=== PATIENT | female | born 1975 | race African-American/Black ===

== ENCOUNTER 2016-03-09 08:00 | Outpatient (CLI) | payer MEDICAID | END 2016-03-09 08:01 | disposition home or self-care (01) | DX: I48.91 Unspecified atrial fibrillation (principal); Z79.899 Other long term (current) drug therapy ==

== ENCOUNTER 2016-03-13 11:13 | Observation (INO) | payer MEDICAID ==
[2016-03-13] MEDS ORDERED: IPRATROPIUM/ALBUTEROL 3 ML NEB INH STA (12:15)
[2016-03-13] MEDS ORDERED: ASPIRIN CHEW 81 MG TABLET ONE ×2 (12:15→12:19)
[2016-03-13] MEDS ORDERED: ASPIRIN CHEW 81 MG TABLET PO STA (12:15)
[2016-03-13] MEDS ORDERED: predniSONE 20 MG TABLET ONE ×2 (12:15→12:20)
[2016-03-13] MEDS ORDERED: predniSONE 20 MG TABLET PO STA (12:16)
[2016-03-13] MEDS ORDERED: ONDANSETRON 4 MG/2 ML VIAL IVP PRN (14:38)
[2016-03-13] MEDS ORDERED: SODIUM CHLORIDE FLUSH 0.9% 10 ML SYRINGE IVP PRN (14:38)
[2016-03-13] MEDS ORDERED: MORPHINE 2 MG/ML SYRINGE IVP PRN (14:38)
[2016-03-13] MEDS ORDERED: oxyCODONE 5 MG TABLET PO PRN (14:38)
[2016-03-13] MEDS ORDERED: PANTOPRAZOLE 40 MG TABLET PO SCH (15:00)
[2016-03-13] MEDS ORDERED: IPRATROPIUM/ALBUTEROL 3 ML NEB INH PRN (15:35)
[2016-03-13] MEDS ORDERED: ALBUTEROL NEB 2.5 MG/3 ML INH PRN (15:35)
[2016-03-13] MEDS ORDERED: ALPRAZolam 0.25 MG TABLET PO PRN (15:43)
[2016-03-13] MEDS ORDERED: oxyCOD/ACETAMIN 5 MG/325 MG TABLET PO PRN (15:46)
[2016-03-13] MEDS: METOPROLOL TARTRATE 25 MG TABLET PO SCH ×3 (15:58→20:54)
[2016-03-13] MEDS: PROPAFENONE 150 MG TABLET PO SCH (16:00)
[2016-03-13] MEDS: PANTOPRAZOLE 40 MG TABLET PO SCH (20:55)
[2016-03-13] MEDS ORDERED: PRAZOSIN 1 MG CAPSULE PO SCH (21:00)
[2016-03-13] MEDS: methylPREDNISolone SUCCINATE 40 MG/ML VIAL IVP SCH (21:46)
[2016-03-13] MEDS: SODIUM CHLORIDE FLUSH 0.9% 10 ML SYRINGE IVP SCH (21:47)
[2016-03-13] MEDS ORDERED: LORazepam 2 MG/ML SYRINGE IVP PRN (23:25)
[2016-03-14] MEDS: PROPAFENONE 150 MG TABLET PO SCH ×2 (00:34→08:31)
[2016-03-14] MEDS: SODIUM CHLORIDE FLUSH 0.9% 10 ML SYRINGE IVP SCH (05:24)
[2016-03-14] MEDS: methylPREDNISolone SUCCINATE 40 MG/ML VIAL IVP SCH (05:24)
[2016-03-14] MEDS: METOPROLOL TARTRATE 25 MG TABLET PO SCH (08:31)
[2016-03-14] MEDS: PANTOPRAZOLE 40 MG TABLET PO SCH (08:31)
[2016-03-14] MEDS ORDERED: CHOLECALCIFEROL 5,000 UNIT CAPSULE PO SCH (09:00)
[2016-03-14] MEDS ORDERED: ASPIRIN CHEW 81 MG TABLET PO SCH (09:00)
[2016-03-14] MEDS ORDERED: POLYETHYLENE GLYCOL 3350 17 GM PACKET PO SCH (09:00)
[2016-03-14] MEDS ORDERED: CITALOPRAM 10 MG TABLET PO SCH (09:00)
[2016-03-14] MEDS ORDERED: WARFARIN 1 MG TABLET PO SCH (14:00)
[2016-03-14] MEDS ORDERED: WARFARIN 5 MG TABLET PO SCH (14:00)
== END 2016-03-14 12:53 | disposition home or self-care (01) ==
DX: J45.901 Unspecified asthma with (acute) exacerbation (principal); R07.9 Chest pain, unspecified; I49.5 Sick sinus syndrome; I10 Essential (primary) hypertension; F32.9 Major depressive disorder, single episode, unspecified; F41.0 Panic disorder [episodic paroxysmal anxiety]; F43.10 Post-traumatic stress disorder, unspecified; F40.240 Claustrophobia; E66.01 Morbid (severe) obesity due to excess calories; I48.91 Unspecified atrial fibrillation; G47.30 Sleep apnea, unspecified; K21.9 Gastro-esophageal reflux disease without esophagitis; Z68.43 Body mass index [BMI] 50.0-59.9, adult; Z95.0 Presence of cardiac pacemaker; Z87.01 Personal history of pneumonia (recurrent); Z86.73 Personal history of transient ischemic attack (TIA), and cerebral infarction without residual deficits; Z79.01 Long term (current) use of anticoagulants; Z87.891 Personal history of nicotine dependence
CPT/HCPCS: 36415; 71020; 80053; 80061; 81001; 83690; 83880; 84484; 85025; 85610; 85730; 87275; 87276; 93005; 93010; 93306; 94640; 96374; 96375; 96376; 99284; 99285; A9270; G0378; J2060; J7512; J7620

== ENCOUNTER 2016-03-17 | Outpatient (CLI) | payer MEDICAID | END 2016-03-17 10:14 | disposition home or self-care (01) ==

== ENCOUNTER 2016-03-26 17:42 | Emergency (ER) | payer MEDICAID ==
[2016-03-26] MEDS ORDERED: oxyCODONE/ACET 5/325 Prepack 4 PO STA (19:36)
[2016-03-26] MEDS ORDERED: oxyCODONE/ACET 5/325 Prepack 4 PO ONE (19:40)
== END 2016-03-26 19:48 | disposition home or self-care (01) ==
DX: S13.9XXA Sprain of joints and ligaments of unspecified parts of neck, initial encounter (principal); S06.0X0A Concussion without loss of consciousness, initial encounter; W09.2XXA Fall on or from jungle gym, initial encounter; Y93.89 Activity, other specified; Y92.830 Public park as the place of occurrence of the external cause; S90.02XA Contusion of left ankle, initial encounter; I10 Essential (primary) hypertension; I48.91 Unspecified atrial fibrillation; Z79.01 Long term (current) use of anticoagulants

== ENCOUNTER 2016-03-31 | Outpatient (CLI) | payer MEDICAID | END 2016-03-31 11:12 | disposition home or self-care (01) ==

== ENCOUNTER 2016-03-31 10:00 | Outpatient (CLI) | payer MEDICAID | END 2016-03-31 10:01 | disposition home or self-care (01) | DX: I48.91 Unspecified atrial fibrillation (principal); Z79.899 Other long term (current) drug therapy ==

== ENCOUNTER 2016-04-14 10:39 | Outpatient (CLI) | payer MEDICAID | END 2016-04-14 10:40 | disposition home or self-care (01) | DX: Z71.3 Dietary counseling and surveillance (principal); E66.01 Morbid (severe) obesity due to excess calories; Z68.39 Body mass index [BMI] 39.0-39.9, adult ==

== ENCOUNTER 2016-04-15 23:13 | Emergency (ER) | payer MEDICAID ==
[2016-04-15] MEDS ORDERED: LIDOCAINE 2% 10 ML MDV ONE (23:56)
[2016-04-16] MEDS ORDERED: CEPHALEXIN 250 MG CAPSULE PO STA (00:08)
[2016-04-16] MEDS ORDERED: SULFAMETH/TRIMETH DS 800/160 MG TABLET PO STA (00:08)
[2016-04-16] MEDS ORDERED: CEPHALEXIN 250 MG Prepack 8 PO STA (00:08)
[2016-04-16] MEDS ORDERED: SULFAMETH/TRIMETH DS 800/160 MG TABLET PO ONE (00:13)
[2016-04-16] MEDS ORDERED: CEPHALEXIN 250 MG CAPSULE PO ONE (00:13)
[2016-04-16] MEDS ORDERED: CEPHALEXIN 250 MG Prepack 8 PO ONE (00:14)
== END 2016-04-16 00:18 | disposition home or self-care (01) ==
DX: L02.411 Cutaneous abscess of right axilla (principal); I10 Essential (primary) hypertension; I48.91 Unspecified atrial fibrillation; Z79.01 Long term (current) use of anticoagulants; Z95.0 Presence of cardiac pacemaker; E66.01 Morbid (severe) obesity due to excess calories; Z68.43 Body mass index [BMI] 50.0-59.9, adult
CPT/HCPCS: 10160; 81001; 81025; 99282; 99283; A9270

== ENCOUNTER 2016-04-26 15:29 | Outpatient (CLI) | payer MEDICAID | END 2016-04-26 15:30 | disposition home or self-care (01) | DX: I48.91 Unspecified atrial fibrillation (principal); Z79.899 Other long term (current) drug therapy ==

== ENCOUNTER 2016-04-28 | Outpatient (CLI) | payer MEDICAID | END 2016-04-28 09:57 | disposition home or self-care (01) ==

== ENCOUNTER 2016-04-28 09:11 | Outpatient (CLI) | payer MEDICAID | END 2016-04-28 09:12 | disposition home or self-care (01) | DX: I48.91 Unspecified atrial fibrillation (principal); Z79.899 Other long term (current) drug therapy ==

== ENCOUNTER 2016-05-06 22:40 | Emergency (ER) | payer MEDICAID ==
[2016-05-07] MEDS ORDERED: oxyCOD/ACETAMIN 5 MG/325 MG TABLET PO STA (00:42)
[2016-05-07] MEDS ORDERED: oxyCOD/ACETAMIN 5 MG/325 MG TABLET PO ONE (00:43)
== END 2016-05-07 02:03 | disposition home or self-care (01) ==
DX: R07.89 Other chest pain (principal); E66.9 Obesity, unspecified; I10 Essential (primary) hypertension; I48.91 Unspecified atrial fibrillation; Z86.73 Personal history of transient ischemic attack (TIA), and cerebral infarction without residual deficits; Z95.0 Presence of cardiac pacemaker; J45.909 Unspecified asthma, uncomplicated; K21.9 Gastro-esophageal reflux disease without esophagitis; M19.90 Unspecified osteoarthritis, unspecified site
CPT/HCPCS: 36415; 71020; 80053; 83690; 83880; 84443; 84484; 85025; 93005; 93010; 99284; A9270

== ENCOUNTER 2016-05-23 12:31 | Outpatient (CLI) | payer MEDICAID | END 2016-05-23 12:32 | disposition home or self-care (01) | DX: I48.91 Unspecified atrial fibrillation (principal); Z79.899 Other long term (current) drug therapy ==

== ENCOUNTER 2016-06-16 08:00 | Outpatient (CLI) | payer MEDICAID | END 2016-06-16 23:59 | disposition home or self-care (01) | DX: I48.91 Unspecified atrial fibrillation (principal); Z79.899 Other long term (current) drug therapy ==

== ENCOUNTER 2016-07-04 23:43 | Emergency (ER) | payer MEDICAID ==
[2016-07-05] MEDS ORDERED: oxyCOD/ACETAMIN 5 MG/325 MG TABLET PO STA (00:52)
[2016-07-05] MEDS ORDERED: oxyCOD/ACETAMIN 5 MG/325 MG TABLET PO ONE (01:17)
== END 2016-07-05 02:52 | disposition home or self-care (01) ==
DX: S80.01XA Contusion of right knee, initial encounter (principal); W06.XXXA Fall from bed, initial encounter; Y92.013 Bedroom of single-family (private) house as the place of occurrence of the external cause; M17.11 Unilateral primary osteoarthritis, right knee; I48.91 Unspecified atrial fibrillation; Z79.01 Long term (current) use of anticoagulants; I10 Essential (primary) hypertension; J45.909 Unspecified asthma, uncomplicated; G47.30 Sleep apnea, unspecified; Z86.73 Personal history of transient ischemic attack (TIA), and cerebral infarction without residual deficits; K21.9 Gastro-esophageal reflux disease without esophagitis; M19.90 Unspecified osteoarthritis, unspecified site
CPT/HCPCS: 36415; 73564; 80053; 83690; 85025; 85610; 99283; A9270

== ENCOUNTER 2016-07-11 11:44 | Outpatient (CLI) | payer MEDICAID | END 2016-07-11 11:45 | disposition home or self-care (01) | DX: I48.91 Unspecified atrial fibrillation (principal); Z79.899 Other long term (current) drug therapy ==

== ENCOUNTER 2016-07-15 11:38 | Emergency (ER) | payer MEDICAID ==
[2016-07-15 11:52] VITALS: BP 156/99
--- NOTE | 2016-07-15 11:57 | ED Physician Documentation ---
PD HPI SKIN - Stated complaint Stated Complaint: ABSESS - Chief complaint Chief Complaint: Wound - History obtained from History obtained from: Patient - History of Present Illness Timing - onset: How many days ago (2-3) Timing - duration: Days Timing - details: Gradual onset Location: Back (right lateral lower thoracic area under a skin fold.) Quality / character: Painful (harjeet), Swelling. No: Draining Similar symptoms before: Diagnosis (staph abscesses) Review of Systems Constitutional: denies: Fever, Chills Cardiac: denies: Chest pain / pressure Respiratory: denies: Dyspnea GI: denies: Nausea, Vomiting, Diarrhea PD PAST MEDICAL HISTORY - Past Medical History Cardiovascular: Atrial fibrillation, Hypertension, Other Respiratory: Asthma, Shortness of breath, Sleep apnea, Pneumonia Neuro: Fainting, TIA Endocrine/Autoimmune: None GI: GERD SUPERVISOR FILES: None : Incontinence HEENT: None Psych: Depression, Anxiety, Panic attacks, Post traumatic stress disorder, Claustrophobia Musculoskeletal: Osteoarthritis Derm: None - Past Surgical History Past Surgical History: Yes General: Other Ortho: Knee replacement, Carpal Tunnel surgery /SUPERVISOR FILES: Dilation and currettage, Tubal ligation Cardiovascular: Pacemaker - Present Medications Home Medications: Ambulatory Orders Medication Instructions Recorded Confirmed Alprazolam 2 mg PO DAILY PRN 01/14/14 07/15/16 Hydrochlorothiazide 25 mg PO DAILY 02/28/14 07/15/16 Montelukast Sodium [Singulair] 10 mg PO QPM 03/17/15 07/15/16 Prazosin [Minipress] 8 mg PO QPM 03/17/15 07/15/16 Propafenone [Rythmol] 150 mg PO Q8H 03/17/15 07/15/16 Albuterol Sulf [Ventolin Hfa 2 puffs INH Q4H PRN 03/13/16 07/15/16 Inhaler] Cholecalciferol (Vitamin D3) 5,000 units PO DAILY 03/13/16 07/15/16 [Vitamin D3] Citalopram Hydrobromide 40 mg PO DAILY 03/13/16 07/15/16 [Citalopram HBr] Magnesium Oxide 400 mg PO QPM 03/13/16 07/15/16 Omeprazole [PriLOSEC] 20 mg PO BID 03/13/16 07/15/16 Warfarin Sodium [Coumadin] 14 mg PO DAILY 03/13/16 05/06/16 Metoprolol Tartrate 75 mg PO BID 05/06/16 07/15/16 Oxycodone HCl/Acetaminophen 1 each PO Q6HR PRN #12 tablet 07/05/16 07/15/16 [Oxycodone-Acetaminophen 5-325] Mupirocin 1 applic TP DAILY #15 oint...g. 07/15/16 Oxycodone HCl/Acetaminophen 1 each PO Q6H PRN #12 tablet 07/15/16 [Percocet 5-325 mg Tablet] Sulfamethox/Trimeth 800/160 1 each PO BID #14 tablet 07/15/16 [Bactrim Ds 800/160] - Allergies Allergies/Adverse Reactions: Allergies Allergy/AdvReac Type Severity Reaction Status Date / Time levofloxacin [From Levaquin] Allergy Severe Hives Verified 07/15/16 11:52 meperidine HCl * Allergy Severe Hives Verified 07/15/16 11:52 [From Demerol] hydrocodone [Hydrocodone] Allergy Intermediate Itching Verified 07/15/16 11:52 codeine Allergy Rash Verified 07/15/16 11:52 hydrocodone bitartrate * Allergy Itching Verified 07/15/16 11:52 [From Vicodin] methylprednisolone sodium AdvReac Anxiety Verified 07/15/16 11:52 succ... * [From Solu-Medrol] bees Allergy Anaphylaxis Uncoded 07/15/16 11:52 - Social History Does the pt smoke?: No Smoking Status: Never smoker Does the pt drink ETOH?: No Does the pt have substance abuse?: No - Immunizations Immunizations are current?: Yes - POLST Patient has POLST: No POLST Status: Full Code PD ED PE NORMAL - Vitals Vital signs reviewed: Yes - General General: Alert and oriented X 3, No acute distress, Well developed/nourished ( quite obese) - Cardiac Cardiac: RRR, No murmur - Respiratory Respiratory: Clear bilaterally - Abdomen Abdomen: Soft, Non tender - Derm Derm: Other (right posterolateral chest wall about lower thoracic with focal area of tenderness, induration and redness. Bedside U/S shows local subcut abscess.) - Neuro Neuro: No motor deficit, No sensory deficit Results - Vitals Vitals: Vital Signs - 24 hr 07/15/16 11:50 Temperature 36.6 C Heart Rate 72 Respiratory 16 Rate Blood Pressure 156/99 H O2 Saturation 100 Oxygen O2 Source Room air - Labs Labs: Laboratory Tests 07/15/16 12:36 Whole Blood INR 1.5 H Procedures - Abscess I&D (location) right thoracic back Preparation: Confirmed with ultrasound, Lidocaine 1%, With epi Incision: Incised with scalpel, Purulent drainage, Irrigated, Culture obtained. No: Packed Other: Pt tolerated well, Dressing applied, Antibiotic prescribed Departure - Departure Disposition: Home, Self Care Clinical Impression: Abscess Condition: Stable Record reviewed to determine appropriate education?: Yes Instructions: ED Abscess IandD Follow-Up: Dougie Yeung MD [Primary Care Provider] - Prescriptions: Sulfamethox/Trimeth 800/160 [Bactrim Ds 800/160] 1 each PO BID #14 tablet Mupirocin 1 applic TP DAILY #15 oint...g. Oxycodone HCl/Acetaminophen [Percocet 5-325 mg Tablet] 1 each PO Q6H PRN #12 tablet PRN Reason: Pain Comments: Usual medications. Recheck your Coumadin level on Monday for concern of the antibiotic course messing up the coumadin level. Discharge Date/Time: 07/15/16 12:38
[2016-07-15] MEDS ORDERED: SULFAMETH/TRIMETH DS 800/160 MG TABLET PO STA (12:22)
[2016-07-15] MEDS ORDERED: SULFAMETH/TRIMETH DS 800/160 MG TABLET PO ONE (12:25)
== END 2016-07-15 12:38 | disposition home or self-care (01) ==
LOC: ED 11:38
DX: L02.212 Cutaneous abscess of back [any part, except buttock and flank] (principal); I48.91 Unspecified atrial fibrillation; Z79.01 Long term (current) use of anticoagulants; I10 Essential (primary) hypertension
CPT/HCPCS: 10060; 85610; 99283; A9270

== ENCOUNTER 2016-07-18 09:02 | Outpatient (CLI) | payer MEDICAID ==
[2016-07-18 12:58] LABS: BASOPHILS % (AUTO) 0.3 %; EOSINOPHILS # (AUTO) 0.2 10^3/uL (0.0-0.7); EOSINOPHILS % (AUTO) 2.6 %; HCT - HEMATOCRIT 33.4 % (37.0-47.0); HGB - HEMOGLOBIN 10.8 g/dL (12.0-16.0); LYMPHOCYTES # (AUTO) 1.3 10^3/uL (1.5-3.5); LYMPHOCYTES % (AUTO) 20.8 %; MEAN CORPUSCULAR HEMOGLOBIN 21.7 pg (27.0-31.0); MEAN CORPUSCULAR HGB CONC 32.3 g/dL (32.0-36.0); MEAN CORPUSCULAR VOLUME 67.2 fL (81.0-99.0); MEAN PLATELET VOLUME 8.3 fL (7.9-10.8); MONOCYTES # (AUTO) 0.3 10^3/uL (0.0-1.0); MONOCYTES % (AUTO) 5.4 %; NEUTROPHILS # (AUTO) 4.3 10^3/uL (1.5-6.6); NEUTROPHILS % (AUTO) 70.9 %; RED BLOOD COUNT 4.97 10^6/uL (4.20-5.40); RED CELL DISTRIBUTION WIDTH 20.6 % (12.0-15.0); UNCORRECTED WHITE BLOOD COUNT 6.1 x10^3/uL; WHITE BLOOD COUNT 6.1 x10^3/uL (4.8-10.8)
[2016-07-18 13:01] LABS: HEMOGLOBIN A1C 0.47 g/dL
[2016-07-18 13:06] LABS: ALBUMIN/GLOBULIN RATIO 1.3 (1.0-2.2); BILIRUBIN,TOTAL 0.2 mg/dL (0.2-1.0); BUN - BLOOD UREA NITROGEN 15 mg/dL (6-20); CALCIUM 9.1 mg/dL (8.5-10.3); CARBON DIOXIDE - CO2 24 mmol/L (21-32); CHLORIDE 110 mmol/L (101-111); CHOL/HDL RATIO 5.1 (<4.4); CHOLESTEROL 193 mg/dL; CREATININE 0.6 mg/dL (0.4-1.0); GFR - MDRD 133 (>89); GLUCOSE 110 mg/dL (70-100); HDL CHOLESTEROL 38 mg/dL; LDL/HDL RATIO 3.6 (<4.4); POTASSIUM 4.2 mmol/L (3.5-5.0); SODIUM 141 mmol/L (135-145); TOTAL PROTEIN 6.8 g/dL (6.7-8.2); TRIGLYCERIDES 95 mg/dL; VLDL CHOLESTEROL 19 mg/dL
== END 2016-07-18 09:03 | disposition home or self-care (01) ==
LOC: LAB.N 09:02
PROVIDERS: ATTEND Family Medicine
DX: I48.91 Unspecified atrial fibrillation (principal); Z79.899 Other long term (current) drug therapy; Z79.84 Long term (current) use of oral hypoglycemic drugs
CPT/HCPCS: 36415; 80053; 80061; 82306; 83036; 84443; 85025; 85610

== ENCOUNTER 2016-07-26 13:00 | Outpatient (CLI) | payer MEDICAID | END 2016-07-26 13:01 | disposition home or self-care (01) | LOC: LAB.N 13:00 | PROVIDERS: ATTEND Family Medicine | DX: I48.91 Unspecified atrial fibrillation (principal); Z79.899 Other long term (current) drug therapy | CPT/HCPCS: 85610 ==

== ENCOUNTER 2016-08-08 09:10 | Emergency (ER) | payer MEDICAID ==
[2016-08-08] MEDS ORDERED: ALBUTEROL NEB 2.5 MG/3 ML INH STA (09:27)
[2016-08-08] MEDS ORDERED: ALBUTEROL NEB 2.5 MG/3 ML INH ONE (10:00)
[2016-08-08] MEDS ORDERED: DEXAMETHASONE 10 MG/ML VIAL PO STA (11:12)
--- NOTE | 2016-08-08 11:14 | ED Physician Documentation ---
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 Review of Systems Constitutional: denies: Fever Cardiac: reports: Chest pain / pressure Respiratory: reports: Cough GI: reports: Vomiting : denies: Now EGA Musculoskeletal: denies: Extremity pain, Extremity swelling PD PAST MEDICAL HISTORY - Past Medical History Cardiovascular: Atrial fibrillation, Hypertension, Other Respiratory: Asthma, Shortness of breath, Sleep apnea, Pneumonia Neuro: Fainting, TIA Endocrine/Autoimmune: None GI: GERD TENTS ASSEMBLER: None : Incontinence HEENT: None Psych: Depression, Anxiety, Panic attacks, Post traumatic stress disorder, Claustrophobia Musculoskeletal: Osteoarthritis Derm: None - Past Surgical History Past Surgical History: Yes General: Other Ortho: Knee replacement, Carpal Tunnel surgery /TENTS ASSEMBLER: Dilation and currettage, Tubal ligation Cardiovascular: Pacemaker - Present Medications Home Medications: Ambulatory Orders Medication Instructions Recorded Confirmed Alprazolam 2 mg PO DAILY PRN 01/14/14 07/15/16 Hydrochlorothiazide 25 mg PO DAILY 02/28/14 07/15/16 Montelukast Sodium [Singulair] 10 mg PO QPM 03/17/15 07/15/16 Prazosin [Minipress] 8 mg PO QPM 03/17/15 07/15/16 Propafenone [Rythmol] 150 mg PO Q8H 03/17/15 07/15/16 Albuterol Sulf [Ventolin Hfa 2 puffs INH Q4H PRN 03/13/16 07/15/16 Inhaler] Cholecalciferol (Vitamin D3) 5,000 units PO DAILY 03/13/16 07/15/16 [Vitamin D3] Citalopram Hydrobromide 40 mg PO DAILY 03/13/16 07/15/16 [Citalopram HBr] Magnesium Oxide 400 mg PO QPM 03/13/16 07/15/16 Omeprazole [PriLOSEC] 20 mg PO BID 03/13/16 07/15/16 Warfarin Sodium [Coumadin] 14 mg PO DAILY 03/13/16 05/06/16 Metoprolol Tartrate 75 mg PO BID 05/06/16 07/15/16 Oxycodone HCl/Acetaminophen 1 each PO Q6HR PRN #12 tablet 07/05/16 07/15/16 [Oxycodone-Acetaminophen 5-325] Mupirocin 1 applic TP DAILY #15 oint...g. 07/15/16 Oxycodone HCl/Acetaminophen 1 each PO Q6H PRN #12 tablet 07/15/16 [Percocet 5-325 mg Tablet] Sulfamethox/Trimeth 800/160 1 each PO BID #14 tablet 07/15/16 [Bactrim Ds 800/160] Benzonatate [Tessalon] 100 mg PO TID PRN #20 capsule 08/08/16 guaiFENesin/DEXTROMETHORPHAN 10 ml PO Q6H PRN #120 ml 08/08/16 [Robitussin Dm] predniSONE [Deltasone] 60 mg PO DAILY 5 Days 08/08/16 - Allergies Allergies/Adverse Reactions: Allergies Allergy/AdvReac Type Severity Reaction Status Date / Time levofloxacin [From Levaquin] Allergy Severe Hives Verified 07/15/16 11:52 meperidine HCl * Allergy Severe Hives Verified 07/15/16 11:52 [From Demerol] hydrocodone [Hydrocodone] Allergy Intermediate Itching Verified 07/15/16 11:52 codeine Allergy Rash Verified 07/15/16 11:52 hydrocodone bitartrate * Allergy Itching Verified 07/15/16 11:52 [From Vicodin] methylprednisolone sodium AdvReac Anxiety Verified 07/15/16 11:52 succ... * [From Solu-Medrol] bees Allergy Anaphylaxis Uncoded 07/15/16 11:52 - Social History Does the pt smoke?: No Smoking Status: Never smoker Does the pt drink ETOH?: No Does the pt have substance abuse?: No - Immunizations Immunizations are current?: Yes - POLST Patient has POLST: No POLST Status: Full Code PD ED PE NORMAL - Vitals Vital signs reviewed: Yes - General General: Alert and oriented X 3 - HEENT HEENT: PERRL - Neck Neck: Supple, no meningeal sign - Cardiac Cardiac: RRR - Respiratory Respiratory: Other (coarse ronchi and mild wheezing rosemary) - Abdomen Abdomen: Non tender - Extremities Extremities: No edema, No calf tenderness / cord - Neuro Neuro: Alert and oriented X 3 Results - Vitals Vitals: Vital Signs - 24 hr 08/08/16 08/08/16 09:24 10:05 Temperature 36.3 C L Heart Rate 74 75 Respiratory 28 H 24 Rate Blood Pressure 153/92 H O2 Saturation 99 Oxygen O2 Source Room air - Labs Labs: Laboratory Tests 08/08/16 10:00 Whole Blood INR 2.2 H - Rads (name of study) cxr Radiology: See rad report PD MEDICAL DECISION MAKING - ED course ED course: no change with nebs, mostly coarse and ronchi doubt PE given therapeutic coumadin likely bronchitis will dc with steroids, pts own inhalers, cough meds Departure - Departure Disposition: 01 Home, Self Care Clinical Impression: Bronchitis, Asthma Condition: Good Instructions: ED Bronchitis Asthmatic Follow-Up: Dougie Yeung MD [Primary Care Provider] - Prescriptions: predniSONE [Deltasone] 60 mg PO DAILY 5 Days guaiFENesin/DEXTROMETHORPHAN [Robitussin Dm] 10 ml PO Q6H PRN #120 ml PRN Reason: Cough Benzonatate [Tessalon] 100 mg PO TID PRN #20 capsule PRN Reason: to ease cough Comments: The xray was fine - no pneumonia Your coumadin level is therapeutic so I doubt you have a blood clot in your lung I have prescribed steroids to help with your asthma exacerbation - also use your albuterol every 4 hours for the next 3 days then may decrease to as needed And I wrote for cough medications to ease your symptoms Please follow up with your PMD about your blood pressure - it was high today Forms: Activity restrictions
[2016-08-08] MEDS ORDERED: DEXAMETHASONE 10 MG/ML VIAL ONE (11:32)
[2016-08-08] MEDS ORDERED: CHERRY SYRUP 10 ML UDC PO ONE (11:33)
--- NOTE | 2016-08-08 11:44 | XRAY Preliminary Report ---
Exam: XR Chest 2 View PA/LAT IMPRESSION: No acute abnormality of the chest. [facility] SITE ID: [id number]
--- NOTE | 2016-08-08 11:47 | XRAY Report ---
EXAM: CHEST RADIOGRAPHY EXAM DATE: 08/08/2016 11:26 AM. CLINICAL HISTORY: Cough. COMPARISON: 05/06/2016. TECHNIQUE: 2 views. FINDINGS: Lungs/Pleura: No focal opacities evident. No pleural effusion. No pneumothorax. Normal volumes. Mediastinum: Normal heart size. Stable transvenous pacer. Other: None. IMPRESSION: No acute abnormality of the chest. [facility] Referring Provider Line: [phone] SITE ID: [id number]
[2016-08-08 12:31] VITALS: BP 139/69
== END 2016-08-08 12:45 | disposition home or self-care (01) ==
LOC: ED 09:10
DX: J45.909 Unspecified asthma, uncomplicated (principal); I10 Essential (primary) hypertension; I48.91 Unspecified atrial fibrillation; Z79.01 Long term (current) use of anticoagulants; Z86.73 Personal history of transient ischemic attack (TIA), and cerebral infarction without residual deficits; K21.9 Gastro-esophageal reflux disease without esophagitis; M19.90 Unspecified osteoarthritis, unspecified site
CPT/HCPCS: 71020; 85610; 94640; 99282; 99283; A9270; J7613

== ENCOUNTER 2016-08-12 14:35 | Outpatient (CLI) | payer MEDICAID | END 2016-08-12 14:36 | disposition home or self-care (01) | LOC: LAB.N 14:35 | PROVIDERS: ATTEND Family Medicine | DX: I48.91 Unspecified atrial fibrillation (principal); Z79.899 Other long term (current) drug therapy | CPT/HCPCS: 85610 ==

== ENCOUNTER 2016-08-22 13:58 | Emergency (ER) | payer MEDICAID ==
[2016-08-22] MEDS ORDERED: BUPIVACAINE 0.5%-EPI 1:200000 PF 30 ML VIAL ONE (14:06)
[2016-08-22] MEDS ORDERED: HYDROmorphone 1 MG/ML SYRINGE IM STA ×3 (14:12→15:59)
[2016-08-22] MEDS ORDERED: TETANUS/DIPHTHERIA/PERTUSSIS 0.5 ML SYRINGE IM ONE ×2 (14:12→14:16)
[2016-08-22] MEDS ORDERED: HYDROmorphone 1 MG/ML SYRINGE ONE ×3 (14:12→16:33)
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
[2016-08-22] MEDS ORDERED: LORazepam 2 MG/ML SYRINGE IM STA (15:11)
[2016-08-22] MEDS ORDERED: LORazepam 2 MG/ML SYRINGE ONE (15:19)
[2016-08-22] MEDS ORDERED: BACITRACIN OINT TOP STA (15:59)
[2016-08-22] MEDS ORDERED: KETOROLAC 60 MG/2 ML VIAL IM STA (15:59)
[2016-08-22] MEDS ORDERED: PROMETHAZINE 25 MG/1 ML VIAL IM STA (16:24)
[2016-08-22] MEDS ORDERED: PROMETHAZINE 25 MG/1 ML VIAL ONE (16:33)
[2016-08-22] MEDS ORDERED: KETOROLAC 60 MG/2 ML VIAL ONE (16:33)
[2016-08-22 17:18] VITALS: BP 150/96
== END 2016-08-22 17:17 | disposition home or self-care (01) ==
LOC: ED 13:58
DX: T23.232A Burn of second degree of multiple left fingers (nail), not including thumb, initial encounter (principal); T31.0 Burns involving less than 10% of body surface; X19.XXXA Contact with other heat and hot substances, initial encounter; Y92.009 Unspecified place in unspecified non-institutional (private) residence as the place of occurrence of the external cause; Z23 Encounter for immunization; I10 Essential (primary) hypertension; I48.91 Unspecified atrial fibrillation; Z79.01 Long term (current) use of anticoagulants
CPT/HCPCS: 16020; 64450; 90471; 90715; 96372; 99283; 99284; J1170; J2060; 21315

== ENCOUNTER 2016-08-24 12:49 | Emergency (ER) | payer MEDICAID ==
[2016-08-24 13:01] VITALS: BP 147/99
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
== END 2016-08-24 13:31 | disposition home or self-care (01) ==
LOC: ED 12:49
DX: T23.202D Burn of second degree of left hand, unspecified site, subsequent encounter (principal); X08.8XXD Exposure to other specified smoke, fire and flames, subsequent encounter; I48.91 Unspecified atrial fibrillation; Z79.01 Long term (current) use of anticoagulants; I10 Essential (primary) hypertension; J45.909 Unspecified asthma, uncomplicated; G47.30 Sleep apnea, unspecified; K21.9 Gastro-esophageal reflux disease without esophagitis; M19.90 Unspecified osteoarthritis, unspecified site; Z86.73 Personal history of transient ischemic attack (TIA), and cerebral infarction without residual deficits
CPT/HCPCS: 99283

== ENCOUNTER 2016-08-26 13:17 | Outpatient (CLI) | payer MEDICAID | END 2016-08-26 23:59 | disposition home or self-care (01) | LOC: LAB.N 13:17 | PROVIDERS: ATTEND Family Medicine | DX: K90.49 Malabsorption due to intolerance, not elsewhere classified (principal); I48.91 Unspecified atrial fibrillation; Z79.899 Other long term (current) drug therapy | CPT/HCPCS: 36415; 82306; 85610 ==

== ENCOUNTER 2016-08-27 13:30 | Emergency (ER) | payer MEDICAID ==
--- NOTE | 2016-08-27 13:58 | ED Physician Documentation ---
PD HPI UPPER EXT INJURY - Stated complaint Stated Complaint: LEFT HAND PX - Chief complaint Chief Complaint: Burn - History of Present Illness Location: Left, Hand, Finger (4th/5th) - Additonal information Additional information: 41 y/o female on coumdin with a history of afib, htn asthma and TIA has burned her hand 6 days ago on hot wax. She has circumferential otero to the 4th and 5th digits and the blisters on the dorsum have ruptured and drained. The volar surface is gandhi/white and insensate except that now she is experiencing a deep burning sensation like a hundred points of fire. Review of Systems Constitutional: denies: Fever, Chills Eyes: denies: Loss of vision, Decreased vision Ears: denies: Ear pain Nose: denies: Congestion Throat: denies: Sore throat Cardiac: denies: Chest pain / pressure Respiratory: denies: Cough GI: denies: Vomiting : denies: Dysuria Skin: reports: Other (otero 2nd and 3rd degree to the left hand over #4/5) Musculoskeletal: reports: Extremity pain. denies: Neck pain, Back pain PD PAST MEDICAL HISTORY - Past Medical History Cardiovascular: Atrial fibrillation, Hypertension, Other Respiratory: Asthma, Shortness of breath, Sleep apnea, Pneumonia Neuro: Fainting, TIA Endocrine/Autoimmune: None GI: GERD CLINICAL DOCUMENTATION MANAGER: None : Incontinence HEENT: None Psych: Depression, Anxiety, Panic attacks, Post traumatic stress disorder, Claustrophobia Musculoskeletal: Osteoarthritis Derm: None - Past Surgical History Past Surgical History: Yes General: Other Ortho: Knee replacement, Carpal Tunnel surgery /CLINICAL DOCUMENTATION MANAGER: Dilation and currettage, Tubal ligation Cardiovascular: Pacemaker - Present Medications Home Medications: Ambulatory Orders Medication Instructions Recorded Confirmed Alprazolam 2 mg PO DAILY PRN 01/14/14 08/27/16 Hydrochlorothiazide 25 mg PO DAILY 02/28/14 08/27/16 Montelukast Sodium [Singulair] 10 mg PO QPM 03/17/15 08/27/16 Prazosin [Minipress] 8 mg PO QPM 03/17/15 08/27/16 Propafenone [Rythmol] 150 mg PO Q8H 03/17/15 08/27/16 Albuterol Sulf [Ventolin Hfa 2 puffs INH Q4H PRN 03/13/16 08/27/16 Inhaler] Cholecalciferol (Vitamin D3) 5,000 units PO DAILY 03/13/16 08/27/16 [Vitamin D3] Citalopram Hydrobromide 40 mg PO DAILY 03/13/16 08/27/16 [Citalopram HBr] Magnesium Oxide 400 mg PO QPM 03/13/16 08/27/16 Omeprazole [PriLOSEC] 20 mg PO BID 03/13/16 08/27/16 Warfarin Sodium [Coumadin] 14 mg PO DAILY 03/13/16 08/27/16 Metoprolol Tartrate 75 mg PO BID 05/06/16 08/27/16 Mupirocin 1 applic TP DAILY #15 oint...g. 07/15/16 08/27/16 Oxycodone HCl/Acetaminophen 1 - 2 tab PO Q4H PRN #30 tablet 08/22/16 08/27/16 [Percocet 5-325 mg Tablet] Cephalexin [Keflex] 500 mg PO QID #40 capsule 08/24/16 08/27/16 Gabapentin 300 mg PO TID #20 capsule 08/24/16 08/27/16 Silver Sulfadiazine [Silvadene] 1 applic TOP DAILY 08/24/16 08/27/16 Oxycodone HCl/Acetaminophen 1 - 2 each PO Q6HR PRN #20 tablet 08/27/16 [Percocet 5-325 mg Tablet] - Allergies Allergies/Adverse Reactions: Allergies Allergy/AdvReac Type Severity Reaction Status Date / Time levofloxacin [From Levaquin] Allergy Severe Hives Verified 08/27/16 13:42 meperidine HCl * Allergy Severe Hives Verified 08/27/16 13:42 [From Demerol] hydrocodone [Hydrocodone] Allergy Intermediate Itching Verified 08/27/16 13:42 codeine Allergy Rash Verified 08/27/16 13:42 hydrocodone bitartrate * Allergy Itching Verified 08/27/16 13:42 [From Vicodin] methylprednisolone sodium AdvReac Anxiety Verified 08/27/16 13:42 succ... * [From Solu-Medrol] bees Allergy Anaphylaxis Uncoded 08/27/16 13:42 - Social History Does the pt smoke?: No Smoking Status: Never smoker Does the pt drink ETOH?: No Does the pt have substance abuse?: No - Immunizations Immunizations are current?: Yes Immunizations: TDAP >10years/unknown - POLST Patient has POLST: No POLST Status: Full Code PD ED PE NORMAL - Vitals Vital signs reviewed: Yes (hypertensive) - General General: Alert and oriented X 3, No acute distress, Well developed/nourished - HEENT HEENT: Atraumatic - Respiratory Respiratory: No respiratory distress - Derm Derm: Normal color, Warm and dry - Extremities Extremities: Other (There is gandhi/white waxy appearing skin over the palmar surface of the 4th and 5th digits of the left hand . There is sparing of the tip and the dorsal surface appears to be a healing 2nd degree burn. ) - Neuro Neuro: No motor deficit, No sensory deficit - Psych Psych: Normal mood, Normal affect Results - Vitals Vitals: Vital Signs - 24 hr 08/27/16 13:35 Temperature 36.7 C Heart Rate 91 Respiratory 17 Rate Blood Pressure 121/85 H O2 Saturation 99 Oxygen O2 Source Room air PD MEDICAL DECISION MAKING - ED course Complexity details: reviewed old records, reviewed results, re-evaluated patient , considered differential, d/w patient, d/w family, d/w hematology oncology consultant ([facility] burn [facility] [place]. recomends draining dorsal blister and aquaphor for the ventral surface and follow up in burn clinic on 09-02-16) ED course: 41 y/o female with a deep burn to the left hand. Departure - Departure Disposition: 01 Home, Self Care Clinical Impression: Burn of hand Qualifiers: Encounter type: subsequent encounter Laterality: left Burn degree: unspecified degree Qualified Code(s): T23.002D - Burn of unspecified degree of left hand, unspecified site, subsequent encounter Instructions: ED Burn D 2nd, ED Burn, Third Degree Follow-Up: Dougie Yeung MD [Primary Care Provider] - [facility] [Provider Group] Prescriptions: Oxycodone HCl/Acetaminophen [Percocet 5-325 mg Tablet] 1 - 2 each PO Q6HR PRN # 20 tablet PRN Reason: Pain Comments: Follow up with the burn center at [facility] as planned on 09-02-2016 as planned. Use aquaphor cream for hydrating the skin.
[2016-08-27 15:02] VITALS: BP 144/90
== END 2016-08-27 15:00 | disposition home or self-care (01) ==
LOC: ED 13:30
DX: M79.642 Pain in left hand (principal); T23.332D Burn of third degree of multiple left fingers (nail), not including thumb, subsequent encounter; T23.262D Burn of second degree of back of left hand, subsequent encounter; X19.XXXD Contact with other heat and hot substances, subsequent encounter; I48.91 Unspecified atrial fibrillation; Z79.01 Long term (current) use of anticoagulants; I10 Essential (primary) hypertension; Z86.73 Personal history of transient ischemic attack (TIA), and cerebral infarction without residual deficits
CPT/HCPCS: 99282; 99284

== ENCOUNTER 2016-09-13 11:29 | Outpatient (CLI) | payer MEDICAID | END 2016-09-13 11:30 | disposition home or self-care (01) | LOC: LAB.N 11:29 | PROVIDERS: ATTEND Family Medicine | DX: I48.91 Unspecified atrial fibrillation (principal) | CPT/HCPCS: 85610 ==

== ENCOUNTER 2016-10-02 15:33 | Emergency (ER) | payer MEDICAID ==
--- NOTE | 2016-10-02 15:38 | ED Physician Documentation ---
PD HPI SKIN - Stated complaint Stated Complaint: ABCESSES - History obtained from History obtained from: Patient - History of Present Illness Timing - onset: Other (Over the last Few days, because of the heat and sweating this woman with multiple abscesses in the past has developed a few abscesses that she would like addressed, one on the right breast, one on the right flank, one on the left labia. No H/O MRSA) Review of Systems Constitutional: denies: Fever, Chills GI: denies: Abdominal Pain, Nausea, Vomiting Skin: denies: Rash PD PAST MEDICAL HISTORY - Past Medical History Cardiovascular: Atrial fibrillation, Hypertension, Other Respiratory: Asthma, Shortness of breath, Sleep apnea, Pneumonia Neuro: Fainting, TIA Endocrine/Autoimmune: None GI: GERD WASHATERIA ATTENDANT: None : Incontinence HEENT: None Psych: Depression, Anxiety, Panic attacks, Post traumatic stress disorder, Claustrophobia Musculoskeletal: Osteoarthritis Derm: None - Past Surgical History Past Surgical History: Yes General: Other Ortho: Knee replacement, Carpal Tunnel surgery /WASHATERIA ATTENDANT: Dilation and currettage, Tubal ligation Cardiovascular: Pacemaker - Present Medications Home Medications: Ambulatory Orders Medication Instructions Recorded Confirmed Alprazolam 2 mg PO DAILY PRN 01/14/14 10/02/16 Hydrochlorothiazide 25 mg PO DAILY 02/28/14 10/02/16 Montelukast Sodium [Singulair] 10 mg PO QPM 03/17/15 10/02/16 Prazosin [Minipress] 8 mg PO QPM 03/17/15 10/02/16 Propafenone [Rythmol] 150 mg PO Q8H 03/17/15 10/02/16 Albuterol Sulf [Ventolin Hfa 2 puffs INH Q4H PRN 03/13/16 10/02/16 Inhaler] Cholecalciferol (Vitamin D3) 5,000 units PO DAILY 03/13/16 10/02/16 [Vitamin D3] Citalopram Hydrobromide 40 mg PO DAILY 03/13/16 10/02/16 [Citalopram HBr] Magnesium Oxide 400 mg PO QPM 03/13/16 10/02/16 Omeprazole [PriLOSEC] 20 mg PO BID 03/13/16 10/02/16 Warfarin Sodium [Coumadin] 14 mg PO DAILY 03/13/16 10/02/16 Metoprolol Tartrate 75 mg PO BID 05/06/16 10/02/16 Gabapentin 300 mg PO TID #20 capsule 08/24/16 10/02/16 ARIPiprazole [Abilify] 5 mg PO DAILY 10/02/16 10/02/16 Cephalexin [Keflex] 500 mg PO QID #40 capsule 10/02/16 Hydroxyzine HCl 25 mg PO DAILY 10/02/16 10/02/16 Oxycodone HCl/Acetaminophen 1 - 2 tab PO Q4H PRN #15 tablet 10/02/16 [Percocet 5-325 mg Tablet] - Allergies Allergies/Adverse Reactions: Allergies Allergy/AdvReac Type Severity Reaction Status Date / Time levofloxacin [From Levaquin] Allergy Severe Hives Verified 10/02/16 15:39 meperidine HCl * Allergy Severe Hives Verified 10/02/16 15:39 [From Demerol] hydrocodone [Hydrocodone] Allergy Intermediate Itching Verified 10/02/16 15:39 codeine Allergy Rash Verified 10/02/16 15:39 hydrocodone bitartrate * Allergy Itching Verified 10/02/16 15:39 [From Vicodin] methylprednisolone sodium AdvReac Anxiety Verified 10/02/16 15:39 succ... * [From Solu-Medrol] bees Allergy Anaphylaxis Uncoded 10/02/16 15:39 - Social History Does the pt smoke?: No Smoking Status: Never smoker Does the pt drink ETOH?: No Does the pt have substance abuse?: No - Immunizations Immunizations are current?: Yes Immunizations: TDAP >10years/unknown - POLST Patient has POLST: No POLST Status: Full Code PD ED PE NORMAL - Vitals Vital signs reviewed: Yes - General General: Alert and oriented X 3, No acute distress - Derm Derm: Other (2cm poisted abscess lat R breast. V small abscesses R flank and L labia, all done with Aysha RN present.) - Neuro Neuro: Alert and oriented X 3, Normal speech - Psych Psych: Normal mood, Normal affect Results - Vitals Vitals: Vital Signs - 24 hr 10/02/16 15:36 Temperature 36.4 C L Heart Rate 71 Respiratory 15 Rate Blood Pressure 127/69 O2 Saturation 98 Oxygen O2 Source Room air Procedures - Abscess I&D (location) 3- R breast, R flank, L labia Preparation: Alcohol, Lidocaine 1% Incision: Incised with scalpel, Purulent drainage. No: Packed (too small) Other: Pt tolerated well, Dressing applied, Antibiotic prescribed Departure - Departure Disposition: 01 Home, Self Care Clinical Impression: Abscess Condition: Good Record reviewed to determine appropriate education?: Yes Instructions: ED Abscess IandD Prescriptions: Cephalexin [Keflex] 500 mg PO QID #40 capsule Oxycodone HCl/Acetaminophen [Percocet 5-325 mg Tablet] 1 - 2 tab PO Q4H PRN #15 tablet PRN Reason: Pain Comments: Call your doctor to arrange a follow-up appointment, make the next available appointment. In the interim, return anytime if worse or if new symptoms develop. Do not drink or drive while taking narcotic pain medication. Note that many narcotic pain relievers also contain Tylenol/acetaminophen. Please ensure that your total dose of acetaminophen from all sources does not exceed 3 g (3000 mg) per day. You may get constipated while on this medication. Take a stool softener such as Colace twice a day while you are on it. Also add an [id number] laxative such as senna or MiraLAX on any day that you do not have a bowel movement. If you received a narcotic pain medication or sedative while in the emergency department, do not drive for the next 24 hours. Discharge Date/Time: 10/02/16 16:02
[2016-10-02 15:39] VITALS: BP 127/69
[2016-10-02] MEDS ORDERED: LIDOCAINE MPF 1%-EPI 1:200000 30 ML VIAL ONE (15:40)
== END 2016-10-02 16:02 | disposition home or self-care (01) ==
LOC: ED 15:33
DX: N61.1 Abscess of the breast and nipple (principal); N76.4 Abscess of vulva; L02.219 Cutaneous abscess of trunk, unspecified; I48.91 Unspecified atrial fibrillation; I10 Essential (primary) hypertension; Z95.0 Presence of cardiac pacemaker; Z79.01 Long term (current) use of anticoagulants
CPT/HCPCS: 10060; 99283

== ENCOUNTER 2016-10-17 11:45 | Outpatient (CLI) | payer MEDICAID | END 2016-10-17 11:46 | disposition home or self-care (01) | LOC: LAB.N 11:45 | PROVIDERS: ATTEND Family Medicine | DX: I48.91 Unspecified atrial fibrillation (principal); Z79.899 Other long term (current) drug therapy | CPT/HCPCS: 85610 ==

== ENCOUNTER 2016-10-21 08:00 | Outpatient (CLI) | payer MEDICAID | END 2016-10-21 08:01 | disposition home or self-care (01) | LOC: LAB.N 08:00 | PROVIDERS: ATTEND Family Medicine | DX: I48.91 Unspecified atrial fibrillation (principal); Z79.899 Other long term (current) drug therapy | CPT/HCPCS: 85610 ==

== ENCOUNTER 2016-10-21 15:37 | Emergency (ER) | payer MEDICAID ==
[2016-10-21 15:57] VITALS: BP 108/65
[2016-10-21] MEDS ORDERED: oxyCOD/ACETAMIN 5 MG/325 MG TABLET PO STA (16:34)
[2016-10-21] MEDS ORDERED: oxyCOD/ACETAMIN 5 MG/325 MG TABLET PO ONE (16:59)
--- NOTE | 2016-10-21 17:22 | CT Preliminary Report ---
Exam: CT Head W/O IMPRESSION: No acute intracranial abnormality. [facility] SITE ID: [id number]
--- NOTE | 2016-10-21 17:25 | CT Report ---
EXAM: CT HEAD EXAM DATE: 10/21/2016 05:00 PM. CLINICAL HISTORY: Headache after falling yesterday; INR 8 today. COMPARISON: 03/26/[address] TECHNIQUE: Multiaxial CT images were obtained from the foramen magnum to the vertex. IV contrast: Non e. Reformats: Coronal. In accordance with CT protocol optimization, one or more of the following dose reduction techniques w ere utilized for this exam: automated exposure control, adjustment of mA and/or KV based on patient s ize, or use of iterative reconstructive technique. FINDINGS: Parenchyma: No intraparenchymal hemorrhage. No evidence of mass, midline shift, or CT findings of inf arction. Mcadams-white differentiation is distinct. Extraaxial Spaces: Normal for age. No subdural or epidural collections identified. Ventricles: Normal in size and position. Sinuses: Mild left paranasal sinus mucosal thickening. Bones: No evidence of fracture or calvarial defect. Other: None. IMPRESSION: No acute intracranial abnormality. [facility] Referring Provider Line: [phone] SITE ID: [id number]
--- NOTE | 2016-10-21 17:34 | ED Physician Documentation ---
History of Present Illness - Stated complaint Stated Complaint: INR GREATER THAN 8 - Chief complaint Chief Complaint: General - History obtained from History obtained from: Patient - Additonal information Additional information: The patient is a 41-year-old female with history of atrial fibrillation, anticoagulated on Coumadin. INR earlier today was 8.3, so she was sent to the emergency department for further evaluation. Her INR 6 days ago had been low at 1.6, so she was given 16 mg of Coumadin 5 days ago, then resumed her normal dosing for the rest of the week. She reports having a lower appetite than usual this past week and has been not eating as much as her normal diet. Yesterday she was pulling roots out of her yard, and fell backwards hitting her head, and currently complains of a headache. She denies nausea or vomiting. Review of Systems Constitutional: denies: Fever, Fatigue Eyes: denies: Decreased vision Ears: denies: Ear pain, Tinnitus/ringing Nose: denies: Congestion Throat: denies: Sore throat Cardiac: denies: Chest pain / pressure Respiratory: denies: Dyspnea, Cough GI: denies: Abdominal Pain, Nausea, Vomiting : denies: Dysuria Skin: denies: Rash Musculoskeletal: denies: Neck pain, Back pain Neurologic: reports: Headache. denies: Focal weakness, Numbness PD PAST MEDICAL HISTORY - Past Medical History Cardiovascular: Atrial fibrillation, Hypertension, Other Respiratory: Asthma, Shortness of breath, Sleep apnea, Pneumonia Neuro: Fainting, TIA Endocrine/Autoimmune: None GI: GERD ASSOCIATE MARKETING MANAGER: None : Incontinence HEENT: None Psych: Depression, Anxiety, Panic attacks, Post traumatic stress disorder, Claustrophobia Musculoskeletal: Osteoarthritis Derm: None - Past Surgical History Past Surgical History: Yes General: Other Ortho: Knee replacement, Carpal Tunnel surgery /ASSOCIATE MARKETING MANAGER: Dilation and currettage, Tubal ligation Cardiovascular: Pacemaker - Present Medications Home Medications: Ambulatory Orders Medication Instructions Recorded Confirmed Alprazolam 2 mg PO DAILY PRN 01/14/14 10/21/16 Hydrochlorothiazide 25 mg PO DAILY 02/28/14 10/21/16 Prazosin [Minipress] 8 mg PO QPM 03/17/15 10/21/16 Propafenone [Rythmol] 150 mg PO Q8H 03/17/15 10/21/16 Albuterol Sulf [Ventolin Hfa 2 puffs INH Q4H PRN 03/13/16 10/21/16 Inhaler] Cholecalciferol (Vitamin D3) 5,000 units PO DAILY 03/13/16 10/21/16 [Vitamin D3] Citalopram Hydrobromide 40 mg PO DAILY 03/13/16 10/21/16 [Citalopram HBr] Magnesium Oxide 400 mg PO QPM 03/13/16 10/21/16 Omeprazole [PriLOSEC] 20 mg PO BID 03/13/16 10/21/16 Warfarin Sodium [Coumadin] 12 mg PO DAILY 03/13/16 10/21/16 Metoprolol Tartrate 75 mg PO BID 05/06/16 10/21/16 Gabapentin 300 mg PO TID #20 capsule 08/24/16 10/21/16 ARIPiprazole [Abilify] 5 mg PO DAILY 10/02/16 10/21/16 Hydroxyzine HCl 25 mg PO DAILY 10/02/16 10/21/16 oxyCODONE/ACET 5/325 [Percocet 5 1 - 2 tab PO Q4-6H PRN #10 tablet 10/21/16 mg/325 mg] - Allergies Allergies/Adverse Reactions: Allergies Allergy/AdvReac Type Severity Reaction Status Date / Time levofloxacin [From Levaquin] Allergy Severe Hives Verified 10/02/16 15:39 meperidine HCl * Allergy Severe Hives Verified 10/02/16 15:39 [From Demerol] hydrocodone [Hydrocodone] Allergy Intermediate Itching Verified 10/02/16 15:39 codeine Allergy Rash Verified 10/02/16 15:39 hydrocodone bitartrate * Allergy Itching Verified 10/02/16 15:39 [From Vicodin] methylprednisolone sodium AdvReac Anxiety Verified 10/02/16 15:39 succ... * [From Solu-Medrol] bees Allergy Anaphylaxis Uncoded 10/02/16 15:39 - Social History Does the pt smoke?: No Smoking Status: Never smoker Does the pt drink ETOH?: No Does the pt have substance abuse?: No - Immunizations Immunizations are current?: Yes Immunizations: TDAP >10years/unknown - POLST Patient has POLST: No POLST Status: Full Code PD ED PE NORMAL - Vitals Vital signs reviewed: Yes (Normal) - General General: Alert and oriented X 3, Other (Morbidly obese.) - HEENT HEENT: Atraumatic, PERRL, EOMI, Ears normal, Pharynx benign - Neck Neck: Supple, no meningeal sign, No bony TTP, No JVD - Cardiac Cardiac: RRR, No murmur - Respiratory Respiratory: No respiratory distress, Clear bilaterally - Abdomen Abdomen: Soft, Non tender - Back Back: No CVA TTP, No spinal TTP - Derm Derm: No rash - Extremities Extremities: No edema, No calf tenderness / cord - Neuro Neuro: Alert and oriented X 3, No motor deficit, No sensory deficit, Normal speech Results - Vitals Vitals: Vital Signs - 24 hr 10/21/16 15:54 Temperature 36.1 C L Heart Rate 87 Respiratory 18 Rate Blood Pressure 108/65 O2 Saturation 100 Oxygen O2 Source Room air - Labs Labs: Laboratory Tests 10/21/16 16:29 Whole Blood INR > 8.0 H* - Rads (name of study) Head CT w/o Radiology: Prelim report reviewed, EMP read contemporaneously, See rad report ( No acute intracranial abnormality.) PD MEDICAL DECISION MAKING - ED course Complexity details: reviewed old records, reviewed results, re-evaluated patient , considered differential, d/w patient ED course: Patient's presentation is significant for Coumadin coagulopathy, with an INR of 8.0. Because of her recent fall and current headache, a CT scan of her brain was performed, and it is normal. Treatment in the emergency department included administration of Percocet 1 tablet orally, which improved her headache. I discussed with her the results of her CT scan, the importance of withholding her Coumadin dosing for at least the next 2 days, follow up with her primary physician, as well as potentially worrisome signs or symptoms that should prompt reevaluation in the emergency department. Departure - Departure Disposition: 01 Home, Self Care Clinical Impression: History of atrial fibrillation Warfarin overdosage Qualifiers: Encounter type: initial encounter Injury intent: accidental or unintentional Qualified Code(s): T45.511A - Poisoning by anticoagulants, accidental ( unintentional), initial encounter Headache Qualifiers: Headache type: unspecified Headache chronicity pattern: unspecified pattern Intractability: not intractable Qualified Code(s): R51 - Headache Condition: Stable Instructions: ED Cephalgia Unspecified, Coumadin Follow-Up: Dougie Yeung MD [Primary Care Provider] - Prescriptions: oxyCODONE/ACET 5/325 [Percocet 5 mg/325 mg] 1 - 2 tab PO Q4-6H PRN #10 tablet PRN Reason: Pain Comments: Do not take your Coumadin today or tomorrow. Contact the Coumadin dosing clinic regarding resuming your Coumadin. Avoid activity that may put you at risk for hitting your head, or other injuries. Return to the emergency department if you develop increasing headache, persistent vomiting, or otherwise worsening symptoms. Discharge Date/Time: 10/21/16 17:55
== END 2016-10-21 17:55 | disposition home or self-care (01) ==
LOC: ED 15:37
DX: T45.511A Poisoning by anticoagulants, accidental (unintentional), initial encounter (principal); R51 Headache; I48.91 Unspecified atrial fibrillation; I10 Essential (primary) hypertension; Z95.0 Presence of cardiac pacemaker; Z96.659 Presence of unspecified artificial knee joint; Z86.73 Personal history of transient ischemic attack (TIA), and cerebral infarction without residual deficits
CPT/HCPCS: 70450; 85610; 99283; 99284; A9270

== ENCOUNTER 2016-10-24 13:16 | Outpatient (CLI) | payer MEDICAID | END 2016-10-24 13:17 | disposition home or self-care (01) | LOC: LAB.N 13:16 | PROVIDERS: ATTEND Family Medicine | DX: I48.91 Unspecified atrial fibrillation (principal); Z79.899 Other long term (current) drug therapy | CPT/HCPCS: 85610 ==

== ENCOUNTER 2016-10-26 09:39 | Outpatient (CLI) | payer MEDICAID ==
[2016-10-26 12:30] LABS: INR 1.7 (0.8-1.2); PT - PROTHROMBIN TIME 19.2 secs (9.9-12.6)
[2016-10-26 12:31] LABS: BASOPHILS % (AUTO) 0.2 %; EOSINOPHILS # (AUTO) 0.1 10^3/uL (0.0-0.7); EOSINOPHILS % (AUTO) 2.1 %; HGB - HEMOGLOBIN 11.2 g/dL (12.0-16.0); LYMPHOCYTES # (AUTO) 1.1 10^3/uL (1.5-3.5); LYMPHOCYTES % (AUTO) 16.5 %; MEAN CORPUSCULAR HEMOGLOBIN 21.5 pg (27.0-31.0); MEAN CORPUSCULAR HGB CONC 32.1 g/dL (32.0-36.0); MEAN PLATELET VOLUME 7.8 fL (7.9-10.8); MONOCYTES # (AUTO) 0.4 10^3/uL (0.0-1.0); MONOCYTES % (AUTO) 5.5 %; NEUTROPHILS % (AUTO) 75.7 %; RED BLOOD COUNT 5.22 10^6/uL (4.20-5.40); RED CELL DISTRIBUTION WIDTH 20.1 % (12.0-15.0); UNCORRECTED WHITE BLOOD COUNT 6.6 x10^3/uL; WHITE BLOOD COUNT 6.6 x10^3/uL (4.8-10.8)
[2016-10-26 14:02] LABS: ALBUMIN/GLOBULIN RATIO 1.1 (1.0-2.2); BILIRUBIN,TOTAL 0.6 mg/dL (0.2-1.0); CALCIUM 9.5 mg/dL (8.5-10.3); CREATININE 0.6 mg/dL (0.4-1.0); TOTAL PROTEIN 7.3 g/dL (6.7-8.2)
== END 2016-10-26 09:40 | disposition home or self-care (01) ==
LOC: LAB.N 09:39
PROVIDERS: ATTEND Family Medicine
DX: R11.2 Nausea with vomiting, unspecified (principal); R79.1 Abnormal coagulation profile
CPT/HCPCS: 36415; 80053; 83690; 85025; 85610

== ENCOUNTER 2016-11-02 11:44 | Outpatient (CLI) | payer MEDICAID | END 2016-11-02 11:45 | disposition home or self-care (01) | LOC: LAB.N 11:44 | PROVIDERS: ATTEND Family Medicine | DX: I48.91 Unspecified atrial fibrillation (principal); Z79.899 Other long term (current) drug therapy | CPT/HCPCS: 85610 ==

== ENCOUNTER 2016-11-14 08:00 | Outpatient (CLI) | payer MEDICAID | END 2016-11-14 08:01 | disposition home or self-care (01) | LOC: LAB.N 08:00 | PROVIDERS: ATTEND Family Medicine | DX: I48.91 Unspecified atrial fibrillation (principal); Z79.899 Other long term (current) drug therapy | CPT/HCPCS: 85610 ==

== ENCOUNTER 2016-11-23 11:22 | Emergency (ER) | payer MEDICAID ==
[2016-11-23 11:46] VITALS: BP 123/74
[2016-11-23 12:58] LABS: BASOPHILS % (AUTO) 0.3 %; EOSINOPHILS # (AUTO) 0.1 10^3/uL (0.0-0.7); EOSINOPHILS % (AUTO) 2.3 %; HCT - HEMATOCRIT 35.1 % (37.0-47.0); HGB - HEMOGLOBIN 10.9 g/dL (12.0-16.0); LYMPHOCYTES # (AUTO) 1.3 10^3/uL (1.5-3.5); LYMPHOCYTES % (AUTO) 21.3 %; MEAN CORPUSCULAR HEMOGLOBIN 21.1 pg (27.0-31.0); MEAN CORPUSCULAR HGB CONC 31.2 g/dL (32.0-36.0); MEAN CORPUSCULAR VOLUME 67.8 fL (81.0-99.0); MEAN PLATELET VOLUME 7.2 fL (7.9-10.8); MONOCYTES # (AUTO) 0.3 10^3/uL (0.0-1.0); MONOCYTES % (AUTO) 5.1 %; NEUTROPHILS # (AUTO) 4.3 10^3/uL (1.5-6.6); NUCLEATED RED BLOOD CELLS AUTO 0.1 /100WBC; RED BLOOD COUNT 5.17 10^6/uL (4.20-5.40); RED CELL DISTRIBUTION WIDTH 19.8 % (12.0-15.0); UNCORRECTED WHITE BLOOD COUNT 6.1 x10^3/uL; WHITE BLOOD COUNT 6.1 x10^3/uL (4.8-10.8)
[2016-11-23 13:15] LABS: INR 2.1 (0.8-1.2); PT - PROTHROMBIN TIME 23.3 secs (9.9-12.6)
[2016-11-23 13:22] LABS: PARTIAL THROMBOPLASTIN TIME 37.2 secs (24.9-33.3)
--- NOTE | 2016-11-23 14:01 | ED Physician Documentation ---
History of Present Illness - Stated complaint Stated Complaint: BRUISES ON LEGS - Chief complaint Chief Complaint: General - History obtained from History obtained from: Patient, Family - History of Present Illness Timing: How many weeks ago (1) Pain level max: 7 Pain level now: 7 - Additonal information Additional information: Patient is on warfarin and states that she is having increased bruising and pain. Told by her doctor to come here for evaluation. Pain is worse with palpation, has not tried anything to make it better. Does not recall any significant injuries. Denies any bleeding from the gums, heavy vaginal bleeding. 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 MECHANIC: None : Incontinence HEENT: None Psych: Depression, Anxiety, Panic attacks, Post traumatic stress disorder, Claustrophobia Musculoskeletal: Osteoarthritis Derm: None - Past Surgical History Past Surgical History: Yes General: Other Ortho: Knee replacement, Carpal Tunnel surgery /WIND TUNNEL MECHANIC: Dilation and currettage, Tubal ligation Cardiovascular: Pacemaker - Present Medications Home Medications: Ambulatory Orders Medication Instructions Recorded Confirmed Alprazolam 2 mg PO DAILY PRN 01/14/14 11/23/16 Hydrochlorothiazide 25 mg PO DAILY 02/28/14 11/23/16 Prazosin [Minipress] 8 mg PO QPM 03/17/15 11/23/16 Propafenone [Rythmol] 150 mg PO Q8H 03/17/15 11/23/16 Albuterol Sulf [Ventolin Hfa 2 puffs INH Q4H PRN 03/13/16 11/23/16 Inhaler] Cholecalciferol (Vitamin D3) 5,000 units PO DAILY 03/13/16 11/23/16 [Vitamin D3] Citalopram Hydrobromide 40 mg PO DAILY 03/13/16 11/23/16 [Citalopram HBr] Magnesium Oxide 400 mg PO QPM 03/13/16 11/23/16 Omeprazole [PriLOSEC] 20 mg PO BID 03/13/16 11/23/16 Warfarin Sodium [Coumadin] 12 mg PO DAILY 03/13/16 11/23/16 Metoprolol Tartrate 75 mg PO BID 05/06/16 11/23/16 Gabapentin 300 mg PO TID #20 capsule 08/24/16 11/23/16 ARIPiprazole [Abilify] 5 mg PO DAILY 10/02/16 11/23/16 Hydroxyzine HCl 25 mg PO DAILY 10/02/16 11/23/16 oxyCODONE/ACET 5/325 [Percocet 5 1 - 2 tab PO Q4-6H PRN #10 tablet 10/21/16 mg/325 mg] oxyCODONE [Roxicodone] 5 mg PO Q4-6H PRN #14 tablet 11/23/16 - Allergies Allergies/Adverse Reactions: Allergies Allergy/AdvReac Type Severity Reaction Status Date / Time levofloxacin [From Levaquin] Allergy Severe Hives Verified 10/02/16 15:39 meperidine HCl * Allergy Severe Hives Verified 10/02/16 15:39 [From Demerol] hydrocodone [Hydrocodone] Allergy Intermediate Itching Verified 10/02/16 15:39 codeine Allergy Rash Verified 10/02/16 15:39 hydrocodone bitartrate * Allergy Itching Verified 10/02/16 15:39 [From Vicodin] methylprednisolone sodium AdvReac Anxiety Verified 10/02/16 15:39 succ... * [From Solu-Medrol] bees Allergy Anaphylaxis Uncoded 10/02/16 15:39 - Social History Does the pt smoke?: No Smoking Status: Never smoker Does the pt drink ETOH?: No Does the pt have substance abuse?: No - Immunizations Immunizations are current?: Yes Immunizations: TDAP >10years/unknown - POLST Patient has POLST: No POLST Status: Full Code PD ED PE NORMAL - Vitals Vital signs reviewed: Yes - General General: Alert and oriented X 3, No acute distress, Well developed/nourished - HEENT HEENT: Moist mucous membranes - Neck Neck: Supple, no meningeal sign - Cardiac Cardiac: RRR - Respiratory Respiratory: No respiratory distress, Clear bilaterally - Abdomen Abdomen: Soft, Non tender - Derm Derm: Warm and dry - Extremities Extremities: Other (Small areas of bruising and soft tissue swelling to the right lateral thigh and left lower leg. Compartments are soft. Neurovascularly intact. No bony tenderness) - Neuro Neuro: Alert and oriented X 3 - Psych Psych: Normal mood, Normal affect Results - Vitals Vitals: Oxygen O2 Source Room air - Labs Labs: Laboratory Tests 11/23/16 11/23/16 12:51 12:51 WBC 6.1 RBC 5.17 Hgb 10.9 L Hct 35.1 L MCV 67.8 L MCH 21.1 L MCHC 31.2 L RDW 19.8 H Plt Count 305 MPV 7.2 L Neut # 4.3 Lymph # 1.3 L [place] # 0.3 Eos # 0.1 Baso # 0.0 Absolute Nucleated RBC 0.01 Nucleated RBCs 0.1 PT 23.3 H INR 2.1 H APTT 37.2 H PD MEDICAL DECISION MAKING - ED course Complexity details: reviewed results, re-evaluated patient, considered differential, d/w patient ED course: Patient is a 41-year-old female who presents to the emergency department with what appeared to be soft tissue contusions. She is on warfarin. Gab bandages were applied to help with compression to stop the bleeding. Will prescribe a small amount of pain medication for home. She is otherwise very well-appearing , nontoxic. Ambulating well. Patient counseled regarding signs and symptoms for which I believe and urgent re-evaluation would be necessary. Patient with good understanding of and agreement to plan and is comfortable going home at this time This document was made in part using voice recognition software. While efforts are made to proofread this document, sound alike and grammatical errors may occur. Departure - Departure Disposition: 01 Home, Self Care Clinical Impression: Contusion Qualifiers: Encounter type: initial encounter Contusion area: lower leg Laterality: unspecified laterality Qualified Code(s): S80.10XA - Contusion of unspecified lower leg, initial encounter Condition: Good Instructions: ED Contusion Soft Tissue Follow-Up: Dougie Yeung MD [Primary Care Provider] - Within 1 week Prescriptions: oxyCODONE [Roxicodone] 5 mg PO Q4-6H PRN #14 tablet PRN Reason: leg pain Comments: Return if you worsen. You can use the Gab wrap for compression and use heat to help the bruising heal. Do not drink alcohol or drive while on narcotic pain medicine. Note that many narcotic pain relievers also contain tylenol/acetaminophen. Please ensure that your total dose of acetaminophen from all sources does not exceed 3 grams (3000mg) per day. You may constipated on this medication, take a stool softener such as "Colace" twice a day while you are on it. Also recommend a lggv-vlm-wefjrdr laxative such as senna or MiraLAX any day that you do not have a bowel movement. If you received narcotic pain medication in the emergency department, do not drive or operate machinery for the next 24 hours. Discharge Date/Time: 11/23/16 14:09
== END 2016-11-23 14:09 | disposition home or self-care (01) ==
LOC: ED 11:22
DX: S80.10XA Contusion of unspecified lower leg, initial encounter (principal); X58.XXXA Exposure to other specified factors, initial encounter; I10 Essential (primary) hypertension; I48.91 Unspecified atrial fibrillation; Z79.01 Long term (current) use of anticoagulants; Z95.0 Presence of cardiac pacemaker; Z96.659 Presence of unspecified artificial knee joint
CPT/HCPCS: 36415; 85025; 85610; 85730; 99283

== ENCOUNTER 2016-11-25 11:33 | Outpatient (CLI) | payer MEDICAID | END 2016-11-25 11:34 | disposition home or self-care (01) | LOC: LAB.N 11:33 | PROVIDERS: ATTEND Family Medicine | DX: I48.91 Unspecified atrial fibrillation (principal); Z79.899 Other long term (current) drug therapy | CPT/HCPCS: 85610 ==

== ENCOUNTER 2016-11-30 11:31 | Outpatient (CLI) | payer MEDICAID | END 2016-11-30 11:32 | disposition home or self-care (01) | LOC: LAB.N 11:31 | PROVIDERS: ATTEND Family Medicine | DX: I48.91 Unspecified atrial fibrillation (principal); Z79.899 Other long term (current) drug therapy | CPT/HCPCS: 85610 ==

== ENCOUNTER 2016-12-04 11:50 | Emergency (ER) | payer MEDICAID ==
[2016-12-04 12:09] VITALS: BP 112/69
[2016-12-04] MEDS ORDERED: BUFFERED LIDOCAINE 10 ML SYRINGE SUBQ STA (12:45)
[2016-12-04] MEDS ORDERED: oxyCOD/ACETAMIN 5 MG/325 MG TABLET PO STA (12:45)
--- NOTE | 2016-12-04 12:48 | ED Physician Documentation ---
PD HPI SKIN - Stated complaint Stated Complaint: ABSCESS - Chief complaint Chief Complaint: Wound - History obtained from History obtained from: Patient - History of Present Illness Timing - onset: Other (41-year-old woman with recurrent abscesses complains of 2 abscesses, one right groin, one right flank that are painful. No fevers. Past cultures have not really grown any specific pathogen, usually mixed skin garrett. 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 : Incontinence HEENT: None Psych: Depression, Anxiety, Panic attacks, Post traumatic stress disorder, Claustrophobia Musculoskeletal: Osteoarthritis Derm: None - Past Surgical History Past Surgical History: Yes General: Other Ortho: Knee replacement, Carpal Tunnel surgery /SALES EXECUTIVE INSURANCE: Dilation and currettage, Tubal ligation Cardiovascular: Pacemaker - Present Medications Home Medications: Ambulatory Orders Medication Instructions Recorded Confirmed Alprazolam 2 mg PO DAILY PRN 01/14/14 12/04/16 Hydrochlorothiazide 25 mg PO DAILY 02/28/14 12/04/16 Prazosin [Minipress] 8 mg PO QPM 03/17/15 12/04/16 Propafenone [Rythmol] 150 mg PO Q8H 03/17/15 12/04/16 Albuterol Sulf [Ventolin Hfa 2 puffs INH Q4H PRN 03/13/16 12/04/16 Inhaler] Cholecalciferol (Vitamin D3) 5,000 units PO DAILY 03/13/16 12/04/16 [Vitamin D3] Citalopram Hydrobromide 40 mg PO DAILY 03/13/16 12/04/16 [Citalopram HBr] Magnesium Oxide 400 mg PO QPM 03/13/16 12/04/16 Omeprazole [PriLOSEC] 20 mg PO BID 03/13/16 12/04/16 Warfarin Sodium [Coumadin] 12 mg PO DAILY 03/13/16 12/04/16 Metoprolol Tartrate 75 mg PO BID 03/03/17 10/01/17 Gabapentin 300 mg PO TID #20 capsule 08/24/16 12/04/16 ARIPiprazole [Abilify] 5 mg PO DAILY 10/02/16 12/04/16 Hydroxyzine HCl 25 mg PO DAILY 10/02/16 12/04/16 Cephalexin [Keflex] 500 mg PO QID #30 capsule 12/04/16 Oxycodone HCl/Acetaminophen 1 - 2 tab PO Q4H PRN #10 tablet 12/04/16 [Percocet 5-325 mg Tablet] - Allergies Allergies/Adverse Reactions: Allergies Allergy/AdvReac Type Severity Reaction Status Date / Time levofloxacin [From Levaquin] Allergy Severe Hives Verified 10/02/16 15:39 meperidine HCl * Allergy Severe Hives Verified 10/02/16 15:39 [From Demerol] hydrocodone [Hydrocodone] Allergy Intermediate Itching Verified 10/02/16 15:39 codeine Allergy Rash Verified 10/02/16 15:39 hydrocodone bitartrate * Allergy Itching Verified 10/02/16 15:39 [From Vicodin] methylprednisolone sodium AdvReac Anxiety Verified 10/02/16 15:39 succ... * [From Solu-Medrol] bees Allergy Anaphylaxis Uncoded 10/02/16 15:39 - Social History Does the pt smoke?: No Smoking Status: Never smoker Does the pt drink ETOH?: No Does the pt have substance abuse?: No - Immunizations Immunizations are current?: Yes Immunizations: TDAP >10years/unknown - POLST Patient has POLST: No POLST Status: Full Code PD ED PE NORMAL - Vitals Vital signs reviewed: Yes - General General: Alert and oriented X 3, No acute distress, Well developed/nourished - Abdomen Abdomen: Soft, Non tender - Derm Derm: Other (3 small pointed abscesses, 2 on the right flank, one in the right groin. No cellulitis of any of them.) - Neuro Neuro: Alert and oriented X 3, Normal speech - Psych Psych: Normal mood, Normal affect Results - Vitals Vitals: Vital Signs - 24 hr 12/04/16 12:06 Temperature 35.9 C L Heart Rate 69 Respiratory 20 Rate Blood Pressure 112/69 O2 Saturation 98 Oxygen O2 Source Room air Procedures - Abscess I&D (location) Multiple Preparation: Alcohol, Lidocaine 1%, Other (3 abscesses, 2 on the right flank, one in the right groin. All were infiltrated with buffered lidocaine and then incised with a scalpel. She tolerated this well.) Departure - Departure Disposition: 01 Home, Self Care Clinical Impression: Abscess of multiple sites Condition: Good Record reviewed to determine appropriate education?: Yes Instructions: ED Abscess IandD Prescriptions: Cephalexin [Keflex] 500 mg PO QID #30 capsule Oxycodone HCl/Acetaminophen [Percocet 5-325 mg Tablet] 1 - 2 tab PO Q4H PRN #10 tablet PRN Reason: Pain Comments: Call your doctor to arrange a follow-up appointment, make the next available appointment. In the interim, return anytime if worse or if new symptoms develop. Often times when you start antibiotics while you are taking anticoagulants such as Coumadin or warfarin, your INR will go up. You need to have your INR checked frequently while on the antibiotics. Have it checked in 3 days, again in 6 days, and at least weekly while you are on antibiotics. Dose adjustments of your anticoagulants may be necessary.
[2016-12-04] MEDS ORDERED: oxyCOD/ACETAMIN 5 MG/325 MG TABLET PO ONE (12:56)
[2016-12-04] MEDS ORDERED: BUFFERED LIDOCAINE 10 ML SYRINGE ONE (12:56)
== END 2016-12-04 13:08 | disposition home or self-care (01) ==
LOC: ED 11:50
DX: L02.214 Cutaneous abscess of groin (principal); L02.211 Cutaneous abscess of abdominal wall; I10 Essential (primary) hypertension; I48.91 Unspecified atrial fibrillation; Z79.01 Long term (current) use of anticoagulants; J45.909 Unspecified asthma, uncomplicated; G47.30 Sleep apnea, unspecified; Z86.73 Personal history of transient ischemic attack (TIA), and cerebral infarction without residual deficits; K21.9 Gastro-esophageal reflux disease without esophagitis; M19.90 Unspecified osteoarthritis, unspecified site; Z95.0 Presence of cardiac pacemaker
CPT/HCPCS: 10060; 99283; A9270

== ENCOUNTER 2016-12-09 11:30 | Outpatient (CLI) | payer MEDICAID | END 2016-12-09 11:31 | disposition home or self-care (01) | LOC: LAB.N 11:30 | PROVIDERS: ATTEND Nurse Practitioner Gerontology | DX: I48.91 Unspecified atrial fibrillation (principal) | CPT/HCPCS: 85610 ==

== ENCOUNTER 2016-12-13 16:09 | Emergency (ER) | payer MEDICAID ==
[2016-12-13 16:32] VITALS: BP 139/84
--- NOTE | 2016-12-13 17:16 | ED Physician Documentation ---
PD HPI SKIN - Stated complaint Stated Complaint: R SIDE ABD PX - Chief complaint Chief Complaint: Wound - History obtained from History obtained from: Patient - History of Present Illness Timing - onset: Other (She has frequent recurrent abscesses, mostly on the trunk and has a new one on the right chest, she was seen here just about a week ago and had 3 incision and drainage is done. 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 : Incontinence HEENT: None Psych: Depression, Anxiety, Panic attacks, Post traumatic stress disorder, Claustrophobia Musculoskeletal: Osteoarthritis Derm: None - Past Surgical History Past Surgical History: Yes General: Other Ortho: Knee replacement, Carpal Tunnel surgery /FILEMAKER DEVELOPER: Dilation and currettage, Tubal ligation Cardiovascular: Pacemaker - Present Medications Home Medications: Ambulatory Orders Medication Instructions Recorded Confirmed Alprazolam 2 mg PO DAILY PRN 01/14/14 12/13/16 Hydrochlorothiazide 25 mg PO DAILY 02/28/14 12/13/16 Prazosin [Minipress] 8 mg PO QPM 03/17/15 12/13/16 Propafenone [Rythmol] 150 mg PO Q8H 03/17/15 12/13/16 Albuterol Sulf [Ventolin Hfa 2 puffs INH Q4H PRN 03/13/16 12/13/16 Inhaler] Cholecalciferol (Vitamin D3) 5,000 units PO DAILY 03/13/16 12/13/16 [Vitamin D3] Citalopram Hydrobromide 40 mg PO DAILY 03/13/16 12/13/16 [Citalopram HBr] Magnesium Oxide 400 mg PO QPM 03/13/16 12/13/16 Omeprazole [PriLOSEC] 20 mg PO BID 03/13/16 12/13/16 Warfarin Sodium [Coumadin] 12 mg PO DAILY 03/13/16 12/13/16 Metoprolol Tartrate 75 mg PO BID 05/06/16 12/13/16 Gabapentin 300 mg PO TID #20 capsule 08/24/16 12/13/16 ARIPiprazole [Abilify] 5 mg PO DAILY 10/02/16 12/13/16 Hydroxyzine HCl 25 mg PO DAILY 10/02/16 12/13/16 Cephalexin [Keflex] 500 mg PO QID #30 capsule 12/04/16 12/13/16 Cephalexin [Keflex] 500 mg PO QID #40 capsule 12/13/16 Oxycodone HCl/Acetaminophen 1 - 2 tab PO Q4H PRN #10 tablet 12/13/16 [Percocet 5-325 mg Tablet] - Allergies Allergies/Adverse Reactions: Allergies Allergy/AdvReac Type Severity Reaction Status Date / Time levofloxacin [From Levaquin] Allergy Severe Hives Verified 12/13/16 16:39 meperidine HCl * Allergy Severe Hives Verified 12/13/16 16:39 [From Demerol] hydrocodone [Hydrocodone] Allergy Intermediate Itching Verified 12/13/16 16:39 codeine Allergy Rash Verified 12/13/16 16:39 hydrocodone bitartrate * Allergy Itching Verified 12/13/16 16:39 [From Vicodin] methylprednisolone sodium AdvReac Anxiety Verified 12/13/16 16:39 succ... * [From Solu-Medrol] bees Allergy Anaphylaxis Uncoded 12/13/16 16:39 - Social History Does the pt smoke?: No Smoking Status: Never smoker Does the pt drink ETOH?: No Does the pt have substance abuse?: No - Immunizations Immunizations are current?: Yes Immunizations: TDAP >10years/unknown - POLST Patient has POLST: No POLST Status: Full Code PD ED PE NORMAL - Vitals Vital signs reviewed: Yes - General General: Alert and oriented X 3, No acute distress - Derm Derm: Other (Pointed abscess to the right lateral breast without overlying cellulitis) - Neuro Neuro: Alert and oriented X 3, Normal speech Results - Vitals Vitals: Vital Signs - 24 hr 12/13/16 16:30 Temperature 36.5 C Heart Rate 79 Respiratory 20 Rate Blood Pressure 139/84 H O2 Saturation 96 Oxygen O2 Source Room air Procedures - Abscess I&D (location) R breast Preparation: Alcohol, Lidocaine 1%, Other (done with [email or web address]) Incision: Incised with scalpel, Purulent drainage, Loculations broken. No: Packed Other: Pt tolerated well, Antibiotic prescribed Departure - Departure Disposition: 01 Home, Self Care Clinical Impression: Abscess Condition: Good Record reviewed to determine appropriate education?: Yes Instructions: ED Abscess IandD Prescriptions: Cephalexin [Keflex] 500 mg PO QID #40 capsule Oxycodone HCl/Acetaminophen [Percocet 5-325 mg Tablet] 1 - 2 tab PO Q4H PRN #10 tablet PRN Reason: Pain Comments: Call your doctor to arrange a follow-up appointment, make the next available appointment. In the interim, return anytime if worse or if new symptoms develop. Often times when you start antibiotics while you are taking anticoagulants such as Coumadin or warfarin, your INR will go up. You need to have your INR checked frequently while on the antibiotics. Have it checked in 3 days, again in 6 days, and at least weekly while you are on antibiotics. Dose adjustments of your anticoagulants may be necessary. Your blood pressure was elevated today on check into the emergency department. This does not mean that you have hypertension, it is a common phenomenon to come to the emergency department and have elevated blood pressure. I recommend that she see your primary care physician within the week to have it rechecked when you are feeling better. Do not drink or drive while taking narcotic pain medication. Note that many narcotic pain relievers also contain Tylenol/acetaminophen. Please ensure that your total dose of acetaminophen from all sources does not exceed 3 g (3000 mg) per day. You may get constipated while on this medication. Take a stool softener such as Colace twice a day while you are on it. Also add an [id number] laxative such as senna or MiraLAX on any day that you do not have a bowel movement. If you received a narcotic pain medication or sedative while in the emergency department, do not drive for the next 24 hours.
[2016-12-13] MEDS ORDERED: BUFFERED LIDOCAINE 10 ML SYRINGE ONE (17:20)
== END 2016-12-13 17:37 | disposition home or self-care (01) ==
LOC: ED 16:09
DX: N61.1 Abscess of the breast and nipple (principal); I10 Essential (primary) hypertension; I48.91 Unspecified atrial fibrillation; Z86.73 Personal history of transient ischemic attack (TIA), and cerebral infarction without residual deficits; Z96.659 Presence of unspecified artificial knee joint; Z95.0 Presence of cardiac pacemaker; Z79.01 Long term (current) use of anticoagulants
CPT/HCPCS: 10060; 99283

== ENCOUNTER 2016-12-14 13:16 | Outpatient (CLI) | payer MEDICAID | END 2016-12-14 13:17 | disposition home or self-care (01) | LOC: LAB.N 13:16 | PROVIDERS: ATTEND Family Medicine | DX: I48.91 Unspecified atrial fibrillation (principal); Z79.899 Other long term (current) drug therapy | CPT/HCPCS: 85610 ==

== ENCOUNTER 2016-12-16 08:00 | Outpatient (CLI) | payer MEDICAID | END 2016-12-16 08:01 | disposition home or self-care (01) | LOC: LAB.R 08:00 | PROVIDERS: ATTEND Physician Assistant Medical | DX: E66.01 Morbid (severe) obesity due to excess calories (principal); Z98.84 Bariatric surgery status | CPT/HCPCS: 83013 ==

== ENCOUNTER 2016-12-16 12:14 | Outpatient (CLI) | payer MEDICAID | END 2016-12-16 12:15 | disposition home or self-care (01) | LOC: LAB.N 12:14 | PROVIDERS: ATTEND Family Medicine | DX: I48.91 Unspecified atrial fibrillation (principal); Z79.899 Other long term (current) drug therapy; E66.01 Morbid (severe) obesity due to excess calories; Z98.84 Bariatric surgery status | CPT/HCPCS: 83013; 85610 ==

== ENCOUNTER 2016-12-22 08:00 | Outpatient (CLI) | payer MEDICAID | END 2016-12-22 08:01 | disposition home or self-care (01) | LOC: LAB.N 08:00 | PROVIDERS: ATTEND Family Medicine | DX: I48.91 Unspecified atrial fibrillation (principal); Z79.899 Other long term (current) drug therapy | CPT/HCPCS: 85610 ==

== ENCOUNTER 2016-12-30 10:57 | Outpatient (CLI) | payer MEDICAID ==
[2016-12-30 18:59] LABS: BASOPHILS % (AUTO) 0.3 %; EOSINOPHILS # (AUTO) 0.1 10^3/uL (0.0-0.7); EOSINOPHILS % (AUTO) 2.5 %; HCT - HEMATOCRIT 34.7 % (37.0-47.0); HGB - HEMOGLOBIN 10.6 g/dL (12.0-16.0); IMMATURE RETIC FRACTION 0.55; LYMPHOCYTES # (AUTO) 1.3 10^3/uL (1.5-3.5); LYMPHOCYTES % (AUTO) 26.4 %; MEAN CORPUSCULAR HEMOGLOBIN 21.3 pg (27.0-31.0); MEAN CORPUSCULAR HGB CONC 30.6 g/dL (32.0-36.0); MEAN CORPUSCULAR VOLUME 69.5 fL (81.0-99.0); MEAN PLATELET VOLUME 8.2 fL (7.9-10.8); MONOCYTES # (AUTO) 0.4 10^3/uL (0.0-1.0); MONOCYTES % (AUTO) 7.7 %; NEUTROPHILS # (AUTO) 3.1 10^3/uL (1.5-6.6); NEUTROPHILS % (AUTO) 63.1 %; NUCLEATED RED BLOOD CELLS AUTO 0.2 /100WBC; RED BLOOD COUNT 4.99 10^6/uL (4.20-5.40); RED CELL DISTRIBUTION WIDTH 20.8 % (12.0-15.0); UNCORRECTED WHITE BLOOD COUNT 4.8 x10^3/uL; WHITE BLOOD COUNT 4.8 x10^3/uL (4.8-10.8)
[2016-12-30 19:29] LABS: IRON 16 ug/dL (28-170); TOTAL IRON BINDING CAPACITY 357 ug/dL (250-450); TRANSFERRIN 255 mg/dL (192-382)
[2016-12-30 21:05] LABS: PLATELET ESTIMATE, MANUAL NORMAL (130-450,000) (NORMAL); PLATELET MORPHOLOGY 1+ LARGE PLATELETS (NORMAL)
== END 2016-12-30 10:58 | disposition home or self-care (01) ==
LOC: LAB.N 10:57
PROVIDERS: ATTEND Family Medicine
DX: D50.9 Iron deficiency anemia, unspecified (principal); I48.91 Unspecified atrial fibrillation; E55.9 Vitamin D deficiency, unspecified; R58 Hemorrhage, not elsewhere classified; Z79.899 Other long term (current) drug therapy
CPT/HCPCS: 36415; 82306; 82728; 83540; 84466; 85025; 85044; 85610

== ENCOUNTER 2017-01-17 11:18 | Outpatient (CLI) | payer MEDICAID | END 2017-01-17 11:19 | disposition home or self-care (01) | LOC: LAB.N 11:18 | PROVIDERS: ATTEND Family Medicine | DX: I48.91 Unspecified atrial fibrillation (principal); Z79.899 Other long term (current) drug therapy | CPT/HCPCS: 85610 ==

== ENCOUNTER 2017-01-19 14:40 | Emergency (ER) | payer MEDICAID ==
[2017-01-19 14:50] VITALS: BP 153/87
[2017-01-19] MEDS ORDERED: LIDOCAINE 1% 2 ML VIAL ONE (15:04)
--- NOTE | 2017-01-19 15:10 | ED Physician Documentation ---
PD HPI SKIN - Stated complaint Stated Complaint: LUMP ON RT EAR, LT SIDE - Chief complaint Chief Complaint: Wound - History obtained from History obtained from: Patient - History of Present Illness Timing - onset: How many days ago (past couple days) Quality / character: Painful, Burning, Draining Similar symptoms before: Diagnosis (sbscess) Review of Systems Constitutional: denies: Fever, Chills Cardiac: denies: Chest pain / pressure Respiratory: denies: Dyspnea, Cough, Wheezing GI: denies: Abdominal Pain, Nausea, Constipation, Diarrhea : denies: Dysuria, Frequency Skin: reports: Rash, Lesions. 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 : Incontinence HEENT: None Psych: Depression, Anxiety, Panic attacks, Post traumatic stress disorder, Claustrophobia Musculoskeletal: Osteoarthritis Derm: None - Past Surgical History Past Surgical History: Yes General: Other Ortho: Knee replacement, Carpal Tunnel surgery /ONCOLOGY REP SPECIALIST: Dilation and currettage, Tubal ligation Cardiovascular: Pacemaker - Present Medications Home Medications: Ambulatory Orders Medication Instructions Recorded Confirmed ALPRAZolam [Alprazolam] 2 mg PO DAILY PRN 01/14/14 12/13/16 hydroCHLOROthiazide 25 mg PO DAILY 02/28/14 12/13/16 [Hydrochlorothiazide] Prazosin [Minipress] 8 mg PO QPM 03/17/15 12/13/16 Propafenone [Rythmol] 150 mg PO Q8H 03/17/15 12/13/16 Albuterol Sulf [Ventolin Hfa 2 puffs INH Q4H PRN 03/13/16 12/13/16 Inhaler] Cholecalciferol (Vitamin D3) 5,000 units PO DAILY 03/13/16 12/13/16 [Vitamin D3] Citalopram Hydrobromide 40 mg PO DAILY 03/13/16 12/13/16 [Citalopram HBr] Magnesium Oxide 400 mg PO QPM 03/13/16 12/13/16 Omeprazole [PriLOSEC] 20 mg PO BID 03/13/16 12/13/16 Warfarin Sodium [Coumadin] 12 mg PO DAILY 03/13/16 12/13/16 Metoprolol Tartrate 75 mg PO BID 05/06/16 12/13/16 Gabapentin 300 mg PO TID #20 capsule 08/24/16 12/13/16 ARIPiprazole [Abilify] 5 mg PO DAILY 10/02/16 12/13/16 hydrOXYzine HCl [Hydroxyzine HCl] 25 mg PO DAILY 10/02/16 12/13/16 Cephalexin [Keflex] 500 mg PO QID #30 capsule 12/04/16 12/13/16 Cephalexin [Keflex] 500 mg PO QID #40 capsule 12/13/16 Oxycodone HCl/Acetaminophen 1 - 2 tab PO Q4H PRN #10 tablet 12/13/16 [Percocet 5-325 mg Tablet] - Allergies Allergies/Adverse Reactions: Allergies Allergy/AdvReac Type Severity Reaction Status Date / Time levofloxacin [From Levaquin] Allergy Severe Hives Verified 01/19/17 14:50 meperidine HCl * Allergy Severe Hives Verified 01/19/17 14:50 [From Demerol] hydrocodone [Hydrocodone] Allergy Intermediate Itching Verified 01/19/17 14:50 codeine Allergy Rash Verified 01/19/17 14:50 hydrocodone bitartrate * Allergy Itching Verified 01/19/17 14:50 [From Vicodin] methylprednisolone sodium AdvReac Anxiety Verified 01/19/17 14:50 succ... * [From Solu-Medrol] bees Allergy Anaphylaxis Uncoded 01/19/17 14:50 - Social History Does the pt smoke?: No Smoking Status: Never smoker Does the pt drink ETOH?: No Does the pt have substance abuse?: No - Immunizations Immunizations are current?: Yes Immunizations: TDAP >10years/unknown - POLST Patient has POLST: No POLST Status: Full Code PD ED PE NORMAL - General General: Alert and oriented X 3 - HEENT HEENT: Atraumatic, Moist mucous membranes - Neck Neck: Supple, no meningeal sign - Cardiac Cardiac: No murmur - Respiratory Respiratory: No respiratory distress - Abdomen Abdomen: Soft, Non tender - Derm Derm: Other (pt with a 1cm raised area that is tender to palpation on her left side under her Bra strap and a 0.5 cm area behind her left ear. ) - Neuro Neuro: Alert and oriented X 3 Eye Opening: Spontaneous Motor: Obeys Commands Verbal: Oriented GCS Score: 15 - Psych Psych: Normal mood Results - Vitals Vitals: Vital Signs - 24 hr 01/19/17 14:47 Temperature 36.4 C L Heart Rate 68 Respiratory 20 Rate Blood Pressure 153/87 H O2 Saturation 99 Oxygen O2 Source Room air Procedures - Abscess I&D (location) left flank Preparation: Lidocaine 1% Incision: Incised with scalpel, Purulent drainage. No: Irrigated, Packed Other: Pt tolerated well left ear Incision: Needle aspiration, Purulent drainage Other: Pt tolerated well PD MEDICAL DECISION MAKING - ED course ED course: pt with a hx of abscess that need drained. she has [place] small abscess on her left flank that was I&D as above with return of a small amount of material. no need for packing. no surrounding erythemia. will hold on ABX for now. pt with a pinpoint area behind her left ear lobe that has a pustule that was drained as above. Pt given return precautions. Departure - Departure Disposition: 01 Home, Self Care Clinical Impression: Abscess Condition: Good Instructions: ED Abscess IandD Follow-Up: Dougie Yeung MD [Primary Care Provider] - Comments: keep the areas clean and dry. you may shower. change the bandage as needed. Return to the ER for any new or worsening symptoms.
== END 2017-01-19 15:16 | disposition home or self-care (01) ==
LOC: ED 14:40
DX: L02.211 Cutaneous abscess of abdominal wall (principal); L08.9 Local infection of the skin and subcutaneous tissue, unspecified; I10 Essential (primary) hypertension; I48.91 Unspecified atrial fibrillation; Z79.01 Long term (current) use of anticoagulants
CPT/HCPCS: 10060; 10160; 99283

== ENCOUNTER 2017-01-25 11:35 | Outpatient (CLI) | payer MEDICAID | END 2017-01-25 11:36 | disposition home or self-care (01) | LOC: LAB.N 11:35 | PROVIDERS: ATTEND Family Medicine | DX: I48.91 Unspecified atrial fibrillation (principal); Z79.899 Other long term (current) drug therapy | CPT/HCPCS: 85610 ==

== ENCOUNTER 2017-01-30 13:40 | Outpatient (CLI) | payer MEDICAID | END 2017-01-30 13:41 | LOC: LAB.N 13:40 | PROVIDERS: ATTEND Family Medicine | DX: I48.91 Unspecified atrial fibrillation (principal); Z79.899 Other long term (current) drug therapy | CPT/HCPCS: 85610 ==

== ENCOUNTER 2017-02-06 08:00 | Outpatient (CLI) | payer MEDICAID | END 2017-02-06 08:01 | disposition home or self-care (01) | LOC: LAB.N 08:00 | PROVIDERS: ATTEND Family Medicine | DX: I48.91 Unspecified atrial fibrillation (principal); Z79.899 Other long term (current) drug therapy | CPT/HCPCS: 85610 ==

== ENCOUNTER 2017-02-09 11:41 | Emergency (ER) | payer MEDICAID ==
--- NOTE | 2017-02-09 13:02 | ED Physician Documentation ---
History of Present Illness - Stated complaint Stated Complaint: AB LEON - Chief complaint Chief Complaint: General - History obtained from History obtained from: Patient - History of Present Illness Timing: Other (She has recurrent abscesses, usually on the trunk and has had a painful one on the right abdominal wall for 2 days without fevers.) Review of Systems Constitutional: denies: Fever, Chills Cardiac: reports: Reviewed and negative Respiratory: reports: Reviewed and negative PD PAST MEDICAL HISTORY - Past Medical History Past Medical History: Yes Cardiovascular: Atrial fibrillation, Hypertension, Other Respiratory: Asthma, Shortness of breath, Sleep apnea, Pneumonia Neuro: Fainting, TIA Endocrine/Autoimmune: None GI: GERD NIGHTMAN: None : Incontinence HEENT: None Psych: Depression, Anxiety, Panic attacks, Post traumatic stress disorder, Claustrophobia Musculoskeletal: Osteoarthritis Derm: None - Past Surgical History Past Surgical History: Yes General: Other Ortho: Knee replacement, Carpal Tunnel surgery /NIGHTMAN: Dilation and currettage, Tubal ligation Cardiovascular: Pacemaker - Present Medications Home Medications: Ambulatory Orders Medication Instructions Recorded Confirmed ALPRAZolam [Alprazolam] 2 mg PO DAILY PRN 01/14/14 02/09/17 hydroCHLOROthiazide 25 mg PO DAILY 02/28/14 02/09/17 [Hydrochlorothiazide] Prazosin [Minipress] 8 mg PO QPM 03/17/15 02/09/17 Propafenone [Rythmol] 150 mg PO Q8H 03/17/15 02/09/17 Albuterol Sulf [Ventolin Hfa 2 puffs INH Q4H PRN 03/13/16 02/09/17 Inhaler] Cholecalciferol (Vitamin D3) 5,000 units PO DAILY 03/13/16 02/09/17 [Vitamin D3] Citalopram Hydrobromide 40 mg PO DAILY 03/13/16 02/09/17 [Citalopram HBr] Magnesium Oxide 400 mg PO QPM 03/13/16 02/09/17 Omeprazole [PriLOSEC] 20 mg PO BID 03/13/16 02/09/17 Warfarin Sodium [Coumadin] 12 mg PO DAILY 03/13/16 02/09/17 Metoprolol Tartrate 75 mg PO BID 05/06/16 12/13/16 Gabapentin 300 mg PO TID #20 capsule 08/24/16 02/09/17 ARIPiprazole [Abilify] 5 mg PO DAILY 10/02/16 02/09/17 hydrOXYzine HCl [Hydroxyzine HCl] 25 mg PO DAILY 10/02/16 02/09/17 Cephalexin [Keflex] 500 mg PO QID #30 capsule 12/04/16 02/09/17 Cephalexin [Keflex] 500 mg PO QID #40 capsule 12/13/16 02/09/17 Oxycodone HCl/Acetaminophen 1 - 2 tab PO Q4H PRN #10 tablet 12/13/16 02/09/17 [Percocet 5-325 mg Tablet] Cephalexin [Keflex] 500 mg PO QID #30 capsule 02/09/17 Oxycodone HCl/Acetaminophen 1 - 2 tab PO Q4H PRN #10 tablet 02/09/17 [Percocet 5-325 mg Tablet] - Allergies Allergies/Adverse Reactions: Allergies Allergy/AdvReac Type Severity Reaction Status Date / Time levofloxacin [From Levaquin] Allergy Severe Hives Verified 01/19/17 14:50 meperidine HCl * Allergy Severe Hives Verified 01/19/17 14:50 [From Demerol] hydrocodone [Hydrocodone] Allergy Intermediate Itching Verified 01/19/17 14:50 codeine Allergy Rash Verified 01/19/17 14:50 hydrocodone bitartrate * Allergy Itching Verified 01/19/17 14:50 [From Vicodin] methylprednisolone sodium AdvReac Anxiety Verified 01/19/17 14:50 succ... * [From Solu-Medrol] bees Allergy Anaphylaxis Uncoded 01/19/17 14:50 - Social History Does the pt smoke?: No Smoking Status: Never smoker Does the pt drink ETOH?: No Does the pt have substance abuse?: No - Immunizations Immunizations are current?: Yes Immunizations: TDAP >10years/unknown - POLST Patient has POLST: No POLST Status: Full Code PD ED PE NORMAL - Vitals Vital signs reviewed: Yes - General General: Alert and oriented X 3, No acute distress - Derm Derm: Other (Pointed 2 cm abscess in the right abdominal wall with about 2 cm more of surrounding cellulitis.) - Neuro Neuro: Alert and oriented X 3 - Psych Psych: Normal mood, Normal affect Results - Vitals Vitals: Vital Signs - 24 hr 02/09/17 02/09/17 11:46 13:08 Temperature 36.3 C L Heart Rate 67 67 Respiratory 16 Rate Blood Pressure 131/72 H 128/84 H O2 Saturation 99 Oxygen O2 Source Room air Procedures - Abscess I&D (location) Abd wall Preparation: Alcohol, Lidocaine 1%, With epi Incision: Incised with scalpel, Purulent drainage, Loculations broken. No: Culture obtained (she usually grows skin garrett) Other: Pt tolerated well, Dressing applied, Antibiotic prescribed PD MEDICAL DECISION MAKING - ED course ED course: She understands the need for frequent INR checks while on antibiotics and is contacting her physician for frequent rechecks. Departure - Departure Disposition: 01 Home, Self Care Clinical Impression: Abscess Condition: Good Record reviewed to determine appropriate education?: Yes Instructions: ED Abscess IandD Prescriptions: Cephalexin [Keflex] 500 mg PO QID #30 capsule Oxycodone HCl/Acetaminophen [Percocet 5-325 mg Tablet] 1 - 2 tab PO Q4H PRN #10 tablet PRN Reason: Pain Comments: Recheck with your physician in 3 days for wound check. Return if worse, or for fevers Do not drink or drive while taking narcotic pain medication. Note that many narcotic pain relievers also contain Tylenol/acetaminophen. Please ensure that your total dose of acetaminophen from all sources does not exceed 3 g (3000 mg) per day. You may get constipated while on this medication. Take a stool softener such as Colace twice a day while you are on it. Also add an [id number] laxative such as senna or MiraLAX on any day that you do not have a bowel movement. If you received a narcotic pain medication or sedative while in the emergency department, do not drive for the next 24 hours. Discharge Date/Time: 02/09/17 13:08
[2017-02-09 13:09] VITALS: BP 128/84
== END 2017-02-09 13:08 | disposition home or self-care (01) ==
LOC: ED 11:41
DX: L02.211 Cutaneous abscess of abdominal wall (principal); I48.91 Unspecified atrial fibrillation; Z79.01 Long term (current) use of anticoagulants; I10 Essential (primary) hypertension; J45.909 Unspecified asthma, uncomplicated; G47.30 Sleep apnea, unspecified; K21.9 Gastro-esophageal reflux disease without esophagitis; M19.90 Unspecified osteoarthritis, unspecified site; Z95.0 Presence of cardiac pacemaker; Z86.73 Personal history of transient ischemic attack (TIA), and cerebral infarction without residual deficits
CPT/HCPCS: 10060; 99283

== ENCOUNTER 2017-02-20 15:47 | Emergency (ER) | payer MEDICAID ==
[2017-02-20 16:16] VITALS: BP 131/77
[2017-02-20] MEDS ORDERED: IPRATROPIUM/ALBUTEROL 3 ML NEB INH STA (16:45)
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
--- NOTE | 2017-02-20 17:29 | XRAY Preliminary Report ---
Exam: XR SHOULDER 3 VIEW RT IMPRESSION: 1. No evidence of fracture or dislocation. Chronic appearing erosive changes involving the acromiocla vicular joint. [facility] SITE ID: [id number]
--- NOTE | 2017-02-20 17:31 | XRAY Preliminary Report ---
Exam: XR CHEST 2 VIEW PA/LAT IMPRESSION: No acute cardiopulmonary abnormality. [facility] SITE ID: [id number]
--- NOTE | 2017-02-20 17:32 | XRAY Report ---
EXAM: RIGHT SHOULDER RADIOGRAPHY EXAM DATE: 02/20/2017 05:06 PM. CLINICAL HISTORY: Shoulder inj. COMPARISON: None. TECHNIQUE: 3 views. FINDINGS: Bones: Normal. No fracture or bone lesion. Joints: Subchondral cystic changes, sclerosis and remodeling of the acromion process at the acromiocl avicular joint. This was also present on a 08/09/2016 chest x-ray. Otherwise no dislocations. Soft tissues: The visualized hemithorax is unremarkable. No soft tissue swelling. IMPRESSION: 1. No evidence of fracture or dislocation. Chronic appearing erosive changes involving the acromiocla vicular joint. [facility] Referring Provider Line: [phone] SITE ID: [id number]
--- NOTE | 2017-02-20 17:33 | XRAY Report ---
EXAM: CHEST RADIOGRAPHY EXAM DATE: 02/20/2017 05:06 PM. CLINICAL HISTORY: Cough. COMPARISON: 08/08/2016 chest x-ray. TECHNIQUE: 2 views. FINDINGS: Lungs/Pleura: No focal opacities evident. No pleural effusion. No pneumothorax. Normal volumes. Mediastinum: Heart and mediastinal contours are unremarkable. Other: There is a dual-chamber pacemaker again noted. IMPRESSION: No acute cardiopulmonary abnormality. [facility] Referring Provider Line: [phone] SITE ID: [id number]
== END 2017-02-20 17:46 | disposition home or self-care (01) ==
LOC: ED 15:47
DX: J20.8 Acute bronchitis due to other specified organisms (principal); M19.011 Primary osteoarthritis, right shoulder; S46.911A Strain of unspecified muscle, fascia and tendon at shoulder and upper arm level, right arm, initial encounter; V86.93XA Unspecified occupant of dune buggy injured in nontraffic accident, initial encounter; I10 Essential (primary) hypertension; E66.01 Morbid (severe) obesity due to excess calories; Z86.73 Personal history of transient ischemic attack (TIA), and cerebral infarction without residual deficits; Z96.659 Presence of unspecified artificial knee joint; Z95.0 Presence of cardiac pacemaker
CPT/HCPCS: 71020; 73030; 94640; 99283; J7620

== ENCOUNTER 2017-02-21 08:00 | Outpatient (CLI) | payer MEDICAID | END 2017-02-21 08:01 | disposition home or self-care (01) | LOC: LAB.N 08:00 | PROVIDERS: ATTEND Family Medicine | DX: I48.91 Unspecified atrial fibrillation (principal); Z79.899 Other long term (current) drug therapy | CPT/HCPCS: 85610 ==

== ENCOUNTER 2017-03-09 15:21 | Outpatient (CLI) | payer MEDICAID | END 2017-03-09 15:22 | disposition home or self-care (01) | LOC: LAB.N 15:21 | PROVIDERS: ATTEND Family Medicine | DX: I48.91 Unspecified atrial fibrillation (principal); Z79.899 Other long term (current) drug therapy | CPT/HCPCS: 85610 ==

== ENCOUNTER 2017-03-09 16:00 | Emergency (ER) | payer MEDICAID ==
[2017-03-09 16:21] VITALS: BP 126/104
--- NOTE | 2017-03-09 17:47 | ED Physician Documentation ---
PD HPI ABD PAIN - Stated complaint Stated Complaint: P/O SURGERY PX - Chief complaint Chief Complaint: Abd Pain - History obtained from History obtained from: Patient - History of Present Illness Timing - onset: Other (She has 2 chief complaints, she is postop day 6 from a gastric sleeve and ran out of her pain medications needs more, pain is not increased. She describes it as diffuse soreness. She not vomiting and she is moving her bowels. 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 : Incontinence HEENT: None Psych: Depression, Anxiety, Panic attacks, Post traumatic stress disorder, Claustrophobia Musculoskeletal: Osteoarthritis Derm: None - Past Surgical History Past Surgical History: Yes General: Other Ortho: Knee replacement, Carpal Tunnel surgery /MARBLE HELPER: Dilation and currettage, Tubal ligation Cardiovascular: Pacemaker - Present Medications Home Medications: Ambulatory Orders Medication Instructions Recorded Confirmed ALPRAZolam [Alprazolam] 2 mg PO DAILY PRN 01/14/14 03/09/17 hydroCHLOROthiazide 25 mg PO DAILY 02/28/14 03/09/17 [Hydrochlorothiazide] Prazosin [Minipress] 8 mg PO QPM 03/17/15 03/09/17 Propafenone [Rythmol] 150 mg PO Q8H 03/17/15 03/09/17 Citalopram Hydrobromide 40 mg PO DAILY 03/13/16 03/09/17 [Citalopram HBr] Omeprazole [PriLOSEC] 20 mg PO BID 03/13/16 03/09/17 Metoprolol Tartrate 75 mg PO BID 05/06/16 03/09/17 Gabapentin 300 mg PO TID #20 capsule 08/24/16 03/09/17 ARIPiprazole [Abilify] 5 mg PO DAILY 10/02/16 03/09/17 hydrOXYzine HCl [Hydroxyzine HCl] 25 mg PO DAILY 07/30/17 01/04/18 Albuterol Sulfate [Proventil Hfa 1 - 2 puffs IH Q4H PRN #1 02/20/17 03/09/17 Inhaler] hfa.aer.ad guaiFENesin/CODEINE [Robitussin AC] 5 - 10 ml PO Q6H PRN #120 ml 02/20/17 Oxycodone HCl/Acetaminophen 1 - 2 tab PO Q4H PRN #20 tablet 03/09/17 [Percocet 5-325 mg Tablet] - Allergies Allergies/Adverse Reactions: Allergies Allergy/AdvReac Type Severity Reaction Status Date / Time levofloxacin [From Levaquin] Allergy Severe Hives Verified 03/09/17 16:21 meperidine HCl * Allergy Severe Hives Verified 03/09/17 16:21 [From Demerol] hydrocodone [Hydrocodone] Allergy Intermediate Itching Verified 03/09/17 16:21 codeine Allergy Rash Verified 03/09/17 16:21 hydrocodone bitartrate * Allergy Itching Verified 03/09/17 16:21 [From Vicodin] methylprednisolone sodium AdvReac Anxiety Verified 03/09/17 16:21 succ... * [From Solu-Medrol] bees Allergy Anaphylaxis Uncoded 01/19/17 14:50 - Social History Does the pt smoke?: No Smoking Status: Never smoker Does the pt drink ETOH?: No Does the pt have substance abuse?: No - Immunizations Immunizations are current?: Yes Immunizations: TDAP >10years/unknown - POLST Patient has POLST: No POLST Status: Full Code PD ED PE NORMAL - Vitals Vital signs reviewed: Yes - General General: Alert and oriented X 3, No acute distress - Neck Neck: Supple, no meningeal sign, No bony TTP - Abdomen Abdomen: Normal bowel sounds, Soft, Non tender, Other (Laparoscopic incisions clean dry and intact) - Derm Derm: Other (Small pointed abscess, really just a pimple behind the right ear) - Neuro Neuro: Alert and oriented X 3, Normal speech Results - Vitals Vitals: Vital Signs - 24 hr 03/09/17 16:18 Temperature 36.2 C L Heart Rate 64 Respiratory 18 Rate Blood Pressure 126/104 H O2 Saturation 98 Oxygen O2 Source Room air Procedures - Abscess I&D (location) Right ear Preparation: Alcohol, Lidocaine 1% Incision: Needle aspiration Other: Pt tolerated well, Dressing applied. No: Antibiotic prescribed (too small;, no cellulitis) Departure - Departure Disposition: 01 Home, Self Care Clinical Impression: Postoperative pain, Abscess Condition: Good Record reviewed to determine appropriate education?: Yes Instructions: ED Chronic Pain Management Prescriptions: Oxycodone HCl/Acetaminophen [Percocet 5-325 mg Tablet] 1 - 2 tab PO Q4H PRN #20 tablet PRN Reason: Pain Comments: Call your doctor to arrange a follow-up appointment, make the next available appointment. In the interim, return anytime if worse or if new symptoms develop. Your blood pressure was elevated today on check into the emergency department. This does not mean that you have hypertension, it is a common phenomenon to come to the emergency department and have elevated blood pressure. I recommend that you see your primary care physician within the week to have it rechecked when you are feeling better. The policy of this emergency department is to not give more than 3 prescriptions for narcotics or other controlled substances in any 1 year. You have already surpassed this benchmark. I encourage you to follow up with your primary care physician or to establish care with a primary care physician for ongoing pain management. You are always welcome to seek emergency care here for this or new issues but there will likely be limitations in the prescription of narcotic pain medication.
== END 2017-03-09 17:57 | disposition home or self-care (01) ==
LOC: ED 16:00
DX: G89.18 Other acute postprocedural pain (principal); H60.01 Abscess of right external ear; I48.91 Unspecified atrial fibrillation; I10 Essential (primary) hypertension; Z79.899 Other long term (current) drug therapy; Z86.73 Personal history of transient ischemic attack (TIA), and cerebral infarction without residual deficits; Z95.0 Presence of cardiac pacemaker; Z96.659 Presence of unspecified artificial knee joint
CPT/HCPCS: 10060; 85610; 99283

== ENCOUNTER 2017-04-04 11:50 | Emergency (ER) | payer MEDICAID ==
[2017-04-04 11:55] VITALS: BP 164/72
[2017-04-04] MEDS ORDERED: PROPARACAINE 0.5% OPHTH DROPS 15 ML RIGHTEYE STA (13:31)
--- NOTE | 2017-04-04 13:32 | ED Physician Documentation ---
PD HPI OPHTHO - Stated complaint Stated Complaint: LT EYE PX - Chief complaint Chief Complaint: Heent - History obtained from History obtained from: Patient - History of Present Illness Timing - onset: How many days ago (3) Timing - duration: Days (3) Timing - details: Abrupt onset, Still present Location: Left Quality / character: Aching Associated symptoms: Tearing, FB sensation. No: Redness, Swelling, Photophobia , Double vision, Headache Similar symptoms before: Has not had sx before Recently seen: Not recently seen Review of Systems Constitutional: denies: Fever, Chills Eyes: denies: Loss of vision, Decreased vision (but having marked tearing affecting the acuity), Photophobia Nose: denies: Rhinorrhea / runny nose, Congestion Throat: denies: Sore throat Respiratory: denies: Cough PD PAST MEDICAL HISTORY - Past Medical History Past Medical History: Yes Cardiovascular: Atrial fibrillation, Hypertension, Other Respiratory: Asthma, Shortness of breath, Sleep apnea, Pneumonia Neuro: Fainting, TIA Endocrine/Autoimmune: None GI: GERD SAIL MAKER: None : Incontinence HEENT: None Psych: Depression, Anxiety, Panic attacks, Post traumatic stress disorder, Claustrophobia Musculoskeletal: Osteoarthritis Derm: None - Past Surgical History Past Surgical History: Yes General: Other Ortho: Knee replacement, Carpal Tunnel surgery /SAIL MAKER: Dilation and currettage, Tubal ligation Cardiovascular: Pacemaker - Present Medications Home Medications: Ambulatory Orders Medication Instructions Recorded Confirmed ALPRAZolam [Alprazolam] 2 mg PO DAILY PRN 01/14/14 04/04/17 hydroCHLOROthiazide 25 mg PO DAILY 02/28/14 04/04/17 [Hydrochlorothiazide] Prazosin [Minipress] 8 mg PO QPM 03/17/15 04/04/17 Propafenone [Rythmol] 150 mg PO Q8H 03/17/15 04/04/17 Citalopram Hydrobromide 40 mg PO DAILY 03/13/16 04/04/17 [Citalopram HBr] Omeprazole [PriLOSEC] 20 mg PO BID 03/13/16 04/04/17 Metoprolol Tartrate 75 mg PO BID 05/06/16 04/04/17 Gabapentin 300 mg PO TID #20 capsule 08/24/16 04/04/17 ARIPiprazole [Abilify] 5 mg PO DAILY 10/02/16 04/04/17 hydrOXYzine HCl [Hydroxyzine HCl] 25 mg PO DAILY 10/02/16 04/04/17 Albuterol Sulfate [Proventil Hfa 1 - 2 puffs IH Q4H PRN #1 02/20/17 04/04/17 Inhaler] [email or web address] Sulfacetamide 10% Ophth Drops 1 drops LEFTEYE Q3H #1 bottle 04/04/17 [Sulfamide 10% Ophth Drops] Tramadol HCl 50 mg PO Q6H PRN #15 tablet 04/04/17 Warfarin Sodium [Coumadin] 6 mg PO DAILY 04/04/17 04/04/17 - Allergies Allergies/Adverse Reactions: Allergies Allergy/AdvReac Type Severity Reaction Status Date / Time levofloxacin [From Levaquin] Allergy Severe Hives Verified 04/04/17 11:56 meperidine HCl * Allergy Severe Hives Verified 04/04/17 11:56 [From Demerol] hydrocodone [Hydrocodone] Allergy Intermediate Itching Verified 04/04/17 11:56 codeine Allergy Rash Verified 04/04/17 11:56 hydrocodone bitartrate * Allergy Itching Verified 04/04/17 11:56 [From Vicodin] methylprednisolone sodium AdvReac Anxiety Verified 04/04/17 11:56 succ... * [From Solu-Medrol] bees Allergy Anaphylaxis Uncoded 04/04/17 11:56 - Social History Does the pt smoke?: No Smoking Status: Never smoker Does the pt drink ETOH?: No Does the pt have substance abuse?: No - Immunizations Immunizations are current?: Yes Immunizations: TDAP >10years/unknown - POLST Patient has POLST: No POLST Status: Full Code PD ED PE NORMAL - Vitals Vital signs reviewed: Yes - General General: Alert and oriented X 3, No acute distress, Well developed/nourished - HEENT HEENT: PERRL (left eye is about 1 mm larger than the right, but good direct and consensual movement and vision. ), EOMI - Neck Neck: Supple, no meningeal sign, No adenopathy PD ED PE EXPANDED - Eyes Eyes: Fluorescein uptake (left lower aspect. There is focal redness medial upper lid underside. ), Anterior chambers clear, Normal fundi. No: Conj/sclera FB, Subconj hemorrhage Results - Vitals Vitals: Oxygen O2 Source Room air PD MEDICAL DECISION MAKING - ED course Complexity details: considered differential (some focal redness and swelling under lid. No FB seen. Some dye uptake. ), d/w patient Departure - Departure Disposition: 01 Home, Self Care Clinical Impression: Corneal abrasion Qualifiers: Encounter type: initial encounter Laterality: left Qualified Code(s): S05.02XA - Injury of conjunctiva and corneal abrasion without foreign body, left eye, initial encounter Conjunctivitis Qualifiers: Conjunctivitis type: acute Acute conjunctivitis type: bacterial Laterality: left Qualified Code(s): H10.32 - Unspecified acute conjunctivitis, left eye Condition: Stable Record reviewed to determine appropriate education?: Yes Instructions: ED Conjunctivitis Nonspecific, ED Eye Injury Corneal Abrasion Follow-Up: Dougie Yeung MD [Primary Care Provider] - Maury Hussein MD [Provider Admit Priv/Credential] - Prescriptions: Sulfacetamide 10% Ophth Drops [Sulfamide 10% Ophth Drops] 1 drops LEFTEYE Q3H # 1 bottle Tramadol HCl 50 mg PO Q6H PRN #15 tablet PRN Reason: Pain Comments: There is a small abrasion under the lid. It looks likely to have some infection to it. Use the antibiotic eyedrops every 2-3 hours while awake for the next few days. Use Tylenol or ibuprofen if needed for pain and add tramadol if needed for worse pain. Recheck if not improving over the next day or 2 and mostly resolved by 2 days. Discharge Date/Time: 04/04/17 14:07
[2017-04-04] MEDS ORDERED: traMADol 50 MG TABLET PO STA (13:56)
== END 2017-04-04 14:07 | disposition home or self-care (01) ==
LOC: ED 11:50
DX: S05.02XA Injury of conjunctiva and corneal abrasion without foreign body, left eye, initial encounter (principal); X58.XXXA Exposure to other specified factors, initial encounter; H10.32 Unspecified acute conjunctivitis, left eye; I10 Essential (primary) hypertension; Z86.73 Personal history of transient ischemic attack (TIA), and cerebral infarction without residual deficits; Z95.0 Presence of cardiac pacemaker; Z96.659 Presence of unspecified artificial knee joint
CPT/HCPCS: 99283; A9270; J3490

== ENCOUNTER 2017-04-11 13:51 | Outpatient (CLI) | payer MEDICAID ==
[2017-04-11 18:54] LABS: BASOPHILS % (AUTO) 0.3 %; EOSINOPHILS # (AUTO) 0.1 10^3/uL (0.0-0.7); EOSINOPHILS % (AUTO) 1.6 %; HGB - HEMOGLOBIN 12.6 g/dL (12.0-16.0); LYMPHOCYTES # (AUTO) 1.8 10^3/uL (1.5-3.5); LYMPHOCYTES % (AUTO) 21.1 %; MEAN CORPUSCULAR HEMOGLOBIN 22.1 pg (27.0-31.0); MEAN CORPUSCULAR HGB CONC 31.1 g/dL (32.0-36.0); MEAN CORPUSCULAR VOLUME 71.2 fL (81.0-99.0); MEAN PLATELET VOLUME 8.5 fL (7.9-10.8); MONOCYTES # (AUTO) 0.4 10^3/uL (0.0-1.0); MONOCYTES % (AUTO) 4.9 %; NEUTROPHILS % (AUTO) 72.1 %; PLT - PLATELET COUNT 299 10^3/uL (130-450); RED CELL DISTRIBUTION WIDTH 20.9 % (12.0-15.0); WHITE BLOOD COUNT 8.4 x10^3/uL (4.8-10.8)
[2017-04-11 19:13] LABS: PLATELET ESTIMATE, MANUAL NORMAL (130-450,000) (NORMAL); PLATELET MORPHOLOGY NORMAL APPEARANCE (NORMAL)
[2017-04-11 19:21] LABS: ALBUMIN 4.3 g/dL (3.2-5.5); ALBUMIN/GLOBULIN RATIO 1.3 (1.0-2.2); BILIRUBIN,TOTAL 0.6 mg/dL (0.2-1.0); CALCIUM 9.7 mg/dL (8.5-10.3); CREATININE 0.7 mg/dL (0.4-1.0); TOTAL PROTEIN 7.5 g/dL (6.7-8.2)
== END 2017-04-11 13:52 | disposition home or self-care (01) ==
LOC: LAB.N 13:51
PROVIDERS: ATTEND Family Medicine
DX: R11.2 Nausea with vomiting, unspecified (principal); I48.91 Unspecified atrial fibrillation; Z79.899 Other long term (current) drug therapy
CPT/HCPCS: 36415; 80053; 82150; 83690; 85025; 85610; 85651

== ENCOUNTER 2017-04-19 12:20 | Emergency (ER) | payer MEDICAID ==
--- NOTE | 2017-04-19 12:37 | ED Physician Documentation ---
PD HPI HEADACHE - Stated complaint Stated Complaint: HEADACHE X 17 DAYS - Chief complaint Chief Complaint: Neuro - History obtained from History obtained from: Patient - History of Present Illness Timing - onset: How many weeks ago (over 2 weeks) Timing - onset during: Rest, Light activity Timing - duration: Weeks (2 1/2) Timing - details: Gradual onset, Still present, Waxing and waning Worst headache ever?: No: Worst headache ever? Location: Front, Left Quality: Throbbing, Aching. No: Thunderclap Associated symptoms: Nausea, Eye pain (with light). No: Fever, Stiff neck, Vomiting Worsened by: Light Contributing factors: Anticoagulated. No: Recent illness, Trauma Similar symptoms before: Diagnosis (similar a few years ago lasted 20 days and thought migraine. No regular headaches like this.) Review of Systems Constitutional: denies: Fever, Chills Nose: denies: Rhinorrhea / runny nose, Congestion Throat: denies: Sore throat Respiratory: denies: Cough GI: reports: Nausea. 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 : Incontinence HEENT: None Psych: Depression, Anxiety, Panic attacks, Post traumatic stress disorder, Claustrophobia Musculoskeletal: Osteoarthritis Derm: None - Past Surgical History Past Surgical History: Yes General: Other Ortho: Knee replacement, Carpal Tunnel surgery /SENIOR AGRICULTURAL ASSISTANT: Dilation and currettage, Tubal ligation Cardiovascular: Pacemaker - Present Medications Home Medications: Ambulatory Orders Medication Instructions Recorded Confirmed ALPRAZolam [Alprazolam] 2 mg PO DAILY PRN 01/14/14 04/19/17 hydroCHLOROthiazide 25 mg PO DAILY 02/28/14 04/19/17 [Hydrochlorothiazide] Prazosin [Minipress] 8 mg PO QPM 03/17/15 04/19/17 Propafenone [Rythmol] 150 mg PO Q8H 03/17/15 04/19/17 Citalopram Hydrobromide 40 mg PO DAILY 03/13/16 04/19/17 [Citalopram HBr] Omeprazole [PriLOSEC] 20 mg PO BID 03/13/16 04/19/17 Metoprolol Tartrate 75 mg PO BID 05/06/16 04/19/17 ARIPiprazole [Abilify] 5 mg PO DAILY 10/02/16 04/19/17 hydrOXYzine HCl [Hydroxyzine HCl] 25 mg PO DAILY 10/02/16 04/19/17 Albuterol Sulfate [Proventil Hfa 1 - 2 puffs IH Q4H PRN #1 02/20/17 04/19/17 Inhaler] [email or web address] Sulfacetamide 10% Ophth Drops 1 drops LEFTEYE Q3H #1 bottle 04/04/17 04/19/17 [Sulfamide 10% Ophth Drops] Warfarin Sodium [Coumadin] 6 mg PO DAILY 04/04/17 04/19/17 Butalb/Acetaminophen/Caffeine 1 each PO TID #20 capsule 04/19/17 [Fioricet 50-300-40 mg Capsule] Dexamethasone [Decadron] 4 mg PO DAILY #5 tablet 04/19/17 Oxycodone HCl/Acetaminophen 1 each PO Q6H PRN #15 tablet 04/19/17 [Percocet 5-325 mg Tablet] - Allergies Allergies/Adverse Reactions: Allergies Allergy/AdvReac Type Severity Reaction Status Date / Time levofloxacin [From Levaquin] Allergy Severe Hives Verified 04/04/17 11:56 meperidine HCl * Allergy Severe Hives Verified 04/04/17 11:56 [From Demerol] hydrocodone [Hydrocodone] Allergy Intermediate Itching Verified 04/04/17 11:56 codeine Allergy Rash Verified 04/04/17 11:56 hydrocodone bitartrate * Allergy Itching Verified 04/04/17 11:56 [From Vicodin] tramadol Allergy Rash Verified 04/19/17 12:29 methylprednisolone sodium AdvReac Anxiety Verified 04/04/17 11:56 succ... * [From Solu-Medrol] bees Allergy Anaphylaxis Uncoded 04/04/17 11:56 - Social History Does the pt smoke?: No Smoking Status: Never smoker Does the pt drink ETOH?: No Does the pt have substance abuse?: No - Immunizations Immunizations are current?: Yes Immunizations: TDAP >10years/unknown - POLST Patient has POLST: No POLST Status: Full Code PD ED PE NORMAL - Vitals Vital signs reviewed: Yes - General General: Alert and oriented X 3, No acute distress, Well developed/nourished - HEENT HEENT: Atraumatic, PERRL, EOMI, Pharynx benign - Neck Neck: Supple, no meningeal sign, No adenopathy - Cardiac Cardiac: RRR, No murmur - Respiratory Respiratory: Clear bilaterally - Derm Derm: Normal color, Warm and dry - Extremities Extremities: No deformity, No tenderness to palpate, No edema, No calf tenderness / cord - Neuro Neuro: Alert and oriented X 3, vba developer 2-12 intact, No motor deficit, No sensory deficit, Normal speech Eye Opening: Spontaneous Motor: Obeys Commands Verbal: Oriented GCS Score: 15 - Psych Psych: Normal mood, Normal affect Results - Vitals Vitals: Vital Signs - 24 hr 04/19/17 04/19/17 12:24 13:50 Temperature 36.2 C L Heart Rate 61 51 L Respiratory 18 18 Rate Blood Pressure 137/104 H 144/95 H O2 Saturation 99 100 Oxygen O2 Source Room air - Labs Labs: Laboratory Tests 04/19/17 04/19/17 04/19/17 13:00 13:00 13:00 WBC 6.2 RBC 5.50 H Hgb 12.6 Hct 39.0 MCV 70.9 L MCH 22.8 L MCHC 32.2 RDW 21.5 H Plt Count 270 MPV 8.4 Neut # 4.0 Lymph # 1.7 [place] # 0.4 Eos # 0.1 Baso # 0.0 Absolute Nucleated RBC 0.01 Nucleated RBC % 0.1 ESR 18 PT INR Sodium 138 Potassium 4.2 Chloride 109 Carbon Dioxide 23 Anion Gap 6.0 BUN 18 Creatinine 0.5 Estimated GFR (MDRD) 163 Glucose 87 Calcium 9.1 Total Bilirubin 0.5 AST 19 ALT 18 Alkaline Phosphatase 42 Total Protein 7.2 Albumin 4.2 Globulin 3.0 Albumin/Globulin Ratio 1.4 Lipase 14 L 04/19/17 13:00 WBC RBC Hgb Hct MCV MCH MCHC RDW Plt Count MPV Neut # Lymph # [place] # Eos # Baso # Absolute Nucleated RBC Nucleated RBC % ESR PT 12.5 INR 1.1 Sodium Potassium Chloride Carbon Dioxide Anion Gap BUN Creatinine Estimated GFR (MDRD) Glucose Calcium Total Bilirubin AST ALT Alkaline Phosphatase Total Protein Albumin Globulin Albumin/Globulin Ratio Lipase - Rads (name of study) head CT Radiology: Prelim report reviewed (sinus mucosal thickening; otherwise negative) PD MEDICAL DECISION MAKING - ED course Complexity details: considered differential (likely migraine or sinus headache. No red flags otherwise. Labs and CT okay. LFTs are okay, given amount of Tylenol use recently. ), d/w patient Departure - Departure Disposition: 01 Home, Self Care Clinical Impression: Left-sided headache Condition: Stable Record reviewed to determine appropriate education?: Yes Instructions: ED Cephalgia Unspecified Follow-Up: Dougie Yeung MD [Primary Care Provider] - Prescriptions: Butalb/Acetaminophen/Caffeine [Fioricet 50-300-40 mg Capsule] 1 each PO TID #20 capsule Dexamethasone [Decadron] 4 mg PO DAILY #5 tablet Oxycodone HCl/Acetaminophen [Percocet 5-325 mg Tablet] 1 each PO Q6H PRN #15 tablet PRN Reason: Pain Comments: Continue usual medications. Add Decadron daily for 5 more days to decrease inflammation of the sinus and will also help with migraine. Fioricet 3 times a day for migraine type symptoms. Add Percocet if needed for pain. He can use some Tylenol but not large amounts as you have been. Recheck if not improved over the next few days. Discharge Date/Time: 04/19/17 14:02
[2017-04-19] MEDS ORDERED: KETOROLAC 30 MG/ML VIAL IM STA (12:51)
[2017-04-19] MEDS ORDERED: oxyCODONE 5 MG TABLET PO STA (12:51)
[2017-04-19] MEDS ORDERED: DEXAMETHASONE 10 MG/ML VIAL PO STA (12:51)
[2017-04-19] MEDS ORDERED: BUTALB/ACETAM/CAFF 50/325/40MG TABLET PO STA (12:51)
[2017-04-19 13:12] LABS: INR 1.1 (0.8-1.2); PT - PROTHROMBIN TIME 12.5 secs (9.9-12.6)
--- NOTE | 2017-04-19 13:15 | CT Report ---
EXAM: CT HEAD EXAM DATE: 04/19/2017 01:06 PM. CLINICAL HISTORY: 10/21/2016 COMPARISON: None. TECHNIQUE: Multiaxial CT images were obtained from the foramen magnum to the vertex. Reformats: Coron al. IV contrast: None. In accordance with CT protocol optimization, one or more of the following dose reduction techniques w ere utilized for this exam: automated exposure control, adjustment of mA and/or KV based on patient s ize, or use of iterative reconstructive technique. FINDINGS: Parenchyma: No intraparenchymal hemorrhage. No evidence of mass, midline shift, or CT findings of inf arction. Mcadams-white differentiation is distinct. Extraaxial Spaces: Normal for age. No subdural or epidural collections identified. Ventricles: Normal in size and position. Sinuses and Orbits: Bilateral maxillary sinus membrane thickening Bones: No evidence of fracture or calvarial defect. Other: None. IMPRESSION: No evidence of acute intracranial process. Bilateral maxillary sinus membrane thickening. [facility] Referring Provider Line: [phone] SITE ID: [id number]
[2017-04-19 13:18] LABS: BASOPHILS % (AUTO) 0.4 %; EOSINOPHILS # (AUTO) 0.1 10^3/uL (0.0-0.7); EOSINOPHILS % (AUTO) 1.6 %; HGB - HEMOGLOBIN 12.6 g/dL (12.0-16.0); LYMPHOCYTES # (AUTO) 1.7 10^3/uL (1.5-3.5); LYMPHOCYTES % (AUTO) 27.9 %; MEAN CORPUSCULAR HEMOGLOBIN 22.8 pg (27.0-31.0); MEAN CORPUSCULAR HGB CONC 32.2 g/dL (32.0-36.0); MEAN CORPUSCULAR VOLUME 70.9 fL (81.0-99.0); MEAN PLATELET VOLUME 8.4 fL (7.9-10.8); MONOCYTES # (AUTO) 0.4 10^3/uL (0.0-1.0); NEUTROPHILS % (AUTO) 64.1 %; PLT - PLATELET COUNT 270 10^3/uL (130-450); RED CELL DISTRIBUTION WIDTH 21.5 % (12.0-15.0); WHITE BLOOD COUNT 6.2 x10^3/uL (4.8-10.8)
[2017-04-19 13:40] LABS: ALBUMIN 4.2 g/dL (3.2-5.5); ALBUMIN/GLOBULIN RATIO 1.4 (1.0-2.2); BILIRUBIN,TOTAL 0.5 mg/dL (0.2-1.0); CALCIUM 9.1 mg/dL (8.5-10.3); CREATININE 0.5 mg/dL (0.4-1.0); TOTAL PROTEIN 7.2 g/dL (6.7-8.2)
[2017-04-19 13:51] VITALS: BP 144/95
== END 2017-04-19 14:02 | disposition home or self-care (01) ==
LOC: ED 12:20
DX: R51 Headache (principal); I10 Essential (primary) hypertension; I48.91 Unspecified atrial fibrillation; Z86.73 Personal history of transient ischemic attack (TIA), and cerebral infarction without residual deficits; Z95.0 Presence of cardiac pacemaker; Z96.659 Presence of unspecified artificial knee joint; Z79.01 Long term (current) use of anticoagulants
CPT/HCPCS: 36415; 70450; 80053; 83690; 85025; 85610; 85651; 96372; 99283; 99284; A9270

== ENCOUNTER 2017-04-25 08:00 | Outpatient (CLI) | payer MEDICAID | END 2017-04-25 08:01 | disposition home or self-care (01) | LOC: LAB.N 08:00 | PROVIDERS: ATTEND Family Medicine | DX: I48.91 Unspecified atrial fibrillation (principal); Z79.899 Other long term (current) drug therapy | CPT/HCPCS: 85610 ==

== ENCOUNTER 2017-04-26 23:02 | Emergency (ER) | payer MEDICAID ==
[2017-04-27] MEDS ORDERED: PROCHLORPERAZINE 10 MG/2 ML VIAL IVP STA (00:32)
[2017-04-27] MEDS ORDERED: KETOROLAC 60 MG/2 ML VIAL IVP STA (00:32)
[2017-04-27] MEDS ORDERED: SODIUM CHLORIDE 0.9% 1,000 ML IV ONE (00:32)
[2017-04-27] MEDS ORDERED: diphenhydrAMINE INJ 50 MG/ML VIAL IVP STA (00:33)
[2017-04-27] MEDS ORDERED: DEXAMETHASONE 10 MG/ML VIAL IVP STA (00:33)
--- NOTE | 2017-04-27 00:34 | ED Physician Documentation ---
PD HPI HEADACHE - Stated complaint Stated Complaint: HEADACHE/VOM & CYST - Chief complaint Chief Complaint: Neuro - History obtained from History obtained from: Patient - History of Present Illness Timing - onset: How many days ago (5) Timing - onset during: Rest Timing - duration: Days (5) Timing - details: Abrupt onset, Still present Worst headache ever?: No: Worst headache ever? Location: Front Quality: Throbbing Associated symptoms: Nausea, Vomiting, Eye pain. No: Fever, Stiff neck Improved by: Rest, Dark room Worsened by: Light, Noise Contributing factors: Anticoagulated Similar symptoms before: Diagnosis (migraine) Recently seen: Emergency Dept - Additional information Additional information: 42-year-old female has developed again a headache about 4-1/2 days ago. She states before the headache started she did see some flashes of light before her eyes and the headache has been persistent since then she has throbbing behind her eyes and nausea she has had some vomiting.She is also complaining of some area on her left bra strap that is tender and she can feel a fluctuant mass there. She feels she has an abscess that needs to be drained. Review of Systems Constitutional: denies: Fever Eyes: reports: Photophobia. 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 : Incontinence HEENT: None Psych: Depression, Anxiety, Panic attacks, Post traumatic stress disorder, Claustrophobia Musculoskeletal: Osteoarthritis Derm: None - Past Surgical History Past Surgical History: Yes General: Other Ortho: Knee replacement, Carpal Tunnel surgery /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 LICENSE INSPECTOR: Dilation and currettage, Tubal ligation Cardiovascular: Pacemaker - Present Medications Home Medications: Ambulatory Orders Medication Instructions Recorded Confirmed ALPRAZolam [Alprazolam] 2 mg PO DAILY PRN 01/14/14 04/19/17 hydroCHLOROthiazide 25 mg PO DAILY 02/28/14 04/19/17 [Hydrochlorothiazide] Prazosin [Minipress] 8 mg PO QPM 03/17/15 04/19/17 Propafenone [Rythmol] 150 mg PO Q8H 03/17/15 04/19/17 Citalopram Hydrobromide 40 mg PO DAILY 03/13/16 04/19/17 [Citalopram HBr] Omeprazole [PriLOSEC] 20 mg PO BID 03/13/16 04/19/17 Metoprolol Tartrate 75 mg PO BID 05/06/16 04/19/17 ARIPiprazole [Abilify] 5 mg PO DAILY 10/02/16 04/19/17 hydrOXYzine HCl [Hydroxyzine HCl] 25 mg PO DAILY 10/02/16 04/19/17 Albuterol Sulfate [Proventil Hfa 1 - 2 puffs IH Q4H PRN #1 02/20/17 04/19/17 Inhaler] hfa.aer.ad Sulfacetamide 10% Ophth Drops 1 drops LEFTEYE Q3H #1 bottle 04/04/17 04/19/17 [Sulfamide 10% Ophth Drops] Warfarin Sodium [Coumadin] 6 mg PO DAILY 04/04/17 04/19/17 Butalb/Acetaminophen/Caffeine 1 each PO TID #20 capsule 04/19/17 [Fioricet 50-300-40 mg Capsule] Dexamethasone [Decadron] 4 mg PO DAILY #5 tablet 04/19/17 Oxycodone HCl/Acetaminophen 1 each PO Q6H PRN #15 tablet 04/19/17 [Percocet 5-325 mg Tablet] Cefuroxime Axetil [Cefuroxime] 500 mg PO BID #20 tablet 04/27/17 - Allergies Allergies/Adverse Reactions: Allergies Allergy/AdvReac Type Severity Reaction Status Date / Time levofloxacin [From Levaquin] Allergy Severe Hives Verified 04/26/17 23:16 meperidine HCl * Allergy Severe Hives Verified 04/26/17 23:16 [From Demerol] hydrocodone [Hydrocodone] Allergy Intermediate Itching Verified 04/26/17 23:16 codeine Allergy Rash Verified 04/26/17 23:16 hydrocodone bitartrate * Allergy Itching Verified 04/26/17 23:16 [From Vicodin] tramadol Allergy Rash Verified 04/26/17 23:16 methylprednisolone sodium AdvReac Anxiety Verified 04/26/17 23:16 succ... * [From Solu-Medrol] bees Allergy Anaphylaxis Uncoded 04/26/17 23:16 - Social History Does the pt smoke?: No Smoking Status: Never smoker Does the pt drink ETOH?: No Does the pt have substance abuse?: No - Immunizations Immunizations are current?: Yes Immunizations: TDAP >10years/unknown - POLST Patient has POLST: No POLST Status: Full Code PD ED PE NORMAL - Vitals Vital signs reviewed: Yes (Normal) - General General: Alert and oriented X 3, Well developed/nourished, Other (The patient is obviously photophobic and is covering her face in the emergency department) - HEENT HEENT: Atraumatic, PERRL, EOMI, Moist mucous membranes, Pharynx benign, Other ( Both TMs are erythematous along the umbo and flattening of the umbo was present) - Neck Neck: Supple, no meningeal sign, No bony TTP - Cardiac Cardiac: RRR, No murmur - Respiratory Respiratory: No respiratory distress, Clear bilaterally - Abdomen Abdomen: Soft, Non tender - Back Back: No CVA TTP, No spinal TTP - Derm Derm: Normal color, Warm and dry, No rash, Other (There is an area in the left bra strap line on the lateral chest wall approximately 1 cm x 0.5 cm it is raised and fluctuant there is no surrounding erythema.) - Extremities Extremities: No deformity, No edema - Neuro Neuro: Alert and oriented X 3, manual lathe operator 2-12 intact, No motor deficit, No sensory deficit, Normal speech Eye Opening: Spontaneous Motor: Obeys Commands Verbal: Oriented GCS Score: 15 - Psych Psych: Normal mood, Normal affect Results - Vitals Vitals: Vital Signs - 24 hr 04/26/17 04/27/17 04/27/17 23:09 01:46 01:57 Temperature 36.0 C L Heart Rate 63 63 68 Respiratory 18 20 16 Rate Blood Pressure 122/70 105/55 L 105/55 L O2 Saturation 100 96 95 04/27/17 04/27/17 02:30 03:01 Temperature Heart Rate 59 L 68 Respiratory 15 14 Rate Blood Pressure 118/69 118/69 O2 Saturation 95 97 Oxygen O2 Source Room air - Labs Labs: Laboratory Tests 04/27/17 01:05 Whole Blood INR 1.3 H Procedures - Abscess I&D (location) Left chest wall Preparation: Chlorhexadine, Lidocaine 1% Incision: Incised with scalpel, Purulent drainage, Irrigated, Culture obtained Other: Pt tolerated well, Dressing applied, Antibiotic prescribed - IVC sono (time) 0030 Bedside IVC sono: IVC measures (cm) (1.16), IVC collapsed c insp (cm) (complete) , Dehydration (est 1.5 liter deficit) PD MEDICAL DECISION MAKING - ED course Complexity details: reviewed results, re-evaluated patient, considered differential, d/w patient, d/w family ED course: 42-year-old female with acute migraine headache has an abscess in her left lateral chest wall as well. She is treated for the migraine with a migraine cocktail consisting of Toradol Compazine Benadryl dexamethasone and 1 L of saline. She does require 1 mg of Dilaudid and has complete relief of her headache. She is quite grateful for the relief of her headache and she does not appear today to have any evidence of reactive airway disease. She does appear to have some evidence of otitis on examination and review of her CT scan from last month shows some maxillary sinus congestion and she has tenderness there as well. I suspect she has some sinus disease that needs to be treated as this is a second headache she has had in the past month.The abscesses drained as well which she tolerates well Departure - Departure Disposition: 01 Home, Self Care Clinical Impression: Abscess Migraine Qualifiers: Migraine type: with aura Status migrainosus presence: with status migrainosus Intractability: not intractable Qualified Code(s): G43.101 - Migraine with aura , not intractable, with status migrainosus Otitis media Qualifiers: Otitis media type: suppurative Chronicity: acute Laterality: bilateral Recurrence: not specified as recurrent Spontaneous tympanic membrane rupture: without spontaneous rupture Qualified Code(s): H66.003 - Acute suppurative otitis media without spontaneous rupture of ear drum, bilateral Condition: Stable Instructions: ED Abscess IandD, ED Otitis Media Acute Adult, ED Headache Migraine Follow-Up: Dougie Yeung MD [Primary Care Provider] - Prescriptions: Cefuroxime Axetil [Cefuroxime] 500 mg PO BID #20 tablet
[2017-04-27] MEDS ORDERED: HYDROmorphone 1 MG/ML SYRINGE IVP STA (01:40)
[2017-04-27] MEDS ORDERED: LIDOCAINE 1% 2 ML VIAL SUBQ STA (01:40)
[2017-04-27 02:31] VITALS: BP 118/69
== END 2017-04-27 03:17 | disposition home or self-care (01) ==
LOC: ED 23:02
DX: L02.213 Cutaneous abscess of chest wall (principal); G43.101 Migraine with aura, not intractable, with status migrainosus; H66.003 Acute suppurative otitis media without spontaneous rupture of ear drum, bilateral; I10 Essential (primary) hypertension; I48.91 Unspecified atrial fibrillation; Z79.01 Long term (current) use of anticoagulants; Z86.73 Personal history of transient ischemic attack (TIA), and cerebral infarction without residual deficits; Z96.659 Presence of unspecified artificial knee joint
CPT/HCPCS: 10060; 85610; 87070; 87205; 96361; 96374; 96375; 99284; J1170

== ENCOUNTER 2017-05-02 08:00 | Outpatient (CLI) | payer MEDICAID | END 2017-05-02 08:01 | disposition home or self-care (01) | LOC: LAB.N 08:00 | PROVIDERS: ATTEND Family Medicine | DX: I48.91 Unspecified atrial fibrillation (principal); Z79.899 Other long term (current) drug therapy | CPT/HCPCS: 85610 ==

== ENCOUNTER 2017-05-05 13:02 | Outpatient (CLI) | payer MEDICAID | END 2017-05-05 13:03 | disposition home or self-care (01) | LOC: LAB.N 13:02 | PROVIDERS: ATTEND Family Medicine | DX: I48.91 Unspecified atrial fibrillation (principal); Z79.899 Other long term (current) drug therapy | CPT/HCPCS: 85610 ==

== ENCOUNTER 2017-05-11 08:00 | Outpatient (CLI) | payer MEDICAID | END 2017-05-11 08:01 | disposition home or self-care (01) | LOC: LAB.N 08:00 | PROVIDERS: ATTEND Family Medicine | DX: I48.91 Unspecified atrial fibrillation (principal); Z79.899 Other long term (current) drug therapy | CPT/HCPCS: 85610 ==

== ENCOUNTER 2017-05-15 11:48 | Outpatient (CLI) | payer MEDICAID | END 2017-05-15 11:49 | disposition home or self-care (01) | LOC: LAB.N 11:48 | PROVIDERS: ATTEND Family Medicine | DX: I48.91 Unspecified atrial fibrillation (principal); Z79.899 Other long term (current) drug therapy | CPT/HCPCS: 85610 ==

== ENCOUNTER 2017-05-18 11:51 | Outpatient (CLI) | payer MEDICAID | END 2017-05-18 11:52 | disposition home or self-care (01) | LOC: LAB.N 11:51 | PROVIDERS: ATTEND Family Medicine | DX: I48.91 Unspecified atrial fibrillation (principal); Z79.899 Other long term (current) drug therapy | CPT/HCPCS: 85610 ==

== ENCOUNTER 2017-05-19 12:25 | Emergency (ER) | payer MEDICAID ==
[2017-05-19] MEDS ORDERED: DEXAMETHASONE 10 MG/ML VIAL PO STA (13:34)
--- NOTE | 2017-05-19 14:32 | XRAY Preliminary Report ---
Exam: XR SHOULDER 3 VIEW RT IMPRESSION: 1. No acute abnormality in the right shoulder. 2. Acromioclavicular joint degenerative osteophytes. [facility] SITE ID: [id number]
--- NOTE | 2017-05-19 14:33 | XRAY Report ---
EXAM: RIGHT SHOULDER RADIOGRAPHY EXAM DATE: 05/19/2017 02:19 PM. CLINICAL HISTORY: Shoulder injury. COMPARISON: 02/20/2017. TECHNIQUE: 3 views. FINDINGS: Bones: Normal. No fracture or bone lesion. Joints: The glenohumeral joint appears normal. There are acromion clavicular joint osteophytes. Soft tissues: The visualized hemithorax is unremarkable. No soft tissue swelling. IMPRESSION: 1. No acute abnormality in the right shoulder. 2. Acromioclavicular joint degenerative osteophytes. [facility] Referring Provider Line: [phone] SITE ID: [id number]
[2017-05-19 14:48] VITALS: BP 106/50
--- NOTE | 2017-05-19 15:02 | ED Physician Documentation ---
PD HPI UPPER EXT INJURY - Stated complaint Stated Complaint: R ARM/SHOULDER PX - Chief complaint Chief Complaint: Ext Problem - History obtained from History obtained from: Patient, Family - History of Present Illness Location: Right, Shoulder Type of injury: Other (over use doing weight lifting) Where injury occurred: Home Timing - onset: Today Timing - duration: Minutes Timing - details: Abrupt onset, Still present Improved by: Rest, Immobilization Worsened by: Moving, Palpating Associated symptoms: No: Weakness, Tingling Contributing factors: No: Anticoagulated Similar symptoms before: Has not had sx before Recently seen: Emergency Dept - Additonal information Additional information: 41-year-old female with history of morbid obesity who is status post gastric sleeve has been losing weight and she is working out with weights. She has been using a 15 pound weights to do arm extensions and today she is switched to 25 pound weights to do these arm extensions. She was doing sets of 10 and on her fifth set of 10 she got the rep #49 and felt a pop in her shoulder on the right side right over the edge of her back. She has trouble moving her arm around removing her shoulder through a range of motion without significant pain. She does not have injury to anywhere else on her body. Review of Systems Constitutional: denies: Fever Eyes: denies: Decreased vision Ears: denies: Ear pain Nose: denies: Congestion Throat: denies: Sore throat Cardiac: denies: Chest pain / pressure Respiratory: denies: Dyspnea, Cough GI: denies: Abdominal Pain, Nausea, Vomiting : denies: Dysuria, Frequency Musculoskeletal: reports: Extremity pain, Joint pain. denies: Neck pain, Back pain, Extremity swelling, Joint swelling PD PAST MEDICAL HISTORY - Past Medical History Cardiovascular: Atrial fibrillation, Hypertension, Other Respiratory: Asthma, Shortness of breath, Sleep apnea, Pneumonia Neuro: Fainting, TIA Endocrine/Autoimmune: None GI: GERD WARRANTY MANAGER: None : Incontinence HEENT: None Psych: Depression, Anxiety, Panic attacks, Post traumatic stress disorder, Claustrophobia Musculoskeletal: Osteoarthritis Derm: None - Past Surgical History Past Surgical History: Yes General: Other Ortho: Knee replacement, Carpal Tunnel surgery /WARRANTY MANAGER: Dilation and currettage, Tubal ligation Cardiovascular: Pacemaker - Present Medications Home Medications: Ambulatory Orders Medication Instructions Recorded Confirmed ALPRAZolam [Alprazolam] 2 mg PO DAILY PRN 01/14/14 04/19/17 hydroCHLOROthiazide 25 mg PO DAILY 02/28/14 04/19/17 [Hydrochlorothiazide] Prazosin [Minipress] 8 mg PO QPM 03/17/15 04/19/17 Propafenone [Rythmol] 150 mg PO Q8H 03/17/15 04/19/17 Citalopram Hydrobromide 40 mg PO DAILY 03/13/16 04/19/17 [Citalopram HBr] Omeprazole [PriLOSEC] 20 mg PO BID 03/13/16 04/19/17 Metoprolol Tartrate 75 mg PO BID 05/06/16 04/19/17 ARIPiprazole [Abilify] 5 mg PO DAILY 10/02/16 04/19/17 hydrOXYzine HCl [Hydroxyzine HCl] 25 mg PO DAILY 10/02/16 04/19/17 Albuterol Sulfate [Proventil Hfa 1 - 2 puffs IH Q4H PRN #1 02/20/17 04/19/17 Inhaler] [email or web address] Sulfacetamide 10% Ophth Drops 1 drops LEFTEYE Q3H #1 bottle 04/04/17 04/19/17 [Sulfamide 10% Ophth Drops] Warfarin Sodium [Coumadin] 6 mg PO DAILY 04/04/17 04/19/17 Butalb/Acetaminophen/Caffeine 1 each PO TID #20 capsule 04/19/17 [Fioricet 50-300-40 mg Capsule] Cefuroxime Axetil [Cefuroxime] 500 mg PO BID #20 tablet 04/27/17 - Allergies Allergies/Adverse Reactions: Allergies Allergy/AdvReac Type Severity Reaction Status Date / Time levofloxacin [From Levaquin] Allergy Severe Hives Verified 05/19/17 12:31 meperidine HCl * Allergy Severe Hives Verified 05/19/17 12:31 [From Demerol] hydrocodone [Hydrocodone] Allergy Intermediate Itching Verified 05/19/17 12:31 codeine Allergy Rash Verified 05/19/17 12:31 hydrocodone bitartrate * Allergy Itching Verified 05/19/17 12:31 [From Vicodin] tramadol Allergy Rash Verified 05/19/17 12:31 methylprednisolone sodium AdvReac Anxiety Verified 05/19/17 12:31 succ... * [From Solu-Medrol] bees Allergy Anaphylaxis Uncoded 05/19/17 12:31 - Social History Does the pt smoke?: No Smoking Status: Never smoker Does the pt drink ETOH?: No Does the pt have substance abuse?: No - Immunizations Immunizations are current?: Yes Immunizations: TDAP >10years/unknown - POLST Patient has POLST: No POLST Status: Full Code PD ED PE NORMAL - Vitals Vital signs reviewed: Yes (Normal) - General General: Alert and oriented X 3, No acute distress, Well developed/nourished - HEENT HEENT: Atraumatic, PERRL, EOMI - Neck Neck: Supple, no meningeal sign, No bony TTP - Cardiac Cardiac: RRR, No murmur - Respiratory Respiratory: No respiratory distress - Derm Derm: Normal color, Warm and dry, No rash - Extremities Extremities: No deformity, No edema, Other (There is tenderness over the supraspinatus and over the lateral deltoid. The patient is able to hold her arm in abduction after passively placing it there. She is not able to abduct the arm without significant pain she does have pain to all range of motion.) - Neuro Neuro: Alert and oriented X 3, No motor deficit, No sensory deficit, Normal speech Eye Opening: Spontaneous Motor: Obeys Commands Verbal: Oriented GCS Score: 15 - Psych Psych: Normal mood, Normal affect Results - Vitals Vitals: Vital Signs - 24 hr 05/19/17 05/19/17 12:27 14:48 Temperature 36.0 C L Heart Rate 64 54 L Respiratory 16 16 Rate Blood Pressure 109/63 106/50 L O2 Saturation 94 100 Oxygen O2 Source Room air - Rads (name of study) right shoulder Radiology: Prelim report reviewed (Impression: 1. No acute abnormality in the right shoulder. Acromioclavicular joint degenerative osteophytes.), EMP read indepedently, See rad report PD MEDICAL DECISION MAKING - ED course Complexity details: reviewed results, re-evaluated patient, considered differential, d/w patient, d/w family ED course: 42-year-old female with an injury to the right shoulder from overuse with weightlifting he is still able to Hold the shoulder abduction and has been the majority of her pain over the supraspinatus. She is placed into a sling x-rays obtained there is no evidence of fracture she is given dexamethasone 10 mg orally and she is diagnosed with a shoulder sprain. She is encouraged to reduce the weights she is using for her workouts and reduce the intensity. Departure - Departure Disposition: 01 Home, Self Care Clinical Impression: Sprain of right shoulder Qualifiers: Encounter type: initial encounter Shoulder sprain type: unspecified sprain Qualified Code(s): S43.401A - Unspecified sprain of right shoulder joint, initial encounter Condition: Stable Instructions: ED Sprain Shoulder Follow-Up: Dougie Yeung MD [Primary Care Provider] - Discharge Date/Time: 05/19/17 15:15
== END 2017-05-19 15:15 | disposition home or self-care (01) ==
LOC: ED 12:25
DX: S43.401A Unspecified sprain of right shoulder joint, initial encounter (principal); X50.0XXA Overexertion from strenuous movement or load, initial encounter; Y93.B3 Activity, free weights; E66.01 Morbid (severe) obesity due to excess calories; Z98.84 Bariatric surgery status; I48.91 Unspecified atrial fibrillation; Z79.01 Long term (current) use of anticoagulants; I10 Essential (primary) hypertension; J45.909 Unspecified asthma, uncomplicated
CPT/HCPCS: 99283

== ENCOUNTER 2017-05-24 13:10 | Outpatient (CLI) | payer MEDICAID | END 2017-05-24 13:11 | disposition home or self-care (01) | LOC: LAB.N 13:10 | PROVIDERS: ATTEND Family Medicine | DX: I48.91 Unspecified atrial fibrillation (principal); Z79.899 Other long term (current) drug therapy | CPT/HCPCS: 85610 ==

== ENCOUNTER 2017-05-26 11:13 | Emergency (ER) | payer MEDICAID ==
[2017-05-26 11:24] VITALS: BP 143/101
[2017-05-26] MEDS ORDERED: LIDOCAINE 1% 2 ML VIAL SUBQ STA (12:44)
--- NOTE | 2017-05-26 12:58 | ED Physician Documentation ---
PD HPI SKIN - Stated complaint Stated Complaint: BUMP ON BACK SHOULDER - Chief complaint Chief Complaint: Wound - History obtained from History obtained from: Patient - History of Present Illness Timing - onset: How many days ago (3) Timing - duration: Days (3) Timing - details: Gradual onset, Still present Location: Back Quality / character: Painful, Discolored, Raised, Swelling Associated symptoms: No: Fever, Myalgias, Joint pain Contributing factors: Other (has lost weight and her bra strap is caught in folds of skin) Similar symptoms before: Diagnosis (staph abscess) Recently seen: Emergency Dept (for a shoulder strain) - Additional information Additional information: 42-year-old female with a history of morbid obesity who is now status post gastric sleeve and has lost significant weight has developed a abscess on her back near where her bra step is. She states that she feels this is because she is having redundant folds of skin folding over the bra strap. She has a lot of tenderness over the area has been hurting her for about 3 days and she has had this happen to her before. She has had abscess lanced and drained previously Review of Systems Constitutional: denies: Fever, Chills, Myalgias Eyes: denies: Decreased vision Ears: denies: Ear pain Nose: denies: Reviewed and negative Throat: denies: Sore throat Cardiac: denies: Chest pain / pressure Respiratory: denies: Dyspnea, Cough GI: denies: Nausea, Vomiting : denies: Dysuria Skin: reports: Other (tender erythematous lump on the left back). denies: Rash Musculoskeletal: reports: Back pain. denies: Neck pain PD PAST MEDICAL HISTORY - Past Medical History Cardiovascular: Atrial fibrillation, Hypertension, Other Respiratory: Asthma, Shortness of breath, Sleep apnea, Pneumonia Neuro: Fainting, TIA Endocrine/Autoimmune: None GI: GERD BRIM STITCHER: None : Incontinence HEENT: None Psych: Depression, Anxiety, Panic attacks, Post traumatic stress disorder, Claustrophobia Musculoskeletal: Osteoarthritis Derm: None - Past Surgical History Past Surgical History: Yes General: Other Ortho: Knee replacement, Carpal Tunnel surgery /BRIM STITCHER: Dilation and currettage, Tubal ligation Cardiovascular: Pacemaker - Present Medications Home Medications: Ambulatory Orders Medication Instructions Recorded Confirmed ALPRAZolam [Alprazolam] 2 mg PO DAILY PRN 01/14/14 05/26/17 hydroCHLOROthiazide 25 mg PO DAILY 02/28/14 05/26/17 [Hydrochlorothiazide] Prazosin [Minipress] 8 mg PO QPM 03/17/15 05/26/17 Propafenone [Rythmol] 150 mg PO Q8H 03/17/15 05/26/17 Citalopram Hydrobromide 40 mg PO DAILY 03/13/16 05/26/17 [Citalopram HBr] Omeprazole [PriLOSEC] 20 mg PO BID 03/13/16 05/26/17 Metoprolol Tartrate 75 mg PO BID 05/06/16 05/26/17 ARIPiprazole [Abilify] 5 mg PO DAILY 10/02/16 05/26/17 hydrOXYzine HCl [Hydroxyzine HCl] 25 mg PO DAILY 10/02/16 05/26/17 Albuterol Sulfate [Proventil Hfa 1 - 2 puffs IH Q4H PRN #1 02/20/17 05/26/17 Inhaler] [email or web address] Sulfacetamide 10% Ophth Drops 1 drops LEFTEYE Q3H #1 bottle 04/04/17 05/26/17 [Sulfamide 10% Ophth Drops] Warfarin Sodium [Coumadin] 6 mg PO DAILY 04/04/17 05/26/17 Butalb/Acetaminophen/Caffeine 1 each PO TID #20 capsule 04/19/17 05/26/17 [Fioricet 50-300-40 mg Capsule] Cefuroxime Axetil [Cefuroxime] 500 mg PO BID #20 tablet 04/27/17 05/26/17 Sulfamethoxazole/Trimethoprim 1 each PO BID #14 tablet 05/26/17 [Sulfamethoxazole-Tmp Ds Tablet] oxyCODONE [Roxicodone] 5 mg PO Q6H PRN #12 tablet 05/26/17 - Allergies Allergies/Adverse Reactions: Allergies Allergy/AdvReac Type Severity Reaction Status Date / Time levofloxacin [From Levaquin] Allergy Severe Hives Verified 05/19/17 12:31 meperidine HCl * Allergy Severe Hives Verified 05/19/17 12:31 [From Demerol] hydrocodone [Hydrocodone] Allergy Intermediate Itching Verified 05/19/17 12:31 codeine Allergy Rash Verified 05/19/17 12:31 hydrocodone bitartrate * Allergy Itching Verified 05/19/17 12:31 [From Vicodin] tramadol Allergy Rash Verified 05/19/17 12:31 methylprednisolone sodium AdvReac Anxiety Verified 05/19/17 12:31 succ... * [From Solu-Medrol] bees Allergy Anaphylaxis Uncoded 05/19/17 12:31 - Social History Does the pt smoke?: No Smoking Status: Never smoker Does the pt drink ETOH?: No Does the pt have substance abuse?: No - Immunizations Immunizations are current?: Yes Immunizations: TDAP >10years/unknown - POLST Patient has POLST: No POLST Status: Full Code PD ED PE NORMAL - Vitals Vital signs reviewed: Yes (hypertensive ) - General General: Alert and oriented X 3, No acute distress, Well developed/nourished - HEENT HEENT: Atraumatic, PERRL, EOMI - Neck Neck: Supple, no meningeal sign - Respiratory Respiratory: No respiratory distress - Back Back: No CVA TTP, No spinal TTP, Other (There is an area about 2cm elongated over the left scaplar area that is erythematous, raised, tender and without obvious fluctuance.,) - Derm Derm: Normal color, Warm and dry, No rash - Extremities Extremities: No deformity, No edema - Neuro Neuro: No motor deficit, No sensory deficit Eye Opening: Spontaneous Motor: Obeys Commands Verbal: Oriented GCS Score: 15 - Psych Psych: Normal mood, Normal affect Results - Vitals Vitals: Vital Signs - 24 hr 05/26/17 11:21 Temperature 35.9 C L Heart Rate 65 Respiratory 18 Rate Blood Pressure 143/101 H O2 Saturation 100 Oxygen O2 Source Room air Procedures - Abscess I&D (location) back Preparation: Confirmed with ultrasound, Lidocaine 1% Incision: Incised with scalpel, Purulent drainage, Loculations broken, Irrigated Other: Pt tolerated well, Dressing applied, Antibiotic prescribed PD MEDICAL DECISION MAKING - ED course Complexity details: reviewed results, re-evaluated patient, considered differential, d/w patient ED course: 42-year-old female with an abscess to her back is lanced and drained she does have some drainage to the area and some improvement in her pain. The pus that comes from this is bloody. Departure - Departure Disposition: 01 Home, Self Care Clinical Impression: Abscess Condition: Stable Instructions: ED Abscess IandD Follow-Up: Dougie Yeung MD [Primary Care Provider] - Prescriptions: oxyCODONE [Roxicodone] 5 mg PO Q6H PRN #12 tablet PRN Reason: Pain Sulfamethoxazole/Trimethoprim [Sulfamethoxazole-Tmp Ds Tablet] 1 each PO BID # 14 tablet Comments: We have put you onto an antibiotic and when you are taking an antibiotic is important to have your INR checked more frequently. Have your INR checked in 3 days. Discharge Date/Time: 05/26/17 13:04
== END 2017-05-26 13:04 | disposition home or self-care (01) ==
LOC: ED 11:13
DX: L02.212 Cutaneous abscess of back [any part, except buttock and flank] (principal); Z98.84 Bariatric surgery status; I48.91 Unspecified atrial fibrillation; Z79.01 Long term (current) use of anticoagulants; I10 Essential (primary) hypertension; Z86.73 Personal history of transient ischemic attack (TIA), and cerebral infarction without residual deficits; M19.90 Unspecified osteoarthritis, unspecified site; Z95.0 Presence of cardiac pacemaker; Z79.899 Other long term (current) drug therapy
CPT/HCPCS: 10060; 85610; 99283

== ENCOUNTER 2017-05-26 14:39 | Outpatient (CLI) | payer MEDICAID | END 2017-05-26 14:40 | disposition home or self-care (01) | LOC: LAB.N 14:39 | PROVIDERS: ATTEND Family Medicine | DX: I48.91 Unspecified atrial fibrillation (principal); Z79.899 Other long term (current) drug therapy | CPT/HCPCS: 85610 ==

== ENCOUNTER 2017-06-13 08:00 | Outpatient (CLI) | payer MEDICAID | END 2017-06-13 08:01 | disposition home or self-care (01) | LOC: LAB.N 08:00 | PROVIDERS: ATTEND Family Medicine | DX: I48.91 Unspecified atrial fibrillation (principal); Z79.899 Other long term (current) drug therapy | CPT/HCPCS: 85610 ==

== ENCOUNTER 2017-06-19 13:54 | Emergency (ER) | payer MEDICAID ==
[2017-06-19] MEDS ORDERED: IPRATROPIUM/ALBUTEROL 3 ML NEB INH STA (14:03)
[2017-06-19] MEDS ORDERED: ALBUTEROL NEB 2.5 MG/3 ML INH STA (14:04)
[2017-06-19 14:16] VITALS: BP 103/68
[2017-06-19] MEDS ORDERED: predniSONE 20 MG TABLET PO STA (15:08)
--- NOTE | 2017-06-19 15:10 | ED Physician Documentation ---
PD HPI URI - Stated complaint Stated Complaint: DIFFICULTY BREATHING - Chief complaint Chief Complaint: Resp - History obtained from History obtained from: Patient - History of Present Illness Pain level max: 6 Pain level now: 6 Associated symptoms: Nasal congestion, Rhinorrhea, Dry cough, Dyspnea, Other ( wheezing). No: Fever, Chills, Hemoptysis Contributing factors: Sick contact, COPD / asthma Improves by: Rest Worsened by: Activity, Breathing - Additional information Additional information: Patient is a 42-year-old female with a long history of severe asthma. She has been sick intermittently for the past week or so. States that today she started feeling more short of breath, has steadily increased throughout the day. Audibly wheezing. States that she also feels a heaviness in her chest that started last night. She has had coughing, subjective fevers. Mostly a dry cough. Also left ear pain. No vomiting. States her left ear pain is a 6 out of 10. Review of Systems Ears: reports: Ear pain (Left ear pain) Throat: denies: Sore throat Respiratory: reports: Dyspnea, Cough, Wheezing GI: denies: Abdominal Pain, Vomiting : denies: Dysuria, Now EGA Skin: denies: Rash Musculoskeletal: denies: Neck pain, Back pain PD PAST MEDICAL HISTORY - Past Medical History Past Medical History: Yes Cardiovascular: Atrial fibrillation, Hypertension, Other Respiratory: Asthma, Shortness of breath, Sleep apnea, Pneumonia Neuro: Fainting, TIA Endocrine/Autoimmune: None GI: GERD PLANT BUYER: None : Incontinence HEENT: None Psych: Depression, Anxiety, Panic attacks, Post traumatic stress disorder, Claustrophobia Musculoskeletal: Osteoarthritis Derm: None - Past Surgical History Past Surgical History: Yes General: Other Ortho: Knee replacement, Carpal Tunnel surgery /PLANT BUYER: Dilation and currettage, Tubal ligation Cardiovascular: Pacemaker - Present Medications Home Medications: Ambulatory Orders Medication Instructions Recorded Confirmed ALPRAZolam [Alprazolam] 2 mg PO DAILY PRN 01/14/14 05/26/17 hydroCHLOROthiazide 25 mg PO DAILY 02/28/14 05/26/17 [Hydrochlorothiazide] Prazosin [Minipress] 8 mg PO QPM 03/17/15 05/26/17 Propafenone [Rythmol] 150 mg PO Q8H 03/17/15 05/26/17 Citalopram Hydrobromide 40 mg PO DAILY 03/13/16 05/26/17 [Citalopram HBr] Omeprazole [PriLOSEC] 20 mg PO BID 03/13/16 05/26/17 Metoprolol Tartrate 75 mg PO BID 05/06/16 05/26/17 ARIPiprazole [Abilify] 5 mg PO DAILY 10/02/16 05/26/17 hydrOXYzine HCl [Hydroxyzine HCl] 25 mg PO DAILY 10/02/16 05/26/17 Albuterol Sulfate [Proventil Hfa 1 - 2 puffs IH Q4H PRN #1 02/20/17 05/26/17 Inhaler] [email or web address] Sulfacetamide 10% Ophth Drops 1 drops LEFTEYE Q3H #1 bottle 04/04/17 05/26/17 [Sulfamide 10% Ophth Drops] Warfarin Sodium [Coumadin] 6 mg PO DAILY 04/04/17 05/26/17 Butalb/Acetaminophen/Caffeine 1 each PO TID #20 capsule 04/19/17 05/26/17 [Fioricet 50-300-40 mg Capsule] Cefuroxime Axetil [Cefuroxime] 500 mg PO BID #20 tablet 04/27/17 05/26/17 Sulfamethoxazole/Trimethoprim 1 each PO BID #14 tablet 05/26/17 [Sulfamethoxazole-Tmp Ds Tablet] oxyCODONE [Roxicodone] 5 mg PO Q6H PRN #12 tablet 05/26/17 Albuterol 2.5 mg INH Q4H PRN #30 neb 06/19/17 Albuterol Sulf [Ventolin Hfa 1 - 2 puffs INH Q4HR PRN #1 inhaler 06/19/17 Inhaler] Amoxicillin 875 mg PO BID #20 tablet 06/19/17 Oxycodone HCl/Acetaminophen 1 - 2 each PO Q6H PRN #14 tablet 06/19/17 [Percocet 5-325 mg Tablet] predniSONE [Prednisone] 40 mg PO DAILY #15 tablet 06/19/17 - Allergies Allergies/Adverse Reactions: Allergies Allergy/AdvReac Type Severity Reaction Status Date / Time levofloxacin [From Levaquin] Allergy Severe Hives Verified 05/19/17 12:31 meperidine HCl * Allergy Severe Hives Verified 05/19/17 12:31 [From Demerol] hydrocodone [Hydrocodone] Allergy Intermediate Itching Verified 05/19/17 12:31 codeine Allergy Rash Verified 05/19/17 12:31 hydrocodone bitartrate * Allergy Itching Verified 05/19/17 12:31 [From Vicodin] tramadol Allergy Rash Verified 05/19/17 12:31 methylprednisolone sodium AdvReac Anxiety Verified 05/19/17 12:31 succ... * [From Solu-Medrol] bees Allergy Anaphylaxis Uncoded 05/19/17 12:31 - Social History Does the pt smoke?: No Smoking Status: Never smoker Does the pt drink ETOH?: No Does the pt have substance abuse?: No - Immunizations Immunizations are current?: Yes Immunizations: TDAP >10years/unknown - POLST Patient has POLST: No POLST Status: Full Code PD ED PE NORMAL - Vitals Vital signs reviewed: Yes - General General: Alert and oriented X 3, Other (Moderate respiratory distress) - HEENT HEENT: PERRL, Moist mucous membranes, Other (Left tympanic membrane is erythematous, dull, bulging with loss of landmarks. Fluid present behind the tympanic membrane. No mastoid tenderness) - Neck Neck: Supple, no meningeal sign, No adenopathy - Cardiac Cardiac: RRR, Strong equal pulses - Respiratory Respiratory: Other - Abdomen Abdomen: Soft, Non tender, Non distended - Back Back: No spinal TTP - Derm Derm: Warm and dry, No rash - Extremities Extremities: No calf tenderness / cord - Neuro Neuro: Alert and oriented X 3 - Psych Psych: Normal mood, Normal affect Results - Vitals Vitals: Oxygen O2 Source Room air - EKG (time done) 1406 Rate: Rate (enter#) (58) Rhythm: NSR Molt: Normal Intervals: Normal TN QRS: Normal Ischemia: Normal ST segments - Labs Labs: Laboratory Tests 06/19/17 06/19/17 06/19/17 15:41 15:41 15:41 WBC 5.2 RBC 5.24 Hgb 12.3 Hct 38.3 MCV 73.2 L MCH 23.4 L MCHC 32.0 RDW 18.6 H Plt Count 300 MPV 7.1 L Neut # 3.1 Lymph # 1.6 [place] # 0.3 Eos # 0.1 Baso # 0.0 Absolute Nucleated RBC 0.00 Nucleated RBC % 0.0 PT 21.6 H INR 2.0 H Sodium 137 Potassium 2.7 L Chloride 101 Carbon Dioxide 25 Anion Gap 11.0 BUN 15 Creatinine 0.6 Estimated GFR (MDRD) 132 Glucose 109 H Calcium 9.3 Total Bilirubin 0.5 AST 19 ALT 18 Alkaline Phosphatase 52 Troponin I Total Protein 7.2 Albumin 4.0 Globulin 3.2 Albumin/Globulin Ratio 1.3 Lipase 19 L 06/19/17 15:41 WBC RBC Hgb Hct MCV MCH MCHC RDW Plt Count MPV Neut # Lymph # [place] # Eos # Baso # Absolute Nucleated RBC Nucleated RBC % PT INR Sodium Potassium Chloride Carbon Dioxide Anion Gap BUN Creatinine Estimated GFR (MDRD) Glucose Calcium Total Bilirubin AST ALT Alkaline Phosphatase Troponin I < 0.04 Total Protein Albumin Globulin Albumin/Globulin Ratio Lipase - Rads (name of study) cxr Radiology: Prelim report reviewed, EMP read contemporaneously, See rad report ( Possible mild new interstitial edema) PD MEDICAL DECISION MAKING - ED course Complexity details: reviewed old records, reviewed results, re-evaluated patient , considered differential, d/w patient ED course: Patient is a 42-year-old female who presents to the emergency department with what appears to be a upper respiratory infection causing an asthma exacerbation. Given nebulizer treatment and steroids in the emergency department. Wheezing nearly resolved and she feels much improved. She would like to go home at this time. No respiratory distress on serial exam. Also appears to have a left acute otitis media and will place on antibiotics for this. She is well-appearing, nontoxic. No hypoxia. Patient counseled regarding signs and symptoms for which I believe and urgent re-evaluation would be necessary. Patient with good understanding of and agreement to plan and is comfortable going home at this time This document was made in part using voice recognition software. While efforts are made to proofread this document, sound alike and grammatical errors may occur. Departure - Departure Disposition: 01 Home, Self Care Clinical Impression: Upper respiratory infection, Asthma Otitis media Qualifiers: Otitis media type: suppurative Chronicity: acute Laterality: left Recurrence: not specified as recurrent Spontaneous tympanic membrane rupture: without spontaneous rupture Qualified Code(s): H66.002 - Acute suppurative otitis media without spontaneous rupture of ear drum, left ear Condition: Good Instructions: ED Reactive Airway Disease, ED Otitis Media Acute Adult Follow-Up: Dougie Yeung MD [Primary Care Provider] - Within 1 week Prescriptions: Albuterol Sulf [Ventolin Hfa Inhaler] 1 - 2 puffs INH Q4HR PRN #1 inhaler PRN Reason: Shortness Of Air/Wheezing Albuterol 2.5 mg INH Q4H PRN #30 neb PRN Reason: Wheezing Amoxicillin 875 mg PO BID #20 tablet Oxycodone HCl/Acetaminophen [Percocet 5-325 mg Tablet] 1 - 2 each PO Q6H PRN # 14 tablet PRN Reason: pain predniSONE [Prednisone] 40 mg PO DAILY #15 tablet Comments: Take all antibiotics until gone. Return if you worsen. This should improve over the next few days. Do not drink alcohol or drive while on narcotic pain medicine. Note that many narcotic pain relievers also contain tylenol/acetaminophen. Please ensure that your total dose of acetaminophen from all sources does not exceed 3 grams (3000mg) per day. You may constipated on this medication, take a stool softener such as "Colace" twice a day while you are on it. Also recommend a [id number] laxative such as senna or MiraLAX any day that you do not have a bowel movement. If you received narcotic pain medication in the emergency department, do not drive or operate machinery for the next 24 hours. Discharge Date/Time: 06/19/17 16:33
--- NOTE | 2017-06-19 15:29 | XRAY Report ---
EXAM: CHEST RADIOGRAPHY EXAM DATE: 06/19/2017 03:15 PM. CLINICAL HISTORY: Chest pain. COMPARISON: Chest 02/20/2017. TECHNIQUE: 1 view. FINDINGS: Lungs/Pleura: Pulmonary venous congestion with mild diffuse hazy opacification of the lungs, mildly i ncreased compared to the prior concerning for mild interstitial pulmonary edema. No pleural effusion or pneumothorax. Mediastinum: Stable cardiomegaly and dual-lead pacemaker. IMPRESSION: New mild interstitial pulmonary edema suspected. [facility] Referring Provider Line: [phone] SITE ID: [id number]
[2017-06-19 15:57] LABS: BASOPHILS % (AUTO) 0.4 %; EOSINOPHILS # (AUTO) 0.1 10^3/uL (0.0-0.7); HGB - HEMOGLOBIN 12.3 g/dL (12.0-16.0); LYMPHOCYTES # (AUTO) 1.6 10^3/uL (1.5-3.5); LYMPHOCYTES % (AUTO) 31.6 %; MEAN CORPUSCULAR HEMOGLOBIN 23.4 pg (27.0-31.0); MEAN CORPUSCULAR VOLUME 73.2 fL (81.0-99.0); MEAN PLATELET VOLUME 7.1 fL (7.9-10.8); MONOCYTES # (AUTO) 0.3 10^3/uL (0.0-1.0); MONOCYTES % (AUTO) 5.8 %; NEUTROPHILS # (AUTO) 3.1 10^3/uL (1.5-6.6); NEUTROPHILS % (AUTO) 60.2 %; PLT - PLATELET COUNT 300 10^3/uL (130-450); RED BLOOD COUNT 5.24 10^6/uL (4.20-5.40); RED CELL DISTRIBUTION WIDTH 18.6 % (12.0-15.0); WHITE BLOOD COUNT 5.2 x10^3/uL (4.8-10.8)
[2017-06-19 16:11] LABS: ALBUMIN/GLOBULIN RATIO 1.3 (1.0-2.2); BILIRUBIN,TOTAL 0.5 mg/dL (0.2-1.0); CALCIUM 9.3 mg/dL (8.5-10.3); CREATININE 0.6 mg/dL (0.4-1.0); TOTAL PROTEIN 7.2 g/dL (6.7-8.2)
[2017-06-19] MEDS ORDERED: POTASSIUM BICARB 25 MEQ TABLET PO STA (16:17)
[2017-06-19] MEDS ORDERED: oxyCOD/ACETAMIN 5 MG/325 MG TABLET PO STA (16:20)
[2017-06-19 16:29] LABS: PT - PROTHROMBIN TIME 21.6 secs (9.9-12.6)
== END 2017-06-19 16:33 | disposition home or self-care (01) ==
LOC: ED 13:54
DX: J06.9 Acute upper respiratory infection, unspecified (principal); J45.909 Unspecified asthma, uncomplicated; H66.002 Acute suppurative otitis media without spontaneous rupture of ear drum, left ear; I48.91 Unspecified atrial fibrillation; I10 Essential (primary) hypertension; Z79.01 Long term (current) use of anticoagulants; Z86.73 Personal history of transient ischemic attack (TIA), and cerebral infarction without residual deficits; Z96.659 Presence of unspecified artificial knee joint
CPT/HCPCS: 36415; 71045; 80053; 83690; 84484; 85025; 85610; 93005; 94640; 99283; 99284; A9270; J7512

== ENCOUNTER 2017-06-21 13:23 | Outpatient (CLI) | payer MEDICAID | END 2017-06-21 13:24 | disposition home or self-care (01) | LOC: LAB.N 13:23 | PROVIDERS: ATTEND Family Medicine | DX: I48.91 Unspecified atrial fibrillation (principal); Z79.899 Other long term (current) drug therapy | CPT/HCPCS: 85610 ==

== ENCOUNTER 2017-06-27 08:00 | Outpatient (CLI) | payer MEDICAID | END 2017-06-27 08:01 | disposition home or self-care (01) | LOC: LAB.N 08:00 | PROVIDERS: ATTEND Family Medicine | DX: I48.91 Unspecified atrial fibrillation (principal); Z79.899 Other long term (current) drug therapy | CPT/HCPCS: 85610 ==

== ENCOUNTER 2017-06-30 13:37 | Outpatient (CLI) | payer MEDICAID | END 2017-06-30 13:38 | disposition home or self-care (01) | LOC: LAB.N 13:37 | PROVIDERS: ATTEND Family Medicine | DX: I48.91 Unspecified atrial fibrillation (principal); Z79.899 Other long term (current) drug therapy | CPT/HCPCS: 85610 ==

== ENCOUNTER 2017-07-04 11:42 | Outpatient (CLI) | payer MEDICAID | END 2017-07-04 11:43 | disposition home or self-care (01) | LOC: LAB.N 11:42 | PROVIDERS: ATTEND Family Medicine | DX: I48.91 Unspecified atrial fibrillation (principal); Z79.899 Other long term (current) drug therapy | CPT/HCPCS: 85610 ==

== ENCOUNTER 2017-07-06 13:20 | Outpatient (CLI) | payer MEDICAID | END 2017-07-06 13:21 | disposition home or self-care (01) | LOC: LAB.N 13:20 | PROVIDERS: ATTEND Family Medicine | DX: I48.91 Unspecified atrial fibrillation (principal); Z79.899 Other long term (current) drug therapy | CPT/HCPCS: 85610 ==

== ENCOUNTER 2017-07-10 10:40 | Outpatient (CLI) | payer MEDICAID | END 2017-07-10 10:41 | disposition home or self-care (01) | LOC: LAB.N 10:40 | PROVIDERS: ATTEND Family Medicine | DX: I48.91 Unspecified atrial fibrillation (principal); Z79.899 Other long term (current) drug therapy | CPT/HCPCS: 85610 ==

== ENCOUNTER 2017-07-11 14:02 | Outpatient (CLI) | payer MEDICAID | END 2017-07-11 14:03 | disposition home or self-care (01) | LOC: LAB.N 14:02 | PROVIDERS: ATTEND Family Medicine | DX: I48.91 Unspecified atrial fibrillation (principal); Z79.899 Other long term (current) drug therapy | CPT/HCPCS: 85610 ==

== ENCOUNTER 2017-07-13 11:06 | Outpatient (CLI) | payer MEDICAID | END 2017-07-13 11:07 | disposition home or self-care (01) | LOC: LAB.N 11:06 | PROVIDERS: ATTEND Family Medicine | DX: I48.91 Unspecified atrial fibrillation (principal); Z79.899 Other long term (current) drug therapy | CPT/HCPCS: 85610 ==

== ENCOUNTER 2017-07-17 14:02 | Emergency (ER) | payer MEDICAID ==
[2017-07-17] MEDS ORDERED: BUFFERED LIDOCAINE 10 ML SYRINGE ONE (14:51)
--- NOTE | 2017-07-17 14:55 | ED Physician Documentation ---
PD HPI SKIN - Stated complaint Stated Complaint: FEMALE - Chief complaint Chief Complaint: Wound - History obtained from History obtained from: Patient - History of Present Illness Timing - onset: How many days ago (2) Timing - duration: Days (2) Timing - details: Gradual onset, Still present Location: Genitals Quality / character: Painful, Discolored, Raised, Swelling. No: Draining Similar symptoms before: Diagnosis (staph abscess) Recently seen: Emergency Dept - Additional information Additional information: 42-year-old male with a history of morbid obesity and reactive airway disease has had gastric sleeve placed has lost more than 100 pounds continues to have some problems with abscesses in her skin. Today she has an abscessed at the top of the vulva and this is quite painful and fluctuant. Review of Systems Constitutional: denies: Fever Nose: denies: Congestion Throat: denies: Sore throat Respiratory: denies: Cough GI: denies: Vomiting Skin: reports: Lesions Musculoskeletal: denies: Neck pain, Back pain, Extremity pain PD PAST MEDICAL HISTORY - Past Medical History Cardiovascular: Atrial fibrillation, Hypertension, Other Respiratory: Asthma, Shortness of breath, Sleep apnea, Pneumonia Endocrine/Autoimmune: None GI: GERD PIG CONVEYOR OPERATOR: None : Incontinence HEENT: None Psych: Depression, Anxiety, Panic attacks, Post traumatic stress disorder, Claustrophobia Musculoskeletal: Osteoarthritis Derm: None - Past Surgical History Past Surgical History: Yes General: Other Ortho: Knee replacement, Carpal Tunnel surgery /PIG CONVEYOR OPERATOR: Dilation and currettage, Tubal ligation Cardiovascular: Pacemaker - Present Medications Home Medications: Ambulatory Orders Medication Instructions Recorded Confirmed ALPRAZolam [Alprazolam] 2 mg PO DAILY PRN 01/14/14 05/26/17 hydroCHLOROthiazide 25 mg PO DAILY 02/28/14 05/26/17 [Hydrochlorothiazide] Prazosin [Minipress] 8 mg PO QPM 03/17/15 05/26/17 Propafenone [Rythmol] 150 mg PO Q8H 03/17/15 05/26/17 Citalopram Hydrobromide 40 mg PO DAILY 03/13/16 05/26/17 [Citalopram HBr] Omeprazole [PriLOSEC] 20 mg PO BID 03/13/16 05/26/17 Metoprolol Tartrate 75 mg PO BID 05/06/16 05/26/17 ARIPiprazole [Abilify] 5 mg PO DAILY 10/02/16 05/26/17 hydrOXYzine HCl [Hydroxyzine HCl] 25 mg PO DAILY 10/02/16 05/26/17 Albuterol Sulfate [Proventil Hfa 1 - 2 puffs IH Q4H PRN #1 02/20/17 05/26/17 Inhaler] hfa.aer.ad Sulfacetamide 10% Ophth Drops 1 drops LEFTEYE Q3H #1 bottle 04/04/17 05/26/17 [Sulfamide 10% Ophth Drops] Warfarin Sodium [Coumadin] 6 mg PO DAILY 04/04/17 05/26/17 Butalb/Acetaminophen/Caffeine 1 each PO TID #20 capsule 04/19/17 05/26/17 [Fioricet 50-300-40 mg Capsule] Cefuroxime Axetil [Cefuroxime] 500 mg PO BID #20 tablet 04/27/17 05/26/17 Sulfamethoxazole/Trimethoprim 1 each PO BID #14 tablet 05/26/17 [Sulfamethoxazole-Tmp Ds Tablet] oxyCODONE [Roxicodone] 5 mg PO Q6H PRN #12 tablet 05/26/17 Albuterol 2.5 mg INH Q4H PRN #30 neb 06/19/17 Albuterol Sulf [Ventolin Hfa 1 - 2 puffs INH Q4HR PRN #1 inhaler 06/19/17 Inhaler] Amoxicillin 875 mg PO BID #20 tablet 06/19/17 Oxycodone HCl/Acetaminophen 1 - 2 each PO Q6H PRN #14 tablet 06/19/17 [Percocet 5-325 mg Tablet] predniSONE [Prednisone] 40 mg PO DAILY #15 tablet 06/19/17 Sulfamethoxazole/Trimethoprim 1 each PO BID #14 tablet 07/17/17 [Sulfamethoxazole-Tmp Ds Tablet] oxyCODONE/ACET 5/325 [Percocet 5 1 each PO Q4-6H PRN #12 tablet 07/17/17 mg/325 mg] - Allergies Allergies/Adverse Reactions: Allergies Allergy/AdvReac Type Severity Reaction Status Date / Time levofloxacin [From Levaquin] Allergy Severe Hives Verified 07/17/17 14:18 meperidine HCl * Allergy Severe Hives Verified 07/17/17 14:18 [From Demerol] hydrocodone [Hydrocodone] Allergy Intermediate Itching Verified 07/17/17 14:18 codeine Allergy Rash Verified 07/17/17 14:18 hydrocodone bitartrate * Allergy Itching Verified 07/17/17 14:18 [From Vicodin] tramadol Allergy Rash Verified 07/17/17 14:18 methylprednisolone sodium AdvReac Anxiety Verified 07/17/17 14:18 succ... * [From Solu-Medrol] bees Allergy Anaphylaxis Uncoded 05/19/17 12:31 - Social History Does the pt smoke?: No Smoking Status: Never smoker Does the pt drink ETOH?: No Does the pt have substance abuse?: No - Immunizations Immunizations are current?: Yes Immunizations: TDAP >10years/unknown - POLST Patient has POLST: No POLST Status: Full Code PD ED PE NORMAL - Vitals Vital signs reviewed: Yes (hypertensive ) - General General: Alert and oriented X 3, No acute distress, Well developed/nourished - HEENT HEENT: Atraumatic, PERRL, EOMI - Respiratory Respiratory: No respiratory distress - Female Female : Avionics Integration Engineer present (CARLOS), Other (There is a 1cm X 2cm area over the top portion of the vulva. The area is fluctuant and tender with surrounding erythema. ) - Derm Derm: Normal color, Warm and dry, No rash - Extremities Extremities: No deformity, No edema - Neuro Neuro: No motor deficit, No sensory deficit Eye Opening: Spontaneous Motor: Obeys Commands Verbal: Oriented GCS Score: 15 - Psych Psych: Normal mood, Normal affect Results - Vitals Vitals: Vital Signs - 24 hr 07/17/17 14:13 Temperature 36.4 C L Heart Rate 50 L Respiratory 17 Rate Blood Pressure 137/80 H Oxygen O2 Source Room air Procedures - Abscess I&D (location) vulva Preparation: Lidocaine 1% Incision: Incised with scalpel, Purulent drainage, Irrigated, Culture obtained Other: Pt tolerated well, Dressing applied, Antibiotic prescribed PD MEDICAL DECISION MAKING - ED course Complexity details: reviewed old records, considered differential, d/w patient ED course: 42-year-old female with a vulvar abscess has incision and drainage with scant amount of pus removed she is placed on Septra and a culture is obtained. Departure - Departure Disposition: 01 Home, Self Care Clinical Impression: Abscess Instructions: ED Abscess IandD Follow-Up: Dougie Yeung MD [Primary Care Provider] - Prescriptions: oxyCODONE/ACET 5/325 [Percocet 5 mg/325 mg] 1 each PO Q4-6H PRN #12 tablet PRN Reason: Pain Sulfamethoxazole/Trimethoprim [Sulfamethoxazole-Tmp Ds Tablet] 1 each PO BID # 14 tablet
[2017-07-17 15:09] VITALS: BP 141/81
== END 2017-07-17 15:06 | disposition home or self-care (01) ==
LOC: ED 14:02
DX: N76.4 Abscess of vulva (principal); Z98.84 Bariatric surgery status; I48.91 Unspecified atrial fibrillation; I10 Essential (primary) hypertension; J45.909 Unspecified asthma, uncomplicated; K21.9 Gastro-esophageal reflux disease without esophagitis; M19.90 Unspecified osteoarthritis, unspecified site; Z95.0 Presence of cardiac pacemaker; Z79.899 Other long term (current) drug therapy
CPT/HCPCS: 56405; 85610; 87070; 87077; 87181; 87205; 99283

== ENCOUNTER 2017-07-17 15:11 | Outpatient (CLI) | payer MEDICAID | END 2017-07-17 15:12 | disposition home or self-care (01) | LOC: LAB 15:11 | PROVIDERS: ATTEND Family Medicine | DX: I48.91 Unspecified atrial fibrillation (principal); Z79.899 Other long term (current) drug therapy | CPT/HCPCS: 85610 ==

== ENCOUNTER 2017-07-21 12:46 | Emergency (ER) | payer MEDICAID ==
[2017-07-21 12:57] VITALS: BP 135/70
[2017-07-21] MEDS ORDERED: BUFFERED LIDOCAINE 10 ML SYRINGE ONE (13:13)
--- NOTE | 2017-07-21 13:26 | ED Physician Documentation ---
PD HPI SKIN - Stated complaint Stated Complaint: SIDE PX - Chief complaint Chief Complaint: Laceration - History obtained from History obtained from: Patient - History of Present Illness Timing - onset: Other (She has frequent abscesses and has a right flank abscess x 2 days. Recent labial abscess grew atypical staph resistant to bactrim, which she was put on.) PD PAST MEDICAL HISTORY - Past Medical History Past Medical History: Yes Cardiovascular: Atrial fibrillation, Hypertension, Other Respiratory: Asthma, Shortness of breath, Sleep apnea, Pneumonia Endocrine/Autoimmune: None GI: GERD KARDEX CLERK: None : Incontinence HEENT: None Psych: Depression, Anxiety, Panic attacks, Post traumatic stress disorder, Claustrophobia Musculoskeletal: Osteoarthritis Derm: None - Past Surgical History Past Surgical History: Yes General: Other Ortho: Knee replacement, Carpal Tunnel surgery /KARDEX CLERK: Dilation and currettage, Tubal ligation Cardiovascular: Pacemaker - Present Medications Home Medications: Ambulatory Orders Medication Instructions Recorded Confirmed ALPRAZolam [Alprazolam] 2 mg PO DAILY PRN 01/14/14 05/26/17 hydroCHLOROthiazide 25 mg PO DAILY 02/28/14 05/26/17 [Hydrochlorothiazide] Prazosin [Minipress] 8 mg PO QPM 03/17/15 05/26/17 Propafenone [Rythmol] 150 mg PO Q8H 03/17/15 05/26/17 Citalopram Hydrobromide 40 mg PO DAILY 03/13/16 05/26/17 [Citalopram HBr] Omeprazole [PriLOSEC] 20 mg PO BID 03/13/16 05/26/17 Metoprolol Tartrate 75 mg PO BID 05/06/16 05/26/17 ARIPiprazole [Abilify] 5 mg PO DAILY 10/02/16 05/26/17 hydrOXYzine HCl [Hydroxyzine HCl] 25 mg PO DAILY 10/02/16 05/26/17 Albuterol Sulfate [Proventil Hfa 1 - 2 puffs IH Q4H PRN #1 02/20/17 05/26/17 Inhaler] hfa.aer.ad Sulfacetamide 10% Ophth Drops 1 drops LEFTEYE Q3H #1 bottle 04/04/17 05/26/17 [Sulfamide 10% Ophth Drops] Warfarin Sodium [Coumadin] 6 mg PO DAILY 04/04/17 05/26/17 Butalb/Acetaminophen/Caffeine 1 each PO TID #20 capsule 04/19/17 05/26/17 [Fioricet 50-300-40 mg Capsule] Cefuroxime Axetil [Cefuroxime] 500 mg PO BID #20 tablet 04/27/17 05/26/17 Sulfamethoxazole/Trimethoprim 1 each PO BID #14 tablet 05/26/17 [Sulfamethoxazole-Tmp Ds Tablet] oxyCODONE [Roxicodone] 5 mg PO Q6H PRN #12 tablet 05/26/17 Albuterol 2.5 mg INH Q4H PRN #30 neb 06/19/17 Albuterol Sulf [Ventolin Hfa 1 - 2 puffs INH Q4HR PRN #1 inhaler 06/19/17 Inhaler] Amoxicillin 875 mg PO BID #20 tablet 06/19/17 Oxycodone HCl/Acetaminophen 1 - 2 each PO Q6H PRN #14 tablet 06/19/17 [Percocet 5-325 mg Tablet] predniSONE [Prednisone] 40 mg PO DAILY #15 tablet 06/19/17 Sulfamethoxazole/Trimethoprim 1 each PO BID #14 tablet 07/17/17 [Sulfamethoxazole-Tmp Ds Tablet] oxyCODONE/ACET 5/325 [Percocet 5 1 each PO Q4-6H PRN #12 tablet 07/17/17 mg/325 mg] Ciprofloxacin HCl [Cipro] 500 mg PO BID #14 tablet 07/21/17 Oxycodone HCl/Acetaminophen 1 - 2 tab PO Q4H PRN #10 tablet 07/21/17 [Percocet 5-325 mg Tablet] - Allergies Allergies/Adverse Reactions: Allergies Allergy/AdvReac Type Severity Reaction Status Date / Time levofloxacin [From Levaquin] Allergy Severe Hives Verified 07/17/17 14:18 meperidine HCl * Allergy Severe Hives Verified 07/17/17 14:18 [From Demerol] hydrocodone [Hydrocodone] Allergy Intermediate Itching Verified 07/17/17 14:18 codeine Allergy Rash Verified 07/17/17 14:18 hydrocodone bitartrate * Allergy Itching Verified 07/17/17 14:18 [From Vicodin] tramadol Allergy Rash Verified 07/17/17 14:18 methylprednisolone sodium AdvReac Anxiety Verified 07/17/17 14:18 succ... * [From Solu-Medrol] bees Allergy Anaphylaxis Uncoded 05/19/17 12:31 - Social History Does the pt smoke?: No Smoking Status: Never smoker Does the pt drink ETOH?: No Does the pt have substance abuse?: No - Immunizations Immunizations are current?: Yes Immunizations: TDAP >10years/unknown - POLST Patient has POLST: No POLST Status: Full Code PD ED PE NORMAL - Vitals Vital signs reviewed: Yes - General General: Alert and oriented X 3, No acute distress, Well developed/nourished - Abdomen Abdomen: Soft, Non tender - Derm Derm: Other (2cm R flank abscess with mild cellulitis., Also a small residual abscess on the mons pubis but, the one that was drained the other day.) - Neuro Neuro: Alert and oriented X 3, Normal speech - Psych Psych: Normal mood, Normal affect Results - Vitals Vitals: Vital Signs - 24 hr 07/21/17 12:53 Temperature 36.3 C L Heart Rate 68 Respiratory 18 Rate Blood Pressure 135/70 H O2 Saturation 99 Oxygen O2 Source Room air - Labs Labs: Laboratory Tests 07/21/17 13:40 Whole Blood INR 3.5 H Procedures - Abscess I&D (location) R abd wall Preparation: Alcohol, Lidocaine 1% Incision: Incised with scalpel Other: Pt tolerated well, Dressing applied, Antibiotic prescribed Mons Preparation: Alcohol, Lidocaine 1% Incision: Incised with scalpel Other: Pt tolerated well, Dressing applied PD MEDICAL DECISION MAKING - ED course ED course: 42-year-old woman with a recurrent abscess in the mons pubis and a new one on the right flank. Recent culture grew atypical staph, it had many resistances including Bactrim. We discussed her Levaquin allergy, she just had some bumps in the IV where it was given to her several years ago, no generalized symptoms so this seems reasonable and safe to give her Cipro. Departure - Departure Disposition: 01 Home, Self Care Clinical Impression: Abscess Condition: Good Record reviewed to determine appropriate education?: Yes Instructions: ED Abscess IandD Prescriptions: Ciprofloxacin HCl [Cipro] 500 mg PO BID #14 tablet Oxycodone HCl/Acetaminophen [Percocet 5-325 mg Tablet] 1 - 2 tab PO Q4H PRN #10 tablet PRN Reason: Pain Comments: Skip your warfarin today take only 4 mg tomorrow and then recheck your INR on Monday.
[2017-07-21] MEDS ORDERED: CIPROFLOXACIN 250 MG TABLET PO STA (13:34)
== END 2017-07-21 13:53 | disposition home or self-care (01) ==
LOC: ED 12:46
DX: L02.211 Cutaneous abscess of abdominal wall (principal); L03.311 Cellulitis of abdominal wall; L02.215 Cutaneous abscess of perineum; I10 Essential (primary) hypertension; I48.91 Unspecified atrial fibrillation; Z79.01 Long term (current) use of anticoagulants
CPT/HCPCS: 10061; 85610; 99283; A9270

== ENCOUNTER 2017-07-24 13:13 | Outpatient (CLI) | payer MEDICAID | END 2017-07-24 13:14 | disposition home or self-care (01) | LOC: LAB.N 13:13 | PROVIDERS: ATTEND Family Medicine | DX: I48.91 Unspecified atrial fibrillation (principal); Z79.899 Other long term (current) drug therapy | CPT/HCPCS: 85610 ==

== ENCOUNTER 2017-08-09 11:47 | Outpatient (CLI) | payer MEDICAID | END 2017-08-09 11:48 | disposition home or self-care (01) | LOC: LAB.N 11:47 | PROVIDERS: ATTEND Family Medicine | DX: I48.91 Unspecified atrial fibrillation (principal); Z79.899 Other long term (current) drug therapy | CPT/HCPCS: 85610 ==

== ENCOUNTER 2017-08-11 13:40 | Outpatient (CLI) | payer MEDICAID | END 2017-08-11 13:41 | disposition home or self-care (01) | LOC: LAB.N 13:40 | PROVIDERS: ATTEND Family Medicine | DX: I48.91 Unspecified atrial fibrillation (principal); Z79.899 Other long term (current) drug therapy | CPT/HCPCS: 85610 ==

== ENCOUNTER 2017-08-14 14:32 | Outpatient (CLI) | payer MEDICAID | END 2017-08-14 14:33 | disposition home or self-care (01) | LOC: LAB.N 14:32 | PROVIDERS: ATTEND Family Medicine | DX: I48.91 Unspecified atrial fibrillation (principal); Z79.899 Other long term (current) drug therapy | CPT/HCPCS: 85610 ==

== ENCOUNTER 2017-08-16 12:07 | Emergency (ER) | payer MEDICAID ==
[2017-08-16 12:19] VITALS: BP 147/82
[2017-08-16] MEDS ORDERED: BUFFERED LIDOCAINE 10 ML SYRINGE SUBQ STA (13:30)
--- NOTE | 2017-08-16 13:33 | ED Physician Documentation ---
History of Present Illness - Stated complaint Stated Complaint: BILAT FOOT PX - Chief complaint Chief Complaint: General - History obtained from History obtained from: Patient - History of Present Illness Timing: Other (2 weeks ago she stepped down and feels like she might have a piece of glass retained in the bottom of her right foot, also the left great toe is ingrown and she would like it removed.) Review of Systems Constitutional: reports: Reviewed and negative Cardiac: reports: Reviewed and negative Respiratory: reports: Reviewed and negative PD PAST MEDICAL HISTORY - Past Medical History Past Medical History: Yes Cardiovascular: Atrial fibrillation, Hypertension, Other Respiratory: Asthma, Shortness of breath, Sleep apnea, Pneumonia Endocrine/Autoimmune: None GI: GERD BLOWER 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: None : Incontinence HEENT: None Psych: Depression, Anxiety, Panic attacks, Post traumatic stress disorder, Claustrophobia Musculoskeletal: Osteoarthritis Derm: None - Past Surgical History Past Surgical History: Yes General: Gastric surgery, Other Ortho: Knee replacement, Carpal Tunnel surgery /BLOWER MECHANIC: Dilation and currettage, Tubal ligation Cardiovascular: Pacemaker - Present Medications Home Medications: Ambulatory Orders Medication Instructions Recorded Confirmed ALPRAZolam [Alprazolam] 2 mg PO DAILY PRN 01/14/14 05/26/17 hydroCHLOROthiazide 25 mg PO DAILY 02/28/14 05/26/17 [Hydrochlorothiazide] Prazosin [Minipress] 8 mg PO QPM 03/17/15 05/26/17 Propafenone [Rythmol] 150 mg PO Q8H 03/17/15 05/26/17 Citalopram Hydrobromide 40 mg PO DAILY 03/13/16 05/26/17 [Citalopram HBr] Omeprazole [PriLOSEC] 20 mg PO BID 03/13/16 05/26/17 Metoprolol Tartrate 75 mg PO BID 05/06/16 05/26/17 ARIPiprazole [Abilify] 5 mg PO DAILY 10/02/16 05/26/17 hydrOXYzine HCl [Hydroxyzine HCl] 25 mg PO DAILY 10/02/16 05/26/17 Albuterol Sulfate [Proventil Hfa 1 - 2 puffs IH Q4H PRN #1 02/20/17 05/26/17 Inhaler] hfa.aer.ad Warfarin Sodium [Coumadin] 6 mg PO DAILY 04/04/17 05/26/17 Albuterol 2.5 mg INH Q4H PRN #30 neb 06/19/17 Albuterol Sulf [Ventolin Hfa 1 - 2 puffs INH Q4HR PRN #1 inhaler 06/19/17 Inhaler] Oxycodone HCl/Acetaminophen 1 - 2 tab PO Q4H PRN #7 tablet 08/16/17 [Percocet 5-325 mg Tablet] - Allergies Allergies/Adverse Reactions: Allergies Allergy/AdvReac Type Severity Reaction Status Date / Time levofloxacin [From Levaquin] Allergy Severe Hives Verified 08/16/17 12:19 meperidine HCl * Allergy Severe Hives Verified 08/16/17 12:19 [From Demerol] hydrocodone [Hydrocodone] Allergy Intermediate Itching Verified 08/16/17 12:19 codeine Allergy Rash Verified 08/16/17 12:19 hydrocodone bitartrate * Allergy Itching Verified 08/16/17 12:19 [From Vicodin] tramadol Allergy Rash Verified 08/16/17 12:19 methylprednisolone sodium AdvReac Anxiety Verified 08/16/17 12:19 succ... * [From Solu-Medrol] bees Allergy Anaphylaxis Uncoded 08/16/17 12:19 - Social History Does the pt smoke?: No Smoking Status: Never smoker Does the pt drink ETOH?: No Does the pt have substance abuse?: No - Immunizations Immunizations are current?: Yes Immunizations: TDAP >10years/unknown - POLST Patient has POLST: No POLST Status: Full Code PD ED PE NORMAL - Vitals Vital signs reviewed: Yes - General General: Alert and oriented X 3, No acute distress - Extremities Extremities: Other (Left great toenail is tender with an acrylic nail over it. There is a tender area near the distal third metatarsal on the plantar surface of the right foot without palpable foreign body.) - Neuro Neuro: Alert and oriented X 3, Normal speech Results - Vitals Vitals: Vital Signs - 24 hr 08/16/17 12:15 Temperature 36.1 C L Heart Rate 69 Respiratory 16 Rate Blood Pressure 147/82 H O2 Saturation 100 Oxygen O2 Source Room air Procedures - General procedure General procedure: I did not see a foreign body on x-ray, but she felt like there was one, there was prepped and locally infiltrated with buffered lidocaine on the right foot and then a tiny incision was made and actually did find a tiny piece of either glass or rock, it was too small to further characterize. Then the attention was turned to the left great toenail, a digital block was done with buffered lidocaine and then the entirety of the nail was removed using blunt dissection and a dressing was placed. PD MEDICAL DECISION MAKING - Sepsis Event Vital Signs: Vital Signs - 24 hr 08/16/17 12:15 Temperature 36.1 C L Heart Rate 69 Respiratory 16 Rate Blood Pressure 147/82 H O2 Saturation 100 Oxygen O2 Source Room air Departure - Departure Disposition: Home, Self Care Clinical Impression: Ingrown left big toenail, Foreign body in subcutaneous tissue Condition: Good Record reviewed to determine appropriate education?: Yes Instructions: ED Foreign Body Soft Tissue Removed, ED Ingrown Toenail Excised Prescriptions: Oxycodone HCl/Acetaminophen [Percocet 5-325 mg Tablet] 1 - 2 tab PO Q4H PRN #7 tablet PRN Reason: Pain Comments: Call your doctor to arrange a follow-up appointment, make the next available appointment. In the interim, return anytime if worse or if new symptoms develop. Your blood pressure was elevated today on check into the emergency department. This does not mean that you have hypertension, it is a common phenomenon to come to the emergency department and have elevated blood pressure. I recommend that you see your primary care physician within the week to have it rechecked when you are feeling better. Do not drink or drive while taking narcotic pain medication. Note that many narcotic pain relievers also contain Tylenol/acetaminophen. Please ensure that your total dose of acetaminophen from all sources does not exceed 3 g (3000 mg) per day. You may get constipated while on this medication. Take a stool softener such as Colace twice a day while you are on it. Also add an [id number] laxative such as senna or MiraLAX on any day that you do not have a bowel movement. If you received a narcotic pain medication or sedative while in the emergency department, do not drive for the next 24 hours.
--- NOTE | 2017-08-16 14:02 | XRAY Report ---
Procedure Date: 08/16/2017 Accession Number: [id number] / [id number] Procedure: XR - Foot 3 View RT CPT Code: FULL RESULT: EXAM: RIGHT FOOT RADIOGRAPHY EXAM DATE: 08/16/2017 01:48 PM. CLINICAL HISTORY: Poss glass fb near distal 3rd MT. COMPARISON: None. TECHNIQUE: 3 views. FINDINGS: Bones: Bony mineralization appears appropriate. No acute fracture or focal osseous destruction. Joints: No dislocation. Soft Tissues: No radiopaque foreign body identified. Soft tissue swelling. IMPRESSION: Soft tissue swelling. No radiopaque foreign body identified. RADIA
== END 2017-08-16 14:19 | disposition home or self-care (01) ==
LOC: ED 12:07
DX: S90.851A Superficial foreign body, right foot, initial encounter (principal); X58.XXXA Exposure to other specified factors, initial encounter; L60.0 Ingrowing nail; I48.91 Unspecified atrial fibrillation; I10 Essential (primary) hypertension; J45.909 Unspecified asthma, uncomplicated; K21.9 Gastro-esophageal reflux disease without esophagitis; M19.90 Unspecified osteoarthritis, unspecified site; Z98.84 Bariatric surgery status; Z95.0 Presence of cardiac pacemaker; Z79.01 Long term (current) use of anticoagulants
CPT/HCPCS: 10120; 11730; 99283

== ENCOUNTER 2017-08-18 08:00 | Outpatient (CLI) | payer MEDICAID | END 2017-08-18 08:01 | disposition home or self-care (01) | LOC: LAB.N 08:00 | PROVIDERS: ATTEND Family Medicine | DX: I48.91 Unspecified atrial fibrillation (principal); Z79.899 Other long term (current) drug therapy | CPT/HCPCS: 85610 ==

== ENCOUNTER 2017-08-22 11:31 | Outpatient (CLI) | payer MEDICAID | END 2017-08-22 11:32 | disposition home or self-care (01) | LOC: LAB.N 11:31 | PROVIDERS: ATTEND Family Medicine | DX: I48.91 Unspecified atrial fibrillation (principal); Z79.899 Other long term (current) drug therapy | CPT/HCPCS: 85610 ==

== ENCOUNTER 2017-08-28 11:42 | Outpatient (CLI) | END 2017-08-28 11:43 | disposition home or self-care (01) ==

== ENCOUNTER 2017-09-05 14:07 | Outpatient (CLI) | payer MEDICAID | END 2017-09-05 14:08 | disposition home or self-care (01) | LOC: LAB.N 14:07 | PROVIDERS: ATTEND Family Medicine | DX: I48.91 Unspecified atrial fibrillation (principal); Z79.899 Other long term (current) drug therapy | CPT/HCPCS: 85610 ==

== ENCOUNTER 2017-09-11 22:55 | Emergency (ER) | payer MEDICAID ==
--- NOTE | 2017-09-12 00:09 | ED Physician Documentation ---
History of Present Illness - Stated complaint Stated Complaint: ABSCESSES - Chief complaint Chief Complaint: Wound - History obtained from History obtained from: Patient - Additonal information Additional information: 42-year-old female presents to the emergency department for evaluation of a wound on her abdomen around a prior surgical site. The patient has noticed redness and tenderness in this area. The patient has a history of recurrent abscesses. The patient denies fevers or chills. Symptoms are described as mild. No other associated symptoms. No triggering factors Review of Systems Constitutional: denies: Fever Cardiac: denies: Chest pain / pressure Respiratory: denies: Dyspnea Skin: reports: Lesions Immunocompromised: denies: Chemotherapy PD PAST MEDICAL HISTORY - Past Medical History Past Medical History: Yes Cardiovascular: Hypertension, High cholesterol, Atrial fibrillation, Other Respiratory: Asthma, Shortness of breath, Sleep apnea, Pneumonia Endocrine/Autoimmune: None GI: GERD HYDRATE CONTROL TENDER: None : Incontinence HEENT: None Psych: Depression, Anxiety, Panic attacks, Post traumatic stress disorder, Claustrophobia Musculoskeletal: Osteoarthritis Derm: None - Past Surgical History Past Surgical History: Yes General: Gastric surgery, Other Ortho: Knee replacement, Carpal Tunnel surgery /HYDRATE CONTROL TENDER: Dilation and currettage, Tubal ligation Cardiovascular: Pacemaker - Present Medications Home Medications: Ambulatory Orders Medication Instructions Recorded Confirmed ALPRAZolam [Alprazolam] 2 mg PO DAILY PRN 01/14/14 09/11/17 hydroCHLOROthiazide 25 mg PO DAILY 02/28/14 09/11/17 [Hydrochlorothiazide] Prazosin [Minipress] 8 mg PO QPM 03/17/15 09/11/17 Propafenone [Rythmol] 150 mg PO Q8H 03/17/15 09/11/17 Citalopram Hydrobromide 40 mg PO DAILY 03/13/16 09/11/17 [Citalopram HBr] Omeprazole [PriLOSEC] 20 mg PO BID 03/13/16 09/11/17 Metoprolol Tartrate 75 mg PO BID 05/06/16 09/11/17 ARIPiprazole [Abilify] 5 mg PO DAILY 10/02/16 09/11/17 hydrOXYzine HCl [Hydroxyzine HCl] 25 mg PO DAILY 10/02/16 09/11/17 Albuterol Sulfate [Proventil Hfa 1 - 2 puffs IH Q4H PRN #1 02/20/17 09/11/17 Inhaler] hfa.aer.ad Warfarin Sodium [Coumadin] 6 mg PO DAILY 04/04/17 09/11/17 Albuterol 2.5 mg INH Q4H PRN #30 neb 06/19/17 09/11/17 Albuterol Sulf [Ventolin Hfa 1 - 2 puffs INH Q4HR PRN #1 inhaler 06/19/17 Inhaler] Oxycodone HCl/Acetaminophen 1 - 2 tab PO Q4H PRN #7 tablet 08/16/17 09/11/17 [Percocet 5-325 mg Tablet] Doxycycline Hyclate 100 mg PO BID #20 capsule 09/12/17 - Allergies Allergies/Adverse Reactions: Allergies Allergy/AdvReac Type Severity Reaction Status Date / Time levofloxacin [From Levaquin] Allergy Severe Hives Verified 09/11/17 23:06 meperidine HCl * Allergy Severe Hives Verified 09/11/17 23:06 [From Demerol] hydrocodone [Hydrocodone] Allergy Intermediate Itching Verified 09/11/17 23:06 codeine Allergy Rash Verified 09/11/17 23:06 hydrocodone bitartrate * Allergy Itching Verified 09/11/17 23:06 [From Vicodin] tramadol Allergy Rash Verified 09/11/17 23:06 methylprednisolone sodium AdvReac Anxiety Verified 09/11/17 23:06 succ... * [From Solu-Medrol] bees Allergy Anaphylaxis Uncoded 09/11/17 23:06 - Social History Does the pt smoke?: No Smoking Status: Never smoker Does the pt drink ETOH?: No Does the pt have substance abuse?: No - Immunizations Immunizations are current?: Yes Immunizations: TDAP >10years/unknown - POLST Patient has POLST: No POLST Status: Full Code PD ED PE NORMAL - General General: Alert and oriented X 3, No acute distress - HEENT HEENT: Atraumatic, PERRL, EOMI - Abdomen Abdomen: Soft, Other (The patient has a area of induration and redness at the site of a prior scar under her pannus. There is no palpable area to suggest abscess at this point. Currently this appears to be more of cellulitis than an abscess.) - Derm Derm: Other (Indurated nonfluctuant area in the patient's abdominal pannus) - Psych Psych: Normal mood Results - Vitals Vitals: Vital Signs - 24 hr 09/11/17 09/12/17 22:59 00:57 Temperature 36.8 C 36.7 C Heart Rate 67 78 Respiratory 18 16 Rate Blood Pressure 128/74 121/89 H O2 Saturation 98 94 Oxygen O2 Source Room air PD MEDICAL DECISION MAKING - ED course ED course: The patient has an early cellulitis, on physical exam there is no evidence of abscess. I discussed the findings with the patient who feels that there may be an abscess, I offered to perform an incision and drainage but the patient declined. She is comfortable starting antibiotics and returning if an abscess does form. I discussed warning signs and recommended returning for any worsening or any concerns. - Sepsis Event Vital Signs: Vital Signs - 24 hr 09/11/17 09/12/17 22:59 00:57 Temperature 36.8 C 36.7 C Heart Rate 67 78 Respiratory 18 16 Rate Blood Pressure 128/74 121/89 H O2 Saturation 98 94 Oxygen O2 Source Room air Departure - Departure Disposition: 01 Home, Self Care Clinical Impression: Abdominal wall cellulitis Condition: Good Instructions: ED Cellulitis Ch Prescriptions: Doxycycline Hyclate 100 mg PO BID #20 capsule Comments: These return for worsening symptoms or any concerns Discharge Date/Time: 09/12/17 01:03
[2017-09-12] MEDS ORDERED: DOXYCYCLINE 100 MG TABLET PO STA (00:48)
[2017-09-12 00:59] VITALS: BP 121/89
== END 2017-09-12 01:03 | disposition home or self-care (01) ==
LOC: ED 22:55
DX: L03.311 Cellulitis of abdominal wall (principal)
CPT/HCPCS: 99283; A9270

== ENCOUNTER 2017-09-13 08:00 | Outpatient (CLI) | payer MEDICAID | END 2017-09-13 08:01 | disposition home or self-care (01) | LOC: LAB.N 08:00 | PROVIDERS: ATTEND Family Medicine | DX: I48.91 Unspecified atrial fibrillation (principal); Z79.899 Other long term (current) drug therapy | CPT/HCPCS: 85610 ==

== ENCOUNTER 2017-09-13 13:40 | Emergency (ER) | payer MEDICAID ==
[2017-09-13 13:49] VITALS: BP 145/85
--- NOTE | 2017-09-13 17:17 | ED Physician Documentation ---
PD HPI SKIN - Stated complaint Stated Complaint: ABSCESS - Chief complaint Chief Complaint: Wound - History obtained from History obtained from: Patient - History of Present Illness Timing - onset: Chronic Timing - details: Gradual onset, Still present Location: Abdomen Quality / character: Painful Similar symptoms before: Work up / diagnostics, Treatment Recently seen: Emergency Dept - Additional information Additional information: Patient is a 42 year old obese female who is presenting to the emergency department for abdominal pain and wound check. patient was seen a few days prior and diagnosed with cellulitis and started on doxyclycine. patient states that she felt a not and thought that it might need to be drained. Review of Systems Ten Systems: 10 systems reviewed and negative Constitutional: denies: Fever, Chills Skin: reports: Rash, Lesions PD PAST MEDICAL HISTORY - Past Medical History Cardiovascular: Hypertension, High cholesterol, Atrial fibrillation, Other Respiratory: Asthma, Shortness of breath, Sleep apnea, Pneumonia Endocrine/Autoimmune: None GI: GERD OUTBOUND SALES CONSULTANT: None : Incontinence HEENT: None Psych: Depression, Anxiety, Panic attacks, Post traumatic stress disorder, Claustrophobia Musculoskeletal: Osteoarthritis Derm: None - Past Surgical History Past Surgical History: Yes General: Gastric surgery, Other Ortho: Knee replacement, Carpal Tunnel surgery /OUTBOUND SALES CONSULTANT: Dilation and currettage, Tubal ligation Cardiovascular: Pacemaker - Present Medications Home Medications: Ambulatory Orders Medication Instructions Recorded Confirmed ALPRAZolam [Alprazolam] 2 mg PO DAILY PRN 01/14/14 09/11/17 hydroCHLOROthiazide 25 mg PO DAILY 02/28/14 09/11/17 [Hydrochlorothiazide] Prazosin [Minipress] 8 mg PO QPM 03/17/15 09/11/17 Propafenone [Rythmol] 150 mg PO Q8H 03/17/15 09/11/17 Citalopram Hydrobromide 40 mg PO DAILY 03/13/16 09/11/17 [Citalopram HBr] Omeprazole [PriLOSEC] 20 mg PO BID 03/13/16 09/11/17 Metoprolol Tartrate 75 mg PO BID 05/06/16 09/11/17 ARIPiprazole [Abilify] 5 mg PO DAILY 10/02/16 09/11/17 hydrOXYzine HCl [Hydroxyzine HCl] 25 mg PO DAILY 10/02/16 09/11/17 Albuterol Sulfate [Proventil Hfa 1 - 2 puffs IH Q4H PRN #1 02/20/17 09/11/17 Inhaler] hfa.aer.ad Warfarin Sodium [Coumadin] 6 mg PO DAILY 04/04/17 09/11/17 Albuterol 2.5 mg INH Q4H PRN #30 neb 06/19/17 09/11/17 Albuterol Sulf [Ventolin Hfa 1 - 2 puffs INH Q4HR PRN #1 inhaler 06/19/17 Inhaler] Oxycodone HCl/Acetaminophen 1 - 2 tab PO Q4H PRN #7 tablet 08/16/17 09/11/17 [Percocet 5-325 mg Tablet] Doxycycline Hyclate 100 mg PO BID #20 capsule 09/12/17 - Allergies Allergies/Adverse Reactions: Allergies Allergy/AdvReac Type Severity Reaction Status Date / Time levofloxacin [From Levaquin] Allergy Severe Hives Verified 09/13/17 13:49 meperidine HCl * Allergy Severe Hives Verified 09/13/17 13:49 [From Demerol] hydrocodone [Hydrocodone] Allergy Intermediate Itching Verified 09/13/17 13:49 codeine Allergy Rash Verified 09/13/17 13:49 hydrocodone bitartrate * Allergy Itching Verified 09/13/17 13:49 [From Vicodin] tramadol Allergy Rash Verified 09/13/17 13:49 methylprednisolone sodium AdvReac Anxiety Verified 09/13/17 13:49 succ... * [From Solu-Medrol] bees Allergy Anaphylaxis Uncoded 09/11/17 23:06 - Social History Does the pt smoke?: No Smoking Status: Never smoker Does the pt drink ETOH?: No Does the pt have substance abuse?: No - Immunizations Immunizations are current?: Yes Immunizations: TDAP >10years/unknown - POLST Patient has POLST: No POLST Status: Full Code PD ED PE NORMAL - Vitals Vital signs reviewed: Yes - General General: Alert and oriented X 3, No acute distress - HEENT HEENT: Atraumatic - Cardiac Cardiac: RRR - Respiratory Respiratory: No respiratory distress - Extremities Extremities: No deformity PD ED PE EXPANDED - Abdomen Abdomen: Other (morbidly obese) - Derm SKin visual: 1 - abscess (cellulitis with small abscess that is already open) Results - Vitals Vitals: Vital Signs - 24 hr 09/13/17 13:44 Temperature 36 C L Heart Rate 70 Respiratory 20 Rate Blood Pressure 145/85 H O2 Saturation 99 Oxygen O2 Source Room air PD MEDICAL DECISION MAKING - ED course Complexity details: reviewed old records, reviewed results, re-evaluated patient , considered differential, d/w patient ED course: Patient was seen and examined at bedside. patient's wound was visualized under ultrasound. there was no drainable abscess or fluid collection. patient required no further work up at this time and was stable for discharge with outpatient follow up. - Sepsis Event Vital Signs: Vital Signs - 24 hr 09/13/17 13:44 Temperature 36 C L Heart Rate 70 Respiratory 20 Rate Blood Pressure 145/85 H O2 Saturation 99 Oxygen O2 Source Room air Departure - Departure Disposition: 01 Home, Self Care Clinical Impression: Abdominal wall cellulitis Condition: Good Instructions: Cellulitis Dc Follow-Up: Dougie Yeung MD [Primary Care Provider] - Within 3 Days Comments: There is no drainable abscess at this time. It is already open at the one site. You need to keep the area clean and dry. You should continue with your antibiotics and follow up with your doctor for further care. You may return to the emergency department for worsening symptoms.
== END 2017-09-13 17:19 | disposition home or self-care (01) ==
LOC: ED 13:40
DX: L03.311 Cellulitis of abdominal wall (principal); I10 Essential (primary) hypertension; E66.01 Morbid (severe) obesity due to excess calories; Z95.0 Presence of cardiac pacemaker; Z79.01 Long term (current) use of anticoagulants; I48.91 Unspecified atrial fibrillation; Z79.899 Other long term (current) drug therapy
CPT/HCPCS: 85610; 99282; 99283

== ENCOUNTER 2017-09-20 08:00 | Outpatient (CLI) | payer MEDICAID | END 2017-09-20 08:01 | disposition home or self-care (01) | LOC: LAB.N 08:00 | PROVIDERS: ATTEND Family Medicine | DX: I48.91 Unspecified atrial fibrillation (principal); Z79.899 Other long term (current) drug therapy | CPT/HCPCS: 85610 ==

== ENCOUNTER 2017-09-21 09:52 | Emergency (ER) | payer MEDICAID ==
[2017-09-21 10:23] LABS: BILIRUBIN,URINE NEGATIVE (NEGATIVE); GLUCOSE, URINE (UA) NEGATIVE (NEGATIVE); KETONES,URINE (UA) NEGATIVE (NEGATIVE); LEUKOCYTE ESTERASE, URINE SMALL (NEGATIVE); NITRITE,URINE NEGATIVE (NEGATIVE); OCCULT BLOOD,URINE NEGATIVE (NEGATIVE); PH,URINE 6.5 PH (5.0-7.5); PROTEIN,URINE NEGATIVE (NEGATIVE); UROBILINOGEN,URINE 0.2 (NORMAL) E.U./dL (NORMAL)
[2017-09-21 10:24] LABS: CLARITY,URINE CLEAR (CLEAR); HCG UR QUAL NEGATIVE
[2017-09-21 10:35] LABS: BACTERIA,URINE Few /HPF (None Seen); RBC,URINE 0-5 /HPF (0-5); SQUAMOUS EPITHELIAL CELL,UR MANY Squamous (<= Few)
[2017-09-21] MEDS ORDERED: MAG HYDROX/AL HYDROX/SIMETH 30 ML UDC PO STA (12:09)
[2017-09-21] MEDS ORDERED: ONDANSETRON 4 MG/2 ML VIAL IVP STA (12:09)
[2017-09-21] MEDS ORDERED: SODIUM CHLORIDE 0.9% 1,000 ML IV ONE (12:09)
[2017-09-21] MEDS ORDERED: LIDOCAINE VISCOUS 2% 15 ML UDC MM STA (12:10)
[2017-09-21] MEDS ORDERED: KETOROLAC 60 MG/2 ML VIAL IVP STA (12:11)
[2017-09-21] MEDS ORDERED: IOPAMIDOL-300 50 ML VIAL ONE (12:35)
[2017-09-21] MEDS ORDERED: IOPAMIDOL-300 100 ML VIAL ONE (12:36)
[2017-09-21] MEDS ORDERED: GI COCKTAIL 120 ML BOTTLE PO SCH (13:00)
--- NOTE | 2017-09-21 13:14 | ED Physician Documentation ---
History of Present Illness - Stated complaint Stated Complaint: THROAT/EAR/NOSE PX - Chief complaint Chief Complaint: Abd Pain - History obtained from History obtained from: Patient - Additonal information Additional information: 42-year-old female presents the emergency department with numerous complaints. The patient reports a sore throat, with pain on swallowing over the past several days. The patient reports epigastric pain with nausea and vomiting. The patient recently had a gastric sleeve performed in [place], she has not had any issues until 2 days ago. The patient reports increased pain nausea, vomiting and decreased oral intake. The patient reports that her sexual partner recently tested positive for trichomonas. The patient currently is denying any vaginal discharge or dysuria or lower abdominal pain. Symptoms are described as moderate.No relieving factors. No specific triggering factors Review of Systems Constitutional: denies: Fever, Chills Eyes: denies: Discharge Ears: denies: Ear pain Nose: denies: Congestion Throat: reports: Sore throat. denies: Swollen tonsils, Swallowed foreign body Respiratory: denies: Dyspnea GI: reports: Abdominal Pain, Nausea, Vomiting : denies: Dysuria Skin: denies: Rash Musculoskeletal: denies: Neck pain Neurologic: denies: Generalized weakness Immunocompromised: denies: Chemotherapy PD PAST MEDICAL HISTORY - Past Medical History Cardiovascular: Hypertension, High cholesterol, Atrial fibrillation, Other Respiratory: Asthma, Shortness of breath, Sleep apnea, Pneumonia Endocrine/Autoimmune: None GI: GERD PLUG WIRER: None : Incontinence HEENT: None Psych: Depression, Anxiety, Panic attacks, Post traumatic stress disorder, Claustrophobia Musculoskeletal: Osteoarthritis Derm: None - Past Surgical History Past Surgical History: Yes General: Gastric surgery, Other Ortho: Knee replacement, Carpal Tunnel surgery /PLUG WIRER: Dilation and currettage, Tubal ligation Cardiovascular: Pacemaker - Present Medications Home Medications: Ambulatory Orders Medication Instructions Recorded Confirmed ALPRAZolam [Alprazolam] 2 mg PO DAILY PRN 01/14/14 09/11/17 hydroCHLOROthiazide 25 mg PO DAILY 02/28/14 09/11/17 [Hydrochlorothiazide] Prazosin [Minipress] 8 mg PO QPM 03/17/15 09/11/17 Propafenone [Rythmol] 150 mg PO Q8H 03/17/15 09/11/17 Citalopram Hydrobromide 40 mg PO DAILY 03/13/16 09/11/17 [Citalopram HBr] Omeprazole [PriLOSEC] 20 mg PO BID 03/13/16 09/11/17 Metoprolol Tartrate 75 mg PO BID 05/06/16 09/11/17 ARIPiprazole [Abilify] 5 mg PO DAILY 10/02/16 09/11/17 hydrOXYzine HCl [Hydroxyzine HCl] 25 mg PO DAILY 10/02/16 09/11/17 Albuterol Sulfate [Proventil Hfa 1 - 2 puffs IH Q4H PRN #1 02/20/17 09/11/17 Inhaler] hfa.aer.ad Warfarin Sodium [Coumadin] 6 mg PO DAILY 04/04/17 09/11/17 Albuterol 2.5 mg INH Q4H PRN #30 neb 06/19/17 09/11/17 Albuterol Sulf [Ventolin Hfa 1 - 2 puffs INH Q4HR PRN #1 inhaler 06/19/17 Inhaler] - Allergies Allergies/Adverse Reactions: Allergies Allergy/AdvReac Type Severity Reaction Status Date / Time levofloxacin [From Levaquin] Allergy Severe Hives Verified 09/21/17 10:04 meperidine HCl * Allergy Severe Hives Verified 09/21/17 10:04 [From Demerol] hydrocodone [Hydrocodone] Allergy Intermediate Itching Verified 09/21/17 10:04 codeine Allergy Rash Verified 09/21/17 10:04 hydrocodone bitartrate * Allergy Itching Verified 09/21/17 10:04 [From Vicodin] tramadol Allergy Rash Verified 09/21/17 10:04 methylprednisolone sodium AdvReac Anxiety Verified 09/21/17 10:04 succ... * [From Solu-Medrol] bees Allergy Anaphylaxis Uncoded 09/11/17 23:06 - Social History Does the pt smoke?: No Smoking Status: Never smoker Does the pt drink ETOH?: No Does the pt have substance abuse?: No - Immunizations Immunizations are current?: Yes Immunizations: TDAP >10years/unknown - POLST Patient has POLST: No POLST Status: Full Code PD ED PE NORMAL - General General: Alert and oriented X 3, No acute distress - HEENT HEENT: Atraumatic, PERRL, EOMI, Other (The patient's uvula is midline and not edematous, there is no evidence of a peritonsillar abscess or erythematous changes in the posterior pharynx no exudative lesions.) - Neck Neck: Supple, no meningeal sign - Cardiac Cardiac: RRR, Strong equal pulses - Respiratory Respiratory: No respiratory distress - Abdomen Abdomen: Normal bowel sounds, Soft. No: Non tender (The patient's tender in her epigastrium, no rebound or peritoneal signs) - Derm Derm: Normal color, No rash - Extremities Extremities: No deformity, No edema - Neuro Neuro: Alert and oriented X 3, Normal speech - Psych Psych: Normal mood Results - Vitals Vitals: Vital Signs - 24 hr 09/21/17 09/21/17 09/21/17 10:02 11:06 14:00 Temperature 36.5 C 36.1 C L Heart Rate 67 50 L 50 L Respiratory 22 20 16 Rate Blood Pressure 138/85 H 126/70 130/72 O2 Saturation 100 100 98 09/21/17 15:20 Temperature Heart Rate 50 L Respiratory 16 Rate Blood Pressure 122/79 O2 Saturation 98 Oxygen O2 Source Room air - Labs Labs: Laboratory Tests 09/21/17 09/21/17 09/21/17 10:15 10:20 13:00 WBC 6.0 RBC 5.47 H Hgb 13.1 Hct 41.0 MCV 74.9 L MCH 23.9 L MCHC 31.9 L RDW 18.5 H Plt Count 330 MPV 7.7 L Neut # (Auto) 4.1 Lymph # (Auto) 1.5 [place] # (Auto) 0.3 Eos # (Auto) 0.1 Baso # (Auto) 0.0 Absolute Nucleated RBC 0.00 Nucleated RBC % 0.0 PT INR APTT Sodium Potassium Chloride Carbon Dioxide Anion Gap BUN Creatinine Estimated GFR (MDRD) Glucose Calcium Magnesium Total Bilirubin AST ALT Alkaline Phosphatase Total Protein Albumin Globulin Albumin/Globulin Ratio Lipase Urine Color YELLOW Urine Clarity CLEAR Urine pH 6.5 Ur Specific [place] 1.020 Urine Protein NEGATIVE Urine Glucose (UA) NEGATIVE Urine Ketones NEGATIVE Urine Occult Blood NEGATIVE Urine Nitrite NEGATIVE Urine Bilirubin NEGATIVE Urine Urobilinogen 0.2 (NORMAL) Ur Leukocyte Esterase SMALL H Urine RBC 0-5 Urine WBC 6-10 H Ur Squamous Epith Cells MANY Squamous H Urine Bacteria Few Ur Microscopic Review INDICATED Urine Culture Comments NOT INDICATED Urine HCG, Qual NEGATIVE Group A Strep Rapid Negative 09/21/17 09/21/17 13:00 13:00 WBC RBC Hgb Hct MCV MCH MCHC RDW Plt Count MPV Neut # (Auto) Lymph # (Auto) [place] # (Auto) Eos # (Auto) Baso # (Auto) Absolute Nucleated RBC Nucleated RBC % PT 28.7 H INR 2.6 H APTT 41.2 H Sodium 136 Potassium 3.7 Chloride 104 Carbon Dioxide 26 Anion Gap 6.0 BUN 12 Creatinine 0.6 Estimated GFR (MDRD) 132 Glucose 91 Calcium 9.4 Magnesium 2.2 Total Bilirubin 0.8 AST 19 ALT 18 Alkaline Phosphatase 52 Total Protein 7.5 Albumin 4.1 Globulin 3.4 Albumin/Globulin Ratio 1.2 Lipase 26 Urine Color Urine Clarity Urine pH Ur Specific [place] Urine Protein Urine Glucose (UA) Urine Ketones Urine Occult Blood Urine Nitrite Urine Bilirubin Urine Urobilinogen Ur Leukocyte Esterase Urine RBC Urine WBC Ur Squamous Epith Cells Urine Bacteria Ur Microscopic Review Urine Culture Comments Urine HCG, Qual Group A Strep Rapid - Rads (name of study) CT abd/pelvis Radiology: Final report received, See rad report (Impression: 1 mild cardiomegaly. Pacer. 2 colonic diverticulosis 3. Normal appendix 4. A 0.5 mm calcification which could represent an extremely tiny nonobstructing stone at the right ureteral vesicle junction versus closely adjacent phlebolith) PD MEDICAL DECISION MAKING - ED course ED course: The patient's workup does not reveal any acute etiology that would necessitate admission to the hospital for acute surgical consultation. Currently, the patient appears appropriate for discharge home in ongoing outpatient management. The patient will be placed on a course of antibiotics for her recent STI exposure. The patient is on Coumadin, I recommended that she have her INR rechecked in 3 days. The patient understands and agrees. I discussed warning signs and recommended returning to the emergency department immediately for worsening or concerns. On the finding on CT scan, I do not suspect a kidney stone and this most likely is a few phleboliths. I discussed this with the patient understands. I recommended follow-up with primary care and urology consultation if things do not improve. - Sepsis Event Vital Signs: Vital Signs - 24 hr 09/21/17 09/21/17 09/21/17 10:02 11:06 14:00 Temperature 36.5 C 36.1 C L Heart Rate 67 50 L 50 L Respiratory 22 20 16 Rate Blood Pressure 138/85 H 126/70 130/72 O2 Saturation 100 100 98 07/19/18 15:20 Temperature Heart Rate 50 L Respiratory 16 Rate Blood Pressure 122/79 O2 Saturation 98 Oxygen O2 Source Room air Departure - Departure Disposition: 01 Home, Self Care Clinical Impression: Sore throat, Nausea, STD exposure Abdominal pain Qualifiers: Abdominal location: epigastric Qualified Code(s): R10.13 - Epigastric pain UTI (urinary tract infection) Qualifiers: Urinary tract infection type: acute cystitis Hematuria presence: without hematuria Qualified Code(s): N30.00 - Acute cystitis without hematuria Condition: Good Instructions: Abdominal Pain, ED Infec Bladder Female Ch Follow-Up: Dougie Yeung MD [Primary Care Provider] - Within 1 week (If you have since he did not improve please ask your primary care to refer you to a urologist to further assess the abnormality seen on CT scan) Comments: Please have your INR checked in 3 days. The antibiotics that you are being put on a interact with your Coumadin and because her INR to be elevated. Please return to the emergency department immediately for worsening or any concerns
[2017-09-21 13:22] LABS: BASOPHILS % (AUTO) 0.3 %; EOSINOPHILS # (AUTO) 0.1 10^3/uL (0.0-0.7); EOSINOPHILS % (AUTO) 2.2 %; HGB - HEMOGLOBIN 13.1 g/dL (12.0-16.0); LYMPHOCYTES # (AUTO) 1.5 10^3/uL (1.5-3.5); LYMPHOCYTES % (AUTO) 24.4 %; MEAN CORPUSCULAR HEMOGLOBIN 23.9 pg (27.0-31.0); MEAN CORPUSCULAR HGB CONC 31.9 g/dL (32.0-36.0); MEAN CORPUSCULAR VOLUME 74.9 fL (81.0-99.0); MEAN PLATELET VOLUME 7.7 fL (7.9-10.8); MONOCYTES # (AUTO) 0.3 10^3/uL (0.0-1.0); MONOCYTES % (AUTO) 4.7 %; NEUTROPHILS # (AUTO) 4.1 10^3/uL (1.5-6.6); NEUTROPHILS % (AUTO) 68.4 %; PLT - PLATELET COUNT 330 10^3/uL (130-450); RED BLOOD COUNT 5.47 10^6/uL (4.20-5.40); RED CELL DISTRIBUTION WIDTH 18.5 % (12.0-15.0)
[2017-09-21 13:29] LABS: INR 2.6 (0.8-1.2); PT - PROTHROMBIN TIME 28.7 secs (9.9-12.6)
[2017-09-21 13:36] LABS: ALBUMIN 4.1 g/dL (3.2-5.5); ALBUMIN/GLOBULIN RATIO 1.2 (1.0-2.2); BILIRUBIN,TOTAL 0.8 mg/dL (0.2-1.0); CALCIUM 9.4 mg/dL (8.5-10.3); CREATININE 0.6 mg/dL (0.4-1.0); MAGNESIUM 2.2 mg/dL (1.7-2.8); TOTAL PROTEIN 7.5 g/dL (6.7-8.2)
[2017-09-21] MEDS ORDERED: IOPAMIDOL-300 50 ML VIAL PO ONE (14:14)
--- NOTE | 2017-09-21 15:03 | CT Report ---
Procedure Date: 09/21/2017 Accession Number: [id number] / [id number] Procedure: CT - Abdomen/Pelvis W/O CPT Code: FULL RESULT: EXAM: CT ABDOMEN AND PELVIS EXAM DATE: 09/21/2017 02:36 PM. CLINICAL HISTORY: Abdominal pain. COMPARISONS: 02/25/2016. TECHNIQUE: Routine helical CT imaging was performed through the abdomen and pelvis. IV contrast: None. Enteric contrast: Oral contrast. Reconstructions: Coronal and sagittal. In accordance with CT protocol optimization, one or more of the following dose reduction techniques were utilized for this exam: automated exposure control, adjustment of mA and/or KV based on patient size, or use of iterative reconstructive technique. FINDINGS: Lung Bases: Stable mild cardiomegaly. Pacer. Liver: Normal. No masses. Gallbladder/Bile Ducts: Unremarkable. Spleen: Normal. Pancreas: Normal. Adrenal Glands: Normal. Kidneys: Stable 2.6 cm left renal cyst. No calcifications, solid masses or hydronephrosis. Normal left ureter. Equivocal 0.5 mm calcification closely adjacent to or possibly within the distal right ureter axial image 73, coronal image 39. Peritoneal Cavity/Bowel: Diverticula off the colon. Remote gastric surgery. Interval maturation of the right lower quadrant abdominal wall following prior hernia repair. No free fluid, free air or adenopathy. No masses or acute inflammatory process. The appendix is well visualized and normal. Pelvic Organs: Normal. Trace amount of free cul-de-sac fluid. The bladder and visualized pelvic organs are within normal limits. Vasculature: No aneurysms or other significant abnormality. Bones: No significant abnormality. Other: None. IMPRESSION: 1. Mild cardiomegaly. Pacer. 2. Colonic diverticulosis. 3. Normal appendix. 4. A 0.5 mm calcification which could represent an extremely tiny nonobstructing stone at the right ureterovesicle junction versus closely adjacent phlebolith. RADIA
[2017-09-21 15:20] VITALS: BP 122/79
[2017-09-21] MEDS ORDERED: cephALEXin 250 MG CAPSULE PO STA (15:42)
[2017-09-21] MEDS ORDERED: metroNIDAZOLE 250 MG TABLET PO STA (15:42)
== END 2017-09-21 16:00 | disposition home or self-care (01) ==
LOC: ED 09:52
DX: J02.9 Acute pharyngitis, unspecified (principal); R11.0 Nausea; R10.13 Epigastric pain; N30.00 Acute cystitis without hematuria; Z20.2 Contact with and (suspected) exposure to infections with a predominantly sexual mode of transmission
CPT/HCPCS: 74176; 80053; 81001; 81025; 83690; 83735; 85025; 85610; 85730; 87070; 87430; 87491; 87591; 96361; 96374; 96375; 99283; A9270; Q9967; 36415; 81003; 87086

== ENCOUNTER 2017-09-25 10:16 | Outpatient (CLI) | payer MEDICAID | END 2017-09-25 10:17 | disposition home or self-care (01) | LOC: LAB.N 10:16 | PROVIDERS: ATTEND Family Medicine | DX: I48.91 Unspecified atrial fibrillation (principal); Z79.899 Other long term (current) drug therapy | CPT/HCPCS: 85610 ==

== ENCOUNTER 2017-10-05 15:35 | Outpatient (CLI) | payer MEDICAID ==
--- NOTE | 2017-10-06 11:36 | XRAY Report ---
Procedure Date: 10/05/2017 Accession Number: [id number] / [id number] Procedure: XRN - Lumbar Spine Complete CPT Code: FULL RESULT: EXAM: Lumbar Spine Complete DATE: 10/05/2017 4:00 PM CLINICAL HISTORY: LOWER PAIN COMPARISON: CT lumbar spine 12/29/2013. TECHNIQUE: AP, lateral and bilateral oblique views of the lumbar spine. FINDINGS: Alignment: Normal. No spondylolisthesis or scoliosis. Bones: Five [id number] lumbar vertebral bodies are present. No fractures or bone lesions. Disks: Normal. Disk heights are maintained. Facets: No degenerative changes. Sacroiliac Joints: Unremarkable. Soft Tissues: Normal. The visualized bowel gas pattern is normal. IMPRESSION: Normal lumbar spine radiography. RADIA
== END 2017-10-05 15:36 | disposition home or self-care (01) ==
LOC: DI.N 15:35
PROVIDERS: ATTEND Family Medicine
DX: M54.5 Low back pain (principal); I48.91 Unspecified atrial fibrillation; Z79.899 Other long term (current) drug therapy
CPT/HCPCS: 72110; 85610

== ENCOUNTER 2017-10-05 23:54 | Outpatient (CLI) | payer MEDICAID | END 2017-10-05 23:55 | disposition home or self-care (01) | LOC: LAB.N 23:54 | PROVIDERS: ATTEND Family Medicine | DX: I48.91 Unspecified atrial fibrillation (principal); Z79.899 Other long term (current) drug therapy | CPT/HCPCS: 85610 ==

== ENCOUNTER 2017-10-27 14:12 | Outpatient (CLI) | payer MEDICAID | END 2017-10-27 14:13 | disposition home or self-care (01) | LOC: LAB.N 14:12 | PROVIDERS: ATTEND Family Medicine | DX: I48.91 Unspecified atrial fibrillation (principal); Z79.899 Other long term (current) drug therapy | CPT/HCPCS: 85610 ==

== ENCOUNTER 2017-11-07 15:15 | Outpatient (CLI) | payer MEDICAID | END 2017-11-07 15:16 | disposition home or self-care (01) | LOC: LAB 15:15 | PROVIDERS: ATTEND Family Medicine | DX: I48.91 Unspecified atrial fibrillation (principal); Z79.899 Other long term (current) drug therapy | CPT/HCPCS: 85610 ==

== ENCOUNTER 2017-11-08 11:39 | Emergency (ER) | payer MEDICAID ==
[2017-11-08 11:47] VITALS: BP 125/76
[2017-11-08] MEDS ORDERED: oxyCODONE 5 MG TABLET PO STA (13:14)
--- NOTE | 2017-11-08 13:19 | ED Physician Documentation ---
PD HPI LOWER EXT INJURY - Stated complaint Stated Complaint: RT KNEE INJURY - Chief complaint Chief Complaint: Trauma Ext - History obtained from History obtained from: Patient - History of Present Illness PD HPI LOW EXT INJURY LOCATION: Right, Knee Type of injury: Other (tripped and fell over a tree stump last night) Where injury occurred: Home Timing - onset: Other (last night) Timing - duration: Days (1) Timing - details: Abrupt onset Pain level max: 8 Pain level now: 8 Improved by: Rest, Ice, Immobilization Worsened by: Moving, Palpating Associated symptoms: No: Weakness, Numbness, Tingling, Swelling Contributing factors: No: Anticoagulated, Prior ortho surgery Similar symptoms before: Has not had sx before Recently seen: Not recently seen Review of Systems Constitutional: denies: Fever Neurologic: denies: Headache PD PAST MEDICAL HISTORY - Past Medical History Cardiovascular: Hypertension, High cholesterol, Atrial fibrillation, Other Respiratory: Asthma, Shortness of breath, Sleep apnea, Pneumonia Endocrine/Autoimmune: None GI: GERD 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: None : Incontinence HEENT: None Psych: Depression, Anxiety, Panic attacks, Post traumatic stress disorder, Claustrophobia Musculoskeletal: Osteoarthritis Derm: None - Past Surgical History Past Surgical History: Yes General: Gastric surgery, Other Ortho: Knee replacement, Carpal Tunnel surgery /NOCTURNIST PHYSICIAN: Dilation and currettage, Tubal ligation Cardiovascular: Pacemaker - Present Medications Home Medications: Ambulatory Orders Medication Instructions Recorded Confirmed ALPRAZolam [Alprazolam] 2 mg PO DAILY PRN 01/14/14 09/11/17 hydroCHLOROthiazide 25 mg PO DAILY 02/28/14 09/11/17 [Hydrochlorothiazide] Prazosin [Minipress] 8 mg PO QPM 03/17/15 09/11/17 Propafenone [Rythmol] 150 mg PO Q8H 03/17/15 09/11/17 Citalopram Hydrobromide 40 mg PO DAILY 03/13/16 09/11/17 [Citalopram HBr] Omeprazole [PriLOSEC] 20 mg PO BID 03/13/16 09/11/17 Metoprolol Tartrate 75 mg PO BID 05/06/16 09/11/17 ARIPiprazole [Abilify] 5 mg PO DAILY 10/02/16 09/11/17 hydrOXYzine HCl [Hydroxyzine HCl] 25 mg PO DAILY 10/02/16 09/11/17 Albuterol Sulfate [Proventil Hfa 1 - 2 puffs IH Q4H PRN #1 02/20/17 09/11/17 Inhaler] hfa.aer.ad Warfarin Sodium [Coumadin] 6 mg PO DAILY 04/04/17 09/11/17 Albuterol 2.5 mg INH Q4H PRN #30 neb 06/19/17 09/11/17 Albuterol Sulf [Ventolin Hfa 1 - 2 puffs INH Q4HR PRN #1 inhaler 06/19/17 Inhaler] Oxycodone HCl/Acetaminophen 1 - 2 each PO Q6H PRN #14 tablet 11/08/17 [Percocet 5-325 mg Tablet] - Allergies Allergies/Adverse Reactions: Allergies Allergy/AdvReac Type Severity Reaction Status Date / Time levofloxacin [From Levaquin] Allergy Severe Hives Verified 11/08/17 11:48 meperidine HCl * Allergy Severe Hives Verified 11/08/17 11:48 [From Demerol] hydrocodone [Hydrocodone] Allergy Intermediate Itching Verified 11/08/17 11:48 codeine Allergy Rash Verified 11/08/17 11:48 hydrocodone bitartrate * Allergy Itching Verified 11/08/17 11:48 [From Vicodin] tramadol Allergy Rash Verified 11/08/17 11:48 methylprednisolone sodium AdvReac Anxiety Verified 11/08/17 11:48 succ... * [From Solu-Medrol] bees Allergy Anaphylaxis Uncoded 11/08/17 11:48 - Social History Does the pt smoke?: No Smoking Status: Never smoker Does the pt drink ETOH?: No Does the pt have substance abuse?: No - Immunizations Immunizations are current?: Yes Immunizations: TDAP >10years/unknown - POLST Patient has POLST: No POLST Status: Full Code PD ED PE NORMAL - Vitals Vital signs reviewed: Yes - General General: Alert and oriented X 3, No acute distress - HEENT HEENT: Moist mucous membranes - Derm Derm: Warm and dry - Extremities Extremities: Other (r knee - medial aspect contusion. MCL, LCL, ACL, PCL intact. ) - Neuro Neuro: Alert and oriented X 3 - Psych Psych: Normal mood, Normal affect Results - Vitals Vitals: Vital Signs - 24 hr 11/08/17 11:43 Temperature 36.2 C L Heart Rate 77 Respiratory 19 Rate Blood Pressure 125/76 O2 Saturation 99 Oxygen O2 Source Room air - Rads (name of study) R knee xray Radiology: Prelim report reviewed, EMP read contemporaneously, See rad report ( no acute abnormality.) PD MEDICAL DECISION MAKING - ED course Complexity details: reviewed results, re-evaluated patient, considered differential, d/w patient ED course: Patient is a 42-year-old female with a left knee contusion. Will place on pain medication for home. Gab bandage applied. She has crutches at home. No acute findings on x-ray. ACL, MCL, PCL, LCL are intact. Patient counseled regarding signs and symptoms for which I believe and urgent re-evaluation would be necessary. Patient with good understanding of and agreement to plan and is comfortable going home at this time This document was made in part using voice recognition software. While efforts are made to proofread this document, sound alike and grammatical errors may occur. - Sepsis Event Vital Signs: Vital Signs - 24 hr 11/08/17 11:43 Temperature 36.2 C L Heart Rate 77 Respiratory 19 Rate Blood Pressure 125/76 O2 Saturation 99 Oxygen O2 Source Room air Departure - Departure Disposition: 01 Home, Self Care Clinical Impression: Knee contusion Qualifiers: Encounter type: initial encounter Laterality: right Qualified Code(s): S80.01XA - Contusion of right knee, initial encounter Condition: Good Instructions: ED Contusion Lower Ext Follow-Up: Dougie Yeung MD [Primary Care Provider] - Within 1 week Prescriptions: Oxycodone HCl/Acetaminophen [Percocet 5-325 mg Tablet] 1 - 2 each PO Q6H PRN # 14 tablet PRN Reason: pain Comments: You may bear weight as tolerated. There are no fractures. Use the pain medication as needed. Return if you worsen. Do not drink alcohol or drive while on narcotic pain medicine. Note that many narcotic pain relievers also contain tylenol/acetaminophen. Please ensure that your total dose of acetaminophen from all sources does not exceed 3 grams (3000mg) per day. You may constipated on this medication, take a stool softener such as "Colace" twice a day while you are on it. Also recommend a [id number]-[id number] laxative such as senna or MiraLAX any day that you do not have a bowel movement. If you received narcotic pain medication in the emergency department, do not drive or operate machinery for the next 24 hours. Discharge Date/Time: 11/08/17 13:48
--- NOTE | 2017-11-08 13:30 | XRAY Report ---
Reason: fall, knee pain Procedure Date: 11/08/2017 Accession Number: [id number] / [id number] Procedure: XR - Knee 4 View RT CPT Code: FULL RESULT: EXAM: RIGHT KNEE RADIOGRAPHY, 4 VIEWS EXAM DATE: 11/08/2017 01:06 PM. CLINICAL HISTORY: 42-year-old female post fall yesterday with lateral right knee pain. COMPARISON: KNEE 4 VIEW RT 07/05/2016. TECHNIQUE: Frontal, both oblique and lateral views. FINDINGS: Bones: Moderate spurring of the tibial spines, patella and lateral margins of the distal femoral condyle and tibia. No fractures or bone lesions. Joints: Mild to moderate narrowing of the patellofemoral joint and medial joint compartment, similar to prior study. No subluxation or joint effusion. Soft Tissues: Normal. No soft tissue swelling. IMPRESSION: No acute process or posttraumatic abnormality. No substantial change from prior study of July 2016. Moderate degenerative and hypertrophic changes as described. RAD[facility]
== END 2017-11-08 13:48 | disposition home or self-care (01) ==
LOC: ED 11:39
DX: S80.01XA Contusion of right knee, initial encounter (principal); I10 Essential (primary) hypertension; I48.91 Unspecified atrial fibrillation; Z79.899 Other long term (current) drug therapy; Z79.01 Long term (current) use of anticoagulants; W01.198A Fall on same level from slipping, tripping and stumbling with subsequent striking against other object, initial encounter; Y93.01 Activity, walking, marching and hiking; Y92.007 Garden or yard of unspecified non-institutional (private) residence as the place of occurrence of the external cause
CPT/HCPCS: 73564; 85610; 99283; A9270

== ENCOUNTER 2017-11-08 13:47 | Outpatient (CLI) | payer MEDICAID | END 2017-11-08 13:48 | disposition home or self-care (01) | LOC: LAB 13:47 | PROVIDERS: ATTEND Family Medicine | DX: I48.91 Unspecified atrial fibrillation (principal); Z79.899 Other long term (current) drug therapy | CPT/HCPCS: 85610 ==

== ENCOUNTER 2017-11-13 08:00 | Outpatient (CLI) | payer MEDICAID | END 2017-11-13 08:01 | LOC: LAB.N 08:00 | PROVIDERS: ATTEND Family Medicine | DX: I48.91 Unspecified atrial fibrillation (principal); Z79.899 Other long term (current) drug therapy | CPT/HCPCS: 85610 ==

== ENCOUNTER 2017-11-20 14:15 | Outpatient (CLI) | payer MEDICAID | END 2017-11-20 14:16 | disposition home or self-care (01) | LOC: LAB.N 14:15 | PROVIDERS: ATTEND Family Medicine | DX: I48.91 Unspecified atrial fibrillation (principal) | CPT/HCPCS: 85610 ==

== ENCOUNTER 2017-11-23 10:44 | Emergency (ER) | payer MEDICAID ==
[2017-11-23] MEDS ORDERED: BUFFERED LIDOCAINE 10 ML SYRINGE ONE (13:00)
[2017-11-23] MEDS ORDERED: DOXYCYCLINE 100 MG TABLET PO STA (13:11)
--- NOTE | 2017-11-23 13:14 | ED Physician Documentation ---
History of Present Illness - Stated complaint Stated Complaint: BUMPS ON ABDOMEN-PX - Chief complaint Chief Complaint: Abd Pain - Additonal information Additional information: 42-year-old female with a history of hidradenitis presents the emergency department with pain and a bump in her lower abdomen under her pannus. The patient reports this is the typical site she developed abscesses and. Symptoms started yesterday. Symptoms are described as moderate. No fevers or chills. The patient also reports dysuria which is been ongoing. No other associated symptoms. No relieving factors. Review of Systems Constitutional: denies: Fever, Chills GI: reports: Nausea, Other (The patient has abdominal wall pain but no intra- abdominal pain). 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 : Incontinence HEENT: None Psych: Depression, Anxiety, Panic attacks, Post traumatic stress disorder, Claustrophobia Musculoskeletal: Osteoarthritis Derm: None - Past Surgical History Past Surgical History: Yes General: Gastric surgery, Other Ortho: Knee replacement, Carpal Tunnel surgery /OPERATIONS SUPERVISOR 2ND SHIFT: Dilation and currettage, Tubal ligation Cardiovascular: Pacemaker - Present Medications Home Medications: Ambulatory Orders Medication Instructions Recorded Confirmed ALPRAZolam [Alprazolam] 2 mg PO DAILY PRN 01/14/14 09/11/17 hydroCHLOROthiazide 25 mg PO DAILY 02/28/14 09/11/17 [Hydrochlorothiazide] Prazosin [Minipress] 8 mg PO QPM 03/17/15 09/11/17 Propafenone [Rythmol] 150 mg PO Q8H 03/17/15 09/11/17 Citalopram Hydrobromide 40 mg PO DAILY 03/13/16 09/11/17 [Citalopram HBr] Omeprazole [PriLOSEC] 20 mg PO BID 03/13/16 09/11/17 Metoprolol Tartrate 75 mg PO BID 05/06/16 09/11/17 ARIPiprazole [Abilify] 5 mg PO DAILY 10/02/16 09/11/17 hydrOXYzine HCl [Hydroxyzine HCl] 25 mg PO DAILY 10/02/16 09/11/17 Albuterol Sulfate [Proventil Hfa 1 - 2 puffs IH Q4H PRN #1 02/20/17 09/11/17 Inhaler] hfa.aer.ad Warfarin Sodium [Coumadin] 6 mg PO DAILY 04/04/17 09/11/17 Albuterol 2.5 mg INH Q4H PRN #30 neb 06/19/17 09/11/17 Albuterol Sulf [Ventolin Hfa 1 - 2 puffs INH Q4HR PRN #1 inhaler 06/19/17 09/11/17 Inhaler] Oxycodone HCl/Acetaminophen 1 - 2 each PO Q6H PRN #14 tablet 11/08/17 [Percocet 5-325 mg Tablet] Doxycycline Hyclate 100 mg PO BID #20 capsule 11/23/17 - Allergies Allergies/Adverse Reactions: Allergies Allergy/AdvReac Type Severity Reaction Status Date / Time levofloxacin [From Levaquin] Allergy Severe Hives Verified 11/23/17 10:55 meperidine HCl * Allergy Severe Hives Verified 11/23/17 10:55 [From Demerol] hydrocodone [Hydrocodone] Allergy Intermediate Itching Verified 11/23/17 10:55 codeine Allergy Rash Verified 11/23/17 10:55 hydrocodone bitartrate * Allergy Itching Verified 11/23/17 10:55 [From Vicodin] tramadol Allergy Rash Verified 11/23/17 10:55 methylprednisolone sodium AdvReac Anxiety Verified 11/23/17 10:55 succ... * [From Solu-Medrol] bees Allergy Anaphylaxis Uncoded 11/23/17 10:55 - Social History Does the pt smoke?: No Smoking Status: Never smoker Does the pt drink ETOH?: No Does the pt have substance abuse?: No - Immunizations Immunizations are current?: Yes Immunizations: TDAP >10years/unknown - POLST Patient has POLST: No POLST Status: Full Code PD ED PE NORMAL - General General: Alert and oriented X 3, No acute distress - HEENT HEENT: Atraumatic, PERRL, EOMI - Abdomen Abdomen: Non tender, Other (The patient has a small area of induration under her pannus with surrounding erythematous changes, there is no active drainage.) - Derm Derm: Other (Small area of induration under the patient's pannus on the right side) - Neuro Neuro: Alert and oriented X 3, Normal speech - Psych Psych: Normal affect Results - Vitals Vitals: Vital Signs - 24 hr 11/23/17 10:52 Temperature 36.8 C Heart Rate 64 Respiratory 16 Rate Blood Pressure 108/64 O2 Saturation 100 Oxygen O2 Source Room air Procedures - Abscess I&D (location) right Other Preparation: Confirmed with ultrasound, Lidocaine 1% Incision: Incised with scalpel, Needle aspiration, Purulent drainage, Other (The area was identified with ultrasound and there was a small fluid pocket, I was able to obtain a small amount of drainage with an 18-gauge needle and a small incision was made and opened usingForceps. There was only a scant amount of purulent drainage at that point. No packing was applied) PD MEDICAL DECISION MAKING - ED course ED course: The patient has a small abscess which was drained. The patient was placed on a course of antibiotics for the surrounding cellulitis. No packing was applied due to the small nature of the abscess. The patient has no evidence of abscess that would necessitate further workup in the emergency department. The patient reports dysuria, a urine culture was sent. The patient is being placed on antibiotics so urine culture will be helpful. I discussed warning signs and recommended returning to the emergency department immediately for worsening or concerns. - Sepsis Event Vital Signs: Vital Signs - 24 hr 11/23/17 10:52 Temperature 36.8 C Heart Rate 64 Respiratory 16 Rate Blood Pressure 108/64 O2 Saturation 100 Oxygen O2 Source Room air Departure - Departure Disposition: 01 Home, Self Care Clinical Impression: Cellulitis and abscess of unspecified site, Dysuria, Abdominal wall cellulitis UTI (urinary tract infection) Qualifiers: Urinary tract infection type: site unspecified Hematuria presence: without hematuria Qualified Code(s): N39.0 - Urinary tract infection, site not specified Condition: Good Instructions: ED IandD Abscess Ch Follow-Up: Dougie Yeung MD [Primary Care Provider] - Prescriptions: Doxycycline Hyclate 100 mg PO BID #20 capsule Comments: Please return to the emergency department immediately for worsening symptoms or any concerns
[2017-11-23 13:32] VITALS: BP 107/81
== END 2017-11-23 13:32 | disposition home or self-care (01) ==
LOC: ED 10:44
DX: L03.311 Cellulitis of abdominal wall (principal); L02.211 Cutaneous abscess of abdominal wall; N39.0 Urinary tract infection, site not specified; I10 Essential (primary) hypertension; I48.91 Unspecified atrial fibrillation; Z79.01 Long term (current) use of anticoagulants; Z95.0 Presence of cardiac pacemaker
CPT/HCPCS: 10060; 87086; 99283; A9270

== ENCOUNTER 2017-11-27 11:17 | Outpatient (CLI) | payer MEDICAID | END 2017-11-27 11:18 | disposition home or self-care (01) | LOC: LAB.N 11:17 | PROVIDERS: ATTEND Family Medicine | DX: I48.91 Unspecified atrial fibrillation (principal); Z79.899 Other long term (current) drug therapy | CPT/HCPCS: 85610 ==

== ENCOUNTER 2017-11-28 11:30 | Outpatient (CLI) | payer MEDICAID | END 2017-11-28 11:31 | disposition home or self-care (01) | LOC: LAB.N 11:30 | PROVIDERS: ATTEND Family Medicine | DX: I48.91 Unspecified atrial fibrillation (principal); Z79.899 Other long term (current) drug therapy | CPT/HCPCS: 85610 ==

== ENCOUNTER 2017-12-01 13:26 | Outpatient (CLI) | payer MEDICAID | END 2017-12-01 13:27 | disposition home or self-care (01) | LOC: LAB.N 13:26 | PROVIDERS: ATTEND Family Medicine | DX: I48.91 Unspecified atrial fibrillation (principal); Z79.899 Other long term (current) drug therapy | CPT/HCPCS: 85610 ==

== ENCOUNTER 2017-12-13 16:38 | Emergency (ER) | payer MEDICAID ==
[2017-12-13] MEDS ORDERED: predniSONE 20 MG TABLET PO STA (18:21)
[2017-12-13] MEDS ORDERED: BUFFERED LIDOCAINE 10 ML SYRINGE SUBQ STA (18:21)
--- NOTE | 2017-12-13 18:22 | ED Physician Documentation ---
History of Present Illness - Stated complaint Stated Complaint: RT GREAT TOE INGROWN/SOA - Chief complaint Chief Complaint: General - History obtained from History obtained from: Patient - History of Present Illness Timing: Other (She had nasal congestion starting about 3 weeks ago that about a week ago move its way down to the chest with a nonproductive cough and wheezing. She has a history of asthma and has been using her nebulizer. She also has an ancillary complaint of a toenail infection on the right great toe she would like the toenail removed. 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: None : Incontinence HEENT: None Psych: Depression, Anxiety, Panic attacks, Post traumatic stress disorder, Claustrophobia Musculoskeletal: Osteoarthritis Derm: None - Past Surgical History Past Surgical History: Yes General: Gastric surgery, Other Ortho: Knee replacement, Carpal Tunnel surgery /SUPERVISOR BURLING AND JOINING: Dilation and currettage, Tubal ligation Cardiovascular: Pacemaker - Present Medications Home Medications: Ambulatory Orders Medication Instructions Recorded Confirmed ALPRAZolam [Alprazolam] 2 mg PO DAILY PRN 01/14/14 09/11/17 hydroCHLOROthiazide 25 mg PO DAILY 02/28/14 09/11/17 [Hydrochlorothiazide] Prazosin [Minipress] 8 mg PO QPM 03/17/15 09/11/17 Propafenone [Rythmol] 150 mg PO Q8H 03/17/15 09/11/17 Citalopram Hydrobromide 40 mg PO DAILY 03/13/16 09/11/17 [Citalopram HBr] Omeprazole [PriLOSEC] 20 mg PO BID 03/13/16 09/11/17 Metoprolol Tartrate 75 mg PO BID 05/06/16 09/11/17 ARIPiprazole [Abilify] 5 mg PO DAILY 10/02/16 09/11/17 hydrOXYzine HCl [Hydroxyzine HCl] 25 mg PO DAILY 10/02/16 09/11/17 Albuterol Sulfate [Proventil Hfa 1 - 2 puffs IH Q4H PRN #1 02/20/17 09/11/17 Inhaler] hfa.aer.ad Warfarin Sodium [Coumadin] 6 mg PO DAILY 04/04/17 09/11/17 Albuterol 2.5 mg INH Q4H PRN #30 neb 06/19/17 09/11/17 Albuterol Sulf [Ventolin Hfa 1 - 2 puffs INH Q4HR PRN #1 inhaler 06/19/17 09/11/17 Inhaler] Oxycodone HCl/Acetaminophen 1 - 2 each PO Q6H PRN #14 tablet 11/08/17 [Percocet 5-325 mg Tablet] Doxycycline Hyclate 100 mg PO BID #20 capsule 11/23/17 Oxycodone HCl/Acetaminophen 1 - 2 each PO Q6H PRN #10 tablet 12/13/17 [Percocet 5-325 mg Tablet] predniSONE [Prednisone] 60 mg PO DAILY 5 Days #15 tablet 12/13/17 - Allergies Allergies/Adverse Reactions: Allergies Allergy/AdvReac Type Severity Reaction Status Date / Time levofloxacin [From Levaquin] Allergy Severe Hives Verified 12/13/17 16:49 meperidine HCl * Allergy Severe Hives Verified 12/13/17 16:49 [From Demerol] hydrocodone [Hydrocodone] Allergy Intermediate Itching Verified 12/13/17 16:49 codeine Allergy Rash Verified 12/13/17 16:49 hydrocodone bitartrate * Allergy Itching Verified 12/13/17 16:49 [From Vicodin] tramadol Allergy Rash Verified 12/13/17 16:49 methylprednisolone sodium AdvReac Anxiety Verified 12/13/17 16:49 succ... * [From Solu-Medrol] bees Allergy Anaphylaxis Uncoded 11/23/17 10:55 - Social History Does the pt smoke?: No Smoking Status: Never smoker Does the pt drink ETOH?: No Does the pt have substance abuse?: No - Immunizations Immunizations are current?: Yes Immunizations: TDAP >10years/unknown - POLST Patient has POLST: No POLST Status: Full Code PD ED PE NORMAL - Vitals Vital signs reviewed: Yes - General General: Alert and oriented X 3, No acute distress - Cardiac Cardiac: RRR, No murmur - Respiratory Respiratory: No respiratory distress, Other (Wheezy throughout, nonlabored, no focal findings.) - Extremities Extremities: Other (The right great toenail is almost completely hanging off.) - Neuro Neuro: Alert and oriented X 3, Normal speech Results - Vitals Vitals: Vital Signs - 24 hr 12/13/17 16:47 Temperature 36.4 C L Heart Rate 57 L Respiratory 20 Rate Blood Pressure 134/82 H O2 Saturation 99 Oxygen O2 Source Room air Procedures - General procedure General procedure: After a digital block with buffered lidocaine the entirety of the right great toenail was removed using blunt dissection and cauterized at the base PD MEDICAL DECISION MAKING - Sepsis Event Vital Signs: Vital Signs - 24 hr 12/13/17 16:47 Temperature 36.4 C L Heart Rate 57 L Respiratory 20 Rate Blood Pressure 134/82 H O2 Saturation 99 Oxygen O2 Source Room air Departure - Departure Disposition: 01 Home, Self Care Clinical Impression: Bronchitis, Ingrown toenail of right foot with infection Condition: Good Record reviewed to determine appropriate education?: Yes Instructions: ED Bronchitis Asthmatic Prescriptions: Oxycodone HCl/Acetaminophen [Percocet 5-325 mg Tablet] 1 - 2 each PO Q6H PRN #10 tablet PRN Reason: pain predniSONE [Prednisone] 60 mg PO DAILY 5 Days #15 tablet
[2017-12-13 19:32] VITALS: BP 141/82
== END 2017-12-13 19:32 | disposition home or self-care (01) ==
LOC: ED 16:38
DX: J40 Bronchitis, not specified as acute or chronic (principal); L60.0 Ingrowing nail; J45.909 Unspecified asthma, uncomplicated; I10 Essential (primary) hypertension; I48.91 Unspecified atrial fibrillation; L73.2 Hidradenitis suppurativa; Z79.01 Long term (current) use of anticoagulants; Z79.2 Long term (current) use of antibiotics
CPT/HCPCS: 11730; 99283; J7512

== ENCOUNTER 2017-12-14 08:40 | Outpatient (CLI) | payer MEDICAID | END 2017-12-14 08:41 | disposition home or self-care (01) | LOC: LAB.N 08:40 | PROVIDERS: ATTEND Family Medicine | DX: I48.91 Unspecified atrial fibrillation (principal); Z79.899 Other long term (current) drug therapy | CPT/HCPCS: 85610 ==

== ENCOUNTER 2017-12-22 11:32 | Outpatient (CLI) | payer MEDICAID | END 2017-12-22 11:33 | disposition home or self-care (01) | LOC: LAB.N 11:32 | PROVIDERS: ATTEND Family Medicine | DX: I48.91 Unspecified atrial fibrillation (principal); Z79.899 Other long term (current) drug therapy | CPT/HCPCS: 85610 ==

== ENCOUNTER 2018-01-03 11:38 | Outpatient (CLI) | payer MEDICAID ==
[2018-01-03 19:18] LABS: CALCIUM 9.5 mg/dL (8.5-10.3); CREATININE 0.6 mg/dL (0.4-1.0)
[2018-01-03 19:22] LABS: BASOPHILS % (AUTO) 0.5 %; EOSINOPHILS # (AUTO) 0.1 10^3/uL (0.0-0.7); HGB - HEMOGLOBIN 11.8 g/dL (12.0-16.0); LYMPHOCYTES # (AUTO) 1.4 10^3/uL (1.5-3.5); LYMPHOCYTES % (AUTO) 24.5 %; MEAN CORPUSCULAR HEMOGLOBIN 23.5 pg (27.0-31.0); MEAN CORPUSCULAR HGB CONC 31.5 g/dL (32.0-36.0); MEAN CORPUSCULAR VOLUME 74.7 fL (81.0-99.0); MEAN PLATELET VOLUME 8.3 fL (7.9-10.8); MONOCYTES # (AUTO) 0.3 10^3/uL (0.0-1.0); MONOCYTES % (AUTO) 5.5 %; NEUTROPHILS # (AUTO) 3.7 10^3/uL (1.5-6.6); NEUTROPHILS % (AUTO) 67.5 %; PLT - PLATELET COUNT 277 10^3/uL (130-450); RED BLOOD COUNT 5.01 10^6/uL (4.20-5.40); RED CELL DISTRIBUTION WIDTH 19.1 % (12.0-15.0); WHITE BLOOD COUNT 5.6 x10^3/uL (4.8-10.8)
== END 2018-01-03 11:39 | disposition home or self-care (01) ==
LOC: LAB.N 11:38
PROVIDERS: ATTEND Family Medicine
DX: I48.91 Unspecified atrial fibrillation (principal); Z79.899 Other long term (current) drug therapy
CPT/HCPCS: 36415; 80048; 85025; 85610

== ENCOUNTER 2018-01-21 19:14 | Emergency (ER) | payer MEDICAID ==
[2018-01-21] MEDS ORDERED: oxyCODONE 5 MG TABLET PO STA (20:32)
--- NOTE | 2018-01-21 20:47 | ED Physician Documentation ---
PD HPI LOWER EXT INJURY - Stated complaint Stated Complaint: FALL/POST KNEE REPLACEMENT - Chief complaint Chief Complaint: Trauma Ext - History obtained from History obtained from: Patient - History of Present Illness PD HPI LOW EXT INJURY LOCATION: Right, Knee Type of injury: Fall Where injury occurred: Home Timing - onset: How many hours ago (5) Timing - duration: Hours (5) Timing - details: Abrupt onset Pain level max: 10 Pain level now: 10 Improved by: Rest, Ice, Immobilization Worsened by: Moving, Palpating Associated symptoms: Swelling. No: Weakness, Numbness, Tingling Recently seen: Surgery (s/p R TKR at [facility] with Dr. 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 RESOURCE INTERN: None : Incontinence HEENT: None Psych: Depression, Anxiety, Panic attacks, Post traumatic stress disorder, Claustrophobia Musculoskeletal: Osteoarthritis Derm: None - Past Surgical History Past Surgical History: Yes General: Gastric surgery, Other Ortho: Knee replacement, Carpal Tunnel surgery /HUMAN RESOURCE INTERN: Dilation and currettage, Tubal ligation Cardiovascular: Pacemaker - Present Medications Home Medications: Ambulatory Orders Medication Instructions Recorded Confirmed ALPRAZolam [Alprazolam] 2 mg PO DAILY PRN 01/14/14 09/11/17 hydroCHLOROthiazide 25 mg PO DAILY 02/28/14 09/11/17 [Hydrochlorothiazide] Prazosin [Minipress] 8 mg PO QPM 03/17/15 09/11/17 Propafenone [Rythmol] 150 mg PO Q8H 03/17/15 09/11/17 Citalopram Hydrobromide 40 mg PO DAILY 03/13/16 09/11/17 [Citalopram HBr] Omeprazole [PriLOSEC] 20 mg PO BID 03/13/16 09/11/17 Metoprolol Tartrate 75 mg PO BID 05/06/16 09/11/17 ARIPiprazole [Abilify] 5 mg PO DAILY 10/02/16 09/11/17 hydrOXYzine HCl [Hydroxyzine HCl] 25 mg PO DAILY 10/02/16 09/11/17 Albuterol Sulfate [Proventil Hfa 1 - 2 puffs IH Q4H PRN #1 02/20/17 09/11/17 Inhaler] hfa.aer.ad Warfarin Sodium [Coumadin] 6 mg PO DAILY 04/04/17 09/11/17 Albuterol 2.5 mg INH Q4H PRN #30 neb 06/19/17 09/11/17 Albuterol Sulf [Ventolin Hfa 1 - 2 puffs INH Q4HR PRN #1 inhaler 06/19/17 09/11/17 Inhaler] Oxycodone HCl/Acetaminophen 1 - 2 each PO Q6H PRN #14 tablet 11/08/17 [Percocet 5-325 mg Tablet] Doxycycline Hyclate 100 mg PO BID #20 capsule 11/23/17 Oxycodone HCl/Acetaminophen 1 - 2 each PO Q6H PRN #10 tablet 12/13/17 [Percocet 5-325 mg Tablet] predniSONE [Prednisone] 60 mg PO DAILY 5 Days #15 tablet 12/13/17 Oxycodone HCl/Acetaminophen 1 - 2 each PO Q6H PRN #14 tablet 01/21/18 [Percocet 5-325 mg Tablet] - Allergies Allergies/Adverse Reactions: Allergies Allergy/AdvReac Type Severity Reaction Status Date / Time levofloxacin [From Levaquin] Allergy Severe Hives Verified 12/13/17 16:49 meperidine HCl * Allergy Severe Hives Verified 12/13/17 16:49 [From Demerol] hydrocodone [Hydrocodone] Allergy Intermediate Itching Verified 12/13/17 16:49 codeine Allergy Rash Verified 12/13/17 16:49 hydrocodone bitartrate * Allergy Itching Verified 12/13/17 16:49 [From Vicodin] tramadol Allergy Rash Verified 12/13/17 16:49 methylprednisolone sodium AdvReac Anxiety Verified 12/13/17 16:49 succ... * [From Solu-Medrol] bees Allergy Anaphylaxis Uncoded 11/23/17 10:55 - Social History Does the pt smoke?: No Smoking Status: Never smoker Does the pt drink ETOH?: No Does the pt have substance abuse?: No - Immunizations Immunizations are current?: Yes Immunizations: TDAP >10years/unknown - POLST Patient has POLST: No POLST Status: Full Code PD ED PE NORMAL - Vitals Vital signs reviewed: Yes - General General: Alert and oriented X 3, No acute distress - HEENT HEENT: Moist mucous membranes - Neck Neck: Supple, no meningeal sign - Cardiac Cardiac: RRR - Respiratory Respiratory: No respiratory distress, Clear bilaterally - Abdomen Abdomen: Soft, Non tender, Non distended - Derm Derm: Warm and dry - Extremities Extremities: Other (TTP R knee - mild swelling, limited ROM 2/2 pain. incision is CDI without signs of infection.) - Neuro Neuro: Alert and oriented X 3 - Psych Psych: Normal mood, Normal affect Results - Vitals Vitals: Vital Signs - 24 hr 01/21/18 01/21/18 19:22 21:41 Temperature 36.8 C Heart Rate 67 83 Respiratory 17 18 Rate Blood Pressure 131/75 H 128/88 H O2 Saturation 98 99 Oxygen O2 Source Room air - Rads (name of study) R knee xray Radiology: Prelim report reviewed, EMP read contemporaneously, See rad report (Expected appearance of right knee arthroplasty, with no acute bony abnormalities. . Joint effusion noted. ) PD MEDICAL DECISION MAKING - ED course Complexity details: reviewed results, re-evaluated patient, considered d ifferential, d/w patient ED course: Patient is a 42-year-old female status post a right total knee replacement 2 weeks ago. Fell on the knee today. No acute findings on x-ray. Will place on pain medication and utilize her walker for home. Patient counseled regarding signs and symptoms for which I believe and urgent re-evaluation would be necessary. Patient with good understanding of and agreement to plan and is comfortable going home at this time This document was made in part using voice recognition software. While efforts are made to proofread this document, sound alike and grammatical errors may occur. Departure - Departure Disposition: 01 Home, Self Care Clinical Impression: Contusion of knee, right Qualifiers: Encounter type: initial encounter Qualified Code(s): S80.01XA - Contusion of right knee, initial encounter Condition: Good Instructions: ED Contusion Lower Ext Follow-Up: Dougie Yeung MD [Primary Care Provider] - Dougie Parmar DO [Physician No Access] - Within 1 week Prescriptions: Oxycodone HCl/Acetaminophen [Percocet 5-325 mg Tablet] 1 - 2 each PO Q6H PRN #14 tablet PRN Reason: pain Comments: Continue your medications at home. Return if you worsen. Your x-rays do not show any acute abnormalities tonight. Do not drink alcohol or drive while on narcotic pain medicine. Note that many narcotic pain relievers also contain tylenol/acetaminophen. Please ensure that your total dose of acetaminophen from all sources does not exceed 3 grams (3000mg) per day. You may constipated on this medication, take a stool softener such as "Colace" twice a day while you are on it. Also recommend a [id number] laxative such as senna or MiraLAX any day that you do not have a bowel movement. If you received narcotic pain medication in the emergency department, do not drive or operate machinery for the next 24 hours. Discharge Date/Time: 01/21/18 21:42
--- NOTE | 2018-01-21 21:15 | XRAY Report ---
Reason: Fell, px with weight bearing Procedure Date: 01/21/2018 Accession Number: [id number] / [id number] Procedure: XR - Knee 2 View RT CPT Code: FULL RESULT: EXAM: RIGHT KNEE RADIOGRAPHY EXAM DATE: 01/21/2018 08:44 PM. CLINICAL HISTORY: Fell. Pain with weight bearing. COMPARISON: KNEE 4 VIEW RT 11/08/2017 12:48 PM. TECHNIQUE: 2 views. FINDINGS: Bones and Joints: No fractures or bone lesion. A 3 component right knee arthroplasty has been performed. There is expected alignment of components. No unexpected periprosthetic lucency or other evidence of loosening. Soft Tissues: Joint effusion. Unremarkable soft tissues. IMPRESSION: 1. Expected appearance of right knee arthroplasty, with no acute bony abnormalities. 2. Joint effusion noted. RADIA
[2018-01-21 21:41] VITALS: BP 128/88
== END 2018-01-21 21:42 | disposition home or self-care (01) ==
LOC: ED 19:14
DX: S80.01XA Contusion of right knee, initial encounter (principal); W18.30XA Fall on same level, unspecified, initial encounter; Y92.009 Unspecified place in unspecified non-institutional (private) residence as the place of occurrence of the external cause; Z96.651 Presence of right artificial knee joint; I10 Essential (primary) hypertension; I48.91 Unspecified atrial fibrillation; Z79.01 Long term (current) use of anticoagulants
CPT/HCPCS: 73560; 99283; A9270

== ENCOUNTER 2018-02-05 12:51 | Outpatient (CLI) | payer MEDICAID | END 2018-02-05 12:52 | disposition home or self-care (01) | LOC: LAB.N 12:51 | PROVIDERS: ATTEND Family Medicine | DX: I48.91 Unspecified atrial fibrillation (principal); Z79.899 Other long term (current) drug therapy | CPT/HCPCS: 85610 ==

== ENCOUNTER 2018-02-12 15:10 | Outpatient (CLI) | payer MEDICAID | END 2018-02-12 23:59 | disposition home or self-care (01) | LOC: LAB.N 15:10 | PROVIDERS: ATTEND Family Medicine | DX: I48.91 Unspecified atrial fibrillation (principal); Z79.899 Other long term (current) drug therapy | CPT/HCPCS: 85610 ==

== ENCOUNTER 2018-02-23 15:02 | Outpatient (CLI) | payer MEDICAID | END 2018-02-23 23:59 | disposition home or self-care (01) | LOC: LAB.N 15:02 | PROVIDERS: ATTEND Family Medicine | DX: I48.91 Unspecified atrial fibrillation (principal) | CPT/HCPCS: 85610 ==

== ENCOUNTER 2018-03-19 11:50 | Outpatient (CLI) | payer MEDICAID | END 2018-03-19 23:59 | disposition home or self-care (01) | LOC: LAB.N 11:50 | PROVIDERS: ATTEND Physician Assistant Medical | DX: Z79.01 Long term (current) use of anticoagulants (principal) | CPT/HCPCS: 85610 ==

== ENCOUNTER 2018-04-04 11:30 | Outpatient (CLI) | payer MEDICAID | END 2018-04-04 23:59 | disposition home or self-care (01) | LOC: LAB.N 11:30 | PROVIDERS: ATTEND Physician Assistant Medical | DX: Z76.89 Persons encountering health services in other specified circumstances (principal) | CPT/HCPCS: 85610 ==

== ENCOUNTER 2018-04-30 14:31 | Emergency (ER) | payer MEDICAID | END 2018-04-30 14:38 | disposition left against medical advice (07) | LOC: ED 14:31 | DX: Z53.21 Procedure and treatment not carried out due to patient leaving prior to being seen by health care provider (principal) ==

== ENCOUNTER 2018-05-01 08:00 | Outpatient (CLI) | payer MEDICAID | END 2018-05-01 23:59 | disposition home or self-care (01) | LOC: LAB.N 08:00 | PROVIDERS: ATTEND Nurse Practitioner | DX: Z76.89 Persons encountering health services in other specified circumstances (principal) | CPT/HCPCS: 85610 ==

== ENCOUNTER 2018-05-15 08:00 | Outpatient (CLI) | payer MEDICAID | END 2018-05-15 23:59 | disposition home or self-care (01) | LOC: LAB.N 08:00 | PROVIDERS: ATTEND Nurse Practitioner | DX: Z76.89 Persons encountering health services in other specified circumstances (principal) | CPT/HCPCS: 85610 ==

== ENCOUNTER 2018-06-16 14:35 | Outpatient (CLI) | payer MEDICAID | END 2018-06-16 14:36 | disposition critical access hospital (66) | LOC: EMS 14:35 | PROVIDERS: ATTEND Surgery | DX: R42 Dizziness and giddiness (principal); R11.2 Nausea with vomiting, unspecified; R19.7 Diarrhea, unspecified; H53.8 Other visual disturbances; W19.XXXA Unspecified fall, initial encounter; Y92.009 Unspecified place in unspecified non-institutional (private) residence as the place of occurrence of the external cause | CPT/HCPCS: A0425; A0427; A0999 ==

== ENCOUNTER 2018-06-16 14:54 | Emergency (ER) | payer MEDICAID ==
--- NOTE | 2018-06-16 15:18 | ED Physician Documentation ---
History of Present Illness - Stated complaint Stated Complaint: N/V/D - Chief complaint Chief Complaint: General - History obtained from History obtained from: Patient, EMS - History of Present Illness Timing: Today - Additonal information Additional information: 43-year-old female who has lost 175 pounds after a gastric bypass operation 15 months ago has developed near syncope and collapse at home twice in the past week. Today she fell in the shower and injured her head. She is on Coumadin. She has no focal neurologic abnormality but feels fatigued. She states that she has been feeling fatigued for about 1 week and prior to that had been doing extremely well with all of her follow-up. She will see her surgeon in the next month in follow-up. She has had symptom similar recently and her blood pressure medication was discontinued. Review of Systems Constitutional: denies: Fever Eyes: denies: Decreased vision Nose: denies: Rhinorrhea / runny nose, Congestion Throat: denies: Sore throat Cardiac: denies: Chest pain / pressure, Palpitations Respiratory: denies: Dyspnea, Cough GI: reports: Nausea, Vomiting. denies: Abdominal Pain : reports: Frequency. denies: Dysuria Skin: denies: Rash Musculoskeletal: denies: Neck pain, Back pain, Extremity pain Neurologic: denies: Generalized weakness, Focal weakness, Numbness PD PAST MEDICAL HISTORY - Past Medical History Cardiovascular: Hypertension, High cholesterol, Atrial fibrillation, Other Respiratory: Asthma, Shortness of breath, Sleep apnea, Pneumonia Endocrine/Autoimmune: None GI: GERD RISK ANALYST: None : Incontinence HEENT: None Psych: Depression, Anxiety, Panic attacks, Post traumatic stress disorder, Claustrophobia Musculoskeletal: Osteoarthritis Derm: None - Past Surgical History Past Surgical History: Yes General: Gastric surgery, Other Ortho: Knee replacement, Carpal Tunnel surgery /RISK ANALYST: Dilation and currettage, Tubal ligation Cardiovascular: Pacemaker - Present Medications Home Medications: Ambulatory Orders Medication Instructions Recorded Confirmed ALPRAZolam [Alprazolam] 2 mg PO DAILY PRN 01/14/14 09/11/17 hydroCHLOROthiazide 25 mg PO DAILY 02/28/14 09/11/17 [Hydrochlorothiazide] Prazosin [Minipress] 8 mg PO QPM 03/17/15 09/11/17 Propafenone [Rythmol] 150 mg PO Q8H 03/17/15 09/11/17 Citalopram Hydrobromide 40 mg PO DAILY 03/13/16 09/11/17 [Citalopram HBr] Omeprazole [PriLOSEC] 20 mg PO BID 03/13/16 09/11/17 Metoprolol Tartrate 75 mg PO BID 05/06/16 09/11/17 ARIPiprazole [Abilify] 5 mg PO DAILY 10/02/16 09/11/17 hydrOXYzine HCl [Hydroxyzine HCl] 25 mg PO DAILY 10/02/16 09/11/17 Albuterol Sulfate [Proventil Hfa 1 - 2 puffs IH Q4H PRN #1 02/20/17 09/11/17 Inhaler] [email or web address] Warfarin Sodium [Coumadin] 6 mg PO DAILY 04/04/17 09/11/17 Albuterol 2.5 mg INH Q4H PRN #30 neb 06/19/17 09/11/17 Albuterol Sulf [Ventolin Hfa 1 - 2 puffs INH Q4HR PRN #1 inhaler 06/19/17 09/11/17 Inhaler] Oxycodone HCl/Acetaminophen 1 - 2 each PO Q6H PRN #14 tablet 11/08/17 [Percocet 5-325 mg Tablet] Doxycycline Hyclate 100 mg PO BID #20 capsule 11/23/17 Oxycodone HCl/Acetaminophen 1 - 2 each PO Q6H PRN #10 tablet 12/13/17 [Percocet 5-325 mg Tablet] predniSONE [Prednisone] 60 mg PO DAILY 5 Days #15 tablet 12/13/17 Oxycodone HCl/Acetaminophen 1 - 2 each PO Q6H PRN #14 tablet 01/21/18 [Percocet 5-325 mg Tablet] Alprazolam [Xanax] 1 mg PO BID PRN #20 tablet 06/16/18 - Allergies Allergies/Adverse Reactions: Allergies Allergy/AdvReac Type Severity Reaction Status Date / Time levofloxacin [From Levaquin] Allergy Severe Hives Verified 06/16/18 15:00 meperidine HCl * Allergy Severe Hives Verified 06/16/18 15:00 [From Demerol] hydrocodone [Hydrocodone] Allergy Intermediate Itching Verified 06/16/18 15:00 codeine Allergy Rash Verified 06/16/18 15:00 hydrocodone bitartrate * Allergy Itching Verified 06/16/18 15:00 [From Vicodin] tramadol Allergy Rash Verified 06/16/18 15:00 methylprednisolone sodium AdvReac Anxiety Verified 06/16/18 15:00 succ... * [From Solu-Medrol] bees Allergy Anaphylaxis Uncoded 06/16/18 15:00 - Social History Does the pt smoke?: No Smoking Status: Never smoker Does the pt drink ETOH?: No Does the pt have substance abuse?: No - Immunizations Immunizations are current?: Yes Immunizations: TDAP >10years/unknown - POLST Patient has POLST: No POLST Status: Full Code PD ED PE NORMAL - Vitals Vital signs reviewed: Yes (hypertensive ) - General General: Alert and oriented X 3, No acute distress, Well developed/nourished - HEENT HEENT: Atraumatic, PERRL, EOMI - Neck Neck: Supple, no meningeal sign, No bony TTP - Cardiac Cardiac: RRR, No murmur - Respiratory Respiratory: No respiratory distress, Clear bilaterally - Abdomen Abdomen: Soft, Non tender - Back Back: No CVA TTP, No spinal TTP - Derm Derm: Normal color, Warm and dry, No rash - Extremities Extremities: No deformity, No edema - Neuro Neuro: Alert and oriented X 3, rehabilitation medicine physician 2-12 intact, No motor deficit, No sensory deficit, Normal speech Eye Opening: Spontaneous Motor: Obeys Commands Verbal: Oriented GCS Score: 15 - Psych Psych: Normal mood, Normal affect Results - Vitals Vitals: Vital Signs - 24 hr 06/16/18 06/16/18 06/16/18 14:56 15:01 15:06 Temperature 36.4 C L Heart Rate 83 84 95 Respiratory 16 18 Rate Blood Pressure 143/110 H 129/75 O2 Saturation 100 99 06/16/18 06/16/18 06/16/18 15:32 16:04 16:34 Temperature Heart Rate 90 104 H 95 Respiratory 18 18 17 Rate Blood Pressure 134/75 H 132/72 H 138/63 H O2 Saturation 99 99 99 Oxygen O2 Source Room air - EKG (time done) 1521 Rate: Rate (enter#) (76) Rhythm: NSR Compare to prior EKG: Unchanged from prior EKG (SPT 4-16-18 no sig change) Computer interpretation: Disagree with computer - Labs Labs: Laboratory Tests 06/16/18 06/16/18 06/16/18 15:00 15:00 15:00 WBC 5.5 RBC 5.41 H Hgb 13.2 Hct 40.5 MCV 74.9 L MCH 24.3 L MCHC 32.5 RDW 17.4 H Plt Count 244 MPV 7.9 Neut # (Auto) 3.5 Lymph # (Auto) 1.6 Tripp # (Auto) 0.4 Eos # (Auto) 0.1 Baso # (Auto) 0.0 Absolute Nucleated RBC 0.00 Nucleated RBC % 0.0 PT 16.6 H INR 1.5 H Sodium 138 Potassium 3.4 L Chloride 105 Carbon Dioxide 25 Anion Gap 8.0 BUN 12 Creatinine 0.6 Estimated GFR (MDRD) 132 Glucose 117 H Calcium 9.5 Magnesium Total Bilirubin 0.8 AST 19 ALT 14 Alkaline Phosphatase 49 Troponin I Total Protein 7.3 Albumin 4.2 Globulin 3.1 Albumin/Globulin Ratio 1.4 Lipase 33 Urine Color Urine Clarity Urine pH Ur Specific [place] Urine Protein Urine Glucose (UA) Urine Ketones Urine Occult Blood Urine Nitrite Urine Bilirubin Urine Urobilinogen Ur Leukocyte Esterase Ur Microscopic Review Urine Culture Comments Urine HCG, Qual 06/16/18 06/16/18 06/16/18 15:00 15:00 16:13 WBC RBC Hgb Hct MCV MCH MCHC RDW Plt Count MPV Neut # (Auto) Lymph # (Auto) Tripp # (Auto) Eos # (Auto) Baso # (Auto) Absolute Nucleated RBC Nucleated RBC % PT INR Sodium Potassium Chloride Carbon Dioxide Anion Gap BUN Creatinine Estimated GFR (MDRD) Glucose Calcium Magnesium 2.4 Total Bilirubin AST ALT Alkaline Phosphatase Troponin I < 0.04 Total Protein Albumin Globulin Albumin/Globulin Ratio Lipase Urine Color YELLOW Urine Clarity CLEAR Urine pH 6.5 Ur Specific [place] 1.020 Urine Protein NEGATIVE Urine Glucose (UA) NEGATIVE Urine Ketones NEGATIVE Urine Occult Blood NEGATIVE Urine Nitrite NEGATIVE Urine Bilirubin NEGATIVE Urine Urobilinogen 0.2 (NORMAL) Ur Leukocyte Esterase NEGATIVE Ur Microscopic Review NOT INDICATED Urine Culture Comments NOT INDICATED Urine HCG, Qual NEGATIVE Procedures - IVC sono (time) 1508 Bedside IVC sono: IVC measures (cm) (1.71), IVC collapsed c insp (cm) (1.02), Euvolemia PD MEDICAL DECISION MAKING - ED course Complexity details: reviewed old records, reviewed results, re-evaluated patient, considered differential, d/w patient ED course: 43-year-old female with a prior history of diabetes and hypertension and morbid obesity has had a BASC gastric bypass and has resolved most of her medical illnesses and now has had issues with collapse at home. She is not feeling well especially over the past week and on additional history she indicates that she has been on Xanax 2 mg/day for the last 7 years. She has discontinued this about 1 week ago. She states that she tapered this from 2 mg a day down to 1 mg a day and then she stopped.Patient's diagnostics are unremarkable and she appears well. She is not dehydrated. Her potassium is minimally decreased at 3.4 and she is given oral potassium. She has tapered too fast on the xanax and she is given ativan 1mg IVP. 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 This medication needs to be withdrawn slowly. Resume a dose of Xanax that resolved your symptoms and slowly reduce the dose week by week. My recommendation is to start with 1 mg twice per day and reduce it to 1- 3/4 of a milligram daily the first week and each week take one quarter of a milligram away.
[2018-06-16 15:23] LABS: BASOPHILS % (AUTO) 0.5 %; EOSINOPHILS # (AUTO) 0.1 10^3/uL (0.0-0.7); EOSINOPHILS % (AUTO) 1.8 %; HGB - HEMOGLOBIN 13.2 g/dL (12.0-16.0); LYMPHOCYTES # (AUTO) 1.6 10^3/uL (1.5-3.5); LYMPHOCYTES % (AUTO) 28.8 %; MEAN CORPUSCULAR HEMOGLOBIN 24.3 pg (27.0-31.0); MEAN CORPUSCULAR HGB CONC 32.5 g/dL (32.0-36.0); MEAN CORPUSCULAR VOLUME 74.9 fL (81.0-99.0); MEAN PLATELET VOLUME 7.9 fL (7.9-10.8); MONOCYTES # (AUTO) 0.4 10^3/uL (0.0-1.0); MONOCYTES % (AUTO) 6.6 %; NEUTROPHILS # (AUTO) 3.5 10^3/uL (1.5-6.6); NEUTROPHILS % (AUTO) 62.3 %; PLT - PLATELET COUNT 244 10^3/uL (130-450); RED BLOOD COUNT 5.41 10^6/uL (4.20-5.40); RED CELL DISTRIBUTION WIDTH 17.4 % (12.0-15.0); WHITE BLOOD COUNT 5.5 x10^3/uL (4.8-10.8)
[2018-06-16 15:29] LABS: INR 1.5 (0.8-1.2); PT - PROTHROMBIN TIME 16.6 secs (9.9-12.6)
[2018-06-16 15:34] LABS: ALBUMIN 4.2 g/dL (3.2-5.5); ALBUMIN/GLOBULIN RATIO 1.4 (1.0-2.2); BILIRUBIN,TOTAL 0.8 mg/dL (0.2-1.0); CALCIUM 9.5 mg/dL (8.5-10.3); CREATININE 0.6 mg/dL (0.4-1.0); TOTAL PROTEIN 7.3 g/dL (6.7-8.2)
--- NOTE | 2018-06-16 16:05 | CT Report ---
Reason: head injury on coumadin Procedure Date: 06/16/2018 Accession Number: [id number] / [id number] Procedure: CT - HEAD WO CPT Code: FULL RESULT: EXAM: CT HEAD EXAM DATE: 06/16/2018 03:37 PM. CLINICAL HISTORY: Head injury on coumadin. COMPARISON: HEAD W/O 04/19/2017 1:04 PM. TECHNIQUE: Multiaxial CT images were obtained from the foramen magnum to the vertex. Reformats: Sagittal and coronal. IV contrast: None. In accordance with CT protocol optimization, one or more of the following dose reduction techniques were utilized for this exam: automated exposure control, adjustment of mA and/or KV based on patient size, or use of iterative reconstructive technique. FINDINGS: Parenchyma: No intraparenchymal hemorrhage. No evidence of mass, midline shift, or CT findings of infarction. Mcadams-white differentiation is distinct. Extraaxial Spaces: Normal for age. No subdural or epidural collections identified. Ventricles: Normal in size and position. Sinuses and Orbits: Mucosal thickening of the paranasal sinuses. Mastoid air cells are clear. Unremarkable orbits. Bones: No evidence of fracture or calvarial defect. Other: None. IMPRESSION: 1. No acute intracranial abnormality. 2. Paranasal sinusitis is noted. RADIA
[2018-06-16] MEDS ORDERED: POTASSIUM BICARB 25 MEQ TABLET PO STA (16:13)
[2018-06-16 16:19] LABS: BILIRUBIN,URINE NEGATIVE (NEGATIVE); CLARITY,URINE CLEAR (CLEAR); GLUCOSE, URINE (UA) NEGATIVE (NEGATIVE); KETONES,URINE (UA) NEGATIVE (NEGATIVE); LEUKOCYTE ESTERASE, URINE NEGATIVE (NEGATIVE); NITRITE,URINE NEGATIVE (NEGATIVE); OCCULT BLOOD,URINE NEGATIVE (NEGATIVE); PH,URINE 6.5 PH (5.0-7.5); PROTEIN,URINE NEGATIVE (NEGATIVE); UROBILINOGEN,URINE 0.2 (NORMAL) E.U./dL (NORMAL)
[2018-06-16] MEDS ORDERED: LORazepam 2 MG/ML VIAL IVP STA ×2 (16:20→16:59)
[2018-06-16 16:23] LABS: HCG UR QUAL NEGATIVE
[2018-06-16 17:34] VITALS: BP 128/93
== END 2018-06-16 17:55 | disposition home or self-care (01) ==
LOC: EDUNIT# → ED 14:54
DX: F13.232 Sedative, hypnotic or anxiolytic dependence with withdrawal with perceptual disturbance (principal); I10 Essential (primary) hypertension; I48.91 Unspecified atrial fibrillation; Z79.01 Long term (current) use of anticoagulants; Z98.84 Bariatric surgery status
CPT/HCPCS: 36415; 70450; 80053; 81003; 81025; 83690; 83735; 84484; 85025; 85610; 93005; 96374; 96376; 99283; 99284; A9270; J2060; 81001; 87086

== ENCOUNTER 2018-07-02 08:00 | Outpatient (CLI) | payer MEDICAID | END 2018-07-02 23:59 | disposition home or self-care (01) | LOC: LAB.N 08:00 | PROVIDERS: ATTEND Nurse Practitioner | DX: Z76.89 Persons encountering health services in other specified circumstances (principal) | CPT/HCPCS: 85610 ==

== ENCOUNTER 2018-07-04 19:57 | Emergency (ER) | payer MEDICAID ==
--- NOTE | 2018-07-04 20:25 | ED Physician Documentation ---
PD HPI SKIN - Stated complaint Stated Complaint: FEMALE /INGROWN TOE - Chief complaint Chief Complaint: Wound - History obtained from History obtained from: Patient - History of Present Illness Timing - onset: How many days ago (1-2) Timing - duration: Days (1-2) Timing - details: Gradual onset, Still present (has noted 2 abscesses developing - one on bra line left under breast and the other right lateral abd. Has had MRSA in the past. Also complained of vaginal discharge and odor for several days.) Location: Chest, Abdomen Quality / character: Painful, Discolored (red), Swelling. No: Vesicular, Draining Associated symptoms: No: Fever, Myalgias, N/V/D Similar symptoms before: Diagnosis (abscesses) Review of Systems Constitutional: denies: Fever, Chills, Myalgias Nose: denies: Rhinorrhea / runny nose, Congestion Throat: denies: Sore throat Respiratory: denies: Cough GI: denies: Nausea, Vomiting, Diarrhea : reports: Dysuria, Discharge. denies: Frequency PD PAST MEDICAL HISTORY - Past Medical History Cardiovascular: Hypertension, High cholesterol, Atrial fibrillation, Other Respiratory: Asthma, Shortness of breath, Sleep apnea, Pneumonia Endocrine/Autoimmune: None GI: GERD SPECIAL EDUCATION PARA PROFESSIONAL: None : Incontinence HEENT: None Psych: Depression, Anxiety, Panic attacks, Post traumatic stress disorder, Claustrophobia Musculoskeletal: Osteoarthritis Derm: None - Past Surgical History Past Surgical History: Yes General: Gastric surgery, Other Ortho: Knee replacement, Carpal Tunnel surgery /SPECIAL EDUCATION PARA PROFESSIONAL: Dilation and currettage, Tubal ligation Cardiovascular: Pacemaker - Present Medications Home Medications: Ambulatory Orders Medication Instructions Recorded Confirmed hydroCHLOROthiazide 25 mg PO DAILY 02/28/14 07/04/18 [Hydrochlorothiazide] Prazosin [Minipress] 8 mg PO QPM 03/17/15 07/04/18 Propafenone [Rythmol] 150 mg PO Q8H 03/17/15 07/04/18 Citalopram Hydrobromide 40 mg PO DAILY 03/13/16 07/04/18 [Citalopram HBr] Omeprazole [PriLOSEC] 20 mg PO BID 03/13/16 07/04/18 Metoprolol Tartrate 75 mg PO BID 05/06/16 07/04/18 ARIPiprazole [Abilify] 5 mg PO DAILY 10/02/16 07/04/18 hydrOXYzine HCl [Hydroxyzine HCl] 25 mg PO DAILY 10/02/16 07/04/18 Warfarin Sodium [Coumadin] 6 mg PO DAILY 04/04/17 07/04/18 Doxycycline Hyclate 100 mg PO BID #20 capsule 11/23/17 07/04/18 Alprazolam [Xanax] 1 mg PO BID PRN #20 tablet 06/16/18 07/04/18 Clindamycin HCl [Clindamycin 300MG 300 mg PO Q6H #28 capsule 07/04/18 CAP] Fluconazole [Diflucan] 150 mg PO ONCE #1 tablet 07/04/18 Mupirocin 1 applic TP TID #15 g 07/04/18 - Allergies Allergies/Adverse Reactions: Allergies Allergy/AdvReac Type Severity Reaction Status Date / Time levofloxacin [From Levaquin] Allergy Severe Hives Verified 07/04/18 20:04 meperidine HCl * Allergy Severe Hives Verified 07/04/18 20:04 [From Demerol] hydrocodone [Hydrocodone] Allergy Intermediate Itching Verified 07/04/18 20:04 codeine Allergy Rash Verified 07/04/18 20:04 hydrocodone bitartrate * Allergy Itching Verified 07/04/18 20:04 [From Vicodin] tramadol Allergy Rash Verified 07/04/18 20:04 methylprednisolone sodium AdvReac Anxiety Verified 07/04/18 20:04 succ... * [From Solu-Medrol] bees Allergy Anaphylaxis Uncoded 07/04/18 20:04 - Social History Does the pt smoke?: No Smoking Status: Never smoker Does the pt drink ETOH?: No Does the pt have substance abuse?: No - Immunizations Immunizations are current?: Yes Immunizations: TDAP >10years/unknown - POLST Patient has POLST: No POLST Status: Full Code PD ED PE NORMAL - Vitals Vital signs reviewed: Yes - General General: Alert and oriented X 3, No acute distress, Well developed/nourished - Respiratory Respiratory: Clear bilaterally - Abdomen Abdomen: Normal bowel sounds, Soft, Non distended, No organomegaly, Other (right anterior upper abd with small area of tenderness, with redness. U/S showing inflammation but only 3 mm size fluid under the site. Left lateral under breast at bra line with similar type of lesions. No large fluid collection. ) - Female Female : Etiology Teacher present, Other (external normal. Vault with some white milky discharge with malodor. ) Results - Vitals Vitals: Vital Signs - 24 hr 07/04/18 07/04/18 20:01 21:16 Temperature 36.0 C L Heart Rate 70 61 Respiratory 14 17 Rate Blood Pressure 146/85 H 144/90 H O2 Saturation 98 98 Oxygen O2 Source Room air - Labs Labs: Microbiology 07/04/18 20:55 Wet Prep - Final Genital - Cervix PD MEDICAL DECISION MAKING - ED course Complexity details: re-evaluated patient (is on Doxycycline chronically and bactrim has not worked well due to resistance in the past. So can treat at the abscess and also the BV with Clinda. ), considered differential (Her Coumadin level was 1.2 checked 2 days ago. ), d/w patient Departure - Departure Disposition: Home, Self Care Clinical Impression: Bacterial vaginitis Abscess of skin Qualifiers: Site of cutaneous abscess: trunk Site of cutaneous abscess of trunk: chest wall Qualified Code(s): L02.213 - Cutaneous abscess of chest wall Condition: Stable Record reviewed to determine appropriate education?: Yes Instructions: ED Staph Infec Abx Tx Only, ED Vaginosis Bacterial Prescriptions: Clindamycin HCl [Clindamycin 300MG CAP] 300 mg PO Q6H #28 capsule Fluconazole [Diflucan] 150 mg PO ONCE #1 tablet Mupirocin 1 applic TP TID #15 g Comments: Continue usual medications. Add clindamycin oral antibiotic as directed. Use mupirocin topical antibiotic to the small skin sores. Recheck if there are not improved over the next couple of days or get bigger. At this point there is only about 3 mm worth of fluid in the 1 site and is not big enough to need incision and drainage. That may get bigger but most the time will get better with the antibiotics. The clindamycin should cover for the bacterial vaginitis as well. Also take another Diflucan for the bad vaginal yeast possibility in a week. Recheck if that is not improved over the next several days to week as well. We did do a vaginal culture and will call you if it shows any additional bacterial growth Discharge Date/Time: 07/04/18 21:26
[2018-07-04] MEDS ORDERED: FLUCONAZOLE 100 MG TABLET PO STA (21:05)
[2018-07-04] MEDS ORDERED: CLINDAMYCIN 150 MG CAPSULE PO STA (21:05)
[2018-07-04 21:17] VITALS: BP 144/90
== END 2018-07-04 21:26 | disposition home or self-care (01) ==
LOC: ED 19:57
DX: N76.0 Acute vaginitis (principal); L02.213 Cutaneous abscess of chest wall; L02.211 Cutaneous abscess of abdominal wall; I10 Essential (primary) hypertension; Z86.14 Personal history of Methicillin resistant Staphylococcus aureus infection
CPT/HCPCS: 87210; 87491; 87591; 99283; A9270

== ENCOUNTER 2018-07-09 08:56 | Emergency (ER) | payer MEDICAID ==
[2018-07-09] MEDS ORDERED: LIDOCAINE-EPINEPH-TETRACAINE 3 ML SYRINGE TOP STA (09:58)
--- NOTE | 2018-07-09 11:14 | ED Physician Documentation ---
PD HPI SKIN - Stated complaint Stated Complaint: FEMALE - Chief complaint Chief Complaint: Wound - History obtained from History obtained from: Patient - History of Present Illness Timing - onset: How many days ago (several) Timing - details: Gradual onset Pain level max: 7 Pain level now: 6 Location: Chest, Abdomen, Genitals Quality / character: Painful, Swelling Improved by: Other (nothing) Worsened by (comment): COMMENT (nothing) Associated symptoms: No: Fever, Headache, Facial swelling, Dyspnea, Abd pain, N/V/D Similar symptoms before: Diagnosis (abscesses) Recently seen: Emergency Dept (for cellulitis) Review of Systems Constitutional: denies: Fever Neurologic: denies: Headache PD PAST MEDICAL HISTORY - Past Medical History Cardiovascular: Hypertension, High cholesterol, Atrial fibrillation, Other Respiratory: Asthma, Shortness of breath, Sleep apnea, Pneumonia Endocrine/Autoimmune: None GI: GERD HEALTHCARE RISK CONTROL CONSULTANT: None : Incontinence HEENT: None Psych: Depression, Anxiety, Panic attacks, Post traumatic stress disorder, Claustrophobia Musculoskeletal: Osteoarthritis Derm: None - Past Surgical History Past Surgical History: Yes General: Gastric surgery, Other Ortho: Knee replacement, Carpal Tunnel surgery /HEALTHCARE RISK CONTROL CONSULTANT: Dilation and currettage, Tubal ligation Cardiovascular: Pacemaker - Present Medications Home Medications: Ambulatory Orders Medication Instructions Recorded Confirmed hydroCHLOROthiazide 25 mg PO DAILY 02/28/14 07/04/18 [Hydrochlorothiazide] Prazosin [Minipress] 8 mg PO QPM 03/17/15 07/04/18 Propafenone [Rythmol] 150 mg PO Q8H 03/17/15 07/04/18 Citalopram Hydrobromide 40 mg PO DAILY 03/13/16 07/04/18 [Citalopram HBr] Omeprazole [PriLOSEC] 20 mg PO BID 03/13/16 07/04/18 Metoprolol Tartrate 75 mg PO BID 05/06/16 07/04/18 ARIPiprazole [Abilify] 5 mg PO DAILY 10/02/16 07/04/18 hydrOXYzine HCl [Hydroxyzine HCl] 25 mg PO DAILY 10/02/16 07/04/18 Warfarin Sodium [Coumadin] 6 mg PO DAILY 04/04/17 07/04/18 Doxycycline Hyclate 100 mg PO BID #20 capsule 11/23/17 07/04/18 Alprazolam [Xanax] 1 mg PO BID PRN #20 tablet 06/16/18 07/04/18 Clindamycin HCl [Clindamycin 300MG 300 mg PO Q6H #28 capsule 07/04/18 CAP] Fluconazole [Diflucan] 150 mg PO ONCE #1 tablet 07/04/18 Mupirocin 1 applic TP TID #15 g 07/04/18 Oxycodone HCl/Acetaminophen 1 - 2 each PO Q6H PRN #8 tablet 07/09/18 [Percocet 5-325 mg Tablet] - Allergies Allergies/Adverse Reactions: Allergies Allergy/AdvReac Type Severity Reaction Status Date / Time levofloxacin [From Levaquin] Allergy Severe Hives Verified 07/04/18 20:04 meperidine HCl * Allergy Severe Hives Verified 07/04/18 20:04 [From Demerol] hydrocodone [Hydrocodone] Allergy Intermediate Itching Verified 07/04/18 20:04 codeine Allergy Rash Verified 07/04/18 20:04 hydrocodone bitartrate * Allergy Itching Verified 07/04/18 20:04 [From Vicodin] tramadol Allergy Rash Verified 07/04/18 20:04 methylprednisolone sodium AdvReac Anxiety Verified 07/04/18 20:04 succ... * [From Solu-Medrol] bees Allergy Anaphylaxis Uncoded 07/04/18 20:04 - Social History Does the pt smoke?: No Smoking Status: Never smoker Does the pt drink ETOH?: No Does the pt have substance abuse?: No - Immunizations Immunizations are current?: Yes Immunizations: TDAP >10years/unknown - POLST Patient has POLST: No POLST Status: Full Code PD ED PE NORMAL - Vitals Vital signs reviewed: Yes - General General: Alert and oriented X 3, No acute distress - HEENT HEENT: Moist mucous membranes - Derm Derm: Warm and dry, Other (1 small abscess to the right side of the chest, 1 cm in diameter. Another small abscess of the left side of the chest approximately 1 cm in diameter. There is also a small abscess in the suprapubic area, 1 cm in diameter. ) - Neuro Neuro: Alert and oriented X 3 Results - Vitals Vitals: Vital Signs - 24 hr 07/09/18 07/09/18 09:05 11:37 Temperature 36.8 C 36.2 C L Heart Rate 56 L 59 L Respiratory 18 20 Rate Blood Pressure 136/71 H 142/92 H O2 Saturation 98 100 Oxygen O2 Source Room air Procedures - Abscess I&D (location) Bilateral chest wall and suprapubic Preparation: Chlorhexadine, LET Incision: Incised with scalpel, Purulent drainage Other: Pt tolerated well, Dressing applied PD MEDICAL DECISION MAKING - ED course Complexity details: considered differential, d/w patient ED course: 43-year-old female presents to the emergency department multiple skin abscesses. These were incised and drained. Tolerated well. We will continue the clindamycin at home. None required packing. All were small and simple abscesses. Patient counseled regarding signs and symptoms for which I believe and urgent re-evaluation would be necessary. Patient with good understanding of and agreement to plan and is comfortable going home at this time This document was made in part using voice recognition software. While efforts are made to proofread this document, sound alike and grammatical errors may occur. Departure - Departure Disposition: 01 Home, Self Care Clinical Impression: Abscess of skin Qualifiers: Site of cutaneous abscess: unspecified site Qualified Code(s): L02.91 - Cutaneous abscess, unspecified Condition: Good Instructions: ED Abscess IandD Follow-Up: your,doctor in 3 days for wound check [Other] Prescriptions: Oxycodone HCl/Acetaminophen [Percocet 5-325 mg Tablet] 1 - 2 each PO Q6H PRN #8 tablet PRN Reason: pain Comments: Continue the antibiotics as previously prescribed. Return if you worsen. Follow-up with your doctor for further care. Do not drink alcohol or drive while on narcotic pain medicine. Note that many narcotic pain relievers also contain tylenol/acetaminophen. Please ensure that your total dose of acetaminophen from all sources does not exceed 3 grams (3000mg) per day. You may constipated on this medication, take a stool softener such as "Colace" twice a day while you are on it. Also recommend a [id number]-khx-aymrcie laxative such as senna or MiraLAX any day that you do not have a bowel movement. If you received narcotic pain medication in the emergency department, do not drive or operate machinery for the next 24 hours. Discharge Date/Time: 07/09/18 11:38
[2018-07-09 11:39] VITALS: BP 142/92
== END 2018-07-09 11:38 | disposition home or self-care (01) ==
LOC: ED 08:56
DX: L02.213 Cutaneous abscess of chest wall (principal); L02.211 Cutaneous abscess of abdominal wall; I10 Essential (primary) hypertension; I48.91 Unspecified atrial fibrillation; Z79.01 Long term (current) use of anticoagulants
CPT/HCPCS: 10061; 99283

== ENCOUNTER 2018-08-03 08:00 | Outpatient (CLI) | payer MEDICAID | END 2018-08-03 23:59 | disposition home or self-care (01) | LOC: LAB.N 08:00 | PROVIDERS: ATTEND Physician Assistant Medical | DX: Z79.01 Long term (current) use of anticoagulants (principal) | CPT/HCPCS: 85610 ==

== ENCOUNTER 2018-08-06 15:45 | Emergency (ER) | payer MEDICAID ==
[2018-08-06 15:51] VITALS: BP 115/94
[2018-08-06 16:06] LABS: BILIRUBIN,URINE NEGATIVE (NEGATIVE); GLUCOSE, URINE (UA) NEGATIVE (NEGATIVE); KETONES,URINE (UA) NEGATIVE (NEGATIVE); LEUKOCYTE ESTERASE, URINE TRACE (NEGATIVE); NITRITE,URINE NEGATIVE (NEGATIVE); OCCULT BLOOD,URINE NEGATIVE (NEGATIVE); PROTEIN,URINE NEGATIVE (NEGATIVE); UROBILINOGEN,URINE 0.2 (NORMAL) E.U./dL (NORMAL)
[2018-08-06 16:07] LABS: CLARITY,URINE CLEAR (CLEAR); HCG UR QUAL NEGATIVE
[2018-08-06 16:34] LABS: BACTERIA,URINE Rare /HPF (None Seen); MUCUS,URINE Few Strands; RBC,URINE 0-5 /HPF (0-5); SQUAMOUS EPITHELIAL CELL,UR FEW Squamous (<= Few); TRICHOMONAS,URINE PRESENT (None Seen)
[2018-08-06] MEDS ORDERED: metroNIDAZOLE 250 MG TABLET PO STA (16:47)
--- NOTE | 2018-08-06 16:50 | ED Physician Documentation ---
PD HPI FEMALE - Stated complaint Stated Complaint: FEMALE - Chief complaint Chief Complaint: Abd Pain - History obtained from History obtained from: Patient - History of Present Illness Timing - onset: How many weeks ago (3) Timing - duration: Weeks Timing - details: Gradual onset, Still present Pain level max: 2 Pain level max: 2 Associated symptoms: Abdominal pain (mild suprapubic discomfort), Vaginal discharge. No: Fever, Vaginal pain, Vaginal bleeding, Urinary frequency Contributing factors: Sexually active. No: Similar symptoms before: Has not had sx before Recently seen: Emergency Dept (was started on clindamycin for bacterial vaginosis a few weeks ago but symptoms have persisted) - Treatment prior to arrival Treatment prior to arrival: clindamycin - Additional information Additional information: Patient states she is also here for a ingrown toenail that she would like removed. No redness, swelling or drainage from the toe. It's just been bothering her. Review of Systems Ten Systems: 10 systems reviewed and negative Constitutional: denies: Fever, Chills Cardiac: reports: Reviewed and negative Respiratory: reports: Reviewed and negative GI: reports: Abdominal Pain. denies: Nausea, Vomiting : reports: Discharge. denies: Dysuria, Frequency, Hesitancy, Vaginal bleeding Skin: denies: Rash Musculoskeletal: reports: Other (R big toe pain from an ingrown nail) PD PAST MEDICAL HISTORY - Past Medical History Past Medical History: Yes Cardiovascular: Hypertension, High cholesterol, Atrial fibrillation, Other Respiratory: Asthma, Shortness of breath, Sleep apnea, Pneumonia Endocrine/Autoimmune: None GI: GERD CUSTOMS DIRECTOR: None : Incontinence HEENT: None Psych: Depression, Anxiety, Panic attacks, Post traumatic stress disorder, Claustrophobia Musculoskeletal: Osteoarthritis Derm: None - Past Surgical History Past Surgical History: Yes General: Gastric surgery, Other Ortho: Knee replacement, Carpal Tunnel surgery /CUSTOMS DIRECTOR: Dilation and currettage, Tubal ligation Cardiovascular: Pacemaker - Present Medications Home Medications: Ambulatory Orders Medication Instructions Recorded Confirmed RX: hydroCHLOROthiazide 25 mg PO DAILY 02/28/14 07/04/18 [Hydrochlorothiazide] RX: Prazosin [Minipress] 8 mg PO QPM 03/17/15 07/04/18 RX: Propafenone [Rythmol] 150 mg PO Q8H 03/17/15 07/04/18 RX: Citalopram Hydrobromide 40 mg PO DAILY 03/13/16 07/04/18 [Citalopram HBr] RX: Omeprazole [PriLOSEC] 20 mg PO BID 03/13/16 07/04/18 RX: Metoprolol Tartrate 75 mg PO BID 05/06/16 07/04/18 ARIPiprazole [Abilify] 5 mg PO DAILY 10/02/16 07/04/18 RX: hydrOXYzine HCl [Hydroxyzine 25 mg PO DAILY 10/02/16 07/04/18 HCl] Warfarin Sodium [Coumadin] 6 mg PO DAILY 04/04/17 07/04/18 RX: Doxycycline Hyclate 100 mg PO BID #20 capsule 11/23/17 07/04/18 Alprazolam [Xanax] 1 mg PO BID PRN #20 tablet 06/16/18 07/04/18 Fluconazole [Diflucan] 150 mg PO ONCE #1 tablet 07/04/18 RX: Clindamycin HCl [Clindamycin 300 mg PO Q6H #28 capsule 07/04/18 300MG CAP] RX: Mupirocin 1 applic TP TID #15 g 07/04/18 Oxycodone HCl/Acetaminophen 1 - 2 each PO Q6H PRN #8 tablet 07/09/18 [Percocet 5-325 mg Tablet] - Allergies Allergies/Adverse Reactions: Allergies Allergy/AdvReac Type Severity Reaction Status Date / Time levofloxacin [From Levaquin] Allergy Severe Hives Verified 08/06/18 15:51 meperidine HCl * Allergy Severe Hives Verified 08/06/18 15:51 [From Demerol] hydrocodone [Hydrocodone] Allergy Intermediate Itching Verified 08/06/18 15:51 codeine Allergy Rash Verified 08/06/18 15:51 hydrocodone bitartrate * Allergy Itching Verified 08/06/18 15:51 [From Vicodin] tramadol Allergy Rash Verified 08/06/18 15:51 methylprednisolone sodium AdvReac Anxiety Verified 08/06/18 15:51 succ... * [From Solu-Medrol] bees Allergy Anaphylaxis Uncoded 08/06/18 15:51 - Social History Does the pt smoke?: No Smoking Status: Never smoker Does the pt drink ETOH?: Yes Does the pt have substance abuse?: No - Immunizations Immunizations are current?: No Immunizations: TDAP >10years/unknown - POLST Patient has POLST: No POLST Status: Full Code PD ED PE NORMAL - Vitals Vital signs reviewed: Yes - General General: Alert and oriented X 3 - HEENT HEENT: Atraumatic - Neck Neck: Supple, no meningeal sign - Cardiac Cardiac: RRR - Respiratory Respiratory: No respiratory distress - Abdomen Abdomen: Soft, Non tender, Non distended - Female Female : Deferred - Rectal Rectal: Deferred - Derm Derm: Normal color, Warm and dry, No rash - Extremities Extremities: No deformity, Other (R big toenail appears normal, no redness, swelling or discharge.) - Neuro Neuro: Alert and oriented X 3 Eye Opening: Spontaneous Motor: Obeys Commands Verbal: Oriented GCS Score: 15 - Psych Psych: Normal mood, Normal affect Results - Vitals Vitals: Vital Signs - 24 hr 08/06/18 15:49 Temperature 37.0 C Heart Rate 57 L Respiratory 18 Rate Blood Pressure 115/94 H O2 Saturation 100 Oxygen O2 Source Room air - Labs Labs: Laboratory Tests 08/06/18 15:58 Urine Color YELLOW Urine Clarity CLEAR Urine pH 6.0 Ur Specific [place] >=1.030 H Urine Protein NEGATIVE Urine Glucose (UA) NEGATIVE Urine Ketones NEGATIVE Urine Occult Blood NEGATIVE Urine Nitrite NEGATIVE Urine Bilirubin NEGATIVE Urine Urobilinogen 0.2 (NORMAL) Ur Leukocyte Esterase TRACE H Urine RBC 0-5 Urine WBC 4-5 Ur Squamous Epith Cells FEW Squamous Urine Bacteria Rare Urine Mucus Few Strands Urine Trichomonas PRESENT H Ur Microscopic Review INDICATED Urine Culture Comments INDICATED Urine HCG, Qual NEGATIVE patient has trichomonas PD MEDICAL DECISION MAKING - ED course Complexity details: reviewed old records, reviewed results, considered differential, d/w patient ED course: STD, trichomonas, gonorrhea, chlamydia, UTI, ingrown toenail, paronychia, cellulitis 43 y/o F here with multiple complaints states she always comes to the ED for removal of her ingrown toenail. Toenail appears normal to me and not infected. I told the patient that I do not do this procedure in the emergency department and she needs to f/u with her PCP or phlebotomy specialist. She also now c/o continued vaginal discharge since her ED visit a few weeks ago. Reported to the nurse some abdominal pain but to me states its very mild. Pt does have trichomonas on UA. Given single dose of 2g metronidazole here. Informed pt to use protection with partners and avoid sexual activity until symptoms resolve. Departure - Departure Disposition: 01 Home, Self Care Clinical Impression: Trichomonas vaginitis, Ingrown toenail Condition: Stable Record reviewed to determine appropriate education?: Yes Follow-Up: Darren Elmore PA-C [Primary Care Provider] - Comments: Trichomonas is treated with a single dose of 2g flagyl. You should avoid sexual intercourse until your symptoms resolve. You should ensure that your partners is also treated. Follow up with your regular doctor to manage your ingrown toenail. Discharge Date/Time: 08/06/18 17:06
== END 2018-08-06 17:06 | disposition home or self-care (01) ==
LOC: ED 15:45
DX: A59.01 Trichomonal vulvovaginitis (principal); L60.0 Ingrowing nail; I10 Essential (primary) hypertension
CPT/HCPCS: 81001; 81025; 87086; 99283; A9270; 81003

== ENCOUNTER 2018-08-07 14:26 | Outpatient (CLI) | payer MEDICAID ==
--- NOTE | 2018-08-07 15:12 | XRAY Report ---
Reason: THORACIC BACK PAIN Procedure Date: 08/07/2018 Accession Number: [id number] / [id number] Procedure: XRN - Thoracic Spine 2 View CPT Code: FULL RESULT: EXAM: THORACIC SPINE RADIOGRAPHY EXAM DATE: 08/07/2018 02:47 PM. CLINICAL HISTORY: Thoracic back pain. COMPARISON: LUMBAR SPINE COMPLETE 10/05/2017 3:54 PM. TECHNIQUE: 2 views. FINDINGS: Evaluation of the lower lumbar spine is mildly limited by underpenetration and the swimmer's view is degraded by motion. Within these limitations: Alignment: Normal. No spondylolisthesis or scoliosis. Bones: No fractures or bone lesions. Disks: Normal. Disk heights are maintained. Soft Tissues: Note is made of pacemaker leads in expected position as visualized. IMPRESSION: No fracture or listhesis is detected. RADIA
== END 2018-08-07 14:27 | disposition home or self-care (01) ==
LOC: DI.N 14:26
PROVIDERS: ATTEND Physician Assistant Medical
DX: M54.6 Pain in thoracic spine (principal)
CPT/HCPCS: 72070

== ENCOUNTER 2018-08-17 08:00 | Outpatient (CLI) | payer MEDICAID | END 2018-08-17 23:59 | disposition home or self-care (01) | LOC: LAB.N 08:00 | PROVIDERS: ATTEND Physician Assistant Medical | DX: Z51.81 Encounter for therapeutic drug level monitoring (principal); Z79.01 Long term (current) use of anticoagulants | CPT/HCPCS: 85610 ==

== ENCOUNTER 2018-08-23 08:00 | Outpatient (CLI) | payer MEDICAID ==
[2018-08-23 23:41] LABS: TRICHOMONAS VAGINALIS DNA POSITIVE (NEGATIVE)
== END 2018-08-23 23:59 | disposition home or self-care (01) ==
LOC: LAB.R 08:00
PROVIDERS: ATTEND Physician Assistant Medical
DX: N89.8 Other specified noninflammatory disorders of vagina (principal); L29.8 Other pruritus
CPT/HCPCS: 87491; 87591; 87661

== ENCOUNTER 2018-08-27 09:53 | Emergency (ER) | payer MEDICAID ==
--- NOTE | 2018-08-27 10:36 | ED Physician Documentation ---
PD HPI UPPER EXT INJURY - Stated complaint Stated Complaint: HAND INJURY - Chief complaint Chief Complaint: Ext Problem - History obtained from History obtained from: Patient - History of Present Illness Location: Forearm, Wrist Type of injury: Blunt / blow (her truck gamble closed abruptly onto her wrist as she was trying to replace steering fluid.) Where injury occurred: Home Timing - onset: How many hours ago (1-2), Today Timing - duration: Hours (1-2) Timing - details: Abrupt onset, Still present Improved by: Rest Worsened by: Moving, Palpating Associated symptoms: Swelling, Discolored (some bruising color). No: Weakness, Numbness Contributing factors: No: Anticoagulated Similar symptoms before: Has not had sx before Review of Systems Constitutional: denies: Fever, Chills, Myalgias Musculoskeletal: reports: Extremity pain (just the right forearm at this time.). denies: Joint pain, Extremity swelling Neurologic: denies: Focal weakness PD PAST MEDICAL HISTORY - Past Medical History Past Medical History: Yes Cardiovascular: Hypertension, High cholesterol, Atrial fibrillation, Other Respiratory: Asthma, Shortness of breath, Sleep apnea, Pneumonia Endocrine/Autoimmune: None GI: GERD DENTAL INTERN: None : Incontinence HEENT: None Psych: Depression, Anxiety, Panic attacks, Post traumatic stress disorder, Claustrophobia Musculoskeletal: Osteoarthritis Derm: None - Past Surgical History Past Surgical History: Yes General: Gastric surgery, Other Ortho: Knee replacement, Carpal Tunnel surgery /DENTAL INTERN: Dilation and currettage, Tubal ligation Cardiovascular: Pacemaker - Present Medications Home Medications: Ambulatory Orders Medication Instructions Recorded Confirmed hydroCHLOROthiazide 25 mg PO DAILY 02/28/14 07/04/18 [Hydrochlorothiazide] Prazosin [Minipress] 8 mg PO QPM 03/17/15 07/04/18 Propafenone [Rythmol] 150 mg PO Q8H 03/17/15 07/04/18 Citalopram Hydrobromide 40 mg PO DAILY 03/13/16 07/04/18 [Citalopram HBr] Omeprazole [PriLOSEC] 20 mg PO BID 03/13/16 07/04/18 Metoprolol Tartrate 75 mg PO BID 05/06/16 07/04/18 ARIPiprazole [Abilify] 5 mg PO DAILY 10/02/16 07/04/18 hydrOXYzine HCl [Hydroxyzine HCl] 25 mg PO DAILY 10/02/16 07/04/18 Warfarin Sodium [Coumadin] 6 mg PO DAILY 04/04/17 07/04/18 Doxycycline Hyclate 100 mg PO BID #20 capsule 11/23/17 07/04/18 Alprazolam [Xanax] 1 mg PO BID PRN #20 tablet 06/16/18 07/04/18 Clindamycin HCl [Clindamycin 300MG 300 mg PO Q6H #28 capsule 07/04/18 CAP] Fluconazole [Diflucan] 150 mg PO ONCE #1 tablet 07/04/18 Mupirocin 1 applic TP TID #15 g 07/04/18 Oxycodone HCl/Acetaminophen 1 - 2 each PO Q6H PRN #8 tablet 07/09/18 [Percocet 5-325 mg Tablet] - Allergies Allergies/Adverse Reactions: Allergies Allergy/AdvReac Type Severity Reaction Status Date / Time levofloxacin [From Levaquin] Allergy Severe Hives Verified 08/27/18 10:02 meperidine HCl * Allergy Severe Hives Verified 08/27/18 10:02 [From Demerol] hydrocodone [Hydrocodone] Allergy Intermediate Itching Verified 08/27/18 10:02 codeine Allergy Rash Verified 08/27/18 10:02 hydrocodone bitartrate * Allergy Itching Verified 08/27/18 10:02 [From Vicodin] tramadol Allergy Rash Verified 08/27/18 10:02 methylprednisolone sodium AdvReac Anxiety Verified 08/27/18 10:02 succ... * [From Solu-Medrol] bees Allergy Anaphylaxis Uncoded 08/27/18 10:02 - Social History Does the pt smoke?: No Smoking Status: Never smoker Does the pt drink ETOH?: Yes Does the pt have substance abuse?: No - Immunizations Immunizations are current?: No Immunizations: TDAP >10years/unknown - POLST Patient has POLST: No POLST Status: Full Code PD ED PE NORMAL - Vitals Vital signs reviewed: Yes - General General: Alert and oriented X 3, Well developed/nourished - Derm Derm: Normal color, Warm and dry - Extremities Extremities: Other (right distal forearm and dorsal wrist with local tenderness and swelling, without abrasion nor laceration. ) - Neuro Neuro: Alert and oriented X 3, No motor deficit, No sensory deficit Results - Vitals Vitals: Oxygen O2 Source Room air - Labs Labs: Laboratory Tests 08/27/18 10:45 Whole Blood INR 1.4 H - Rads (name of study) right wrist Radiology: Prelim report reviewed, EMP read contemporaneously, See rad report (no fracture) PD MEDICAL DECISION MAKING - ED course Complexity details: reviewed results, considered differential (seems like contusion; no twisting mechanism. Locally tender and swollen.), d/w patient Departure - Departure Disposition: 01 Home, Self Care Clinical Impression: Wrist contusion Qualifiers: Encounter type: initial encounter Laterality: right Qualified Code(s): S60.211A - Contusion of right wrist, initial encounter Condition: Stable Record reviewed to determine appropriate education?: Yes Instructions: ED Contusion Upper Ext Follow-Up: Darren Elmore PA-C [Primary Care Provider] - Comments: Use the wrist splint to help reduce motion. Rest ice and elevate the forearm and wrist today to help reduce swelling. Tylenol as needed for pain. Continue other usual medications. Your INR today was 1.4. I would anticipate improvement of this as the swelling goes down through today and tomorrow and should improve completely over several days to week. Discharge Date/Time: 08/27/18 11:28
[2018-08-27] MEDS ORDERED: ACETAMINOPHEN 500 MG TABLET PO STA (11:09)
--- NOTE | 2018-08-27 11:28 | XRAY Report ---
Reason: bruising on arm, hand Procedure Date: 08/27/2018 Accession Number: [id number] / [id number] Procedure: XR - Forearm RT CPT Code: FULL RESULT: EXAM: RIGHT FOREARM RADIOGRAPHY EXAM DATE: 08/27/2018 10:15 AM. CLINICAL HISTORY: Bruising on arm, hand. COMPARISON: None. TECHNIQUE: 2 views. FINDINGS: Bones: Deformity of distal humerus suggestive of old fracture. No acute fractures or bone lesions. Joints: Small chronic appearing loose body in the medial elbow Soft Tissues: Normal. No soft tissue swelling. IMPRESSION: No acute fracture RADIA
--- NOTE | 2018-08-27 11:28 | XRAY Report ---
Reason: bruising to hand Procedure Date: 08/27/2018 Accession Number: [id number] / [id number] Procedure: XR - Hand 3 View RT CPT Code: FULL RESULT: EXAM: RIGHT HAND RADIOGRAPHY EXAM DATE: 08/27/2018 10:20 AM. CLINICAL HISTORY: Bruising to hand. COMPARISON: FINGER(S) LT 08/26/2012 1:27 PM. TECHNIQUE: 3 views. FINDINGS: Bones: Normal. No fractures or bone lesions. Joints: Normal. No subluxations. Soft Tissues: Normal. No soft tissue swelling. IMPRESSION: Normal hand radiography. RADIA
== END 2018-08-27 11:28 | disposition home or self-care (01) ==
LOC: ED 09:53
DX: S60.211A Contusion of right wrist, initial encounter (principal); W20.8XXA Other cause of strike by thrown, projected or falling object, initial encounter; Y93.89 Activity, other specified; Y92.009 Unspecified place in unspecified non-institutional (private) residence as the place of occurrence of the external cause; I10 Essential (primary) hypertension; I48.91 Unspecified atrial fibrillation; Z79.01 Long term (current) use of anticoagulants
CPT/HCPCS: 73090; 73130; 85610; 99282; 99283; A9270

== ENCOUNTER 2018-09-04 08:00 | Outpatient (CLI) | payer MEDICAID | END 2018-09-04 23:59 | disposition home or self-care (01) | LOC: LAB.N 08:00 | PROVIDERS: ATTEND Physician Assistant Medical | DX: Z79.01 Long term (current) use of anticoagulants (principal) | CPT/HCPCS: 85610 ==

== ENCOUNTER 2018-09-10 10:09 | Emergency (ER) | payer MEDICAID ==
--- NOTE | 2018-09-10 11:36 | ED Physician Documentation ---
PD HPI SKIN - Stated complaint Stated Complaint: ABSCESS - Chief complaint Chief Complaint: Wound - History obtained from History obtained from: Patient - History of Present Illness Timing - onset: How many days ago (few) Timing - duration: Days (few) Timing - details: Gradual onset, Still present Location: Abdomen (right lower abd wall at skin fold of pannus) Quality / character: Painful, Discolored (red), Swelling. No: Draining Associated symptoms: No: Fever, Myalgias, N/V/D Similar symptoms before: Diagnosis (skin abscesses in folds under pannus - with prior I&D and has had some excision of cyst sacs at recurrent abscess sites.) Review of Systems Constitutional: denies: Fever, Chills, Myalgias GI: denies: Abdominal Swelling, Nausea, Vomiting, Diarrhea PD PAST MEDICAL HISTORY - Past Medical History Cardiovascular: Hypertension, High cholesterol, Atrial fibrillation, Other Respiratory: Asthma, Shortness of breath, Sleep apnea, Pneumonia Endocrine/Autoimmune: None GI: GERD DIRECTOR OF ORTHOPEDICS: None : Incontinence HEENT: None Psych: Depression, Anxiety, Panic attacks, Post traumatic stress disorder, Claustrophobia Musculoskeletal: Osteoarthritis Derm: None - Past Surgical History Past Surgical History: Yes General: Gastric surgery, Other Ortho: Knee replacement, Carpal Tunnel surgery /DIRECTOR OF ORTHOPEDICS: Dilation and currettage, Tubal ligation Cardiovascular: Pacemaker - Present Medications Home Medications: Ambulatory Orders Medication Instructions Recorded Confirmed hydroCHLOROthiazide 25 mg PO DAILY 02/28/14 07/04/18 [Hydrochlorothiazide] Prazosin [Minipress] 8 mg PO QPM 03/17/15 07/04/18 Propafenone [Rythmol] 150 mg PO Q8H 03/17/15 07/04/18 Citalopram Hydrobromide 40 mg PO DAILY 03/13/16 07/04/18 [Citalopram HBr] Omeprazole [PriLOSEC] 20 mg PO BID 03/13/16 07/04/18 Metoprolol Tartrate 75 mg PO BID 05/06/16 07/04/18 ARIPiprazole [Abilify] 5 mg PO DAILY 10/02/16 07/04/18 hydrOXYzine HCl [Hydroxyzine HCl] 25 mg PO DAILY 10/02/16 07/04/18 Warfarin Sodium [Coumadin] 6 mg PO DAILY 04/04/17 07/04/18 Doxycycline Hyclate 100 mg PO BID #20 capsule 11/23/17 07/04/18 Alprazolam [Xanax] 1 mg PO BID PRN #20 tablet 06/16/18 07/04/18 Clindamycin HCl [Clindamycin 300MG 300 mg PO Q6H #28 capsule 07/04/18 CAP] Fluconazole [Diflucan] 150 mg PO ONCE #1 tablet 07/04/18 Mupirocin 1 applic TP TID #15 g 07/04/18 Oxycodone HCl/Acetaminophen 1 - 2 each PO Q6H PRN #8 tablet 07/09/18 [Percocet 5-325 mg Tablet] Oxycodone HCl/Acetaminophen 1 - 2 each PO Q6H PRN #14 tablet 09/10/18 [Percocet 5-325 mg Tablet] Sulfamethox/Trimeth 800/160 1 each PO BID #14 tablet 09/10/18 [Bactrim Ds 800/160] - Allergies Allergies/Adverse Reactions: Allergies Allergy/AdvReac Type Severity Reaction Status Date / Time levofloxacin [From Levaquin] Allergy Severe Hives Verified 08/27/18 10:02 meperidine HCl * Allergy Severe Hives Verified 08/27/18 10:02 [From Demerol] hydrocodone [Hydrocodone] Allergy Intermediate Itching Verified 08/27/18 10:02 codeine Allergy Rash Verified 08/27/18 10:02 hydrocodone bitartrate * Allergy Itching Verified 08/27/18 10:02 [From Vicodin] tramadol Allergy Rash Verified 08/27/18 10:02 methylprednisolone sodium AdvReac Anxiety Verified 08/27/18 10:02 succ... * [From Solu-Medrol] bees Allergy Anaphylaxis Uncoded 08/27/18 10:02 - Social History Does the pt smoke?: No Smoking Status: Never smoker Does the pt drink ETOH?: Yes Does the pt have substance abuse?: No - Immunizations Immunizations are current?: No Immunizations: TDAP >10years/unknown - POLST Patient has POLST: No POLST Status: Full Code PD ED PE NORMAL - Vitals Vital signs reviewed: Yes - General General: Alert and oriented X 3, No acute distress, Well developed/nourished - Cardiac Cardiac: RRR, No murmur - Respiratory Respiratory: Clear bilaterally - Abdomen Abdomen: Normal bowel sounds, Soft, Non distended, Other (abd wall tenderness with small 1-2 cm raised red lesion with underlying induration and some fl uctuance c/w abscess. ) Results - Vitals Vitals: Vital Signs - 24 hr 09/10/18 09/10/18 10:20 12:49 Temperature 36.5 C 36.0 C L Heart Rate 61 53 L Respiratory 16 18 Rate Blood Pressure 134/75 H 131/59 H O2 Saturation 100 100 Oxygen O2 Source Room air - Labs Labs: Laboratory Tests 09/10/18 12:30 Whole Blood INR 1.1 Procedures - Abscess I&D (location) right lower abd wall Preparation: Lidocaine 1%, With epi Incision: Incised with scalpel, Purulent drainage, Irrigated. No: Packed, Culture obtained Other: Pt tolerated well, Dressing applied, Antibiotic prescribed PD MEDICAL DECISION MAKING - ED course Complexity details: considered differential, d/w patient Departure - Departure Disposition: Home, Self Care Clinical Impression: Abdominal wall abscess Condition: Stable Record reviewed to determine appropriate education?: Yes Instructions: ED Abscess IandD Follow-Up: Darren Elmore PA-C [Primary Care Provider] - Prescriptions: Oxycodone HCl/Acetaminophen [Percocet 5-325 mg Tablet] 1 - 2 each PO Q6H PRN #14 tablet PRN Reason: pain Sulfamethox/Trimeth 800/160 [Bactrim Ds 800/160] 1 each PO BID #14 tablet Comments: Or moist compresses to the area to promote drainage. Keep it bandaged to soak up the drainage. Bactrim antibiotic twice daily for a week. Add Percocet pain medicine as needed. The Bactrim will likely interfere with your Coumadin you may want to hold 1 dose in the middle of the course (3 or 4 days from now). Have your INR checked again in about 7 to 10 days. Discharge Date/Time: 09/10/18 12:52
[2018-09-10] MEDS ORDERED: SULFAMETH/TRIMETH DS 800/160 MG TABLET PO STA (12:10)
[2018-09-10] MEDS ORDERED: oxyCODONE 5 MG TABLET PO STA (12:10)
[2018-09-10 12:50] VITALS: BP 131/59
== END 2018-09-10 12:52 | disposition home or self-care (01) ==
LOC: ED 10:09
DX: L02.211 Cutaneous abscess of abdominal wall (principal); I10 Essential (primary) hypertension
CPT/HCPCS: 10060; 85610; 99283; A9270

== ENCOUNTER 2018-10-15 13:38 | Outpatient (CLI) | payer MEDICAID | END 2018-10-15 23:59 | disposition home or self-care (01) | LOC: LAB.N 13:38 | PROVIDERS: ATTEND Physician Assistant Medical | DX: Z79.01 Long term (current) use of anticoagulants (principal) | CPT/HCPCS: 85610 ==

== ENCOUNTER 2018-10-25 08:00 | Outpatient (CLI) | payer MEDICAID | END 2018-10-25 23:59 | disposition home or self-care (01) | LOC: LAB.N 08:00 | PROVIDERS: ATTEND Physician Assistant Medical | DX: Z79.01 Long term (current) use of anticoagulants (principal) | CPT/HCPCS: 85610 ==

== ENCOUNTER 2018-10-25 11:06 | Outpatient (CLI) | payer MEDICAID ==
--- NOTE | 2018-10-25 15:06 | Mammography Report ---
Reason: SCREENING MAMMO Procedure Date: 10/25/2018 Accession Number: [id number] / [id number] Procedure: MGN - Screening Mammo Dig Bilat CPT Code: FULL RESULT: EXAM: Screening Mammo Dig Bilat DATE: 10/25/2018 11:27 AM CLINICAL HISTORY: Routine screening. No reported personal or family history of breast cancer. TECHNIQUE: (B) - Bilateral CC and MLO views were obtained. COMPARISON: Comparison images from 02/17/2015 are unable to be obtained at this time. If they become available at a later date, an addendum to this report can be issued. PARENCHYMAL PATTERN: (F) - The breasts demonstrate diffuse fatty replacement bilaterally. FINDINGS: Bilateral breasts: There are no suspicious masses, calcifications, or areas of distortion. IMPRESSION: Negative examination. BI-RADS category 1. RECOMMENDATION: (ANNUAL) - Recommend routine annual screening mammography. BI-RADS CATEGORY: (1) - Negative. STANDARD QUALIFYING STATEMENTS: 1. This examination was not reviewed with the aid of Computer-Aided Detection (CAD). 2. A negative or benign imaging report should not preclude biopsy if clinically suspicious findings are present. 3. Dense breasts may obscure an underlying neoplasm. 4. This examination was reviewed without the aid of 3D breast imaging (tomosynthesis).
== END 2018-10-25 11:07 | disposition home or self-care (01) ==
LOC: DI.N 11:06
DX: Z12.31 Encounter for screening mammogram for malignant neoplasm of breast (principal)
CPT/HCPCS: 77067

== ENCOUNTER 2018-11-21 08:06 | Outpatient (CLI) | payer MEDICAID ==
--- NOTE | 2018-11-21 18:04 | XRAY Report ---
Reason: KNEE PAIN Procedure Date: 11/21/2018 Accession Number: [id number] / [id number] Procedure: XRN - Knee 3 View LT CPT Code: FULL RESULT: EXAM: LEFT KNEE RADIOGRAPHY. EXAM DATE: 11/21/2018 08:56 AM. CLINICAL HISTORY: Knee pain. Unable to extend leg completely. Patellar region pop 2 weeks ago. COMPARISON: None. TECHNIQUE: 3 views. FINDINGS: Bones: No acute displaced fractures or suspicious bony lesion. Joints: No dislocation. There is moderate to severe tricompartmental degenerative joint disease, most notable in the medial and patellofemoral compartment. Soft Tissues: No significant soft tissue swelling. IMPRESSION: No acute osseous abnormality demonstrated. Moderate to severe tricompartmental degenerative joint disease. RADIA
== END 2018-11-21 08:07 | disposition home or self-care (01) ==
LOC: DI.N 08:06
PROVIDERS: ATTEND Physician Assistant Medical
DX: M17.12 Unilateral primary osteoarthritis, left knee (principal)

== ENCOUNTER 2018-11-27 09:05 | Outpatient (CLI) | payer MEDICAID | END 2018-11-27 23:59 | disposition home or self-care (01) | LOC: LAB.N 09:05 | PROVIDERS: ATTEND Physician Assistant Medical | DX: Z79.01 Long term (current) use of anticoagulants (principal) | CPT/HCPCS: 85610 ==

== ENCOUNTER 2018-11-28 18:49 | Emergency (ER) | payer MEDICAID ==
[2018-11-28] MEDS ORDERED: oxyCODONE 5 MG TABLET PO STA (18:59)
[2018-11-28] MEDS ORDERED: ONDANSETRON ODT 4 MG TABLET TL STA (18:59)
[2018-11-28] MEDS ORDERED: IPRATROPIUM/ALBUTEROL 3 ML NEB INH STA ×2 (18:59→21:15)
--- NOTE | 2018-11-28 19:01 | ED Physician Documentation ---
PD HPI URI - Stated complaint Stated Complaint: SOA - History obtained from History obtained from: Patient - History of Present Illness Timing - onset: Other (43-year-old woman with history of asthma, although it has not really been bothering her since she had a gastric bypass couple of years ago. Her daughter brought home what sounds like a viral illness and she is been sick for the last 4 days with severe cough, shortness of breath, subjective fevers, emesis both posttussive and non-posttussive. She denies body aches. She has had a runny nose.) Review of Systems Ten Systems: 10 systems reviewed and negative Constitutional: reports: Fever, Chills, Fatigue Nose: reports: Rhinorrhea / runny nose, Congestion Throat: denies: Sore throat Respiratory: reports: Dyspnea, Cough GI: reports: Nausea, Vomiting. denies: Abdominal Pain PD PAST MEDICAL HISTORY - Past Medical History Cardiovascular: Hypertension, High cholesterol, Atrial fibrillation, Other Respiratory: Asthma, Shortness of breath, Sleep apnea, Pneumonia Endocrine/Autoimmune: None GI: GERD STRATEGIC COMMUNICATIONS MANAGER: None : Incontinence HEENT: None Psych: Depression, Anxiety, Panic attacks, Post traumatic stress disorder, Claustrophobia Musculoskeletal: Osteoarthritis Derm: None - Past Surgical History Past Surgical History: Yes General: Gastric surgery, Other Ortho: Knee replacement, Carpal Tunnel surgery /STRATEGIC COMMUNICATIONS MANAGER: Dilation and currettage, Tubal ligation Cardiovascular: Pacemaker - Present Medications Home Medications: Ambulatory Orders Medication Instructions Recorded Confirmed hydroCHLOROthiazide 25 mg PO DAILY 02/28/14 07/04/18 [Hydrochlorothiazide] Prazosin [Minipress] 8 mg PO QPM 03/17/15 07/04/18 Propafenone [Rythmol] 150 mg PO Q8H 03/17/15 07/04/18 Citalopram Hydrobromide 40 mg PO DAILY 03/13/16 07/04/18 [Citalopram HBr] Omeprazole [PriLOSEC] 20 mg PO BID 03/13/16 07/04/18 Metoprolol Tartrate 75 mg PO BID 05/06/16 07/04/18 ARIPiprazole [Abilify] 5 mg PO DAILY 10/02/16 07/04/18 hydrOXYzine HCl [Hydroxyzine HCl] 25 mg PO DAILY 10/02/16 07/04/18 Warfarin Sodium [Coumadin] 6 mg PO DAILY 04/04/17 07/04/18 Doxycycline Hyclate 100 mg PO BID #20 capsule 11/23/17 07/04/18 Alprazolam [Xanax] 1 mg PO BID PRN #20 tablet 06/16/18 07/04/18 Clindamycin HCl [Clindamycin 300MG 300 mg PO Q6H #28 capsule 07/04/18 CAP] Fluconazole [Diflucan] 150 mg PO ONCE #1 tablet 07/04/18 Mupirocin 1 applic TP TID #15 g 07/04/18 Oxycodone HCl/Acetaminophen 1 - 2 each PO Q6H PRN #8 tablet 07/09/18 [Percocet 5-325 mg Tablet] Oxycodone HCl/Acetaminophen 1 - 2 each PO Q6H PRN #14 tablet 09/10/18 [Percocet 5-325 mg Tablet] Sulfamethox/Trimeth 800/160 1 each PO BID #14 tablet 09/10/18 [Bactrim Ds 800/160] Albuterol Sulf [Ventolin Hfa 1 - 2 puffs INH Q4HR PRN #1 inhaler 11/28/18 Inhaler] Oxycodone HCl/Acetaminophen 1 - 2 each PO Q6H PRN #7 tablet 11/28/18 [Percocet 5-325 mg Tablet] predniSONE [Deltasone] 20 mg PO [id number] #21 tab 11/28/18 - Allergies Allergies/Adverse Reactions: Allergies Allergy/AdvReac Type Severity Reaction Status Date / Time levofloxacin [From Levaquin] Allergy Severe Hives Verified 11/28/18 19:06 meperidine HCl * Allergy Severe Hives Verified 11/28/18 19:06 [From Demerol] hydrocodone [Hydrocodone] Allergy Intermediate Itching Verified 11/28/18 19:06 codeine Allergy Rash Verified 11/28/18 19:06 hydrocodone bitartrate * Allergy Itching Verified 11/28/18 19:06 [From Vicodin] tramadol Allergy Rash Verified 11/28/18 19:06 methylprednisolone sodium AdvReac Anxiety Verified 11/28/18 19:06 succ... * [From Solu-Medrol] bees Allergy Anaphylaxis Uncoded 11/28/18 19:06 - Social History Does the pt smoke?: No Smoking Status: Never smoker Does the pt drink ETOH?: Yes Does the pt have substance abuse?: No - Immunizations Immunizations are current?: No Immunizations: TDAP >10years/unknown - POLST Patient has POLST: No POLST Status: Full Code PD ED PE NORMAL - Vitals Vital signs reviewed: Yes - General General: Alert and oriented X 3, Other (She is coughing a lot and retching into a bag) - HEENT HEENT: Pharynx benign - Neck Neck: Supple, no meningeal sign, No bony TTP - Cardiac Cardiac: RRR, No murmur - Respiratory Respiratory: No respiratory distress, Other (Wheezy and rhonchorous throughout without focal findings; Speaking full sentences when she is not coughing) - Abdomen Abdomen: Non tender - Back Back: No CVA TTP, No spinal TTP - Derm Derm: Normal color, Warm and dry - Extremities Extremities: No edema, No calf tenderness / cord - Neuro Neuro: Alert and oriented X 3, Normal speech Results - Vitals Vitals: Vital Signs - 24 hr 11/28/18 11/28/18 11/28/18 19:02 19:09 19:13 Temperature 36.4 C L Heart Rate 77 74 75 Respiratory 22 22 18 Rate Blood Pressure 159/85 H O2 Saturation 100 100 11/28/18 11/28/18 11/28/18 19:22 21:05 21:21 Temperature Heart Rate 75 67 66 Respiratory 20 24 18 Rate Blood Pressure 111/77 O2 Saturation 100 Oxygen O2 Source Room air - Labs Labs: Laboratory Tests 11/28/18 19:15 Influenza A (Rapid) Negative Influenza B (Rapid) Negative PD MEDICAL DECISION MAKING - ED course ED course: 43-year-old woman presents with asthma exacerbation. Chest x-ray is clear. After several nebs she was still little wheezy and labored but declined admission. - Critical Care Time(min): 45 Time Includes: Direct patient care, Review records, Reassess patient, Document care, Coordinate care Data interpretation: Labs, Pulse ox Procedures included in critical care time: Peripheral IV Departure - Departure Disposition: 01 Home, Self Care Clinical Impression: Asthma attack Qualifiers: Asthma severity: mild Asthma persistence: intermittent Qualified Code(s): J45.21 - Mild intermittent asthma with (acute) exacerbation Condition: Good Record reviewed to determine appropriate education?: Yes Instructions: Asthma Dc Prescriptions: Albuterol Sulf [Ventolin Hfa Inhaler] 1 - 2 puffs INH Q4HR PRN #1 inhaler PRN Reason: Shortness Of Air/Wheezing Oxycodone HCl/Acetaminophen [Percocet 5-325 mg Tablet] 1 - 2 each PO Q6H PRN #7 tablet PRN Reason: pain predniSONE [Deltasone] 20 mg PO [id number] #21 tab Comments: If you are having trouble with the pharmacy Prescription, call me tomorrow at noon, and return for new or worsening symptoms. Follow-up with your doctor on Monday.
[2018-11-28] MEDS ORDERED: ALBUTEROL NEB 2.5 MG/3 ML INH STA ×2 (19:17→21:56)
--- NOTE | 2018-11-28 19:59 | XRAY Report ---
Reason: cough dyspnea Procedure Date: 11/28/2018 Accession Number: [id number] / [id number] Procedure: XR - Chest 2 View X-Ray CPT Code: 49611 FULL RESULT: EXAM: CHEST RADIOGRAPHY EXAM DATE: 11/28/2018 07:25 PM. CLINICAL HISTORY: Cough and dyspnea. COMPARISON: THORACIC SPINE 2 VIEW 08/07/2018 2:45 PM CHEST 1 VIEW 06/19/2017 3:08 PM. TECHNIQUE: 2 views. FINDINGS: Lungs/Pleura: No focal opacities evident. No pleural effusion. No pneumothorax. Normal volumes. Mediastinum: Heart and mediastinal contours are unremarkable. Other: Left subclavian pacemaker. IMPRESSION: No consolidation evident. RADIA
[2018-11-28] MEDS ORDERED: LEVALBUTEROL 1.25 MG/3 ML NEB INH STA (20:16)
[2018-11-28] MEDS ORDERED: predniSONE 20 MG TABLET PO STA (20:16)
[2018-11-28] MEDS ORDERED: oxyCODONE/ACET 5/325 Prepack 4 PO STA (21:15)
[2018-11-28 21:16] VITALS: BP 111/77
--- NOTE | 2018-11-29 12:21 | ED Physician Documentation ---
ED Addendum - Addendum Addendum: 11/29/18 12:20 She was unable to fill the prescriptions, her insurance requires her to use a mail order pharmacy. As such the prescriptions for the albuterol and prednisone were placed on [facility] and she will come pick it up.
== END 2018-11-28 22:04 | disposition home or self-care (01) ==
LOC: ED 18:49
DX: J45.21 Mild intermittent asthma with (acute) exacerbation (principal); R11.2 Nausea with vomiting, unspecified; I10 Essential (primary) hypertension; I48.91 Unspecified atrial fibrillation; Z79.01 Long term (current) use of anticoagulants; Z98.84 Bariatric surgery status
CPT/HCPCS: 71046; 87275; 87276; 94640; 99285; 99291; A9270; J7512; Q0162

== ENCOUNTER 2018-12-06 08:58 | Observation (INO) | payer MEDICAID ==
--- NOTE | 2018-12-06 09:13 | ED Physician Documentation ---
History of Present Illness - Stated complaint Stated Complaint: SOA - Additonal information Additional information: This is a 43-year-old female with a past history of asthma, atrial fibrillation, pacemaker for sick sinus syndrome, who presents with cough, and shortness of breath. Patient states that her symptoms began over 1 week ago, she was seen here and diagnosed with asthma, she was prescribed steroids and albuterol inhaler, and she has had worsening rather than improvement of her symptoms. She states her shortness of breath is worse when she lays flat, and to the point where she cannot lay flat for any extended period of time. She denies chest pain other than some achiness after repeated coughing. She denies a history of DVT. She denies any swelling of her lower extremities, no known history of heart failure. Review of Systems Constitutional: denies: Fever Nose: reports: Congestion Cardiac: denies: Chest pain / pressure Respiratory: reports: Dyspnea, Cough GI: denies: Nausea : denies: Dysuria Skin: denies: Rash Immunocompromised: denies: Immunocompromised PD PAST MEDICAL HISTORY - Past Medical History Cardiovascular: Hypertension, High cholesterol, Atrial fibrillation, Other Respiratory: Asthma, Shortness of breath, Sleep apnea, Pneumonia Endocrine/Autoimmune: None GI: GERD CASTING MOLDER: None : Incontinence HEENT: None Psych: Depression, Anxiety, Panic attacks, Post traumatic stress disorder, Claustrophobia Musculoskeletal: Osteoarthritis Derm: None - Past Surgical History Past Surgical History: Yes General: Gastric surgery, Other Ortho: Knee replacement, Carpal Tunnel surgery /CASTING MOLDER: Dilation and currettage, Tubal ligation Cardiovascular: Pacemaker - Present Medications Home Medications: Ambulatory Orders Medication Instructions Recorded Confirmed hydroCHLOROthiazide 25 mg PO DAILY 02/28/14 12/06/18 [Hydrochlorothiazide] Prazosin [Minipress] 4 mg PO QPM 03/17/15 12/06/18 Propafenone [Rythmol] 150 mg PO Q8H 03/17/15 12/06/18 Citalopram Hydrobromide 40 mg PO DAILY 03/13/16 12/06/18 [Citalopram HBr] Omeprazole [PriLOSEC] 20 mg PO BID 03/13/16 12/06/18 Metoprolol Tartrate 75 mg PO BID 05/06/16 12/06/18 ARIPiprazole [Abilify] 5 mg PO DAILY 10/02/16 12/06/18 Alprazolam [Xanax] 1 mg PO BID PRN #20 tablet 06/16/18 12/06/18 Albuterol Sulf [Ventolin Hfa 1 - 2 puffs INH Q4HR PRN #1 inhaler 11/28/18 12/06/18 Inhaler] Hydroxyzine Pamoate [Vistaril] 100 mg PO TID 12/06/18 12/06/18 Oxycodone HCl/Acetaminophen 1 each PO Q6H PRN 12/06/18 12/06/18 [Percocet 5-325 mg Tablet] Warfarin [Coumadin] 3.5 mg PO UD 12/06/18 12/06/18 Warfarin [Coumadin] 7 mg PO UD 12/06/18 12/06/18 - Allergies Allergies/Adverse Reactions: Allergies Allergy/AdvReac Type Severity Reaction Status Date / Time levofloxacin [From Levaquin] Allergy Severe Hives Verified 12/06/18 09:06 meperidine HCl * Allergy Severe Hives Verified 12/06/18 09:06 [From Demerol] hydrocodone [Hydrocodone] Allergy Intermediate Itching Verified 12/06/18 09:06 codeine Allergy Rash Verified 12/06/18 09:06 hydrocodone bitartrate * Allergy Itching Verified 12/06/18 09:06 [From Vicodin] tramadol Allergy Rash Verified 12/06/18 09:06 methylprednisolone sodium AdvReac Anxiety Verified 12/06/18 09:06 succ... * [From Solu-Medrol] bees Allergy Anaphylaxis Uncoded 11/28/18 19:06 - Social History Does the pt smoke?: No Smoking Status: Never smoker Does the pt drink ETOH?: Yes Does the pt have substance abuse?: No - Immunizations Immunizations are current?: No Immunizations: TDAP >10years/unknown - POLST Patient has POLST: No POLST Status: Full Code PD ED PE NORMAL - Vitals Vital signs reviewed: Yes - General General: Alert and oriented X 3 - HEENT HEENT: Atraumatic - Neck Neck: Supple, no meningeal sign - Cardiac Cardiac: RRR - Respiratory Respiratory: Other (Increased work of breathing, there is a diffuse upper airway noises as well as rhonchi in the left side of the chest. Scattered expiratory wheeze.) - Abdomen Abdomen: Soft, Non distended - Derm Derm: Warm and dry - Extremities Extremities: No edema - Neuro Neuro: Alert and oriented X 3 - Psych Psych: Normal mood, Normal affect Results - Vitals Vitals: Vital Signs - 24 hr 12/06/18 12/06/18 12/06/18 09:06 09:24 10:33 Temperature 37.0 C Heart Rate 82 61 51 L Respiratory 26 H 15 18 Rate Blood Pressure 177/121 H 177/121 H O2 Saturation 100 100 12/06/18 12/06/18 12/06/18 10:34 11:20 11:56 Temperature 36.9 C Heart Rate 50 L 71 70 Respiratory 19 18 18 Rate Blood Pressure 143/107 H 157/130 H 138/79 H O2 Saturation 100 100 99 12/06/18 12/06/18 12:33 13:46 Temperature Heart Rate 59 L 78 Respiratory 18 18 Rate Blood Pressure 138/60 H O2 Saturation 99 Oxygen O2 Source Room air - EKG (time done) 9:04 Other comments: Other comments (Rate 61, rhythm sinus, axis is normal. There is no ST segment elevation or depression. There is T wave flattening in V2 and V3.) - Labs Labs: Laboratory Tests 12/06/18 12/06/18 12/06/18 09:15 09:15 09:15 WBC 9.0 RBC 5.24 Hgb 12.7 Hct 39.9 MCV 76.1 L MCH 24.2 L MCHC 31.8 L RDW 19.5 H Plt Count 319 MPV 9.9 Neut # (Auto) 7.2 H Lymph # (Auto) 1.4 L Mcleod # (Auto) 0.4 Eos # (Auto) 0.0 Baso # (Auto) 0.0 Absolute Nucleated RBC 0.00 Nucleated RBC % 0.0 PT INR VBG pH VBG pCO2 VBG pO2 VBG HCO3 VBG Total CO2 VBG O2 Saturation VBG Base Excess Sodium 140 Potassium 4.3 Chloride 104 Carbon Dioxide 28 Anion Gap 8.0 BUN 16 Creatinine 0.6 Estimated GFR (MDRD) 132 Glucose 93 Calcium 9.5 Total Bilirubin 0.8 AST 16 ALT 18 Alkaline Phosphatase 43 Troponin I High Sens 2.7 B-Natriuretic Peptide Total Protein 7.2 Albumin 4.0 Globulin 3.2 Albumin/Globulin Ratio 1.3 Lipase 26 Serum HCG, Qual 12/06/18 12/06/18 12/06/18 09:15 09:15 12:44 WBC RBC Hgb Hct MCV MCH MCHC RDW Plt Count MPV Neut # (Auto) Lymph # (Auto) Mcleod # (Auto) Eos # (Auto) Baso # (Auto) Absolute Nucleated RBC Nucleated RBC % PT 16.2 H INR 1.5 H VBG pH VBG pCO2 VBG pO2 VBG HCO3 VBG Total CO2 VBG O2 Saturation VBG Base Excess Sodium Potassium Chloride Carbon Dioxide Anion Gap BUN Creatinine Estimated GFR (MDRD) Glucose Calcium Total Bilirubin AST ALT Alkaline Phosphatase Troponin I High Sens B-Natriuretic Peptide 52 Total Protein Albumin Globulin Albumin/Globulin Ratio Lipase Serum HCG, Qual NEGATIVE 12/06/18 12:44 WBC RBC Hgb Hct MCV MCH MCHC RDW Plt Count MPV Neut # (Auto) Lymph # (Auto) Mcleod # (Auto) Eos # (Auto) Baso # (Auto) Absolute Nucleated RBC Nucleated RBC % PT INR VBG pH 7.452 H VBG pCO2 39.2 L VBG pO2 28.5 VBG HCO3 26.8 VBG Total CO2 28.0 VBG O2 Saturation 59.7 L VBG Base Excess 2.7 H Sodium Potassium Chloride Carbon Dioxide Anion Gap BUN Creatinine Estimated GFR (MDRD) Glucose Calcium Total Bilirubin AST ALT Alkaline Phosphatase Troponin I High Sens B-Natriuretic Peptide Total Protein Albumin Globulin Albumin/Globulin Ratio Lipase Serum HCG, Qual - Rads (name of study) CXR Radiology: Other (Pacemaker in place, no consolidation or acute cardiopulmonary abnormality) PD MEDICAL DECISION MAKING - ED course Complexity details: considered differential (Asthma, pneumonia, PE, effusion, URI, Heart failure) ED course: Pt presents tachypneic and wheezing, but with normal O2 saturation. CXR is negative, EKG shows paced rhythm, troponin is negative and her history makes ACS extremely unlikely. BNP normal and her clear XR make heart failure very unlikely. INR subtherapeutic. She was given a duoneb treatment with temporary improvement. She was also given prednisone. Subsequent albuterol treatments also provided some relief, however patient continued to be tachypneic as well as wheezing on expiration. PE was considered but her improvement with duonebs, exam, and history are much more consistent with asthma exacerbation. Given her continued symptoms she was placed in observation for further treatment and evaluation. At the time of admission she was feeling improvement but remained mildly tachypneic as well as wheezing. Departure - Departure Disposition: ED Place in Observation Clinical Impression: Asthma Qualifiers: Asthma severity: unspecified severity Asthma persistence: intermittent Asthma complication type: with acute exacerbation Qualified Code(s): J45.21 - Mild intermittent asthma with (acute) exacerbation Condition: Stable Discharge Date/Time: 12/06/18 14:29
[2018-12-06 09:37] LABS: BASOPHILS % (AUTO) 0.1 %; HGB - HEMOGLOBIN 12.7 g/dL (12.0-16.0); LYMPHOCYTES # (AUTO) 1.4 10^3/uL (1.5-3.5); LYMPHOCYTES % (AUTO) 15.2 %; MEAN CORPUSCULAR HEMOGLOBIN 24.2 pg (27.0-31.0); MEAN CORPUSCULAR HGB CONC 31.8 g/dL (32.0-36.0); MEAN CORPUSCULAR VOLUME 76.1 fL (81.0-99.0); MEAN PLATELET VOLUME 9.9 fL (7.9-10.8); MONOCYTES # (AUTO) 0.4 10^3/uL (0.0-1.0); MONOCYTES % (AUTO) 4.6 %; NEUTROPHILS # (AUTO) 7.2 10^3/uL (1.5-6.6); NEUTROPHILS % (AUTO) 79.5 %; PLT - PLATELET COUNT 319 10^3/uL (130-450); RED BLOOD COUNT 5.24 10^6/uL (4.20-5.40); RED CELL DISTRIBUTION WIDTH 19.5 % (12.0-15.0)
--- NOTE | 2018-12-06 09:55 | XRAY Report ---
Reason: Cough, Shortness of breath Procedure Date: 12/06/2018 Accession Number: [id number] / [id number] Procedure: XR - Chest 2 View X-Ray CPT Code: 58995 FULL RESULT: EXAM: CHEST RADIOGRAPHY EXAM DATE: 12/06/2018 09:44 AM. CLINICAL HISTORY: Cough, shortness of breath. COMPARISON: CHEST 2 VIEW 11/28/2018 7:14 PM. TECHNIQUE: 2 views. FINDINGS: Lungs/Pleura: No focal opacities evident. No pleural effusion. No pneumothorax. Normal volumes. Mediastinum: Heart and mediastinal contours are unremarkable. Other: Bipolar cardiac pacer left chest. IMPRESSION: No acute consolidation detected. RADIA
[2018-12-06 09:57] LABS: ALBUMIN/GLOBULIN RATIO 1.3 (1.0-2.2); BILIRUBIN,TOTAL 0.8 mg/dL (0.2-1.0); CALCIUM 9.5 mg/dL (8.5-10.3); CREATININE 0.6 mg/dL (0.4-1.0); TOTAL PROTEIN 7.2 g/dL (6.7-8.2)
[2018-12-06] MEDS ORDERED: IPRATROPIUM/ALBUTEROL 3 ML NEB INH STA ×2 (10:22→10:26)
[2018-12-06] MEDS ORDERED: ALBUTEROL NEB 2.5 MG/3 ML INH STA ×2 (10:26→12:05)
[2018-12-06 10:28] LABS: HCG,QUALITATIVE BLOOD NEGATIVE
[2018-12-06 12:50] LABS: VBG BASE EXCESS 2.7 mmol/L (-2 - +2); VBG PCO2 39.2 mmHg (41-51); VBG PH 7.452 (7.31-7.41); VBG PO2 28.5 mmHg (25-47)
[2018-12-06 13:04] LABS: INR 1.5 (0.8-1.2); PT - PROTHROMBIN TIME 16.2 secs (9.9-12.6)
[2018-12-06] MEDS ORDERED: predniSONE 20 MG TABLET PO STA (13:45)
[2018-12-06] MEDS ORDERED: ACETAMINOPHEN 325 MG TABLET PO PRN (14:05)
[2018-12-06] MEDS ORDERED: ALBUTEROL NEB 2.5 MG/3 ML INH PRN (14:14)
--- NOTE | 2018-12-06 14:40 | HISTORY & PHYSICAL EXAMINATION ---
Chief Complaint - Chief Complaint Chief Complaint: SOB History of Present Illness - History of Present Illness HPI Comment/Other: Ms Harrell is a 43-yrs old female with a PMH significant for Asthma, Afib with coumadin, status post pacemaker in 2011 for sick sinus syndrome, morbid obesity, obstructive sleep apnea, HTN, depression, anxiety, who present ER complain of shortness of breath. pt report she developed her symptoms about 5 days ago. she had hx of Asthma. she visited this ER. pt was prescribed Steroids and albuterol inhaler. She report her symptoms does not improve instead of worsening. she report she had more cough and shortness of breath special when she lays flat. ER provider report pt had no improvement of significant wheezing with shortness of breath after she had initial treatment in ER, and pt failed out-pt treatment. she denies fever, chill, chest pain, or hx of heart failure. CXR reveals unremarkable. pt is admitted in observation unit for further medical management. History - Past Medical History Cardiovascular: reports: Hypertension, High cholesterol, Atrial fibrillation, Other Respiratory: reports: Asthma, Shortness of breath, Sleep apnea, Pneumonia Endocrine/Autoimmune: reports: None GI: reports: GERD MESSAGE BROKER DEVELOPER: reports: None : reports: Incontinence HEENT: reports: None Psych: reports: Depression, Anxiety, Panic attacks, Post traumatic stress disorder, Claustrophobia Musculoskeletal: reports: Osteoarthritis Derm: reports: None MRSA Hx?: No - Past Surgical History General: reports: Gastric surgery, Other Ortho: reports: Knee replacement, Carpal Tunnel surgery /MESSAGE BROKER DEVELOPER: reports: Dilation and currettage, Tubal ligation Cardiovascular: reports: Pacemaker - Family & Social History Family History: Mother: , Cancer, Father: , Cancer Family History Comment/Other: pt report both of her parents from cancer. she had a five years old son. she is living [facility]. Social History Notes: she is on SSI disablity status. she denies alcohol, cigarette smoker, drug issue. - POLST Patient has POLST: No POLST Status: Full Code Meds/Allgy - Home Medications Home Medications: Ambulatory Orders Medication Instructions Recorded Confirmed hydroCHLOROthiazide 25 mg PO DAILY 02/28/14 12/06/18 [Hydrochlorothiazide] Prazosin [Minipress] 4 mg PO QPM 03/17/15 12/06/18 Propafenone [Rythmol] 150 mg PO Q8H 03/17/15 12/06/18 Citalopram Hydrobromide 40 mg PO DAILY 03/13/16 12/06/18 [Citalopram HBr] Omeprazole [PriLOSEC] 20 mg PO BID 03/13/16 12/06/18 Metoprolol Tartrate 75 mg PO BID 05/06/16 12/06/18 ARIPiprazole [Abilify] 5 mg PO DAILY 10/02/16 12/06/18 Alprazolam [Xanax] 1 mg PO BID PRN #20 tablet 06/16/18 12/06/18 Albuterol Sulf [Ventolin Hfa 1 - 2 puffs INH Q4HR PRN #1 inhaler 11/28/18 12/06/18 Inhaler] Hydroxyzine Pamoate [Vistaril] 100 mg PO TID 12/06/18 12/06/18 Oxycodone HCl/Acetaminophen 1 each PO Q6H PRN 12/06/18 12/06/18 [Percocet 5-325 mg Tablet] Warfarin [Coumadin] 3.5 mg PO UD 12/06/18 12/06/18 Warfarin [Coumadin] 7 mg PO UD 12/06/18 12/06/18 - Allergies Allergies/Adverse Reactions: Allergies Allergy/AdvReac Type Severity Reaction Status Date / Time levofloxacin [From Levaquin] Allergy Severe Hives Verified 12/06/18 09:06 meperidine HCl * Allergy Severe Hives Verified 12/06/18 09:06 [From Demerol] hydrocodone [Hydrocodone] Allergy Intermediate Itching Verified 12/06/18 09:06 codeine Allergy Rash Verified 12/06/18 09:06 hydrocodone bitartrate * Allergy Itching Verified 12/06/18 09:06 [From Vicodin] tramadol Allergy Rash Verified 12/06/18 09:06 methylprednisolone sodium AdvReac Anxiety Verified 12/06/18 09:06 succ... * [From Solu-Medrol] bees Allergy Anaphylaxis Uncoded 11/28/18 19:06 Review of Systems - Constitutional Constitutional: denies: Fatigue, Fever, Chills, Malaise, Weakness, Poor appe tite, Diaphoresis, Night sweats - Eyes Eyes: denies: Pain, Irritation, Amaurosis, Blurred vision, Spots in vision, Field loss, Vision loss, Dipolpia - Ears, Nose & Throat Ears, Nose & Throat: denies: Ear pain, Hearing loss, Hearing aids, Tinnitus, Vertigo, Nasal pain, Nasal discharge, Nosebleeds, Nasal obstruction, Nasal congestion, Postnasal drainage, Dentures, Hoarseness, Mouth lesions, Bleeding gums, Dental decay - Cardiovascular Cariovascular: denies: Irregular heart rate, Palpitations, Chest pain, Edema, Lightheadedness, Syncope, Exertional dyspnea, Decr. exercise tolerance - Respiratory Respiratory: reports: Cough, Wheezing, SOB with exertion. denies: Sputum production, Snoring, Hemoptysis, Orthopnea, SOB at rest, Apnea, Stridor, Pleuritic pain, Other - Gastrointestinal Gastrointestinal: denies: Abdominal pain, Abdominal distention, Constipation, Diarrhea, Change in bowel habits, Rectal bleeding, Black stools, Bloody stools, Nausea, Vomiting, Bile emesis, Melecio blood emesis, Coffee grounds emesis, Reflux/heartburn, Bloating - Genitourinary Genitourinary: denies: Dysuria, Frequency, Urgency, Hematuria, Incontinence, Flank pain, Nocturia, Urethral discharge - Musculoskeletal Musculoskeletal: denies: Muscle pain, Back pain, Muscle aches, Stiffness, Limited range of motion, Muscle weakness, Gout, Joint pain - Integumentary Integumentary: denies: Rash, Pruritis, Lesions, Dryness, Lumps, Acne, Pigment changes, Nail changes - Neurological Neurological: denies: General weakness, Focal weakness, Headache, Dizziness, Numbness, Memory problems, Pre-existing deficit, Abnormal gait, Seizures, Incoordination, Slurred speech - Psychiatric Psychiatric: denies: Depression, Anxiety, Suicidal, Delusions, Hallucinations, Homicidal - Endocrine Endocrine: denies: Polyuria, Polydypsia, Polyphagia, Intolerance to cold - Hematologic/Lymphatic Hematologic/Lymphatic: denies: Anemia, Bruising, Petechiae, Blood clots, Ly mphadenopathy, Bleeding tendencies Exam - Vital Signs Reviewed Vital Signs: Yes Vital Signs: Vital Signs x48h Temp Pulse Resp BP Pulse Ox 12/06/18 14:28 36.4 C L 64 18 149/74 H 100 12/06/18 13:46 78 18 138/60 H 99 12/06/18 12:33 59 L 18 12/06/18 11:56 36.9 C 70 18 138/79 H 99 12/06/18 11:20 71 18 157/130 H 100 12/06/18 10:34 50 L 19 143/107 H 100 12/06/18 10:33 51 L 18 12/06/18 09:24 61 15 177/121 H 100 12/06/18 09:06 37.0 C 82 26 H 177/121 H 100 - Physical Exam General Appearance: positive: No acute distress, Alert. negative: Lethargic Eyes Bilateral: positive: Normal inspection, PERRL, No lid inflammation, Conjunctivae nml ENT: positive: ENT inspection nml, Pharynx nml, No signs of dehydration. nega tive: Purulent nasal drainage, Pharyngeal erythema, Oral lesions Neck: positive: Nml inspection, Thyroid nml, No JVD, Trachea midline. negative: Lymphadenopathy (R), Lymphadenopathy (L), Stiff neck, Swelling/bruising, Tracheal deviation Respiratory: positive: Chest non-tender, No respiratory distress, Wheezes. negative: Breath sounds nml, Rales, Rhonchi Cardiovascular: positive: Regular rate & rhythm, No murmur, No gallop. negative: Irregularly irregular, Extrasystoles, Tachycardia, Bradycardia, JVD present, Systolic murmur, Diastolic murmur Peripheral Pulses: positive: 2+ Abdomen: positive: Non-tender, No organomegaly, Nml bowel sounds, No distention. negative: Tenderness, Guarding, Rebound Back: positive: Nml inspection. negative: CVA tenderness (R), CVA tenderness (L) Skin: positive: Color nml, No rash, Warm, Dry. negative: Cyanosis, Diaphoresis, Pallor Extremities: positive: Non-tender, Full ROM, Nml appearance. negative: Calf tenderness, Joint swelling, Greta's sign/cords Neurologic/Psychiatric: positive: Oriented x3, Motor nml, Sensation nml, Moo d/affect nml. negative: Weakness, Sensory loss, Facial droop, Slurred/abnml speech, Depressed mood/affect Sepsis Event Note (H) - Evaluation Current Stage of Sepsis: Ruled out Conclusion/Plan - Problem List (1) Asthma exacerbation Conclusion/Plan: pt has hx of asthma, pt failed out-pt asthma treatment, pt present SOB with severe wheezing, and cough, although pt's sats and lab test are unremarkable. IV of solu-metrol Albuterol, singular, pulmocorn, duoneb treatment lab and vital monitor (2) Shortness of breath Conclusion/Plan: clinically pt present SOB with severe wheezing, cough. pt has hx of afib with Coumadin, it is unlikely pt has PE for her SOB when pt had Coumadin with elevated INR. pt denies chest pain as well. treat underline asthma with solu-metrol continue breath treatment. vital monitor (3) Chronic a-fib Conclusion/Plan: pt had chronic afib hx, on Coumadin. pt has stable HR, denies palpation, chest pain. continue Coumadin, check daily PT/INR continue home metoprolol and propafenone tele and vital monitor (4) Pacemaker Conclusion/Plan: stable, pt had hx of sick sinus syndrome on pacemaker continue tele and vital monitor (5) HTN (hypertension) Conclusion/Plan: now pt's BP is stable. reconcile home meds HCTZ, and metoprolol. vital monitor (6) Morbid obesity Conclusion/Plan: pt report she lost 180 lb after she had gastric-bypass, but pt still has 40.3 BMI with 131 kg advise pt loss of weight, which will help pt control her asthma and other her medical conditions (7) Anxiety Conclusion/Plan: pt report she has hx of anxiety, now pt has high dosage of steroid, add Ativan p rior to input of her steroid, per pt report this is usually her regimen and works for her in the past. (8) Full code status Conclusion/Plan: pt request full code - Lab Results Fish Bones: 12/06/18 09:15 12/06/18 09:15 Core Measures - Anticipated LOS I expect patient to be DC'd or transferred within 96 hours.: Yes - DVT/VTE - Prophylaxis VTE/DVT Device ordered at admit?: Yes VTE/DVT Prophylaxis med ordered at admit?: Yes
[2018-12-06] MEDS: LORazepam 2 MG/ML VIAL IVP SCH ×2 (14:43→21:22)
[2018-12-06] MEDS: methylPREDNISolone SUCCINATE 40 MG/ML VIAL IVP SCH ×2 (14:43→21:23)
[2018-12-06] MEDS ORDERED: WARFARIN 5 MG TABLET PO SCH (15:00)
[2018-12-06] MEDS: IPRATROPIUM/ALBUTEROL 3 ML NEB INH PRN ×2 (15:40→19:48)
[2018-12-06] MEDS ORDERED: WARFARIN 2.5 MG TABLET PO SCH (16:09)
[2018-12-06] MEDS ORDERED: WARFARIN 1 MG TABLET PO SCH (16:09)
[2018-12-06] MEDS: PROPAFENONE 150 MG TABLET PO SCH ×2 (17:03→21:32)
[2018-12-06] MEDS: guaiFENesin 600 MG TABLET PO SCH ×2 (17:04→20:11)
[2018-12-06] MEDS: oxyCODONE 5 MG TABLET PO PRN ×2 (17:04→21:31)
[2018-12-06] MEDS: SODIUM CHLORIDE FLUSH 0.9% 10 ML SYRINGE IVP SCH (17:05)
[2018-12-06] MEDS: SODIUM CHLORIDE FLUSH 0.9% 10 ML SYRINGE IVP PRN ×3 (17:34→21:23)
[2018-12-06] MEDS: ONDANSETRON 4 MG/2 ML VIAL IVP PRN (17:34)
[2018-12-06] MEDS: BUDESONIDE 0.5 MG/2 ML NEB INH SCH (19:48)
[2018-12-06] MEDS: FAMOTIDINE 20 MG TABLET PO SCH (20:10)
[2018-12-06] MEDS: METOPROLOL TARTRATE 50 MG TABLET PO SCH (20:11)
[2018-12-06] MEDS: hydrOXYzine PAMOATE 25 MG CAPSULE PO SCH ×2 (20:15→22:34)
[2018-12-06] MEDS ORDERED: MONTELUKAST 10 MG TABLET PO SCH (21:00)
[2018-12-06] MEDS ORDERED: PRAZOSIN 1 MG CAPSULE PO SCH (21:00)
[2018-12-07] MEDS: ONDANSETRON 4 MG/2 ML VIAL IVP PRN (00:47)
[2018-12-07] MEDS: SODIUM CHLORIDE FLUSH 0.9% 10 ML SYRINGE IVP SCH (00:47)
[2018-12-07] MEDS: oxyCODONE 5 MG TABLET PO PRN ×2 (01:51→10:50)
[2018-12-07] MEDS: PROPAFENONE 150 MG TABLET PO SCH (05:46)
[2018-12-07] MEDS: hydrOXYzine PAMOATE 25 MG CAPSULE PO SCH (05:46)
[2018-12-07 05:49] LABS: BASOPHILS % (AUTO) 0.1 %; HGB - HEMOGLOBIN 11.7 g/dL (12.0-16.0); LYMPHOCYTES # (AUTO) 0.7 10^3/uL (1.5-3.5); LYMPHOCYTES % (AUTO) 8.6 %; MEAN CORPUSCULAR HEMOGLOBIN 24.1 pg (27.0-31.0); MEAN CORPUSCULAR HGB CONC 31.5 g/dL (32.0-36.0); MEAN CORPUSCULAR VOLUME 76.5 fL (81.0-99.0); MEAN PLATELET VOLUME 9.8 fL (7.9-10.8); MONOCYTES # (AUTO) 0.1 10^3/uL (0.0-1.0); MONOCYTES % (AUTO) 1.7 %; NEUTROPHILS # (AUTO) 7.5 10^3/uL (1.5-6.6); NEUTROPHILS % (AUTO) 88.9 %; PLT - PLATELET COUNT 279 10^3/uL (130-450); RED BLOOD COUNT 4.86 10^6/uL (4.20-5.40); RED CELL DISTRIBUTION WIDTH 18.9 % (12.0-15.0); WHITE BLOOD COUNT 8.5 x10^3/uL (4.8-10.8)
[2018-12-07 05:53] LABS: INR 1.3 (0.8-1.2); PT - PROTHROMBIN TIME 14.4 secs (9.9-12.6)
[2018-12-07 06:00] LABS: ALBUMIN 3.4 g/dL (3.2-5.5); ALBUMIN/GLOBULIN RATIO 1.1 (1.0-2.2); BILIRUBIN,TOTAL 0.5 mg/dL (0.2-1.0); CALCIUM 9.1 mg/dL (8.5-10.3); CREATININE 0.5 mg/dL (0.4-1.0); TOTAL PROTEIN 6.5 g/dL (6.7-8.2)
[2018-12-07] MEDS: LORazepam 2 MG/ML VIAL IVP SCH (06:27)
[2018-12-07] MEDS: methylPREDNISolone SUCCINATE 40 MG/ML VIAL IVP SCH (06:27)
[2018-12-07 07:36] VITALS: BP 116/67
[2018-12-07] MEDS: BUDESONIDE 0.5 MG/2 ML NEB INH SCH (07:40)
[2018-12-07] MEDS: IPRATROPIUM/ALBUTEROL 3 ML NEB INH PRN (07:40)
[2018-12-07] MEDS ORDERED: CITALOPRAM HYDROBROMIDE 20 MG TABLET PO SCH (09:00)
[2018-12-07] MEDS ORDERED: ARIPiprazole 5 MG TABLET PO SCH (09:00)
[2018-12-07] MEDS ORDERED: POLYETHYLENE GLYCOL 3350 17 GM PACKET PO SCH (09:00)
[2018-12-07] MEDS ORDERED: ENOXAPARIN 40 MG/0.4 ML SYRINGE SUBQ SCH (09:00)
[2018-12-07] MEDS ORDERED: hydroCHLOROthiazide 25 MG TABLET PO SCH (09:00)
--- NOTE | 2018-12-07 10:14 | Discharge Plan ---
Discharge Plan Problem Reviewed?: Yes Disposition: Home, Self Care Condition: Stable Prescriptions: predniSONE [Deltasone] 20 mg PO [id number] #21 tab Instruction Topics: Prednisone tablets Health Concerns: asthma Plan of Treatment: You were given IV of steroid, your asthma exacerbation was quickly controlled. you are prescribed Prednisone 10 days wane off dosage, please followup your PCP continue manage your medical problems. Care Goals: stabilization and improvement of your medical conditions Assessment: assessment as the above Additional Instructions or Follow Up instructions: you may followup your PCP in one to two weeks. Should your symptoms return or worsen, you may present ER or call 911 for help. No Smoking: If you smoke, Please STOP! Call for help. Follow-up with: Darren Elmore PA-C [Primary Care Provider] -
--- NOTE | 2018-12-07 10:24 | Discharge Plan ---
Discharge Plan Problem Reviewed?: Yes Disposition: Home, Self Care Condition: Stable Prescriptions: predniSONE [Deltasone] 20 mg PO [id number] #21 tab Diet: Regular Activity Restrictions: Activity as Tolerated Shower Restrictions: No (fall precaution) Instruction Topics: Prednisone tablets Health Concerns: asthma Plan of Treatment: You were given IV of steroid, your asthma exacerbation was quickly controlled. you are prescribed Prednisone 10 days wane off dosage, please followup your PCP continue manage your medical problems. Care Goals: stabilization and improvement of your medical conditions Assessment: assessment as the above Additional Instructions or Follow Up instructions: you may followup your PCP in one to two weeks. Should your symptoms return or worsen, you may present ER or call 911 for help. No Smoking: If you smoke, Please STOP! Call for help. Follow-up with: Darren Elmore PA-C [Primary Care Provider] -
--- NOTE | 2018-12-07 10:38 | DISCHARGE SUMMARY ---
Discharge Summary Admit Date: 12/06/18 Discharge Date: 12/07/18 Discharging Provider: DOTY Primary Care Provider: Dr. Elmore [place] Condition at Discharge: Stable Discharge Disposition: 01 Home, Self Care Discharge Facility Name: home - DIAGNOSES Admission Diagnoses: (1) Asthma exacerbation (2) Shortness of breath (3) Chronic a-fib (4) Pacemaker (5) HTN (hypertension) (6) Morbid obesity (7) Anxiety Discharge Diagnoses with Status of Each Condition: 1) Asthma exacerbation resolved. after treatment, pt denies SOB and wheezing. pt had 95-100 sats on room air. pt is prescribed prednisone wane off dosage (2) Shortness of breath resolved (3) Chronic a-fib stable (4) Pacemaker stable (5) HTN (hypertension) stable (6) Morbid obesity advise pt loss of weight (7) Anxiety stable - HPI History of Present Illness: Ms Harrell is a 43-yrs old female with a PMH significant for Asthma, Afib with coumadin, status post pacemaker in 2011 for sick sinus syndrome, morbid obesity, obstructive sleep apnea, HTN, depression, anxiety, who present ER complain of sh ortness of breath. pt report she developed her symptoms about 5 days ago. she had hx of Asthma. she visited this ER. pt was prescribed Steroids and albuterol inhaler. She report her symptoms does not improve instead of worsening. she report she had more cough and shortness of breath special when she lays flat. ER provider report pt had no improvement of significant wheezing with shortness of breath after she had initial treatment in ER, and pt failed out-pt treatment. she denies fever, chill, chest pain, or hx of heart failure. CXR reveals unremarkable. pt is admitted in observation unit for further medical management. - HOSPITAL COURSE Hospital Course: pt was admitted for asthma exacerbation with shortness of breath. pt was treated with IV of steroid and breath treatment. pt's symptom was quickly resolved. pt denies any more shortness of breath, wheezing is controlled. pt had 95-100 sats of O2 on room air. the detail hospital course is as the below 1) Asthma exacerbation resolved. after treatment, pt denies SOB and wheezing. pt had 95-100 sats of O2 on room air. pt is prescribed prednisone wane off dosage (2) Shortness of breath resolved (3) Chronic a-fib stable (4) Pacemaker stable (5) HTN (hypertension) stable (6) Morbid obesity advise pt loss of weight (7) Anxiety stable - ALLERGIES Allergies/Adverse Reactions: Allergies Allergy/AdvReac Type Severity Reaction Status Date / Time levofloxacin [From Levaquin] Allergy Severe Hives Verified 12/06/18 09:06 meperidine HCl * Allergy Severe Hives Verified 12/06/18 09:06 [From Demerol] hydrocodone [Hydrocodone] Allergy Intermediate Itching Verified 12/06/18 09:06 codeine Allergy Rash Verified 12/06/18 09:06 hydrocodone bitartrate * Allergy Itching Verified 12/06/18 09:06 [From Vicodin] tramadol Allergy Rash Verified 12/06/18 09:06 methylprednisolone sodium AdvReac Anxiety Verified 12/06/18 09:06 succ... * [From Solu-Medrol] bees Allergy Anaphylaxis Uncoded 11/28/18 19:06 - MEDICATIONS Home Medications: Ambulatory Orders Medication Instructions Recorded Confirmed hydroCHLOROthiazide 25 mg PO DAILY 02/28/14 12/06/18 [Hydrochlorothiazide] Prazosin [Minipress] 4 mg PO QPM 03/17/15 12/06/18 Propafenone [Rythmol] 150 mg PO Q8H 03/17/15 12/06/18 Citalopram Hydrobromide 40 mg PO DAILY 03/13/16 12/06/18 [Citalopram HBr] Omeprazole [PriLOSEC] 20 mg PO BID 03/13/16 12/06/18 Metoprolol Tartrate 75 mg PO BID 05/06/16 12/06/18 ARIPiprazole [Abilify] 5 mg PO DAILY 10/02/16 12/06/18 Alprazolam [Xanax] 1 mg PO BID PRN #20 tablet 06/16/18 12/06/18 Albuterol Sulf [Ventolin Hfa 1 - 2 puffs INH Q4HR PRN #1 inhaler 11/28/18 12/06/18 Inhaler] Hydroxyzine Pamoate [Vistaril] 100 mg PO TID 12/06/18 12/06/18 Oxycodone HCl/Acetaminophen 1 each PO Q6H PRN 12/06/18 12/06/18 [Percocet 5-325 mg Tablet] Warfarin [Coumadin] 3.5 mg PO UD 12/06/18 12/06/18 Warfarin [Coumadin] 7 mg PO UD 12/06/18 12/06/18 predniSONE [Deltasone] 20 mg PO [id number] #21 tab 12/07/18 - PHYSICAL EXAM AT DISCHARGE General Appearance: positive: No acute distress, Alert. negative: Lethargic Eyes Bilateral: positive: Normal inspection, PERRL, No lid inflammation, Conjunctivae nml ENT: positive: ENT inspection nml, Pharynx nml, No signs of dehydration. negative: Purulent nasal drainage, Pharyngeal erythema, Oral lesions Neck: positive: Nml inspection, Thyroid nml, No JVD, Trachea midline. negative: Thyromegaly, Lymphadenopathy (R), Lymphadenopathy (L), Stiff neck, Swelling/bruising, Tracheal deviation Respiratory: positive: Chest non-tender, No respiratory distress. negative: Wheezes, Rales, Rhonchi Cardiovascular: positive: Regular rate & rhythm, No murmur, No gallop. negat donavan: Irregularly irregular, Extrasystoles, Tachycardia, Bradycardia, JVD present, Systolic murmur, Diastolic murmur Peripheral Pulses: positive: 2+ Abdomen: positive: Non-tender, No organomegaly, Nml bowel sounds, No distention. negative: Tenderness, Guarding, Rebound Back: positive: Nml inspection. negative: CVA tenderness (R), CVA tenderness (L) Skin: positive: Color nml, No rash, Warm, Dry. negative: Cyanosis, Diaphoresis, Pallor Extremities: positive: Non-tender, Full ROM, Nml appearance. negative: Calf tenderness, Joint swelling, Greta's sign/cords Neurologic/Psychiatric: positive: Oriented x3, Motor nml, Sensation nml, Mood/affect nml. negative: Weakness, Sensory loss, Facial droop, Slurred/abnml speech, Depressed mood/affect - LABS Result Diagrams: 12/07/18 05:30 12/07/18 05:30 - SEPSIS Current Stage of Sepsis: Ruled out - FOLLOW UP Follow Up: You were given IV of steroid, your asthma exacerbation was quickly controlled. you are prescribed Prednisone 10 days wane off dosage, please followup your PCP continue manage your medical problems. you may followup your PCP in one to two weeks. Should your symptoms return or worsen, you may present ER or call 911 for help. - TIME SPENT Time Spent in Discharge (Minutes): 45
[2018-12-07] MEDS: METOPROLOL TARTRATE 50 MG TABLET PO SCH (10:43)
[2018-12-07] MEDS: guaiFENesin 600 MG TABLET PO SCH (10:45)
[2018-12-07] MEDS: FAMOTIDINE 20 MG TABLET PO SCH (10:45)
[2018-12-07] MEDS ORDERED: WARFARIN 5 MG TABLET PO SCH (16:15)
[2018-12-07] MEDS ORDERED: WARFARIN 1 MG TABLET PO SCH (16:16)
== END 2018-12-07 12:05 | disposition home or self-care (01) ==
LOC: ED 08:58 → MS2 14:05
PROVIDERS: ADMIT Nurse Practitioner Gerontology; ATTEND Nurse Practitioner Gerontology
DX: J45.21 Mild intermittent asthma with (acute) exacerbation (principal); I10 Essential (primary) hypertension; I48.20 Chronic atrial fibrillation, unspecified; I49.5 Sick sinus syndrome; E66.01 Morbid (severe) obesity due to excess calories; G47.33 Obstructive sleep apnea (adult) (pediatric); F41.0 Panic disorder [episodic paroxysmal anxiety]; F32.9 Major depressive disorder, single episode, unspecified; K21.9 Gastro-esophageal reflux disease without esophagitis; Z87.01 Personal history of pneumonia (recurrent); Z95.0 Presence of cardiac pacemaker; Z79.899 Other long term (current) drug therapy; Z79.01 Long term (current) use of anticoagulants; Z68.41 Body mass index [BMI] 40.0-44.9, adult; Z98.84 Bariatric surgery status
CPT/HCPCS: 36415; 71046; 80053; 82803; 83690; 83880; 84484; 84703; 85025; 85610; 93005; 94640; 96372; 96374; 96375; 96376; 99284; 99285; A9270; G0378; J1650; J2060; J7512; J7626; J8499

== ENCOUNTER 2019-01-28 10:05 | Outpatient (CLI) | payer MEDICAID | END 2019-01-28 23:59 | disposition home or self-care (01) | LOC: LAB.N 10:05 | PROVIDERS: ATTEND Physician Assistant Medical | DX: Z79.01 Long term (current) use of anticoagulants (principal) | CPT/HCPCS: 85610 ==

== ENCOUNTER 2019-02-18 08:48 | Outpatient (CLI) | payer MEDICAID | END 2019-02-18 23:59 | disposition home or self-care (01) | LOC: LAB.N 08:48 | PROVIDERS: ATTEND Physician Assistant Medical | DX: Z79.01 Long term (current) use of anticoagulants (principal) | CPT/HCPCS: 85610 ==

== ENCOUNTER 2019-02-21 08:52 | Outpatient (CLI) | payer MEDICAID | END 2019-02-21 23:59 | disposition home or self-care (01) | LOC: LAB.N 08:52 | PROVIDERS: ATTEND Physician Assistant Medical | DX: Z79.01 Long term (current) use of anticoagulants (principal) | CPT/HCPCS: 85610 ==

== ENCOUNTER 2019-03-05 09:08 | Outpatient (CLI) | payer MEDICAID ==
--- NOTE | 2019-03-05 14:38 | XRAY Report ---
Reason: PAIN IN RIGHT SHOULDER Procedure Date: 03/05/2019 Accession Number: [id number] / [id number] Procedure: XRN - Shoulder 3 View RT CPT Code: Final Report FULL RESULT: EXAM: RIGHT SHOULDER RADIOGRAPHY EXAM DATE: 03/05/2019 09:33 AM. CLINICAL HISTORY: Pain in right shoulder. COMPARISON: CHEST 2 VIEW 12/06/2018 9:39 AM. SHOULDER 3 VIEW RT 02/20/2017 4:47 PM. TECHNIQUE: 3 views. FINDINGS: The Y-view is suboptimal. Bones: Normal. No fracture or bone lesion. 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 Glenohumeral joint is likely normally located, limited in assessment due to the suboptimal Y-view. Soft tissues: The visualized hemithorax is unremarkable. No soft tissue swelling. 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 An axillary view could be obtained for further characterization which would also clarify the glenohumeral relationship. RADIA
== END 2019-03-05 09:09 | disposition home or self-care (01) ==
LOC: DI.N 09:08
PROVIDERS: ATTEND Physician Assistant Medical
DX: M19.011 Primary osteoarthritis, right shoulder (principal)

== ENCOUNTER 2019-04-10 08:44 | Emergency (ER) | payer MEDICAID ==
--- NOTE | 2019-04-10 09:14 | ED Physician Documentation ---
History of Present Illness - Stated complaint Stated Complaint: FEMALE - Chief complaint Chief Complaint: UTI - History obtained from History obtained from: Patient (44-year-old female with multiple medical history including pacemaker for sick sinus syndrome, atrial fibrillation, TIA, gastric bypass surgery, anticoagulation on Coumadin last INR 1.6, presented to the emergency room with hematuria for last 2 days. Has not been improving. There is generalized abdominal discomfort and tenderness to the flank. No fever no chill. No nausea no vomiting. Alert and oriented x3.She normally takes 7.0 mg of Coumadin x4 days and 3.5 mg of Coumadin the rest of 3 days. Last INR check was 1.6, she is in the process of titrating it up.) - History of Present Illness Timing: How many days ago (2) Review of Systems Ten Systems: 10 systems reviewed and negative Constitutional: reports: Reviewed and negative Eyes: reports: Reviewed and negative Ears: reports: Reviewed and negative Nose: reports: Reviewed and negative Throat: reports: Reviewed and negative Cardiac: reports: Reviewed and negative Respiratory: reports: Reviewed and negative GI: reports: Reviewed and negative : reports: Hematuria Skin: reports: Reviewed and negative Musculoskeletal: reports: Reviewed and negative Neurologic: reports: Reviewed and negative Psychiatric: reports: Reviewed and negative Endocrine: reports: Reviewed and negative Immunocompromised: reports: Reviewed and negative PD PAST MEDICAL HISTORY - Past Medical History Cardiovascular: Hypertension, High cholesterol, Atrial fibrillation, Other Respiratory: Asthma, Shortness of breath, Sleep apnea, Pneumonia Endocrine/Autoimmune: None GI: GERD PAPER FINAL INSPECTOR: None : Incontinence HEENT: None Psych: Depression, Anxiety, Panic attacks, Post traumatic stress disorder, Claustrophobia Musculoskeletal: Osteoarthritis Derm: None - Past Surgical History Past Surgical History: Yes General: Gastric surgery, Other Ortho: Knee replacement, Carpal Tunnel surgery /PAPER FINAL INSPECTOR: Dilation and currettage, Tubal ligation Cardiovascular: Pacemaker - Present Medications Home Medications: Ambulatory Orders Medication Instructions Recorded Confirmed hydroCHLOROthiazide 25 mg PO DAILY 02/28/14 12/06/18 [Hydrochlorothiazide] Prazosin [Minipress] 4 mg PO QPM 03/17/15 12/06/18 Propafenone [Rythmol] 150 mg PO Q8H 03/17/15 12/06/18 Citalopram Hydrobromide 40 mg PO DAILY 03/13/16 12/06/18 [Citalopram HBr] Omeprazole [PriLOSEC] 20 mg PO BID 03/13/16 12/06/18 Metoprolol Tartrate 75 mg PO BID 05/06/16 12/06/18 ARIPiprazole [Abilify] 5 mg PO DAILY 10/02/16 12/06/18 Alprazolam [Xanax] 1 mg PO BID PRN #20 tablet 06/16/18 12/06/18 Albuterol Sulf [Ventolin Hfa 1 - 2 puffs INH Q4HR PRN #1 inhaler 11/28/18 12/06/18 Inhaler] Hydroxyzine Pamoate [Vistaril] 100 mg PO TID 12/06/18 12/06/18 Oxycodone HCl/Acetaminophen 1 each PO Q6H PRN 12/06/18 12/06/18 [Percocet 5-325 mg Tablet] Warfarin [Coumadin] 3.5 mg PO UD 12/06/18 12/06/18 Warfarin [Coumadin] 7 mg PO UD 12/06/18 12/06/18 predniSONE [Deltasone] 20 mg PO [id number] #21 tab 12/07/18 Nitrofurantoin Monohyd/M-Cryst 100 mg PO BID #14 capsule 04/10/19 [Macrobid 100 mg Capsule] - Allergies Allergies/Adverse Reactions: Allergies Allergy/AdvReac Type Severity Reaction Status Date / Time levofloxacin [From Levaquin] Allergy Severe Hives Verified 04/10/19 08:47 meperidine HCl * Allergy Severe Hives Verified 04/10/19 08:47 [From Demerol] hydrocodone [Hydrocodone] Allergy Intermediate Itching Verified 04/10/19 08:47 codeine Allergy Rash Verified 04/10/19 08:47 hydrocodone bitartrate * Allergy Itching Verified 04/10/19 08:47 [From Vicodin] tramadol Allergy Rash Verified 04/10/19 08:47 methylprednisolone sodium AdvReac Anxiety Verified 04/10/19 08:47 succ... * [From Solu-Medrol] bees Allergy Anaphylaxis Uncoded 11/28/18 19:06 - Social History Does the pt smoke?: No Smoking Status: Never smoker Does the pt drink ETOH?: Yes Does the pt have substance abuse?: No - Immunizations Immunizations are current?: No Immunizations: TDAP >10years/unknown - POLST Patient has POLST: No POLST Status: Full Code PD ED PE NORMAL - Vitals Vital signs reviewed: Yes - General General: Alert and oriented X 3, No acute distress - HEENT HEENT: PERRL - Neck Neck: Supple, no meningeal sign - Cardiac Cardiac: RRR, No murmur - Respiratory Respiratory: Clear bilaterally - Abdomen Abdomen: Normal bowel sounds, Soft, Non distended, Other (Generalized discomfort or) - Back Back: Other (Bilateral CVA discomfort) - Derm Derm: Warm and dry - Extremities Extremities: No deformity - Neuro Neuro: Alert and oriented X 3 Eye Opening: Spontaneous Motor: Obeys Commands Verbal: Oriented GCS Score: 15 - Psych Psych: Normal mood, Normal affect Results - Vitals Vitals: Vital Signs - 24 hr 04/10/19 04/10/19 08:47 11:30 Temperature 37 C Heart Rate 56 L 65 Respiratory 16 18 Rate Blood Pressure 125/89 H 127/76 O2 Saturation 100 100 Oxygen O2 Source Room air - Labs Labs: Laboratory Tests 04/10/19 04/10/19 09:00 09:40 PT 13.8 H INR 1.2 Urine Color YELLOW Urine Clarity CLOUDY Urine pH 7.5 Ur Specific [place] 1.020 Urine Protein 30 H Urine Glucose (UA) NEGATIVE Urine Ketones NEGATIVE Urine Occult Blood LARGE H Urine Nitrite NEGATIVE Urine Bilirubin NEGATIVE Urine Urobilinogen 0.2 (NORMAL) Ur Leukocyte Esterase SMALL H Urine RBC TNTC H Urine WBC >25 H Ur Squamous Epith Cells MANY Squamous H Amorphous Sediment Few Urine Bacteria Many H Urine Mucus Few Strands Ur Microscopic Review INDICATED Urine Culture Comments NOT INDICATED Documented - Rads (name of study) No standard instances Radiology: Final report received (CT KUB abdomen and pelvis shows no evidence of nephrolithiasis, no hydronephrosis, internal organ appear normal, no retroperitoneal bleed) PD MEDICAL DECISION MAKING - ED course Complexity details: d/w patient ED course: Patient with multiple medical history including anticoagulation, on Coumadin, chronic atrial fibrillation, pacemaker, history of TIA, presented to the emergency room with bilateral flank pain and hematuria. She is in the process of titrating Coumadin because her last INR was only 1.6. Initial diagnosis may include hematuria secondary to anticoagulation, renal calculi, bleeding from the KUB system, cystitis, Patient is reassessed at 11 AM, CT result was disclosed, urinalysis does show evidence of too numerous to count red blood cell. Her INR level is 1.2. At this level even though there is a slight chance of bleeding In the bladder is unlikely. The hematuria with elevated leukocytosis may be secondary to cystitis. Patient will be treated for it and asked to follow with, care doctor in 7 days for repeat urinalysis with test of cure.She agree with this approach. She will be given prescription of macrobid bid for 7 days. Departure - Departure Disposition: 01 Home, Self Care Clinical Impression: Cystitis Hematuria Qualifiers: Hematuria type: unspecified type Qualified Code(s): R31.9 - Hematuria, unspecified Condition: Stable Instructions: Hematuria, ED UTI Cystitis Female Follow-Up: Darren Elmore PA-C [Primary Care Provider] - Prescriptions: Nitrofurantoin Monohyd/M-Cryst [Macrobid 100 mg Capsule] 100 mg PO BID #14 capsule Comments: You be treated as cystitis and please follow-up with your primary care doctor in 7 days for repeat urinalysis for test of cure. Continue monitoring the amount of blood in the urine. INR level is 1.2 today. This is still subtherapeutic. Please contact your primary care doctor for further adjustment of your Coumadin level. Discharge Date/Time: 04/10/19 11:31
[2019-04-10 09:15] LABS: BILIRUBIN,URINE NEGATIVE (NEGATIVE); GLUCOSE, URINE (UA) NEGATIVE (NEGATIVE); KETONES,URINE (UA) NEGATIVE (NEGATIVE); LEUKOCYTE ESTERASE, URINE SMALL (NEGATIVE); NITRITE,URINE NEGATIVE (NEGATIVE); OCCULT BLOOD,URINE LARGE (NEGATIVE); PH,URINE 7.5 PH (5.0-7.5); PROTEIN,URINE 30 mg/dL (NEGATIVE); UROBILINOGEN,URINE 0.2 (NORMAL) E.U./dL (NORMAL)
[2019-04-10 09:18] LABS: CLARITY,URINE CLOUDY (CLEAR)
[2019-04-10 09:34] LABS: AMORPHOUS SEDIMENT,UR Few /LPF; BACTERIA,URINE Many /HPF (None Seen); MUCUS,URINE Few Strands; RBC,URINE TNTC /HPF (0-5); SQUAMOUS EPITHELIAL CELL,UR MANY Squamous (<= Few)
[2019-04-10 10:06] LABS: INR 1.2 (0.8-1.2); PT - PROTHROMBIN TIME 13.8 secs (9.9-12.6)
--- NOTE | 2019-04-10 10:59 | CT Report ---
Reason: hematuria Procedure Date: 04/10/2019 Accession Number: [id number] / [id number] Procedure: CT - Abdomen/Pelvis WO CPT Code: Final Report FULL RESULT: EXAM: CT ABDOMEN AND PELVIS (CT KUB) EXAM DATE: 04/10/2019 10:17 AM. CLINICAL HISTORY: Hematuria. COMPARISONS: ABDOMEN/PELVIS W/O 09/21/2017 2:30 PM. TECHNIQUE: Routine axial helical CT imaging was performed through the abdomen and pelvis without IV contrast. Reconstructions: Coronal and sagittal. In accordance with CT protocol optimization, one or more of the following dose reduction techniques were utilized for this exam: automated exposure control, adjustment of mA and/or KV based on patient size, or use of iterative reconstructive technique. FINDINGS: Lung Bases: Unremarkable. Right Kidney/Ureter: No stones, hydronephrosis, or hydroureter. No perinephric fat stranding. Left Kidney/Ureter: No stones, hydronephrosis, or hydroureter. No perinephric fat stranding. Other Solid Organs: Noncontrast images of the solid organs are grossly unremarkable. Gallbladder/Bile Ducts: Unremarkable. Peritoneal Cavity: The appendix is normal in appearance. There are no dilated loops of bowel to suggest the presence of an obstruction. There is no evidence of diverticulosis or diverticulitis. Pelvic Organs: No bladder stones. No mass or cyst is seen within the pelvis. There is no periaortic or pelvic lymphadenopathy. Vasculature: There is atherosclerosis of the iliac arteries. IMPRESSION: No evidence of nephrolithiasis or hydronephrosis. Atherosclerosis of the iliac arteries. RADIA
[2019-04-10 11:31] VITALS: BP 127/76
== END 2019-04-10 11:31 | disposition home or self-care (01) ==
LOC: ED 08:44
DX: N30.91 Cystitis, unspecified with hematuria (principal); I48.20 Chronic atrial fibrillation, unspecified; Z79.01 Long term (current) use of anticoagulants; I10 Essential (primary) hypertension; Z86.73 Personal history of transient ischemic attack (TIA), and cerebral infarction without residual deficits; Z95.0 Presence of cardiac pacemaker; Z98.84 Bariatric surgery status
CPT/HCPCS: 36415; 74176; 81001; 81003; 85610; 87086; 99284

== ENCOUNTER 2019-05-16 08:00 | Outpatient (CLI) | payer MEDICAID | END 2019-05-16 23:59 | disposition home or self-care (01) | LOC: LAB.N 08:00 | PROVIDERS: ATTEND Physician Assistant Medical | DX: Z79.01 Long term (current) use of anticoagulants (principal) | CPT/HCPCS: 85610 ==